=== PATIENT | female | born 1955 | race Caucasian/White ===

== ENCOUNTER 2017-08-26 11:22 | Emergency (ER) | payer OTHER ==
--- NOTE | 2017-08-26 13:25 | ER ---
Nurse's Notes [facility] Name: Makenna Ferrari Age: 61 yrs Sex: Female : 1955 Arrival Date: 08/26/2017 Time: 11:26 Bed 12 Private MD: Gretta Larkin Diagnosis: Insect bite (nonvenomous) of left back wall of thorax;Nausea Presentation: 08/26 11:35 Presenting complaint: Patient states: i was bitten by carpet beetle and larvae, i hj noticed 2 days ago; reports chills and nausea;. Transition of care: patient was not received from another setting of care. Onset of symptoms was August 26, 2017. Initial Sepsis Screen: Does the patient meet any 2 criteria? No. Patient's initial sepsis screen is negative. Does the patient have a suspected source of infection? No. Patient's initial sepsis screen is negative. Care prior to arrival: None. 11:35 Method Of Arrival: Ambulatory 11:35 Acuity: SALLY 4 hj Triage Assessment: 11:37 General: Appears in no apparent distress. uncomfortable, Behavior is calm, cooperative, hj appropriate for age. Pain: Denies pain. GI: Reports nausea. Historical: - Allergies: 11:37 Aspirin; hj 11:37 Codeine; hj 11:37 tramadol; hj - Home Meds: 11:37 benzonatate 100 mg Oral cap 1 cap 3 times per day [Active]; OxyContin 60 mg Oral Tb12 1 hj tab every 12 hours [Active]; ProAir HFA 90 mcg/actuation inhalation HFAA 1 puff every 4-6 hours [Active]; Spiriva Respimat 2.5 mcg/actuation inhalation mist 2 puffs once daily [Active]; - PMHx: 11:37 COPD; Renal Disease; hj - PSHx: 11:37 Appendectomy; Hysterectomy; hj - Immunization history:: Adult Immunizations up to date. - Social history:: Smoking status: Patient/guardian denies using tobacco, Patient/guardian denies using alcohol. Screenin:13 Abuse screen: Denies threats or abuse. Denies injuries from another. Nutritional iw screening: No deficits noted. Tuberculosis screening: No symptoms or risk factors identified. Fall Risk None identified. Assessment: 11:37 GI: Abdomen is non-distended. hj 13:00 General: Appears in no apparent distress. Behavior is calm, cooperative. Pain: iw Complains of pain in back. Neuro: Level of Consciousness is awake, alert, Oriented to person, place, time. Derm: Rash noted that is itchy. Musculoskeletal: Range of motion: intact in all extremities. Vital Signs: 11:37 BP 148 / 100; Pulse 79; Resp 20; Temp 98.4(TE); Pulse Ox 100% on 2 lpm NC; Weight 66.68 hj kg; Height 5 ft. 6 in. (167.64 cm); 11:37 Body Mass Index 23.73 (66.68 kg, 167.64 cm) ED Course: 11:26 Patient arrived in ED. mr 11:27 Gretta Larkin MD is Private Physician. mr 11:36 Triage completed. hj 11:37 Arm band placed on right wrist. hj 12:31 Angie Son, RN is Primary Nurse. iw 12:33 Gael Ferrari MD is Attending Physician. [facility] 13:23 Gretta Larkin MD is Referral Physician. [facility] 14:14 Patient has correct armband on for positive identification. Bed in low position. Call iw light in reach. 14:14 No provider procedures requiring assistance completed. Patient did not have IV access iw during this emergency room visit. Administered Medications: 13:30 Drug: Doxycycline 100 mg Route: PO; hj 14:14 Follow up: Response: No adverse reaction iw Outcome: 13:24 Discharge ordered by . [facility] 14:13 Patient left the ED. iw 14:14 Discharged to home ambulatory, with family. iw 14:14 Condition: stable 14:14 Discharge instructions given to patient, family, Instructed on discharge instructions, follow up and referral plans. medication usage, Demonstrated understanding of instructions, follow-up care, medications, Prescriptions given X 3. Signatures: Gael Ferrari MD MD cha Rivera, Maria mr Angie Son, RN RN Ld Doss RN RN
--- NOTE | 2017-08-26 13:25 | EDPHYS ---
Physician Documentation [facility] Name: Makenna Ferrari Age: 61 yrs Sex: Female : 1955 Arrival Date: 08/26/2017 Time: 11:26 Bed 12 Private MD: Gretta Larkin ED Physician VegaGael HPI: 08/26 13:18 This 61 yrs old Female presents to ER via Ambulatory with complaints of nav Nausea, Insect Bite. 13:18 The patient presents to the emergency department with nausea. Onset: The nav symptoms/episode began/occurred 2 day(s) ago. Possible causes: unknown. The symptoms are aggravated by nothing. The symptoms are alleviated by nothing. Historical: - Allergies: 11:37 Aspirin; hj 11:37 Codeine; hj 11:37 tramadol; hj - Home Meds: 11:37 benzonatate 100 mg Oral cap 1 cap 3 times per day [Active]; OxyContin 60 mg Oral Tb12 1 hj tab every 12 hours [Active]; ProAir HFA 90 mcg/actuation inhalation HFAA 1 puff every 4-6 hours [Active]; Spiriva Respimat 2.5 mcg/actuation inhalation mist 2 puffs once daily [Active]; - PMHx: 11:37 COPD; Renal Disease; hj - PSHx: 11:37 Appendectomy; Hysterectomy; hj - Immunization history:: Adult Immunizations up to date. - Social history:: Smoking status: Patient/guardian denies using tobacco, Patient/guardian denies using alcohol. ROS: 13:20 Constitutional: Negative for fever, chills, and weight loss, Eyes: Negative for injury, nav pain, redness, and discharge, ENT: Negative for injury, pain, and discharge, Neck: Negative for injury, pain, and swelling, Cardiovascular: Negative for chest pain, palpitations, and edema, Respiratory: Negative for shortness of breath, cough, wheezing, and pleuritic chest pain, Abdomen/GI: Negative for abdominal pain, nausea, vomiting, diarrhea, and constipation, Back: Negative for injury and pain, : Negative for injury, bleeding, discharge, and swelling, MS/Extremity: Negative for injury and deformity, Neuro: Negative for headache, weakness, numbness, tingling, and seizure, Psych: Negative for depression, anxiety, suicide ideation, homicidal ideation, and hallucinations, Allergy/Immunology: Negative for hives, rash, and allergies, Endocrine: Negative for neck swelling, polydipsia, polyuria, polyphagia, and marked weight changes, Hematologic/Lymphatic: Negative for swollen nodes, abnormal bleeding, and unusual bruising. 13:20 Skin: Positive for rash. Exam: 13:20 Constitutional: This is a well developed, well nourished patient who is awake, alert, nav and in no acute distress. Head/Face: Normocephalic, atraumatic. Eyes: Pupils equal round and reactive to light, extra-ocular motions intact. Lids and lashes normal. Conjunctiva and sclera are non-icteric and not injected. Cornea within normal limits. Periorbital areas with no swelling, redness, or edema. ENT: Nares patent. No nasal discharge, no septal abnormalities noted. Tympanic membranes are normal and external auditory canals are clear. Oropharynx with no redness, swelling, or masses, exudates, or evidence of obstruction, uvula midline. Mucous membranes moist. Neck: Trachea midline, no thyromegaly or masses palpated, and no cervical lymphadenopathy. Supple, full range of motion without nuchal rigidity, or vertebral point tenderness. No Meningismus. Chest/axilla: Normal chest wall appearance and motion. Nontender with no deformity. No lesions are appreciated. Cardiovascular: Regular rate and rhythm with a normal S1 and S2. No gallops, murmurs, or rubs. Normal PMI, no JVD. No pulse deficits. Respiratory: Lungs have equal breath sounds bilaterally, clear to auscultation and percussion. No rales, rhonchi or wheezes noted. No increased work of breathing, no retractions or nasal flaring. Abdomen/GI: Soft, non-tender, with normal bowel sounds. No distension or tympany. No guarding or rebound. No evidence of tenderness throughout. Back: No spinal tenderness. No costovertebral tenderness. Full range of motion. Female : Normal external genitalia. MS/ Extremity: Pulses equal, no cyanosis. Neurovascular intact. Full, normal range of motion. Neuro: Awake and alert, GCS 15, oriented to person, place, time, and situation. Cranial nerves II-XII grossly intact. Motor strength 5/5 in all extremities. Sensory grossly intact. Cerebellar exam normal. Normal gait. Psych: Awake, alert, with orientation to person, place and time. Behavior, mood, and affect are within normal limits. 13:20 Skin: injury, bite(s), superficial. Vital Signs: 11:37 BP 148 / 100; Pulse 79; Resp 20; Temp 98.4(TE); Pulse Ox 100% on 2 lpm NC; Weight 66.68 hj kg; Height 5 ft. 6 in. (167.64 cm); 11:37 Body Mass Index 23.73 (66.68 kg, 167.64 cm) MDM: 12:33 Patient medically screened. [facility] 13:23 Data reviewed: vital signs, nurses notes. [facility] Administered Medications: 13:30 Drug: Doxycycline 100 mg Route: PO; 14:14 Follow up: Response: No adverse reaction iw Disposition: 08/26/17 13:24 Discharged to Home. Impression: Insect bite (nonvenomous) of left back wall of thorax, Nausea. - Condition is Stable. - Discharge Instructions: Insect Bite, [id number], Insect Bite, Nausea, Adult. - Prescriptions for Benadryl 25 mg Oral Capsule - take 1 capsule by ORAL route every 6 hours As needed; 30 tablet. Zofran 4 mg Oral Tablet - take 1 tablet by ORAL route every 12 hours As needed; 10 tablet. Doxycycline Hyclate 100 mg Oral Tablet - take 1 tablet by ORAL route every 12 hours; 14 tablet. - Medication Reconciliation Form, Thank You Letter, Antibiotic Education, Prescription Opioid Use form. - Follow up: Gretta Larkin MD; When: 2 - 3 days; Reason: Recheck today's complaints, Continuance of care, Re-evaluation by your physician. - Problem is new. - Symptoms have improved. Signatures: Gael Ferrari MD MD cha Williams, Irene, RN RN Ld Doss RN RN Corrections: (The following items were deleted from the chart) 14:13 13:24 08/26/2017 13:24 Discharged to Home. Impression: Insect bite (nonvenomous) of iw left back wall of thorax; Nausea. Condition is Stable. Forms are Medication Reconciliation Form, Thank You Letter, Antibiotic Education, Prescription Opioid Use. Follow up: Gretta Larkin; When: 2 - 3 days; Reason: Recheck today's complaints, Continuance of care, Re-evaluation by your physician. Problem is new. Symptoms have improved. nav
[2017-08-26] MEDS ORDERED: DOXYCYCLINE 100 MG CAP PO ONE (13:33)
== END 2017-08-26 14:13 | disposition home or self-care (01) ==
LOC: ER 11:22
DX: S20.462A Insect bite (nonvenomous) of left back wall of thorax, initial encounter (principal); J44.9 Chronic obstructive pulmonary disease, unspecified; Z88.5 Allergy status to narcotic agent; Z88.6 Allergy status to analgesic agent
CPT/HCPCS: 99283

== ENCOUNTER 2017-12-08 15:41 | Emergency (ER) | payer OTHER ==
[2017-12-08] MEDS ORDERED: HYDROCODONE/APAP 7.5/325 MG TAB ONE (16:37)
--- NOTE | 2017-12-08 17:03 | RAD REPORT ---
EXAM DESCRIPTION: RAD - Lumbar Spine 3 Views - 12/08/2017 4:50 pm CLINICAL HISTORY: Back pain FINDINGS: The bones are osteoporotic. No fracture or dislocation is seen. Moderate disc space narrowing involves L4-5 and L5-S1
--- NOTE | 2017-12-08 17:04 | RAD REPORT ---
EXAM DESCRIPTION: RAD - Knee Right 3 View - 12/08/2017 4:50 pm CLINICAL HISTORY: Right knee pain status post fall FINDINGS: No fracture or dislocation is seen. The bones are osteoporotic
--- NOTE | 2017-12-08 17:09 | EDPHYS ---
Physician Documentation [facility] Name: Makenna Ferrari Age: 62 yrs Sex: Female : 1955 Arrival Date: 12/08/2017 Time: 15:27 Bed 27 Private MD: ED Physician Delio Dickinson HPI: 12/08 15:52 This 62 yrs old Female presents to ER via EMS with complaints of Back Pain, cp Knee Pain. 15:52 The patient presents with pain that is acute, and an injury. The symptoms are located cp in the low back. 15:55 Associated signs and symptoms: Pertinent negatives: abdominal pain, chest pain, cp constipation, fever, headache, incontinence, numbness, weakness. 15:55 The problem was sustained during a fall, patient reports fall occurred 10 days ago at home, went to [facility] and was evaluated but concerned because xrays were not taken of knee and lower back. Historical: - Allergies: 15:31 Aspirin; ss 15:31 Codeine; ss 15:31 tramadol; ss - Home Meds: 16:21 benzonatate 100 mg Oral cap 1 cap 3 times per day [Active]; OxyContin 60 mg Oral Tb12 1 rv tab every 12 hours [Active]; ProAir HFA 90 mcg/actuation inhalation HFAA 1 puff every 4-6 hours [Active]; Spiriva Respimat 2.5 mcg/actuation inhalation mist 2 puffs once daily [Active]; - PMHx: 15:31 COPD; Renal Disease; Lupus; chronic back pain; ss - PSHx: 15:31 Appendectomy; Hysterectomy; colectomy; ss - Immunization history:: Adult Immunizations up to date. - Social history:: Smoking status: Patient/guardian denies using tobacco. - Ebola Screening: : Patient denies exposure to infectious person Patient denies travel to an Ebola-affected area in the 21 days before illness onset. ROS: 16:00 Constitutional: Negative for body aches, chills, fever, poor PO intake. cp 16:00 Eyes: Negative for injury, pain, redness, and discharge. cp 16:00 Neck: Negative for pain with movement, pain at rest, stiffness. cp 16:00 Cardiovascular: Negative for chest pain, edema, palpitations. 16:00 Respiratory: Negative for cough, shortness of breath, wheezing. 16:00 Abdomen/GI: Negative for abdominal pain, nausea, vomiting, and diarrhea, black/tarry cp stool, rectal bleeding. 16:00 Back: Positive for pain at rest, pain with movement, of the lumbar area. 16:00 MS/extremity: Positive for pain, of the right hip and right knee, Negative for decreased range of motion, deformity, paresthesias. 16:00 Skin: Negative for cellulitis, rash. 16:00 Neuro: Negative for altered mental status, headache, loss of consciousness, syncope, near syncope, weakness. 16:00 All other systems are negative. Exam: 16:05 Constitutional: The patient appears in no acute distress, alert, awake, cp non-diaphoretic, non-toxic, well developed, well nourished. 16:05 Head/Face: Normocephalic, atraumatic. cp 16:05 Eyes: Periorbital structures: appear normal, Conjunctiva: normal, no exudate, no injection, Sclera: no appreciated abnormality, Lids and lashes: appear normal, bilaterally. 16:05 ENT: External ear(s): are unremarkable, Nose: is normal, Mouth: is normal, Posterior pharynx: is normal, airway is patent, no erythema, no exudate. 16:05 Neck: ROM/movement: is normal, is supple, without pain, no range of motions limitations, no meningismus, no nuchal rigidity. 16:05 Chest/axilla: Inspection: normal, Palpation: is normal, no crepitus, no tenderness. 16:05 Cardiovascular: Rate: normal, Rhythm: regular, Edema: is not appreciated, JVD: is not appreciated. 16:05 Respiratory: the patient does not display signs of respiratory distress, Respirations: normal, no use of accessory muscles, no retractions, no splinting, no tachypnea, labored breathing, is not present, Breath sounds: are clear throughout, no decreased breath sounds, no stridor, no wheezing. 16:05 Abdomen/GI: Inspection: abdomen appears normal, Bowel sounds: active, all quadrants, Palpation: abdomen is soft and non-tender, in all quadrants. 16:05 Back: pain, that is moderate, of the lumbar area and right low back, ROM is painful, Straight leg raises: right lower extremity illicits pain. 16:05 Musculoskeletal/extremity: Joints: All joints are normal except the right hip and right knee displays painful range of motion, tenderness. 16:05 Skin: cellulitis, is not appreciated, no rash present. 16:05 Neuro: Orientation: to person, place \T\ time. Mentation: lucid, able to follow commands, Cerebellar function: is grossly normal, Motor: moves all fours, strength is normal, Sensation: no obvious gross deficits. Vital Signs: 15:30 BP 180 / 104; Pulse 87; Resp 20; Temp 98.5(O); Pulse Ox 96% on R/A; Weight 68.04 kg; ss Height 5 ft. 6 in. (167.64 cm); Pain 10/10; 16:56 BP 113 / 73; Pulse 101; Pulse Ox 100% on R/A; rv 15:30 Body Mass Index 24.21 (68.04 kg, 167.64 cm) ss MDM: 15:27 Patient medically screened. cp 16:00 Differential diagnosis: chronic back pain, Fracture spinal injury, Ureterolithiasis cp vertebral fracture, sciatica, knee fracture, hip fracture. 17:07 Data reviewed: vital signs, nurses notes, radiologic studies, plain films. cp 17:07 Test interpretation: by ED physician or midlevel provider: plain radiologic studies. cp Counseling: I had a detailed discussion with the patient and/or guardian regarding: the historical points, exam findings, and any diagnostic results supporting the discharge/admit diagnosis, radiology results, the need for outpatient follow up, a family practitioner, to return to the emergency department if symptoms worsen or persist or if there are any questions or concerns that arise at home. Response to treatment: the patient's symptoms have mildly improved after treatment. 17:07 ED course: VSS. Xrays reviewed and negative for acute fracture. Will discharge to home cp for continued monitoring. 12/08 15:50 Order name: XRAY Lumbar Spine (3 Views); Complete Time: 17:06 cp 12/08 17:06 Interpretation: Report reviewed. cp 12/08 15:50 Order name: XRAY Pelvis; Complete Time: 17:23 cp 12/08 17:23 Interpretation: Report reviewed. cp 12/08 15:50 Order name: XRAY Hip RIGHT 2 view; Complete Time: 17:23 cp 12/08 17:23 Interpretation: Report reviewed. cp 12/08 15:50 Order name: XRAY Knee RIGHT 3 view; Complete Time: 17:06 cp 12/08 17:06 Interpretation: Report reviewed. cp 12/08 17:00 Order name: Crutches; Complete Time: 17:53 cp 12/08 17:00 Order name: Misc. Order: ambulate patient; Complete Time: 17:53 cp Administered Medications: 16:56 Drug: Hydrocodone-Acetaminophen (7.5 mg-325 mg) 1 tabs Route: PO; rv 17:20 Follow up: Response: Pain is unchanged, physician notified rv 17:20 Drug: Flexeril 10 mg Route: PO; rv 17:21 Follow up: Response: Medication administered at discharge. rv 17:20 Drug: fentaNYL (PF) 25 mcg Route: IM; Site: left deltoid; rv 17:21 Follow up: Response: Medication administered at discharge. rv 17:20 Drug: Phenergan 25 mg Route: IM; Site: right deltoid; rv 17:20 Follow up: Response: Medication administered at discharge. rv Disposition: 12/08/17 17:08 Discharged to Home. Impression: Low back pain - s/p fall, Pain in right knee - s/p fall, Pain in right hip - s/p fall. - Condition is Stable. - Discharge Instructions: Back Pain, Adult, Knee Pain, Hip Pain, Back Exercises, [id number]. - Prescriptions for Cyclobenzaprine 10 mg Oral Tablet - take 1 tablet by ORAL route every 8 hours As needed; 20 tablet. - Medication Reconciliation Form, Thank You Letter, Antibiotic Education, Prescription Opioid Use form. - Follow up: Private Physician; When: Tomorrow; Reason: Recheck today's complaints. - Problem is new. - Symptoms have improved. Addendum: 12/11/2017 10:13 Co-signature as Attending Physician, Delio Dickinson MD I agree with the assessment and k dr plan of care. Signatures: Dispatcher [employer] EDMN Delio Dickinson MD MD [facility] Virginia Garland RN RN ss Gael Mensah PA PA cp Rocky Figueroa RN RN rv Corrections: (The following items were deleted from the chart) 12/08 17:54 17:08 12/08/2017 17:08 Discharged to Home. Impression: Low back pain - s/p fall; Pain rv in right knee - s/p fall; Pain in right hip - s/p fall. Condition is Stable. Forms are Medication Reconciliation Form, Thank You Letter, Antibiotic Education, Prescription Opioid Use. Follow up: Private Physician; When: Tomorrow; Reason: Recheck today's complaints. Problem is new. Symptoms have improved. cp
--- NOTE | 2017-12-08 17:09 | ER ---
Nurse's Notes [facility] Name: Makenna Ferrari Age: 62 yrs Sex: Female : 1955 Arrival Date: 12/08/2017 Time: 15:27 Bed 27 Private MD: Diagnosis: Low back pain-s/p fall;Pain in right knee-s/p fall;Pain in right hip-s/p fall Presentation: 12/08 15:28 Presenting complaint: EMS states: fell from standing position 10 days ago, was seen at [facility] and reports that she did not have XRAYs taken. Pain to R hip, R thigh and R hip has been getting increasingly worse over time. Transition of care: patient was not received from another setting of care. Onset of symptoms was November 28, 2017. Risk Assessment: Do you want to hurt yourself or someone else? Patient reports no desire to harm self or others. Initial Sepsis Screen: Does the patient meet any 2 criteria? No. Patient's initial sepsis screen is negative. Does the patient have a suspected source of infection? No. Patient's initial sepsis screen is negative. Care prior to arrival: None. 15:28 Method Of Arrival: EMS: [facility] 15:28 Acuity: SALLY 4 Historical: - Allergies: 15:31 Aspirin; 15:31 Codeine; 15:31 tramadol; - Home Meds: 16:21 benzonatate 100 mg Oral cap 1 cap 3 times per day [Active]; OxyContin 60 mg Oral Tb12 1 rv tab every 12 hours [Active]; ProAir HFA 90 mcg/actuation inhalation HFAA 1 puff every 4-6 hours [Active]; Spiriva Respimat 2.5 mcg/actuation inhalation mist 2 puffs once daily [Active]; - PMHx: 15:31 COPD; Renal Disease; Lupus; chronic back pain; - PSHx: 15:31 Appendectomy; Hysterectomy; colectomy; - Immunization history:: Adult Immunizations up to date. - Social history:: Smoking status: Patient/guardian denies using tobacco. - Ebola Screening: : Patient denies exposure to infectious person Patient denies travel to an Ebola-affected area in the 21 days before illness onset. Screenin:20 Abuse screen: Denies threats or abuse. Denies injuries from another. Nutritional rv screening: No deficits noted. Tuberculosis screening: No symptoms or risk factors identified. Fall Risk None identified. Assessment: 16:00 General: Appears in no apparent distress. uncomfortable, Behavior is cooperative, rv crying. 16:00 Pain: Complains of pain in right knee, right groin, back. Neuro: Level of Consciousness rv is awake, alert, obeys commands, Oriented to person, place, time, situation. Cardiovascular: Capillary refill < 3 seconds. Respiratory: Airway is patent. GI: No signs and/or symptoms were reported involving the gastrointestinal system. : No signs and/or symptoms were reported regarding the genitourinary system. EENT: No signs and/or symptoms were reported regarding the EENT system. Derm: Skin is intact. 16:57 Reassessment: Patient appears in no apparent distress at this time. Patient and/or rv family updated on plan of care and expected duration. Pain level reassessed. Patient is alert, oriented x 3, equal unlabored respirations, skin warm/dry/pink. Vital Signs: 15:30 BP 180 / 104; Pulse 87; Resp 20; Temp 98.5(O); Pulse Ox 96% on R/A; Weight 68.04 kg; ss Height 5 ft. 6 in. (167.64 cm); Pain 10/10; 16:56 BP 113 / 73; Pulse 101; Pulse Ox 100% on R/A; rv 15:30 Body Mass Index 24.21 (68.04 kg, 167.64 cm) ED Course: 15:27 Patient arrived in ED. dm5 15:27 Gael Mensah PA is PHCP. cp 15:27 Delio Dickinson MD is Attending Physician. cp 15:29 Triage completed. ss 15:30 Arm band placed on right wrist. ss 16:21 Patient has correct armband on for positive identification. Placed in gown. Bed in low rv position. Call light in reach. Side rails up X 1. media monitor on. Pulse ox on. NIBP on. 16:40 X-ray completed. Patient tolerated procedure well. Patient moved back from radiology. kp1 16:50 XRAY Lumbar Spine (3 Views) In Process Unspecified. EDMS 16:50 XRAY Pelvis In Process Unspecified. EDMS 16:50 XRAY Hip RIGHT 2 view In Process Unspecified. EDMS 16:50 XRAY Knee RIGHT 3 view In Process Unspecified. EDMS 17:53 No provider procedures requiring assistance completed. Patient did not have IV access rv during this emergency room visit. Administered Medications: 16:56 Drug: Hydrocodone-Acetaminophen (7.5 mg-325 mg) 1 tabs Route: PO; rv 17:20 Follow up: Response: Pain is unchanged, physician notified rv 17:20 Drug: Flexeril 10 mg Route: PO; rv 17:21 Follow up: Response: Medication administered at discharge. rv 17:20 Drug: fentaNYL (PF) 25 mcg Route: IM; Site: left deltoid; rv 17:21 Follow up: Response: Medication administered at discharge. rv 17:20 Drug: Phenergan 25 mg Route: IM; Site: right deltoid; rv 17:20 Follow up: Response: Medication administered at discharge. rv Outcome: 17:08 Discharge ordered by MD. cp 17:54 Discharged to home via wheelchair. rv 17:54 Condition: good 17:54 Discharge instructions given to patient, family, Instructed on discharge instructions, follow up and referral plans. medication usage, crutch walking, Prescriptions given X 1. 17:54 Patient left the ED. rv Signatures: Dispatcher [employer] EDAR Ayleen Wheatley RN RN dm5 Virginia Garland RN RN Gael Chowdhury PA PA Anila Interiano kp1 Rocky Figueroa RN RN rv Corrections: (The following items were deleted from the chart) 17:54 16:19 Inserted saline lock: 22 gauge in right forearm, using aseptic technique. rv rv
--- NOTE | 2017-12-08 17:12 | RAD REPORT ---
EXAM DESCRIPTION: RAD - Pelvis - 12/08/2017 4:50 pm CLINICAL HISTORY: Right hip pain status post fall FINDINGS: No fracture or dislocation is seen. If the patient continues to have symptoms to suggest an occult fracture then an MRI would be recommen d
--- NOTE | 2017-12-08 17:12 | RAD REPORT ---
EXAM DESCRIPTION: RAD - Hip Right 2 View - 12/08/2017 4:50 pm CLINICAL HISTORY: Right hip pain FINDINGS: The bones are osteoporotic. No fracture or dislocation is seen. If the patient continues to have symptoms to suggest an occult fracture then MRI would be recommended
[2017-12-08] MEDS ORDERED: CYCLOBENZAPRINE 10 MG TAB ONE (17:14)
[2017-12-08] MEDS ORDERED: PROMETHAZINE 25 MG/ML VIAL ONE (17:14)
[2017-12-08] MEDS ORDERED: FENTANYL CITR 100 MCG/2 ML ONE (17:15)
== END 2017-12-08 17:54 | disposition home or self-care (01) ==
LOC: ER 15:41
DX: M54.5 Low back pain (principal); M25.551 Pain in right hip; M25.561 Pain in right knee; W19.XXXA Unspecified fall, initial encounter; Y93.9 Activity, unspecified; Y92.9 Unspecified place or not applicable; Z88.6 Allergy status to analgesic agent; Z88.5 Allergy status to narcotic agent; J44.9 Chronic obstructive pulmonary disease, unspecified
CPT/HCPCS: 72100; 72170; 96372; 99284; J2550; J3010

== ENCOUNTER 2018-09-23 07:31 | Emergency (ER) | payer OTHER ==
--- OUTSIDE RECORDS SUMMARY | 2018-09-23 07:32 | XMS REPORT ---
:1955 Author Organization eClinicalWorks Care Team Providers Name Role Phone Larkin, Na Provider Role Unavailable Allergies, Adverse Reactions, Alerts Substance Reaction Event Type Ultram vomiting Drug Allergy Aspirin vomiting Drug Allergy Problems Problem Type Condition Code Onset Dates Condition Status Assessment Pure hypercholesterolemia E78.00 Active Assessment Rheumatoid arthritis involving M06.9 Active knee, unspecified laterality, unspecified rheumatoid factor presence Assessment Prediabetes R73.03 Active Assessment Renal insufficiency N28.9 Active Assessment DJD (degenerative joint disease), M51.37 Active lumbosacral Assessment Impetigo L01.00 Active Problem Gastro-esophageal reflux disease K21.9 Active without esophagitis Problem Depression with anxiety F41.8 Active Problem Lupus erythematosus, unspecified L93.0 Active form Problem Panic attack F41.0 Active Problem Prediabetes R73.03 Active Problem Renal failure, unspecified N19 Active Problem Renal insufficiency N28.9 Active Problem Hyperglycemia R73.9 Active Problem Screening for osteoporosis Z13.820 Active Problem DJD (degenerative joint disease), M51.37 Active lumbosacral Problem Rheumatoid arthritis involving M06.9 Active knee, unspecified laterality, unspecified rheumatoid factor presence Problem COPD (chronic obstructive pulmonary J44.9 Active disease) Problem Benign essential HTN I10 Active Problem Impetigo L01.00 Active Problem Lupus (systemic lupus M32.9 Active erythematosus) Problem Other chronic pain G89.29 Active Problem Increased urinary frequency R35.0 Active Problem Right sided sciatica M54.31 Active Problem Pain, joint, knee, right M25.561 Active Assessment Other chronic pain G89.29 Active Problem GERD (gastroesophageal reflux K21.9 Active disease) Assessment Pain in right knee M25.561 Active Problem Family history of diabetes mellitus Z83.3 Active Problem Hyperlipidemia E78.5 Active Assessment Lupus erythematosus, unspecified L93.0 Active form Problem Insomnia G47.00 Active Problem Chronic kidney disease, stage 3 N18.3 Active Problem Pure hypercholesterolemia E78.00 Active Problem Prediabetes R73.09 Active Problem H/O TIA (transient ischemic attack) Z86.73 Active and stroke Medications Medication Code Code Instructions Start End Status Dosage System Date Date Tizanidine HCl [facility] 48160069258 2 MG Orally two Jan 21, Jan 31, Active 1 tablet as times a day 2017 [address] [facility] 33174293768 18 MCG Active 1 capsule HandiHaler Inhalation Once a day Cephalexin [facility] 77812575025 500 MG Orally Jan 21, Jan 28, Active 1 capsule every 12 hrs [address] [facility] 87308500017 15 MG Orally Active 1 tablet at Once a day bedtime Doxycycline [facility] 85138733126 100 MG Orally Jan 21, Active 1 capsule Hyclate twice a day [address] [facility] 03525856846 75 MG Active TAKE 1 TABLET BY MOUTH EVERY DAY. Diflucan [facility] 36170306604 150 MG Orally Active [address] [facility] 67796989891 0.5 MG Orally Active 1 tablet Twice a day Brovana [facility] 81111439381 15 MCG/2ML Active 2 ml Inhalation Twice a day Mupirocin [facility] 89793391565 2 % Externally Jan 21, Active 1 application two times a day 2017 to affected area Metoprolol [facility] 13677759480 25 MG Orally Active 1/2 tablet Tartrate Twice a day with food Keflex [facility] 77925834605 500 MG Orally Active 1 capsule every [address] [facility] 38774911808 5 % Active APPLY ALL OVER ONCE A DAY FOR 7 DAYS,THEN TWICE A WEEK UNTIL SKIN IS CLEAR OxyContin [facility] 75083124747 60 MG Orally Active 1 tablet every [address] [facility] 89906434995 4 MG Orally Active 2 tablets Once a day Results No Known Results Summary Purpose eClinicalWorks Submission
--- OUTSIDE RECORDS SUMMARY | 2018-09-23 07:33 | XMS REPORT ---
:1955 Author Organization e[employer]Works Care Team Providers Name Role Phone Larkin, Na Provider Role Unavailable Allergies, Adverse Reactions, Alerts Substance Reaction Event Type Ultram vomiting Drug Allergy Aspirin vomiting Drug Allergy Problems Problem Type Condition Code Onset Dates Condition Status Assessment Thyroid nodule E04.1 Active Assessment Prediabetes R73.03 Active Assessment Pure hypercholesterolemia E78.00 Active Assessment Depression with anxiety F41.8 Active Assessment Benign essential HTN I10 Active Problem H/O TIA (transient ischemic attack) Z86.73 Active and stroke Problem Chronic kidney disease, stage 3 N18.3 Active Problem Renal failure, unspecified N19 Active Problem Family history of diabetes mellitus Z83.3 Active Problem Renal insufficiency N28.9 Active Problem Increased urinary frequency R35.0 Active Problem Prediabetes R73.09 Active Problem Other chronic pain G89.29 Active Problem Lupus erythematosus, unspecified L93.0 Active form Problem Screening for osteoporosis Z13.820 Active Problem Impetigo L01.00 Active Problem DJD (degenerative joint disease), M51.37 Active lumbosacral Problem Hyperlipidemia E78.5 Active Problem COPD (chronic obstructive pulmonary J44.9 Active disease) Problem Thyroid nodule E04.1 Active Problem Benign essential HTN I10 Active Problem Pain, joint, knee, right M25.561 Active Problem Prediabetes R73.03 Active Problem Rheumatoid arthritis involving M06.9 Active knee, unspecified laterality, unspecified rheumatoid factor presence Problem Right sided sciatica M54.31 Active Assessment Renal insufficiency N28.9 Active Problem Gastro-esophageal reflux disease K21.9 Active without esophagitis Assessment H/O TIA (transient ischemic attack) Z86.73 Active and stroke Problem Depression with anxiety F41.8 Active Problem Insomnia G47.00 Active Problem GERD (gastroesophageal reflux K21.9 Active disease) Problem Pure hypercholesterolemia E78.00 Active Problem Hyperglycemia R73.9 Active Problem Panic attack F41.0 Active Problem Lupus (systemic lupus M32.9 Active erythematosus) Medications Medication Code Code Instructions Start End Status Dosage System Date Date Plavix [facility] 78790918073 75 MG Active take 1 tablet by mouth every day. Metoprolol [facility] 87678861989 25 MG Orally Inactive 1/2 tablet Tartrate Twice a day with food Zofran [facility] 94955543191 4 MG Orally Active 2 tablets Once a day Brovana [facility] 23871614259 15 MCG/2ML Active 2 ml Inhalation Twice a day Keflex [facility] 64770063175 500 MG Orally Active 1 capsule every 12 hrs Mirtazapine [facility] 37446639641 15 MG Orally Active 1 tablet Once a day at bedtime Xanax [facility] 09857849187 0.5 MG Orally Active 1 tablet Twice a day OxyContin [facility] 00913391568 60 MG Orally Active 1 tablet every 12 hrs Permethrin [facility] 26379541633 5 % Active APPLY ALL OVER ONCE A DAY FOR 7 DAYS,THEN TWICE A WEEK UNTIL SKIN IS CLEAR Spiriva [facility] 75628160173 18 MCG Active 1 capsule HandiHaler Inhalation Once a day Diflucan [facility] 04990508051 150 MG Orally Active 1 tablet Amlodipine [facility] 29724638022 5 MG Orally May 27, Active 1 tablet Besylate Once a day if 2018 SBP >160 Results No Known Results Summary Purpose eClinicalWorks Submission
--- OUTSIDE RECORDS SUMMARY | 2018-09-23 07:33 | XMS REPORT ---
:1955 Author Organization eClinicalWorks Care Team Providers Name Role Phone Larkin, Na Provider Role Unavailable Allergies No Known Allergies Problems Problem Type Condition Code Onset Dates Condition Status Problem H/O TIA (transient ischemic attack) Z86.73 [...] presence Problem Right sided sciatica M54.31 Active Problem Gastro-esophageal reflux disease K21.9 Active without esophagitis Problem Depression with anxiety F41.8 Active Problem Insomnia G47.00 Active Problem GERD (gastroesophageal reflux K21.9 Active disease) Problem Pure hypercholesterolemia E78.00 Active Problem Hyperglycemia R73.9 Active Problem Panic attack F41.0 Active Problem Lupus (systemic lupus M32.9 Active erythematosus) Medications Medication Code System Code Instructions Start Date End Date Status Dosage Plavix [facility] 38359727057 75 MG Active TAKE 1 TABLET BY MOUTH EVERY DAY. Results No Known Results Summary Purpose eClinicalWorks Submission
[2018-09-23] MEDS ORDERED: METHYLPREDNISOLONE 125 MG INJ ONE (08:13)
[2018-09-23] MEDS ORDERED: NA CHLORIDE 0.9% 500 ML ONE (08:14)
[2018-09-23] MEDS ORDERED: LEVALBUTEROL 1.25 MG/3 ML NEB ONE (08:14)
[2018-09-23 08:37] LABS: Absolute Lymphocytes (CBC) 0.7 K/uL (0.7-4.9); Absolute Monocytes 1.3 K/uL (0.1-1.3); Absolute Neutrophil 10.7 K/uL (1.8-8.0); Basophils % 0.5 % (0-1.3); Eosinophils % 0.1 % (0-4.4); Hematocrit 35.7 % (36.0-45.0); Lymphocytes % 5.7 % (15.3-44.8); MPV 9.5 fL (7.6-11.3); RBC Red Blood Cell Count 4.25 M/uL (3.86-4.86)
[2018-09-23 08:40] LABS: Potassium 4.5 mmol/L (3.5-5.1)
--- NOTE | 2018-09-23 10:02 | RAD REPORT ---
EXAM DESCRIPTION: RAD - Chest Pa And Lat (2 Views) - 09/23/2018 8:33 am CLINICAL HISTORY: Cough;COPD;Dyspnea Chest pain. COMPARISON: Chest Single View dated 07/05/2017; Chest Single View dated 07/04/2016; CHEST SINGLE VIEW dated 04/15/2011; CHEST PA AND LAT 2 VIEW dated 02/26/2008 FINDINGS: Mild interstitial pulmonary edema seen. Linear atelectasis is present in the left lower lo be. The heart is mildly enlarged in size. No displaced fractures. IMPRESSION: Mild COPD.
--- NOTE | 2018-09-23 10:08 | EDPHYS ---
Physician Documentation [facility] Name: Makenna Ferrari Age: 62 yrs Sex: Female : 1955 Arrival Date: 09/23/2018 Time: 07:33 Bed 19 Private MD: Gretta Larkin ED Physician Kota Ann HPI: 09/23 07:47 This 62 yrs old Female presents to ER via Unassigned with complaints of rn Breathing Difficulty. 07:47 The patient has shortness of breath at rest, with light activity. Onset: The rn symptoms/episode began/occurred 1 week(s) ago. Duration: The symptoms are continuous. The patient's shortness of breath is aggravated by coughing, exertion, light activity. Severity of symptoms: At their worst the symptoms were moderate in the emergency department the symptoms are unchanged. The patient has experienced similar episodes in the past. The patient has been recently seen by a physician:. Reports sent here for chest xray by Dr. Cai, has been coughing and increased sob for 1 week, + productive cough, has been on prednisone daily, ran out of nebulizer meds, + subjective fever. . Historical: - Allergies: 07:30 Aspirin; hj 07:30 Codeine; hj 07:30 tramadol; hj - PMHx: 07:30 chronic back pain; COPD; Lupus; Renal Disease; hj - PSHx: 07:30 Appendectomy; Hysterectomy; colectomy; hj - Immunization history:: Adult Immunizations up to date. - Social history:: Smoking status: Patient/guardian denies using tobacco, Patient/guardian denies using alcohol. - Family history:: not pertinent. - Ebola Screening: : Patient negative for fever greater than or equal to 101.5 degrees Fahrenheit, and additional compatible Ebola Virus Disease symptoms Patient denies exposure to infectious person Patient denies travel to an Ebola-affected area in the 21 days before illness onset. - Hospitalizations: : No recent hospitalization is reported. 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 ENT: dry MM, no stridor or oral swelling Cardiovascular: Regular rate and rhythm, No pulse deficits. Respiratory: + mild tachypnea with bilateral coarse breath sounds and exp wheezing Abdomen/GI: soft, non-tender MS/ Extremity: Pulses equal, no cyanosis. Neurovascular intact. Full, normal range of motion. Equal circumference. Neuro: Awake and alert, GCS 15, oriented to person, place, time, and situation. Cranial nerves II-XII grossly intact. Motor strength 5/5 in all extremities. Sensory grossly intact. Vital Signs: 07:30 BP 108 / 67; Pulse 88; Resp 26; Temp 98.5(O); Pulse Ox 98% on 2 lpm NC; Weight 72.57 hj kg; Height 5 ft. 6 in. (167.64 cm); 09:08 BP 102 / 69; Pulse 90; Resp 18; Pulse Ox 100% on 2 lpm NC; hj 07:30 Body Mass Index 25.82 (72.57 kg, 167.64 cm) hj MDM: 07:36 Patient medically screened. rn 10:05 Differential diagnosis: Bronchitis Chronic Obstructive Pulmonary Disease pneumonia, rn Pneumothorax pulmonary edema. Data reviewed: vital signs, nurses notes, lab test result(s), radiologic studies, plain films, and as a result, I will discharge patient. Counseling: I had a detailed discussion with the patient and/or guardian regarding: the historical points, exam findings, and any diagnostic results supporting the discharge/admit diagnosis, lab results, radiology results, the need for outpatient follow up, to return to the emergency department if symptoms worsen or persist or if there are any questions or concerns that arise at home. Response to treatment: the patient's symptoms have mildly improved after treatment, and as a result, I will discharge patient. Special discussion: I discussed with the patient/guardian in detail that at this point there is no indication for admission to the hospital. It is understood, however, that if the symptoms persist or worsen the patient needs to return immediately for re-evaluation. ED course: Pt with negative procalcitonin, CXR without pneumonia, WBC 12 K but also on steroids, will prescribe zithromax given COPD and change in productive cough, refill xopenex, and f/u with Dr. Cai again.. 06 07:47 Order name: CBC with Diff; Complete Time: 08:59 rn 09/23 07:47 Order name: Basic Metabolic Panel; Complete Time: 08:59 rn 09/23 07:47 Order name: XRAY Chest Pa And Lat (2 Views); Complete Time: 10:03 rn 09/23 07:47 Order name: Blood Culture Adult (2) rn 09/23 07:47 Order name: Procalcitonin; Complete Time: 09:03 rn 09/23 07:47 Order name: Flu; Complete Time: 08:59 rn 09/23 07:47 Order name: IV Start; Complete Time: 08:20 rn Administered Medications: 07:50 Drug: Xopenex (3) 1.25 mg Route: Inhalation; hj 09:04 Follow up: Response: No adverse reaction; Wheezing unchanged hj 08:10 Drug: SOLU-Medrol 125 mg Route: IVP; Site: right antecubital; hj 09:04 Follow up: Response: No adverse reaction hj 08:10 Drug: NS 0.9% 500 ml Route: IV; Rate: bolus; Site: right antecubital; hj 10:31 Follow up: Response: No adverse reaction; IV Status: Completed infusion; IV Intake: aj 500ml 09:28 Drug: AtroVENT Aerosol 0.5 mg Route: Inhalation; hj 10:19 Follow up: Response: Wheezing diminished hj Disposition: 09/23/18 10:07 Discharged to Home. Impression: Chronic obstructive pulmonary disease with (acute) exacerbation. - Condition is Stable. - Discharge Instructions: Chronic Obstructive Pulmonary Disease Exacerbation. - Prescriptions for levalbuterol HCl 1.25 mg/3 mL Inhalation solution for nebulization - inhale 3 milliliter by NEBULIZATION route every 6 hours As needed; 1 box. Prednisone 20 mg Oral Tablet - take 3 tablet by ORAL route once daily for 5 days; 15 tablet. Zithromax Z- Roland 250 mg Oral Tablet - take 1 tablet by ORAL route as directed for 5 days Day 1 - take two (2) tablets one time. Day 2, 3, 4 , 5 take one (1) tablet once daily.; 6 tablet. - Medication Reconciliation Form, Thank You Letter, Antibiotic Education, Prescription Opioid Use form. - Follow up: Dominick Cai; When: 2 - 3 days; Reason: Recheck today's complaints, Re-evaluation by your physician. - Problem is an acute exacerbation. - Symptoms have improved. Signatures: Dispatcher [employer] EDOR Vickie Dukes RN RN aj Nieto, Roman, MD MD rn Joaquin, Henry, RN RN hj Corrections: (The following items were deleted from the chart) 10:31 10:07 09/23/2018 10:07 Discharged to Home. Impression: Chronic obstructive pulmonary aj disease with (acute) exacerbation. Condition is Stable. Discharge Instructions: Chronic Obstructive Pulmonary Disease Exacerbation. Prescriptions for levalbuterol HCl 1.25 mg/3 mL Inhalation solution for nebulization - inhale 3 milliliter by NEBULIZATION route every 6 hours As needed; 1 box, Prednisone 20 mg Oral Tablet - take 3 tablet by ORAL route once daily for 5 days; 15 tablet, Zithromax Z-Roland 250 mg Oral Tablet - take 1 tablet by ORAL route as directed for 5 days Day 1 - take two (2) tablets one time. Day 2, 3, 4 , 5 take one (1) tablet once daily.; 6 tablet. and Forms are Medication Reconciliation Form, Thank You Letter, Antibiotic Education, Prescription Opioid Use. Follow up: Dominick Cai; When: 2 - 3 days; Reason: Recheck today's complaints, Re-evaluation by your physician. Problem is an acute exacerbation. Symptoms have improved. rn
--- NOTE | 2018-09-23 10:08 | ER ---
Nurse's Notes [facility] Name: Makenna Ferrari Age: 62 yrs Sex: Female : 1955 Arrival Date: 09/23/2018 Time: 07:33 Bed 19 Private MD: Gretta Larkin Diagnosis: Chronic obstructive pulmonary disease with (acute) exacerbation Presentation: 09/23 07:30 Presenting complaint: Patient states: i have been having this breathing problems for hj couple of days now, i felt wheezing and productive cough; denies fever, reports chills;. 07:30 Transition of care: patient was not received from another setting of care. Onset of hj symptoms was September 23, 2018. Risk Assessment: Do you want to hurt yourself or someone else? Patient reports no desire to harm self or others. Initial Sepsis Screen: Does the patient meet any 2 criteria? No. Patient's initial sepsis screen is negative. Does the patient have a suspected source of infection? No. Patient's initial sepsis screen is negative. Care prior to arrival: None. 07:30 Method Of Arrival: Wheelchair 07:30 Acuity: SALLY 3 hj Triage Assessment: 07:30 General: Appears in no apparent distress. uncomfortable, Behavior is cooperative, hj appropriate for age, anxious. Pain: Complains of pain in chest. Respiratory: Onset: The symptoms/episode began/occurred. Respiratory: Reports labored breathing the patient has mild shortness of breath. Historical: - Allergies: 07:30 Aspirin; hj 07:30 Codeine; hj 07:30 tramadol; hj - PMHx: 07:30 chronic back pain; COPD; Lupus; Renal Disease; hj - PSHx: 07:30 Appendectomy; Hysterectomy; colectomy; hj - Immunization history:: Adult Immunizations up to date. - Social history:: Smoking status: Patient/guardian denies using tobacco, Patient/guardian denies using alcohol. - Family history:: not pertinent. - Ebola Screening: : Patient negative for fever greater than or equal to 101.5 degrees Fahrenheit, and additional compatible Ebola Virus Disease symptoms Patient denies exposure to infectious person Patient denies travel to an Ebola-affected area in the 21 days before illness onset. - Hospitalizations: : No recent hospitalization is reported. Screenin:30 Abuse screen: Denies threats or abuse. Denies injuries from another. Nutritional hj screening: No deficits noted. Tuberculosis screening: No symptoms or risk factors identified. Fall Risk None identified. Assessment: 07:30 Cardiovascular: Rhythm is. Respiratory: Airway is patent Respiratory effort is labored, hj Respiratory pattern is regular, symmetrical, Breath sounds are coarse Breath sounds with crackles. 08:24 Reassessment: wheeled to XRAY;. hj 09:19 Reassessment: Patient and/or family updated on plan of care and expected duration. Pain hj level reassessed. Patient is alert, oriented x 3, equal unlabored respirations, skin warm/dry/pink. awaiting XRAYresults; Patient states feeling better. Vital Signs: 07:30 BP 108 / 67; Pulse 88; Resp 26; Temp 98.5(O); Pulse Ox 98% on 2 lpm NC; Weight 72.57 hj kg; Height 5 ft. 6 in. (167.64 cm); 09:08 BP 102 / 69; Pulse 90; Resp 18; Pulse Ox 100% on 2 lpm NC; hj 07:30 Body Mass Index 25.82 (72.57 kg, 167.64 cm) ED Course: 07:30 Arm band placed on right wrist. hj 07:30 Patient has correct armband on for positive identification. Bed in low position. Call light in reach. Side rails up X2. Adult w/ patient. 07:33 Patient arrived in ED. ag5 07:35 Gretta Larkin MD is Private Physician. ag5 07:36 Kota Ann MD is Attending Physician. rn 07:43 Ld Doss RN is Primary Nurse. hj 07:52 Triage completed. hj 08:03 Radiology exam delayed due to patient receiving breathing treatment at this time. sw 08:10 Initial lab(s) drawn, by oh, sent to lab. First set of blood cultures drawn by oh. hj 08:20 Inserted saline lock: 20 gauge in right antecubital area, using aseptic technique. Blood collected. 08:23 Patient moved to radiology via wheelchair. sw 08:27 X-ray completed. Patient tolerated procedure well. sw 08:31 Patient moved back from radiology. sw 08:31 XRAY Chest Pa And Lat (2 Views) In Process Unspecified. EDMS 10:07 Dominick Cai MD is Referral Physician. rn 10:23 Vickie Dukes, RN is Primary Nurse. aj 10:30 No provider procedures requiring assistance completed. IV discontinued, intact, aj bleeding controlled, No redness/swelling at site. Pressure dressing applied. Administered Medications: 07:50 Drug: Xopenex (3) 1.25 mg Route: Inhalation; hj 09:04 Follow up: Response: No adverse reaction; Wheezing unchanged hj 08:10 Drug: SOLU-Medrol 125 mg Route: IVP; Site: right antecubital; hj 09:04 Follow up: Response: No adverse reaction hj 08:10 Drug: NS 0.9% 500 ml Route: IV; Rate: bolus; Site: right antecubital; hj 10:31 Follow up: Response: No adverse reaction; IV Status: Completed infusion; IV Intake: aj 500ml 09:28 Drug: AtroVENT Aerosol 0.5 mg Route: Inhalation; hj 10:19 Follow up: Response: Wheezing diminished hj Intake: 10:31 IV: 500ml; Total: 500ml. aj Outcome: 10:07 Discharge ordered by MD. rn 10:30 Discharged to home via wheelchair, with family. aj 10:30 Condition: good 10:30 Discharge instructions given to patient, significant other, Instructed on discharge instructions, follow up and referral plans. medication usage, Demonstrated understanding of instructions, follow-up care, medications, Prescriptions given X 3. 10:31 Patient left the ED. aj Signatures: Dispatcher [employer] EDMS Vickie Dukes, RN Kota Smalls MD MD rn Warren, Shannon sw Joaquin, Henry, RN RN hj Gaskin, Ajare ag5 Corrections: (The following items were deleted from the chart) 08:24 07:30 Respiratory: Airway is patent Respiratory effort is labored, Respiratory pattern hj is regular, symmetrical, Breath sounds are clear hj
== END 2018-09-23 10:31 | disposition home or self-care (01) ==
LOC: ER 07:31
DX: J44.1 Chronic obstructive pulmonary disease with (acute) exacerbation (principal); Z88.5 Allergy status to narcotic agent; Z88.6 Allergy status to analgesic agent
CPT/HCPCS: 36415; 71046; 80048; 84145; 85025; 87040; 87804; 96361; 96374; 99284; J2930

== ENCOUNTER 2022-10-23 06:51 | Inpatient (IN) | payer OTHER ==
--- OUTSIDE RECORDS SUMMARY | 2022-10-23 06:57 | XMS REPORT | Continuity of Care Document ---
:1955 Author Organization [facility] t Address [address] [place] [address]. [address] [place] [address] Care Team Providers Name Role Phone No, Pcp [facility] Primary Care Physician Unavailable Sada Renner Attending Clinician Unavailable Sola Yeung Attending Clinician Unavailable Coelho, Na L Attending Clinician Unavailable CANDY COVARRUBIAS Attending Clinician Unavailable TYRONE GARCIA Attending Clinician Unavailable COELHO, Na L Admitting Clinician Unavailable Payers Payer Name Policy Type Policy Number Effective Date Expiration Date [place] [id number] [id number] 2020 [facility] D[facility] 00:00:00 [facility] [place] [id number] 2020 [facility] D[facility] 00:00:00 [facility] [place] [id number] 2016 [facility] 00:00:00 [facility] [place] [address] [id number] 2020 [facility] DUAL 00:00:00 [facility] - [facility] [id number] 2018 PLAN 00:00:00 Problems Condition Condition Condition Status Onset Resolution Last Treating Co mments Source Name Details Category Date Date Treatment Clinician Date [id number] Depression Problem Co mmon , major, Spirit recurrent, - [facility]I moderate [facility] [id number] Age Problem Common related Spirit osteoporos - CHI is, St unspecifie [facility] Medical pathologic Center al fracture presence [id number] Anxiety Problem Common Spirit - [facility] [id number] Mammogram Problem Com mon abnormal Spirit - [facility] Stage 3b Stage 3b Problem Commo n chronic chronic Spirit kidney kidney - CHI disease disease St (CKD) (CKD) [facility] History of H/O TIA Problem Comm on cerebrovas (transient Sp mary cular ischemic - CHI accident attack) St without and stroke Critical access hospital Medical deficits Center FH: Family Problem Common Diabetes history of Spir it mellitus diabetes - CHI mellitus [facility] Chronic +5th digit Problem Comm on kidney eff Spirit disease 01/20/20*Ch - CHI stage 3 ronic kidney [facility] disease, Medical stage 3 Center Essential Benign Problem Common hypertensi essential Spi rit on HTN - [facility] Prediabete Prediabete Problem C ommon s s [facility] Hyperlipid Hyperlipid Problem C ommon emia emia [facility] COPD - COPD Problem Common Chronic (chronic Spirit obstructiv obstructiv - CHI e e St pulmonary pulmonary Rhodhiss s disease disease) Medical Center Lupus Lupus Problem Common 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 - [facility] anthony erythemato [facility] [id number] Renal Problem Common insufficie Spirit ncy - [facility] [id number] Hyperglyce Problem Com mon karime Spirit - [facility] Chronic Other Problem Common pain chronic Spirit pain - [facility] [id number] Increased Problem Com mon urinary Spirit frequency - [facility] [id number] Screening Problem Com mon for Spirit osteoporos - CHI is [facility] [id number] Pain, Problem Common joint, Spirit knee, - CHI right [facility] [id number] Right Problem Common sided Spirit sciatica - [facility] [id number] Type 2 Problem Common diabetes Spirit mellitus - [facility]I with diabetic [facility] chronic Medical kidney Center disease Gastroesop GERD Problem Commo n hageal (gastroeso Spirit reflux phageal - CHI disease reflux St disease) [facility] Insomnia Insomnia Problem Commo n Spirit - [facility] Gastro-eso Gastro-eso Problem C ommon phageal phageal Spirit reflux reflux - CHI disease disease St without without [facility] esophagiti esophagiti Me dical s s Center [id number] Rheumatoid Problem Co mmon arthritis Spirit involving - CHI knee, St unspecifie [facility] d Medical laterality Center , unspecifie d rheumatoid factor presence [id number] 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), lumbosacra [facility] [id number] Impetigo Problem Commo n Spirit - [facility] [id number] Thyroid Problem Commo n nodule [facility] Iron Other iron Problem Commo n deficiency deficiency Sp mary anemia anemia - [facility] Rheumatoid Rheumatoid Problem C ommon arthritis arthritis Spir it in in - CHI remission remission [facility] [id number] Atopic Problem Common dermatitis Spirit , - CHI unspecifie St d type [facility] Multiple Multiple Problem Commo n thyroid thyroid Spirit nodules nodules - [facility] Allergies, Adverse Reactions, Alerts Allergy Allergy Status Severity Reaction(s) Onset Inactive Treating Comm ents Source Name Type Date Date Clinician PANTOPRA Allergy Active [facility] 00[facility]: Medical 00 Center Pantopra Drug Active [facility] zole Allergy 6-15 [facility] 00:[facility]: Medical 00 Center CPM-PSEU Allergy Active [facility] DOEPH-DM 3-13 [facility] -ACETAMI 00:00: Medical NOPHEN 00 Center NSAIDS Allergy Active [facility] (NON-HELADIO 3-13 [facility] ROIDAL 00:00: Medical ANTI-INF 00 Center LAMMATOR Y DRUG) Cpm-Pseu Drug Active C [facility] doeph-Dm Allergy 3-13 [facility] -Acetami 00:00: Medical nophen 00 Center Nsaids Drug Active [facility] (Non-Heladio Allergy 3-13 [facility] roidal 00:00: Medical Anti-Inf 00 Center lammator y Drug) CODEINE Allergy Active Other [address] [facility] 3[facility]17 [facility] 00:00: Medical 00 Center TRAMADOL Allergy Active Other [facility] 3[facility]17 [facility] 00:00: Medical 00 Center Codeine Propensi Active Other (See WAS [facility] St ty to Comments) 3-17 BROUGHT [facility] adverse 00:00: TO er Medical reaction 00 DOESN'T Center s REMEMBER Tramadol Propensi Active Other (See CH I St ty to Comments), 17 [facility] adverse Nausea And 00:00: Medic al reaction Vomiting 00 Center s ASPIRIN Allergy Active Other [facility] 9- [facility] 00:00: Medical 00 Center Aspirin Propensi Active Other (See [facility] ty to Comments), 01-14 [facility] adverse Nausea And 00:00: Medic al reaction Vomiting 00 Center s SULFA Allergy Active N\T\V 2010-[address] (SULFONA 0-28 [facility] MIDE 00:00: Medical ANTIBIOT 00 Center ICS) Sulfa Propensi Active Nausea And 2010-[address] (Sulfona ty to Vomiting 0-28 [facility] mide adverse 00:00: Medical Antibiot reaction 00 Center ics) s tramadol tramadol Active vomiting Comm on Spirit - [facility] aspirin aspirin Active vomiting Common Spirit [facility] Social History Social Habit Start Date Stop Date Quantity Comments Source History of Tobacco Common Spirit - Use [facility] History SDOH [facility] Alcohol Std Drinks Medica l Center History SDOH [facility] Alcohol Binge Medical Angela ter Tobacco use and 2019-11-12 2019-11-[address] [facility] exposure 00:00:00 00:00:00 tobacco user Medical Cent er Alcohol intake 2019-11-12 2019-11-[address] [facility] es 00:00:00 00:00:00 non-drinker of Medical Ce nter alcohol (finding) History SDOH 2019-11-12 2019-11-[address] [facility] Alcohol Frequency 00:00:00 00:00:00 Medical Center Sex Assigned At [address] [facility] 00:00:00 00:00:00 Medical Center Smoking Status Start Date Stop Date Source Former Smoker 2022-02-19 00:00:00 2022-02-19 00:00:00 Common S pirit - CHI [facility] Medications Ordered Filled Start Stop Current Ordering Indication Dosage Frequency Signature Comments Components Source Medication Medication Date Date Medication? Clinician (SIG) Name Name Katiana Saab 2021-04 No 2{puffs BID Daciaztri Aerosphere Aerosphere 04-21 } Aerosphere 160-9-4.8 160-9-4.8 00:00: 160-9-4.8 MCG/ACT MCG/ACT 00 MCG/ACT Daciaztri Caesartri 2021-04 No 2{puffs BID Daciaztri Aerosphere Aerosphere 04-21 } Aerosphere 160-9-4.8 160-9-4.8 00:00: 160-9-4.8 MCG/ACT MCG/ACT 00 MCG/ACT Daciaztri Caesartri 2021-04 No 2{puffs BID Daciaztri Aerosphere Aerosphere 04-21 } Aerosphere 160-9-4.8 160-9-4.8 00:00: 160-9-4.8 MCG/ACT MCG/ACT 00 MCG/ACT Alendronate Alendronate 2021- No Alendronat Sodium 70 Sodium 70 2-15 08-14 e Sodium MG MG 00:00: 00:00 70 MG 00 :00 Alendronate Alendronate 2021- No Alendronat Sodium 70 Sodium 70 2-15 08-14 e Sodium MG MG 00:00: 00:00 70 MG 00 :00 Alendronate Alendronate 2021- No Alendronat Sodium 70 Sodium 70 2-15 08-14 e Sodium MG MG 00:00: 00:00 70 MG 00 :00 Alendronate Alendronate 2021- No Alendronat Sodium 70 Sodium 70 2-15 08-14 e Sodium MG MG 00:00: 00:00 70 MG 00 :00 Alendronate Alendronate 2021- No Alendronat Sodium 70 Sodium 70 2-15 08-14 e Sodium MG MG 00:00: 00:00 70 MG 00 :00 Alendronate Alendronate 2021- No Alendronat Sodium 70 Sodium 70 2-15 08-14 e Sodium MG MG 00:00: 00:00 70 MG 00 :00 Triamcinolo Triamcinolo 2020-04 No 1{appli BID Triamcinol ne ne 0-13 cation_ one Acetonide Acetonide 00:00: to_affe Acetonide 0.1 % 0.1 % 00 cted_ar 0.1 % ea} Triamcinolo Triamcinolo 2020-04 No 1{appli BID ne ne 0-13 cation_ Acetonide Acetonide 00:00: to_affe 0.1 % 0.1 % 00 cted_ar ea} Triamcinolo Triamcinolo 2020-04 No 1{appli BID Triamcinol ne ne 0-13 cation_ one Acetonide Acetonide 00:00: to_affe Acetonide 0.1 % 0.1 % 00 cted_ar 0.1 % ea} Triamcinolo Triamcinolo 2020-04 No 1{appli BID Triamcinol ne ne 0-13 cation_ one Acetonide Acetonide 00:00: to_affe Acetonide 0.1 % 0.1 % 00 cted_ar 0.1 % ea} Triamcinolo Triamcinolo 2020-04 No 1{appli BID Triamcinol ne ne 0-13 cation_ one Acetonide Acetonide 00:00: to_affe Acetonide 0.1 % 0.1 % 00 cted_ar 0.1 % ea} Triamcinolo Triamcinolo 2020-04 No 1{appli BID Triamcinol ne ne 0-13 cation_ one Acetonide Acetonide 00:00: to_affe Acetonide 0.1 % 0.1 % 00 cted_ar 0.1 % ea} Triamcinolo Triamcinolo 2020-04 No 1{appli BID Triamcinol ne ne 0-13 cation_ one Acetonide Acetonide 00:00: to_affe Acetonide 0.1 % 0.1 % 00 cted_ar 0.1 % ea} Triamcinolo Triamcinolo 2020- No 1{appli BID Triamcinol ne ne 0-13 cation_ one Acetonide Acetonide 00:00: to_affe Acetonide 0.1 % 0.1 % 00 cted_ar 0.1 % ea} Triamcinolo Triamcinolo 2020-04 No 1{appli BID Triamcinol ne ne 0-13 cation_ one Acetonide Acetonide 00:00: to_affe Acetonide 0.1 % 0.1 % 00 cted_ar 0.1 % ea} Triamcinolo Triamcinolo 2020-04 No 1{appli BID Triamcinol ne ne 0-13 cation_ one Acetonide Acetonide 00:00: to_affe Acetonide 0.1 % 0.1 % 00 cted_ar 0.1 % ea} Triamcinolo Triamcinolo 2020-04 No 1{appli BID Triamcinol ne ne 0-13 cation_ one Acetonide Acetonide 00:00: to_affe Acetonide 0.1 % 0.1 % 00 cted_ar 0.1 % ea} Triamcinolo Triamcinolo 2020-04 No 1{appli BID Triamcinol ne ne 0-13 cation_ one Acetonide Acetonide 00:00: to_affe Acetonide 0.1 % 0.1 % 00 cted_ar 0.1 % ea} Triamcinolo Triamcinolo 2020-04 No 1{appli BID Triamcinol ne ne 0-13 cation_ one Acetonide Acetonide 00:00: to_affe Acetonide 0.1 % 0.1 % 00 cted_ar 0.1 % ea} Triamcinolo Triamcinolo 2020-04 No 1{appli BID Triamcinol ne ne 0-13 cation_ one Acetonide Acetonide 00:00: to_affe Acetonide 0.1 % 0.1 % 00 cted_ar 0.1 % ea} Triamcinolo Triamcinolo 2020-04 No 1{appli BID Triamcinol ne ne 0-13 cation_ one Acetonide Acetonide 00:00: to_affe Acetonide 0.1 % 0.1 % 00 cted_ar 0.1 % ea} Triamcinolo Triamcinolo 2020-04 No 1{appli BID Triamcinol ne ne 0-13 cation_ one Acetonide Acetonide 00:00: to_affe Acetonide 0.1 % 0.1 % 00 cted_ar 0.1 % ea} Triamcinolo Triamcinolo 2020-04 No 1{appli BID Triamcinol ne ne 0-13 cation_ one Acetonide Acetonide 00:00: to_affe Acetonide 0.1 % 0.1 % 00 cted_ar 0.1 % ea} Triamcinolo Triamcinolo 2020-04 No 1{appli BID Triamcinol ne ne 0-13 cation_ one Acetonide Acetonide 00:00: to_affe Acetonide 0.1 % 0.1 % 00 cted_ar 0.1 % ea} Triamcinolo Triamcinolo 2020-04 No 1{appli BID Triamcinol ne ne 0-13 cation_ one Acetonide Acetonide 00:00: to_affe Acetonide 0.1 % 0.1 % 00 cted_ar 0.1 % ea} Zofran 4 MG Zofran 4 MG No BID Zofran 4 6-09 MG 00:00: 00 Keflex Keflex 2020- No Na Coelho 1 capsule Common 12-14- Spirit 00:00: 00:00 - CHI 00 :00 [facility] amLODIPine 2019- Yes [address] (NORVASC) 5 7-24 [facility] MG tablet 15:38: Medical 39 [place] roflumilast 0 Yes 250ug Take [address] (DALIRESP) 7-24 mcg by [facility]ukes 250 mcg Tab 15:36: mouth Pt. M edical 30 Takes 500 Center mcg. clopidogreL Yes take [address] (PLAVIX) 75 7-24 tablet by Binh es mg tablet 15:36: mouth Medical 30 every day. Center gabapentin Yes as [facility] (NEURONTIN) 7-24 directed Luke s 300 MG 15:34: Medical capsule 14 Center zolpidem Yes 10mg Take [address] (AMBIEN) 10 7-24 by mouth. Binh es mg tablet 15:21: Medical 36 [place] permethrin Yes APPLY ALL [facility] I St (ELIMITE) 5 7-24 OVER ONCE Binh es % cream 15:21: A DAY FOR Medic al 36 7 Center DAYS,THEN TWICE A WEEK UNTIL SKIN IS CLEAR Gabapentin Gabapentin Yes Na Coelho as Common 3-17 directed Spirit 00:00: - CHI 00 [facility] pravastatin Yes [address] (PRAVACHOL) 9-09 [facility] 40 MG 00:00: Medical tablet 00 [place] Rosuvastati Rosuvastati Yes Na Coelho 1 tablet Common n Calcium n Calcium 8-30 Spiri t 00:00: - CHI 00 [facility] levalbutero 2016-04 [address] Inhale [facility] (XOPENEX) 1-30 0.63 mg by Ronda kes 0.63 mg/3 00:00: mouth via Med ical mL 00 inhaler. [place] nebulizer solution tiotropium Yes [address] (SPIRIVA 3-17 [facility] WITH 00:00: Medical HANDIHALER) 00 [place] 18 mcg inhalation capsule mirtazapine Yes [address] (REMERON) 3-17 at bedtime Luke s 7.5 MG 00:00: Medical tablet 00 [place] clonazePAM Yes .5mg Take 0.[address] (KLONOPIN) 7-10 mg by [facility]ukes 0.5 MG 00:00: mouth Medical tablet 00 daily as Center needed . Amlodipine Amlodipine Yes Na Coelho 1 tablet Common Besylate Besylate [facility] Zofran Zofran Yes Na Coelho 2 tablets Com mon [facility] Mirtazapine Mirtazapine Yes Na Coelho 1 tablet Common at bedtime [facility] Plavix Plavix Yes Na Coelho take 1 Common tablet by Spirit mouth - CHI every day. [facility] Permethrin Permethrin Yes Na Coelho APPLY ALL Common OVER ONCE Spirit A DAY FOR - [facility]I 7 St DAYS,THEN [facility] TWICE A Medical WEEK UNTIL Center SKIN IS CLEAR Brovana Brovana Yes Na Coelho 2 ml Common [facility] Diflucan Diflucan Yes Na Coelho 1 tablet [facility] Xanax Xanax Yes Na Coelho 1 tablet [facility] OxyContin OxyContin Yes Na Coelho 1 tablet [facility] Daliresp Daliresp Yes Na Coelho 1 tablet [facility] Spiriva Spiriva Yes Na Coelho 1 capsule C ommon HandiHaler HandiHaler Spi rit - CHI [facility] Pravastatin Pravastatin Yes Na Coelho TAKE 1 Common Sodium Sodium TABLET BY Spirit MOUTH - CHI EVERY DAY [facility] Amlodipine Amlodipine Yes Na Coelho TAKE 1 Common Besylate Besylate TABLET BY Sp mary MOUTH ONCE - CHI DAILY IF St SBP>160 [facility] Clopidogrel Clopidogrel Yes Na Coelho TAKE 1 Common Bisulfate Bisulfate TABLET BY Spirit MOUTH - CHI EVERY DAY [facility] Brovana 15 Brovana 15 No 2{ml} BID Brovana 15 MCG/2ML MCG/2ML MCG/2ML Rosuvastati Rosuvastati No 1{table QD Rosuvastat n Calcium 5 n Calcium 5 t} in Calcium MG MG 5 MG Permethrin Permethrin No Permethrin 5 % 5 % 5 % Daliresp Daliresp No 1{table QD Daliresp 250 MCG 250 MCG t} 250 MCG Spiriva Spiriva No 1{capsu QD Spiriva HandiHaler HandiHaler le} HandiHaler 18 MCG 18 MCG 18 MCG Mirtazapine Mirtazapine No Mirtazapin 7.5 MG 7.5 MG e 7.5 MG Mupirocin 2 Mupirocin 2 No 1{appli TID Mupirocin % % cation_ 2 % to_affe cted_ar ea} Xanax 0.5 Xanax 0.5 No 1{table BID Xanax 0.5 MG MG t} MG Diflucan Diflucan No 1{table Diflucan 150 MG 150 MG t} 150 MG amLODIPine amLODIPine No 1{table amLODIPine Besylate 5 Besylate 5 t} Besylate 5 MG MG MG Gabapentin Gabapentin No Gabapentin 300 MG 300 MG 300 MG Pravastatin Pravastatin No Pravastati Sodium 40 Sodium 40 n Sodium MG MG 40 MG Keflex 500 Keflex 500 No 1{capsu BID Keflex 500 MG MG le} MG Mirtazapine Mirtazapine No 1{table QD Mirtazapin 7.5 MG 7.5 MG t_at_be e 7.5 MG dtime} Clopidogrel Clopidogrel No Clopidogre Bisulfate Bisulfate l 75 MG 75 MG Bisulfate 75 MG OxyCONTIN OxyCONTIN No 1{table BID OxyCONTIN 60 MG 60 MG t} 60 MG amLODIPine amLODIPine No amLODIPine Besylate 5 Besylate 5 Besylate 5 MG MG MG Zofran 4 MG Zofran 4 MG No BID Zofran 4 MG Zofran 4 MG Zofran 4 MG No 2{table QD Zofran 4 ts} MG Plavix 75 Plavix 75 No Plavix 75 MG MG MG Brovana 15 Brovana 15 No 2{ml} BID MCG/2ML MCG/2ML Rosuvastati Rosuvastati No 1{table QD n Calcium 5 n Calcium 5 t} MG MG Permethrin Permethrin No 5 % 5 % Daliresp Daliresp No 1{table QD 250 MCG 250 MCG t} Spiriva Spiriva No 1{capsu QD HandiHaler HandiHaler le} 18 MCG 18 MCG Mirtazapine Mirtazapine No 7.5 MG 7.5 MG Mupirocin 2 Mupirocin 2 No 1{appli TID % % cation_ to_affe cted_ar ea} Xanax 0.5 Xanax 0.5 No 1{table BID MG MG t} Diflucan Diflucan No 1{table 150 MG 150 MG t} amLODIPine amLODIPine No 1{table Besylate 5 Besylate 5 t} MG MG Gabapentin Gabapentin No 300 MG 300 MG Pravastatin Pravastatin No Sodium 40 Sodium 40 MG MG Keflex 500 Keflex 500 No 1{capsu BID MG MG le} Mirtazapine Mirtazapine No 1{table QD 7.5 MG 7.5 MG t_at_be dtime} Clopidogrel Clopidogrel No Bisulfate Bisulfate 75 MG 75 MG OxyCONTIN OxyCONTIN No 1{table BID 60 MG 60 MG t} amLODIPine amLODIPine No Besylate 5 Besylate 5 MG MG Zofran 4 MG Zofran 4 MG No BID Zofran 4 MG Zofran 4 MG No 2{table QD ts} Plavix 75 Plavix 75 No MG MG Xanax 0.5 Xanax 0.5 No 1{table BID Xanax 0.5 MG MG t} MG Mupirocin 2 Mupirocin 2 No Mupirocin % % 2 % Brovana 15 Brovana 15 No 2{ml} BID Brovana 15 MCG/2ML MCG/2ML MCG/2ML Gabapentin Gabapentin No Gabapentin 300 MG 300 MG 300 MG Ondansetron Ondansetron No Ondansetro HCl 4 MG HCl 4 MG n HCl 4 MG amLODIPine amLODIPine No amLODIPine Besylate 5 Besylate 5 Besylate 5 MG MG MG Spiriva Spiriva No 1{capsu QD Spiriva HandiHaler HandiHaler le} HandiHaler 18 MCG 18 MCG 18 MCG Pravastatin Pravastatin No Pravastati Sodium 40 Sodium 40 n Sodium MG MG 40 MG amLODIPine amLODIPine No 1{table amLODIPine Besylate 5 Besylate 5 t} Besylate 5 MG MG MG Daliresp Daliresp No 1{table QD Daliresp 250 MCG 250 MCG t} 250 MCG Clopidogrel Clopidogrel No Clopidogre Bisulfate Bisulfate l 75 MG 75 MG Bisulfate 75 MG OxyCONTIN OxyCONTIN No 1{table BID OxyCONTIN 60 MG 60 MG t} 60 MG Rosuvastati Rosuvastati No 1{table QD Rosuvastat n Calcium 5 n Calcium 5 t} in Calcium MG MG 5 MG Zofran 4 MG Zofran 4 MG No 2{table QD Zofran 4 ts} MG Mirtazapine Mirtazapine No Mirtazapin 7.5 MG 7.5 MG e 7.5 MG Diflucan Diflucan No 1{table Diflucan 150 MG 150 MG t} 150 MG Keflex 500 Keflex 500 No 1{capsu BID Keflex 500 MG MG le} MG Mirtazapine Mirtazapine No 1{table QD Mirtazapin 7.5 MG 7.5 MG t_at_be e 7.5 MG dtime} Permethrin Permethrin No Permethrin 5 % 5 % 5 % Plavix 75 Plavix 75 No Plavix 75 MG MG MG Xanax 0.5 Xanax 0.5 No 1{table BID Xanax 0.5 MG MG t} MG Mupirocin 2 Mupirocin 2 No Mupirocin % % 2 % Brovana 15 Brovana 15 No 2{ml} BID Brovana 15 MCG/2ML MCG/2ML MCG/2ML Gabapentin Gabapentin No Gabapentin 300 MG 300 MG 300 MG Ondansetron Ondansetron No Ondansetro HCl 4 MG HCl 4 MG n HCl 4 MG amLODIPine amLODIPine No amLODIPine Besylate 5 Besylate 5 Besylate 5 MG MG MG Spiriva Spiriva No 1{capsu QD Spiriva HandiHaler HandiHaler le} HandiHaler 18 MCG 18 MCG 18 MCG Pravastatin Pravastatin No Pravastati Sodium 40 Sodium 40 n Sodium MG MG 40 MG amLODIPine amLODIPine No 1{table amLODIPine Besylate 5 Besylate 5 t} Besylate 5 MG MG MG Daliresp Daliresp No 1{table QD Daliresp 250 MCG 250 MCG t} 250 MCG Clopidogrel Clopidogrel No Clopidogre Bisulfate Bisulfate l 75 MG 75 MG Bisulfate 75 MG OxyCONTIN OxyCONTIN No 1{table BID OxyCONTIN 60 MG 60 MG t} 60 MG Rosuvastati Rosuvastati No 1{table QD Rosuvastat n Calcium 5 n Calcium 5 t} in Calcium MG MG 5 MG Zofran 4 MG Zofran 4 MG No 2{table QD Zofran 4 ts} MG Mirtazapine Mirtazapine No Mirtazapin 7.5 MG 7.5 MG e 7.5 MG Diflucan Diflucan No 1{table Diflucan 150 MG 150 MG t} 150 MG Keflex 500 Keflex 500 No 1{capsu BID Keflex 500 MG MG le} MG Mirtazapine Mirtazapine No 1{table QD Mirtazapin 7.5 MG 7.5 MG t_at_be e 7.5 MG dtime} Permethrin Permethrin No Permethrin 5 % 5 % 5 % Plavix 75 Plavix 75 No Plavix 75 MG MG MG Mirtazapine Mirtazapine No 1{table QD Mirtazapin 7.5 MG 7.5 MG t_at_be e 7.5 MG dtime} Clopidogrel Clopidogrel No Clopidogre Bisulfate Bisulfate l 75 MG 75 MG Bisulfate 75 MG Ondansetron Ondansetron No Ondansetro HCl 4 MG HCl 4 MG n HCl 4 MG Rosuvastati Rosuvastati No 1{table QD Rosuvastat n Calcium 5 n Calcium 5 t} in Calcium MG MG 5 MG amLODIPine amLODIPine No 1{table amLODIPine Besylate 5 Besylate 5 t} Besylate 5 MG MG MG Brovana 15 Brovana 15 No 2{ml} BID Brovana 15 MCG/2ML MCG/2ML MCG/2ML Spiriva Spiriva No 1{capsu QD Spiriva HandiHaler HandiHaler le} HandiHaler 18 MCG 18 MCG 18 MCG Zofran 4 MG Zofran 4 MG No 2{table QD Zofran 4 ts} MG Mupirocin 2 Mupirocin 2 No Mupirocin % % 2 % Keflex 500 Keflex 500 No 1{capsu BID Keflex 500 MG MG le} MG Gabapentin Gabapentin No Gabapentin 300 MG 300 MG 300 MG Plavix 75 Plavix 75 No Plavix 75 MG MG MG Daliresp Daliresp No 1{table QD Daliresp 250 MCG 250 MCG t} 250 MCG Permethrin Permethrin No Permethrin 5 % 5 % 5 % Mirtazapine Mirtazapine No Mirtazapin 7.5 MG 7.5 MG e 7.5 MG amLODIPine amLODIPine No amLODIPine Besylate 5 Besylate 5 Besylate 5 MG MG MG Xanax 0.5 Xanax 0.5 No 1{table BID Xanax 0.5 MG MG t} MG Diflucan Diflucan No 1{table Diflucan 150 MG 150 MG t} 150 MG Pravastatin Pravastatin No Pravastati Sodium 40 Sodium 40 n Sodium MG MG 40 MG OxyCONTIN OxyCONTIN No 1{table BID OxyCONTIN 60 MG 60 MG t} 60 MG Mirtazapine Mirtazapine No 1{table QD Mirtazapin 7.5 MG 7.5 MG t_at_be e 7.5 MG dtime} Clopidogrel Clopidogrel No Clopidogre Bisulfate Bisulfate l 75 MG 75 MG Bisulfate 75 MG Ondansetron Ondansetron No Ondansetro HCl 4 MG HCl 4 MG n HCl 4 MG Rosuvastati Rosuvastati No 1{table QD Rosuvastat n Calcium 5 n Calcium 5 t} in Calcium MG MG 5 MG amLODIPine amLODIPine No 1{table amLODIPine Besylate 5 Besylate 5 t} Besylate 5 MG MG MG Brovana 15 Brovana 15 No 2{ml} BID Brovana 15 MCG/2ML MCG/2ML MCG/2ML Spiriva Spiriva No 1{capsu QD Spiriva HandiHaler HandiHaler le} HandiHaler 18 MCG 18 MCG 18 MCG Zofran 4 MG Zofran 4 MG No 2{table QD Zofran 4 ts} MG Mupirocin 2 Mupirocin 2 No Mupirocin % % 2 % Keflex 500 Keflex 500 No 1{capsu BID Keflex 500 MG MG le} MG Gabapentin Gabapentin No Gabapentin 300 MG 300 MG 300 MG Plavix 75 Plavix 75 No Plavix 75 MG MG MG Daliresp Daliresp No 1{table QD Daliresp 250 MCG 250 MCG t} 250 MCG Permethrin Permethrin No Permethrin 5 % 5 % 5 % Mirtazapine Mirtazapine No Mirtazapin 7.5 MG 7.5 MG e 7.5 MG amLODIPine amLODIPine No amLODIPine Besylate 5 Besylate 5 Besylate 5 MG MG MG Xanax 0.5 Xanax 0.5 No 1{table BID Xanax 0.5 MG MG t} MG Diflucan Diflucan No 1{table Diflucan 150 MG 150 MG t} 150 MG Pravastatin Pravastatin No Pravastati Sodium 40 Sodium 40 n Sodium MG MG 40 MG OxyCONTIN OxyCONTIN No 1{table BID OxyCONTIN 60 MG 60 MG t} 60 MG Permethrin Permethrin No Permethrin 5 % 5 % 5 % OneTouch OneTouch No OneTouch Ultra - Ultra - Ultra - Xanax 0.5 Xanax 0.5 No 1{table BID Xanax 0.5 MG MG t} MG Mupirocin 2 Mupirocin 2 No Mupirocin % % 2 % Ondansetron Ondansetron No Ondansetro HCl 4 MG HCl 4 MG n HCl 4 MG Mirtazapine Mirtazapine No Mirtazapin 7.5 MG 7.5 MG e 7.5 MG OxyCONTIN OxyCONTIN No 1{table BID OxyCONTIN 60 MG 60 MG t} 60 MG amLODIPine amLODIPine No amLODIPine Besylate 5 Besylate 5 Besylate 5 MG MG MG Spiriva Spiriva No 1{capsu QD Spiriva HandiHaler HandiHaler le} HandiHaler 18 MCG 18 MCG 18 MCG Adjustable Adjustable No Adjustable Lancing Lancing Lancing Device - Device - Device - Keflex 500 Keflex 500 No 1{capsu BID Keflex 500 MG MG le} MG Diflucan Diflucan No 1{table Diflucan 150 MG 150 MG t} 150 MG Pravastatin Pravastatin No Pravastati Sodium 40 Sodium 40 n Sodium MG MG 40 MG Daliresp Daliresp No 1{table QD Daliresp 250 MCG 250 MCG t} 250 MCG Zofran 4 MG Zofran 4 MG No 2{table QD Zofran 4 ts} MG Plavix 75 Plavix 75 No Plavix 75 MG MG MG Lancets 30G Lancets 30G No Lancets - - 30G - Brovana 15 Brovana 15 No 2{ml} BID Brovana 15 MCG/2ML MCG/2ML MCG/2ML Rosuvastati Rosuvastati No 1{table QD Rosuvastat n Calcium 5 n Calcium 5 t} in Calcium MG MG 5 MG Clopidogrel Clopidogrel No Clopidogre Bisulfate Bisulfate l 75 MG 75 MG Bisulfate 75 MG Easy Touch Easy Touch No Easy Touch Alcohol Alcohol Alcohol Prep Medium Prep Medium Prep 70 % 70 % Medium 70 % Gabapentin Gabapentin No Gabapentin 300 MG 300 MG 300 MG Xanax 0.5 Xanax 0.5 No 1{table BID Xanax 0.5 MG MG t} MG OneTouch OneTouch No OneTouch Ultra - Ultra - Ultra - Gabapentin Gabapentin No Gabapentin 300 MG 300 MG 300 MG Mupirocin 2 Mupirocin 2 No Mupirocin % % 2 % OxyCONTIN OxyCONTIN No 1{table BID OxyCONTIN 60 MG 60 MG t} 60 MG Mirtazapine Mirtazapine No Mirtazapin 7.5 MG 7.5 MG e 7.5 MG Permethrin Permethrin No Permethrin 5 % 5 % 5 % amLODIPine amLODIPine No amLODIPine Besylate 5 Besylate 5 Besylate 5 MG MG MG Spiriva Spiriva No 1{capsu QD Spiriva HandiHaler HandiHaler le} HandiHaler 18 MCG 18 MCG 18 MCG Adjustable Adjustable No Adjustable Lancing Lancing Lancing Device - Device - Device - Keflex 500 Keflex 500 No 1{capsu BID Keflex 500 MG MG le} MG Diflucan Diflucan No 1{table Diflucan 150 MG 150 MG t} 150 MG Daliresp Daliresp No 1{table QD Daliresp 250 MCG 250 MCG t} 250 MCG Ondansetron Ondansetron No QD Ondansetro HCl 4 MG HCl 4 MG n HCl 4 MG Zofran 4 MG Zofran 4 MG No 2{table QD Zofran 4 ts} MG Rosuvastati Rosuvastati No 1{table QD Rosuvastat n Calcium 5 n Calcium 5 t} in Calcium MG MG 5 MG Lancets 30G Lancets 30G No Lancets - - 30G - Brovana 15 Brovana 15 No 2{ml} BID Brovana 15 MCG/2ML MCG/2ML MCG/2ML Pravastatin Pravastatin No Pravastati Sodium 40 Sodium 40 n Sodium MG MG 40 MG Clopidogrel Clopidogrel No Clopidogre Bisulfate Bisulfate l 75 MG 75 MG Bisulfate 75 MG Easy Touch Easy Touch No Easy Touch Alcohol Alcohol Alcohol Prep Medium Prep Medium Prep 70 % 70 % Medium 70 % Plavix 75 Plavix 75 No Plavix 75 MG MG MG Xanax 0.5 Xanax 0.5 No 1{table BID Xanax 0.5 MG MG t} MG OneTouch OneTouch No OneTouch Ultra - Ultra - Ultra - Gabapentin Gabapentin No Gabapentin 300 MG 300 MG 300 MG Mupirocin 2 Mupirocin 2 No Mupirocin % % 2 % OxyCONTIN OxyCONTIN No 1{table BID OxyCONTIN 60 MG 60 MG t} 60 MG Mirtazapine Mirtazapine No Mirtazapin 7.5 MG 7.5 MG e 7.5 MG Permethrin Permethrin No Permethrin 5 % 5 % 5 % amLODIPine amLODIPine No amLODIPine Besylate 5 Besylate 5 Besylate 5 MG MG MG Spiriva Spiriva No 1{capsu QD Spiriva HandiHaler HandiHaler le} HandiHaler 18 MCG 18 MCG 18 MCG Adjustable Adjustable No Adjustable Lancing Lancing Lancing Device - Device - Device - Keflex 500 Keflex 500 No 1{capsu BID Keflex 500 MG MG le} MG Diflucan Diflucan No 1{table Diflucan 150 MG 150 MG t} 150 MG Daliresp Daliresp No 1{table QD Daliresp 250 MCG 250 MCG t} 250 MCG Ondansetron Ondansetron No QD Ondansetro HCl 4 MG HCl 4 MG n HCl 4 MG Zofran 4 MG Zofran 4 MG No 2{table QD Zofran 4 ts} MG Rosuvastati Rosuvastati No 1{table QD Rosuvastat n Calcium 5 n Calcium 5 t} in Calcium MG MG 5 MG Lancets 30G Lancets 30G No Lancets - - 30G - Brovana 15 Brovana 15 No 2{ml} BID Brovana 15 MCG/2ML MCG/2ML MCG/2ML Pravastatin Pravastatin No Pravastati Sodium 40 Sodium 40 n Sodium MG MG 40 MG Clopidogrel Clopidogrel No Clopidogre Bisulfate Bisulfate l 75 MG 75 MG Bisulfate 75 MG Easy Touch Easy Touch No Easy Touch Alcohol Alcohol Alcohol Prep Medium Prep Medium Prep 70 % 70 % Medium 70 % Plavix 75 Plavix 75 No Plavix 75 MG MG MG Xanax 0.5 Xanax 0.5 No 1{table BID Xanax 0.5 MG MG t} MG OneTouch OneTouch No OneTouch Ultra - Ultra - Ultra - Gabapentin Gabapentin No Gabapentin 300 MG 300 MG 300 MG Mupirocin 2 Mupirocin 2 No Mupirocin % % 2 % OxyCONTIN OxyCONTIN No 1{table BID OxyCONTIN 60 MG 60 MG t} 60 MG Mirtazapine Mirtazapine No Mirtazapin 7.5 MG 7.5 MG e 7.5 MG Permethrin Permethrin No Permethrin 5 % 5 % 5 % amLODIPine amLODIPine No amLODIPine Besylate 5 Besylate 5 Besylate 5 MG MG MG Spiriva Spiriva No 1{capsu QD Spiriva HandiHaler HandiHaler le} HandiHaler 18 MCG 18 MCG 18 MCG Adjustable Adjustable No Adjustable Lancing Lancing Lancing Device - Device - Device - Keflex 500 Keflex 500 No 1{capsu BID Keflex 500 MG MG le} MG Diflucan Diflucan No 1{table Diflucan 150 MG 150 MG t} 150 MG Daliresp Daliresp No 1{table QD Daliresp 250 MCG 250 MCG t} 250 MCG Ondansetron Ondansetron No QD Ondansetro HCl 4 MG HCl 4 MG n HCl 4 MG Zofran 4 MG Zofran 4 MG No 2{table QD Zofran 4 ts} MG Rosuvastati Rosuvastati No 1{table QD Rosuvastat n Calcium 5 n Calcium 5 t} in Calcium MG MG 5 MG Lancets 30G Lancets 30G No Lancets - - 30G - Brovana 15 Brovana 15 No 2{ml} BID Brovana 15 MCG/2ML MCG/2ML MCG/2ML Pravastatin Pravastatin No Pravastati Sodium 40 Sodium 40 n Sodium MG MG 40 MG Clopidogrel Clopidogrel No Clopidogre Bisulfate Bisulfate l 75 MG 75 MG Bisulfate 75 MG Easy Touch Easy Touch No Easy Touch Alcohol Alcohol Alcohol Prep Medium Prep Medium Prep 70 % 70 % Medium 70 % Plavix 75 Plavix 75 No Plavix 75 MG MG MG Xanax 0.5 Xanax 0.5 No 1{table BID Xanax 0.5 MG MG t} MG Pravastatin Pravastatin No Pravastati Sodium 40 Sodium 40 n Sodium MG MG 40 MG Plavix 75 Plavix 75 No Plavix 75 MG MG MG amLODIPine amLODIPine No 1{table amLODIPine Besylate 5 Besylate 5 t} Besylate 5 MG MG MG Keflex 500 Keflex 500 No 1{capsu BID Keflex 500 MG MG le} MG Diflucan Diflucan No 1{table Diflucan 150 MG 150 MG t} 150 MG Alendronate Alendronate No Alendronat Sodium 70 Sodium 70 e Sodium MG MG 70 MG Mirtazapine Mirtazapine No Mirtazapin 7.5 MG 7.5 MG e 7.5 MG Spiriva Spiriva No 1{capsu QD Spiriva HandiHaler HandiHaler le} HandiHaler 18 MCG 18 MCG 18 MCG Brovana 15 Brovana 15 No 2{ml} BID Brovana 15 MCG/2ML MCG/2ML MCG/2ML Easy Touch Easy Touch No Easy Touch Alcohol Alcohol Alcohol Prep Medium Prep Medium Prep 70 % 70 % Medium 70 % Clopidogrel Clopidogrel No Clopidogre Bisulfate Bisulfate l 75 MG 75 MG Bisulfate 75 MG Gabapentin Gabapentin No Gabapentin 300 MG 300 MG 300 MG Adjustable Adjustable No Adjustable Lancing Lancing Lancing Device - Device - Device - Mupirocin 2 Mupirocin 2 No Mupirocin % % 2 % Rosuvastati Rosuvastati No 1{table QD Rosuvastat n Calcium 5 n Calcium 5 t} in Calcium MG MG 5 MG Daliresp Daliresp No 1{table QD Daliresp 250 MCG 250 MCG t} 250 MCG amLODIPine amLODIPine No amLODIPine Besylate 5 Besylate 5 Besylate 5 MG MG MG Zofran 4 MG Zofran 4 MG No 2{table QD Zofran 4 ts} MG OxyCONTIN OxyCONTIN No 1{table BID OxyCONTIN 60 MG 60 MG t} 60 MG Permethrin Permethrin No Permethrin 5 % 5 % 5 % Ondansetron Ondansetron No QD Ondansetro HCl 4 MG HCl 4 MG n HCl 4 MG OneTouch OneTouch No OneTouch Ultra - Ultra - Ultra - Lancets 30G Lancets 30G No Lancets - - 30G - amLODIPine amLODIPine No 1{table amLODIPine Besylate 5 Besylate 5 t} Besylate 5 MG MG MG Adjustable Adjustable No Adjustable Lancing Lancing Lancing Device - Device - Device - Plavix 75 Plavix 75 No Plavix 75 MG MG MG OneTouch OneTouch No OneTouch Ultra - Ultra - Ultra - Gabapentin Gabapentin No BID Gabapentin 300 MG 300 MG 300 MG Mupirocin 2 Mupirocin 2 No Mupirocin % % 2 % Pravastatin Pravastatin No Pravastati Sodium 40 Sodium 40 n Sodium MG MG 40 MG Easy Touch Easy Touch No Easy Touch Alcohol Alcohol Alcohol Prep Medium Prep Medium Prep 70 % 70 % Medium 70 % Ondansetron Ondansetron No QD Ondansetro HCl 4 MG HCl 4 MG n HCl 4 MG Zofran 4 MG Zofran 4 MG No 2{table QD Zofran 4 ts} MG Brovana 15 Brovana 15 No 2{ml} BID Brovana 15 MCG/2ML MCG/2ML MCG/2ML OxyCONTIN OxyCONTIN No 1{table BID OxyCONTIN 60 MG 60 MG t} 60 MG Diflucan Diflucan No 1{table Diflucan 150 MG 150 MG t} 150 MG Lancets 30G Lancets 30G No Lancets - - 30G - Permethrin Permethrin No Permethrin 5 % 5 % 5 % Keflex 500 Keflex 500 No 1{capsu BID Keflex 500 MG MG le} MG Rosuvastati Rosuvastati No 1{table QD Rosuvastat n Calcium 5 n Calcium 5 t} in Calcium MG MG 5 MG Alendronate Alendronate No Alendronat Sodium 70 Sodium 70 e Sodium MG MG 70 MG Mirtazapine Mirtazapine No 1{table QD Mirtazapin 7.5 MG 7.5 MG t_at_be e 7.5 MG dtime} Xanax 0.5 Xanax 0.5 No 1{table BID Xanax 0.5 MG MG t} MG Spiriva Spiriva No 1{capsu QD Spiriva HandiHaler HandiHaler le} HandiHaler 18 MCG 18 MCG 18 MCG Gabapentin Gabapentin No Gabapentin 300 MG 300 MG 300 MG amLODIPine amLODIPine No amLODIPine Besylate 5 Besylate 5 Besylate 5 MG MG MG Daliresp Daliresp No 1{table QD Daliresp 250 MCG 250 MCG t} 250 MCG Clopidogrel Clopidogrel No Clopidogre Bisulfate Bisulfate l 75 MG 75 MG Bisulfate 75 MG Alendronate Alendronate No Alendronat Sodium 70 Sodium 70 e Sodium MG MG 70 MG amLODIPine amLODIPine No 1{table amLODIPine Besylate 5 Besylate 5 t} Besylate 5 MG MG MG Adjustable Adjustable No Adjustable Lancing Lancing Lancing Device - Device - Device - Plavix 75 Plavix 75 No Plavix 75 MG MG MG OneTouch OneTouch No OneTouch Ultra - Ultra - Ultra - Gabapentin Gabapentin No BID Gabapentin 300 MG 300 MG 300 MG Mupirocin 2 Mupirocin 2 No Mupirocin % % 2 % Pravastatin Pravastatin No Pravastati Sodium 40 Sodium 40 n Sodium MG MG 40 MG Easy Touch Easy Touch No Easy Touch Alcohol Alcohol Alcohol Prep Medium Prep Medium Prep 70 % 70 % Medium 70 % Ondansetron Ondansetron No QD Ondansetro HCl 4 MG HCl 4 MG n HCl 4 MG Zofran 4 MG Zofran 4 MG No 2{table QD Zofran 4 ts} MG Brovana 15 Brovana 15 No 2{ml} BID Brovana 15 MCG/2ML MCG/2ML MCG/2ML OxyCONTIN OxyCONTIN No 1{table BID OxyCONTIN 60 MG 60 MG t} 60 MG Diflucan Diflucan No 1{table Diflucan 150 MG 150 MG t} 150 MG Lancets 30G Lancets 30G No Lancets - - 30G - Permethrin Permethrin No Permethrin 5 % 5 % 5 % Keflex 500 Keflex 500 No 1{capsu BID Keflex 500 MG MG le} MG Rosuvastati Rosuvastati No 1{table QD Rosuvastat n Calcium 5 n Calcium 5 t} in Calcium MG MG 5 MG Alendronate Alendronate No Alendronat Sodium 70 Sodium 70 e Sodium MG MG 70 MG Mirtazapine Mirtazapine No 1{table QD Mirtazapin 7.5 MG 7.5 MG t_at_be e 7.5 MG dtime} Xanax 0.5 Xanax 0.5 No 1{table BID Xanax 0.5 MG MG t} MG Spiriva Spiriva No 1{capsu QD Spiriva HandiHaler HandiHaler le} HandiHaler 18 MCG 18 MCG 18 MCG Gabapentin Gabapentin No Gabapentin 300 MG 300 MG 300 MG amLODIPine amLODIPine No amLODIPine Besylate 5 Besylate 5 Besylate 5 MG MG MG Daliresp Daliresp No 1{table QD Daliresp 250 MCG 250 MCG t} 250 MCG Clopidogrel Clopidogrel No Clopidogre Bisulfate Bisulfate l 75 MG 75 MG Bisulfate 75 MG Alendronate Alendronate No Alendronat Sodium 70 Sodium 70 e Sodium MG MG 70 MG amLODIPine amLODIPine No 1{table amLODIPine Besylate 5 Besylate 5 t} Besylate 5 MG MG MG Adjustable Adjustable No Adjustable Lancing Lancing Lancing Device - Device - Device - Plavix 75 Plavix 75 No Plavix 75 MG MG MG OneTouch OneTouch No OneTouch Ultra - Ultra - Ultra - Gabapentin Gabapentin No BID Gabapentin 300 MG 300 MG 300 MG Mupirocin 2 Mupirocin 2 No Mupirocin % % 2 % Pravastatin Pravastatin No Pravastati Sodium 40 Sodium 40 n Sodium MG MG 40 MG Easy Touch Easy Touch No Easy Touch Alcohol Alcohol Alcohol Prep Medium Prep Medium Prep 70 % 70 % Medium 70 % Ondansetron Ondansetron No QD Ondansetro HCl 4 MG HCl 4 MG n HCl 4 MG Zofran 4 MG Zofran 4 MG No 2{table QD Zofran 4 ts} MG Brovana 15 Brovana 15 No 2{ml} BID Brovana 15 MCG/2ML MCG/2ML MCG/2ML OxyCONTIN OxyCONTIN No 1{table BID OxyCONTIN 60 MG 60 MG t} 60 MG Diflucan Diflucan No 1{table Diflucan 150 MG 150 MG t} 150 MG Lancets 30G Lancets 30G No Lancets - - 30G - Permethrin Permethrin No Permethrin 5 % 5 % 5 % Keflex 500 Keflex 500 No 1{capsu BID Keflex 500 MG MG le} MG Rosuvastati Rosuvastati No 1{table QD Rosuvastat n Calcium 5 n Calcium 5 t} in Calcium MG MG 5 MG Alendronate Alendronate No Alendronat Sodium 70 Sodium 70 e Sodium MG MG 70 MG Mirtazapine Mirtazapine No 1{table QD Mirtazapin 7.5 MG 7.5 MG t_at_be e 7.5 MG dtime} Xanax 0.5 Xanax 0.5 No 1{table BID Xanax 0.5 MG MG t} MG Spiriva Spiriva No 1{capsu QD Spiriva HandiHaler HandiHaler le} HandiHaler 18 MCG 18 MCG 18 MCG Gabapentin Gabapentin No Gabapentin 300 MG 300 MG 300 MG amLODIPine amLODIPine No amLODIPine Besylate 5 Besylate 5 Besylate 5 MG MG MG Daliresp Daliresp No 1{table QD Daliresp 250 MCG 250 MCG t} 250 MCG Clopidogrel Clopidogrel No Clopidogre Bisulfate Bisulfate l 75 MG 75 MG Bisulfate 75 MG Alendronate Alendronate No Alendronat Sodium 70 Sodium 70 e Sodium MG MG 70 MG amLODIPine amLODIPine No 1{table amLODIPine Besylate 5 Besylate 5 t} Besylate 5 MG MG MG Adjustable Adjustable No Adjustable Lancing Lancing Lancing Device - Device - Device - Plavix 75 Plavix 75 No Plavix 75 MG MG MG OneTouch OneTouch No OneTouch Ultra - Ultra - Ultra - Gabapentin Gabapentin No BID Gabapentin 300 MG 300 MG 300 MG Mupirocin 2 Mupirocin 2 No Mupirocin % % 2 % Pravastatin Pravastatin No Pravastati Sodium 40 Sodium 40 n Sodium MG MG 40 MG Easy Touch Easy Touch No Easy Touch Alcohol Alcohol Alcohol Prep Medium Prep Medium Prep 70 % 70 % Medium 70 % Ondansetron Ondansetron No QD Ondansetro HCl 4 MG HCl 4 MG n HCl 4 MG Zofran 4 MG Zofran 4 MG No 2{table QD Zofran 4 ts} MG Brovana 15 Brovana 15 No 2{ml} BID Brovana 15 MCG/2ML MCG/2ML MCG/2ML OxyCONTIN OxyCONTIN No 1{table BID OxyCONTIN 60 MG 60 MG t} 60 MG Diflucan Diflucan No 1{table Diflucan 150 MG 150 MG t} 150 MG Lancets 30G Lancets 30G No Lancets - - 30G - Permethrin Permethrin No Permethrin 5 % 5 % 5 % Keflex 500 Keflex 500 No 1{capsu BID Keflex 500 MG MG le} MG Rosuvastati Rosuvastati No 1{table QD Rosuvastat n Calcium 5 n Calcium 5 t} in Calcium MG MG 5 MG Alendronate Alendronate No Alendronat Sodium 70 Sodium 70 e Sodium MG MG 70 MG Mirtazapine Mirtazapine No 1{table QD Mirtazapin 7.5 MG 7.5 MG t_at_be e 7.5 MG dtime} Xanax 0.5 Xanax 0.5 No 1{table BID Xanax 0.5 MG MG t} MG Spiriva Spiriva No 1{capsu QD Spiriva HandiHaler HandiHaler le} HandiHaler 18 MCG 18 MCG 18 MCG Gabapentin Gabapentin No Gabapentin 300 MG 300 MG 300 MG amLODIPine amLODIPine No amLODIPine Besylate 5 Besylate 5 Besylate 5 MG MG MG Daliresp Daliresp No 1{table QD Daliresp 250 MCG 250 MCG t} 250 MCG Clopidogrel Clopidogrel No Clopidogre Bisulfate Bisulfate l 75 MG 75 MG Bisulfate 75 MG Alendronate Alendronate No Alendronat Sodium 70 Sodium 70 e Sodium MG MG 70 MG amLODIPine amLODIPine No 1{table amLODIPine Besylate 5 Besylate 5 t} Besylate 5 MG MG MG Adjustable Adjustable No Adjustable Lancing Lancing Lancing Device - Device - Device - Plavix 75 Plavix 75 No Plavix 75 MG MG MG OneTouch OneTouch No OneTouch Ultra - Ultra - Ultra - Gabapentin Gabapentin No BID Gabapentin 300 MG 300 MG 300 MG Mupirocin 2 Mupirocin 2 No Mupirocin % % 2 % Pravastatin Pravastatin No Pravastati Sodium 40 Sodium 40 n Sodium MG MG 40 MG Easy Touch Easy Touch No Easy Touch Alcohol Alcohol Alcohol Prep Medium Prep Medium Prep 70 % 70 % Medium 70 % Ondansetron Ondansetron No QD Ondansetro HCl 4 MG HCl 4 MG n HCl 4 MG Zofran 4 MG Zofran 4 MG No 2{table QD Zofran 4 ts} MG Brovana 15 Brovana 15 No 2{ml} BID Brovana 15 MCG/2ML MCG/2ML MCG/2ML OxyCONTIN OxyCONTIN No 1{table BID OxyCONTIN 60 MG 60 MG t} 60 MG Diflucan Diflucan No 1{table Diflucan 150 MG 150 MG t} 150 MG Lancets 30G Lancets 30G No Lancets - - 30G - Permethrin Permethrin No Permethrin 5 % 5 % 5 % Keflex 500 Keflex 500 No 1{capsu BID Keflex 500 MG MG le} MG Rosuvastati Rosuvastati No 1{table QD Rosuvastat n Calcium 5 n Calcium 5 t} in Calcium MG MG 5 MG Alendronate Alendronate No Alendronat Sodium 70 Sodium 70 e Sodium MG MG 70 MG Mirtazapine Mirtazapine No 1{table QD Mirtazapin 7.5 MG 7.5 MG t_at_be e 7.5 MG dtime} Xanax 0.5 Xanax 0.5 No 1{table BID Xanax 0.5 MG MG t} MG Spiriva Spiriva No 1{capsu QD Spiriva HandiHaler HandiHaler le} HandiHaler 18 MCG 18 MCG 18 MCG Gabapentin Gabapentin No Gabapentin 300 MG 300 MG 300 MG amLODIPine amLODIPine No amLODIPine Besylate 5 Besylate 5 Besylate 5 MG MG MG Daliresp Daliresp No 1{table QD Daliresp 250 MCG 250 MCG t} 250 MCG Clopidogrel Clopidogrel No Clopidogre Bisulfate Bisulfate l 75 MG 75 MG Bisulfate 75 MG Alendronate Alendronate No Alendronat Sodium 70 Sodium 70 e Sodium MG MG 70 MG amLODIPine amLODIPine No 1{table amLODIPine Besylate 5 Besylate 5 t} Besylate 5 MG MG MG OneTouch OneTouch No OneTouch Ultra - Ultra - Ultra - Plavix 75 Plavix 75 No Plavix 75 MG MG MG Alendronate Alendronate No Alendronat Sodium 70 Sodium 70 e Sodium MG MG 70 MG Gabapentin Gabapentin No BID Gabapentin 300 MG 300 MG 300 MG Easy Touch Easy Touch No Easy Touch Alcohol Alcohol Alcohol Prep Medium Prep Medium Prep 70 % 70 % Medium 70 % Pravastatin Pravastatin No Pravastati Sodium 40 Sodium 40 n Sodium MG MG 40 MG Adjustable Adjustable No Adjustable Lancing Lancing Lancing Device - Device - Device - Ondansetron Ondansetron No QD Ondansetro HCl 4 MG HCl 4 MG n HCl 4 MG Mupirocin 2 Mupirocin 2 No Mupirocin % % 2 % Zofran 4 MG Zofran 4 MG No 2{table QD Zofran 4 ts} MG Brovana 15 Brovana 15 No 2{ml} BID Brovana 15 MCG/2ML MCG/2ML MCG/2ML OxyCONTIN OxyCONTIN No 1{table BID OxyCONTIN 60 MG 60 MG t} 60 MG Diflucan Diflucan No 1{table Diflucan 150 MG 150 MG t} 150 MG Rosuvastati Rosuvastati No 1{table QD Rosuvastat n Calcium 5 n Calcium 5 t} in Calcium MG MG 5 MG Permethrin Permethrin No Permethrin 5 % 5 % 5 % Keflex 500 Keflex 500 No 1{capsu BID Keflex 500 MG MG le} MG Lancets 30G Lancets 30G No Lancets - - 30G - Mirtazapine Mirtazapine No 1{table QD Mirtazapin 7.5 MG 7.5 MG t_at_be e 7.5 MG dtime} Xanax 0.5 Xanax 0.5 No 1{table BID Xanax 0.5 MG MG t} MG Spiriva Spiriva No 1{capsu QD Spiriva HandiHaler HandiHaler le} HandiHaler 18 MCG 18 MCG 18 MCG Gabapentin Gabapentin No Gabapentin 300 MG 300 MG 300 MG amLODIPine amLODIPine No amLODIPine Besylate 5 Besylate 5 Besylate 5 MG MG MG Daliresp Daliresp No 1{table QD Daliresp 250 MCG 250 MCG t} 250 MCG Clopidogrel Clopidogrel No Clopidogre Bisulfate Bisulfate l 75 MG 75 MG Bisulfate 75 MG Alendronate Alendronate No Alendronat Sodium 70 Sodium 70 e Sodium MG MG 70 MG amLODIPine amLODIPine No 1{table amLODIPine Besylate 5 Besylate 5 t} Besylate 5 MG MG MG OneTouch OneTouch No OneTouch Ultra - Ultra - Ultra - Plavix 75 Plavix 75 No Plavix 75 MG MG MG Alendronate Alendronate No Alendronat Sodium 70 Sodium 70 e Sodium MG MG 70 MG Gabapentin Gabapentin No BID Gabapentin 300 MG 300 MG 300 MG Easy Touch Easy Touch No Easy Touch Alcohol Alcohol Alcohol Prep Medium Prep Medium Prep 70 % 70 % Medium 70 % Pravastatin Pravastatin No Pravastati Sodium 40 Sodium 40 n Sodium MG MG 40 MG Adjustable Adjustable No Adjustable Lancing Lancing Lancing Device - Device - Device - Ondansetron Ondansetron No QD Ondansetro HCl 4 MG HCl 4 MG n HCl 4 MG Mupirocin 2 Mupirocin 2 No Mupirocin % % 2 % Zofran 4 MG Zofran 4 MG No 2{table QD Zofran 4 ts} MG Brovana 15 Brovana 15 No 2{ml} BID Brovana 15 MCG/2ML MCG/2ML MCG/2ML OxyCONTIN OxyCONTIN No 1{table BID OxyCONTIN 60 MG 60 MG t} 60 MG Diflucan Diflucan No 1{table Diflucan 150 MG 150 MG t} 150 MG Rosuvastati Rosuvastati No 1{table QD Rosuvastat n Calcium 5 n Calcium 5 t} in Calcium MG MG 5 MG Permethrin Permethrin No Permethrin 5 % 5 % 5 % Keflex 500 Keflex 500 No 1{capsu BID Keflex 500 MG MG le} MG Lancets 30G Lancets 30G No Lancets - - 30G - Mirtazapine Mirtazapine No 1{table QD Mirtazapin 7.5 MG 7.5 MG t_at_be e 7.5 MG dtime} Xanax 0.5 Xanax 0.5 No 1{table BID Xanax 0.5 MG MG t} MG Spiriva Spiriva No 1{capsu QD Spiriva HandiHaler HandiHaler le} HandiHaler 18 MCG 18 MCG 18 MCG Gabapentin Gabapentin No Gabapentin 300 MG 300 MG 300 MG amLODIPine amLODIPine No amLODIPine Besylate 5 Besylate 5 Besylate 5 MG MG MG Daliresp Daliresp No 1{table QD Daliresp 250 MCG 250 MCG t} 250 MCG Clopidogrel Clopidogrel No Clopidogre Bisulfate Bisulfate l 75 MG 75 MG Bisulfate 75 MG Alendronate Alendronate No Alendronat Sodium 70 Sodium 70 e Sodium MG MG 70 MG amLODIPine amLODIPine No 1{table amLODIPine Besylate 5 Besylate 5 t} Besylate 5 MG MG MG OneTouch OneTouch No OneTouch Ultra - Ultra - Ultra - Plavix 75 Plavix 75 No Plavix 75 MG MG MG Alendronate Alendronate No Alendronat Sodium 70 Sodium 70 e Sodium MG MG 70 MG Gabapentin Gabapentin No BID Gabapentin 300 MG 300 MG 300 MG Easy Touch Easy Touch No Easy Touch Alcohol Alcohol Alcohol Prep Medium Prep Medium Prep 70 % 70 % Medium 70 % Pravastatin Pravastatin No Pravastati Sodium 40 Sodium 40 n Sodium MG MG 40 MG Adjustable Adjustable No Adjustable Lancing Lancing Lancing Device - Device - Device - Ondansetron Ondansetron No QD Ondansetro HCl 4 MG HCl 4 MG n HCl 4 MG Mupirocin 2 Mupirocin 2 No Mupirocin % % 2 % Zofran 4 MG Zofran 4 MG No 2{table QD Zofran 4 ts} MG Brovana 15 Brovana 15 No 2{ml} BID Brovana 15 MCG/2ML MCG/2ML MCG/2ML OxyCONTIN OxyCONTIN No 1{table BID OxyCONTIN 60 MG 60 MG t} 60 MG Diflucan Diflucan No 1{table Diflucan 150 MG 150 MG t} 150 MG Rosuvastati Rosuvastati No 1{table QD Rosuvastat n Calcium 5 n Calcium 5 t} in Calcium MG MG 5 MG Permethrin Permethrin No Permethrin 5 % 5 % 5 % Keflex 500 Keflex 500 No 1{capsu BID Keflex 500 MG MG le} MG Lancets 30G Lancets 30G No Lancets - - 30G - Mirtazapine Mirtazapine No 1{table QD Mirtazapin 7.5 MG 7.5 MG t_at_be e 7.5 MG dtime} Xanax 0.5 Xanax 0.5 No 1{table BID Xanax 0.5 MG MG t} MG Spiriva Spiriva No 1{capsu QD Spiriva HandiHaler HandiHaler le} HandiHaler 18 MCG 18 MCG 18 MCG Gabapentin Gabapentin No Gabapentin 300 MG 300 MG 300 MG amLODIPine amLODIPine No amLODIPine Besylate 5 Besylate 5 Besylate 5 MG MG MG Daliresp Daliresp No 1{table QD Daliresp 250 MCG 250 MCG t} 250 MCG Alendronate Alendronate No Alendronat Sodium 70 Sodium 70 e Sodium MG MG 70 MG Clopidogrel Clopidogrel No 1{table QD Clopidogre Bisulfate Bisulfate t} l 75 MG 75 MG Bisulfate 75 MG OxyCONTIN OxyCONTIN No 1{table BID OxyCONTIN 60 MG 60 MG t} 60 MG Mupirocin 2 Mupirocin 2 No 1{appli TID Mupirocin % % cation_ 2 % to_affe cted_ar ea} Mirtazapine Mirtazapine No Mirtazapin 7.5 MG 7.5 MG e 7.5 MG Brovana 15 Brovana 15 No 2{ml} BID Brovana 15 MCG/2ML MCG/2ML MCG/2ML Daliresp Daliresp No 1{table QD Daliresp 250 MCG 250 MCG t} 250 MCG amLODIPine amLODIPine No 1{table amLODIPine Besylate 5 Besylate 5 t} Besylate 5 MG MG MG amLODIPine amLODIPine No amLODIPine Besylate 5 Besylate 5 Besylate 5 MG MG MG Xanax 0.5 Xanax 0.5 No 1{table BID Xanax 0.5 MG MG t} MG Permethrin Permethrin No Permethrin 5 % 5 % 5 % Spiriva Spiriva No 1{capsu QD Spiriva HandiHaler HandiHaler le} HandiHaler 18 MCG 18 MCG 18 MCG Clopidogrel Clopidogrel No Clopidogre Bisulfate Bisulfate l 75 MG 75 MG Bisulfate 75 MG Diflucan Diflucan No 1{table Diflucan 150 MG 150 MG t} 150 MG Keflex 500 Keflex 500 No 1{capsu BID Keflex 500 MG MG le} MG Plavix 75 Plavix 75 No Plavix 75 MG MG MG Pravastatin Pravastatin No Pravastati Sodium 40 Sodium 40 n Sodium MG MG 40 MG Rosuvastati Rosuvastati No 1{table QD Rosuvastat n Calcium 5 n Calcium 5 t} in Calcium MG MG 5 MG Gabapentin Gabapentin No Gabapentin 300 MG 300 MG 300 MG Zofran 4 MG Zofran 4 MG No 2{table QD Zofran 4 ts} MG Vital Signs Vital Name Observation Time Observation Value Comments Source height 2022-02-13 10:00:00 66 [in_i] [facility] - [facility] weight 2022-02-13 10:00:00 170 [lb_av] [facility] bmi 2022-02-13 10:00:00 27.44 kg/m2 [facility] height 2021-10-31 10:20:00 66.00 [in_i] [facility] weight 2021-10-31 10:20:00 173 [lb_av] [facility] temperature 2021-10-31 10:20:00 97.8 [degF] [facility] bmi 2021-10-31 10:20:00 27.92 kg/m2 [facility] height 2021-06-05 11:20:00 66.00 [in_i] [facility] weight 2021-06-05 11:20:00 170.2 [lb_av] [facility] bmi 2021-06-05 11:20:00 27.47 kg/m2 [facility] oximetry 2021-06-05 11:20:00 95 % [facility] 2021-06-05 11:20:00 137 mm[Hg] [facility] - systolic [facility] blood pressure 2021-06-05 11:20:00 99 mm[Hg] [facility] diastolic [facility] height 2021-06-05 11:10:00 66.00 [in_i] [facility] [facility] weight 2021-06-05 11:10:00 170.2 [lb_av] [facility] bmi 2021-06-05 11:10:00 27.47 kg/m2 [facility] oximetry 2021-06-05 11:10:00 95 % [facility] blood pressure 2021-06-05 11:10:00 137 mm[Hg] [facility] - systolic [facility] blood pressure 2021-06-05 11:10:00 99 mm[Hg] [facility] - diastolic [facility] height 2021-05-02 11:40:00 66.00 [in_i] [facility] weight 2021-05-02 11:40:00 173 [lb_av] [facility] temperature 2021-05-02 11:40:00 97.6 [degF] [facility] bmi 2021-05-02 11:40:00 27.92 kg/m2 [facility] oximetry 2021-05-02 11:40:00 97 % [facility] height 2021-01-31 08:40:00 66.00 [in_i] [facility] weight 2021-01-31 08:40:00 174 [lb_av] [facility] temperature 2021-01-31 08:40:00 97.8 [degF] [facility] bmi 2021-01-31 08:40:00 28.08 kg/m2 [facility] HEIGHT 2019-11-12 00:00:00 167.6 cm WEIGHT 2019-11-12 00:00:00 72.576 kg Procedures This patient has no known procedures. Plan of Care Planned Activity Planned Date Details Comments Source Future Scheduled 2022-12-20 Influenza Vaccine (#1) [facility] 00:00:00 [code = Influenza Medical Ce nter Vaccine (#1)] Future Scheduled 2022-04-[address] [facility] 00:00:00 (12+) [code = Medical Center DEPRESSION SCREENING (12+)] Future Scheduled 2022-04-21 FALLS RISK SCREENING [facility] 00:00:00 [code = FALLS RISK Medical C enter SCREENING] Future Scheduled 2020-11-[address] [facility] 00:00:00 Counseling and Medical Cente r Screening (12+) [code = Tobacco Cessation Counseling and Screening (12+)] Future Scheduled 2020-10-02 PNEUMOCOCCAL 65+ YRS ([address] [facility] 00:00:00 - PCV) [code = Medical Cente r PNEUMOCOCCAL 65+ YRS (1 - PCV)] Future Scheduled 2005-10-02 SHINGLES VACCINES ([address] [facility] 00:00:00 2) [code = SHINGLES Medical Center VACCINES (1 of 2)] Future Scheduled 1974-10-02 DTAP/TDAP/TD VACCINES [facility] 00:00:00 (1 - Tdap) [code = Medical C enter DTAP/TDAP/TD VACCINES (1 - Tdap)] Future Scheduled 1973-10-02 HEPATITIS C SCREENING [facility] 00:00:00 [code = HEPATITIS C [facility] SCREENING] Future Scheduled 1956-04-03 COVID-19 VACCINE (#1) [facility] 00:00:00 [code = COVID-[address] VACCINE (#1)] Future Scheduled 1955 Screening for malignant [facility] 00:00:00 neoplasm of breast Medical C enter (procedure) [code = 970777720] Future Scheduled 1955 CT Colonography (combo) [facility] 00:00:00 [code = CT Colonography [facility] (combo)] Future Scheduled 1955 Screening for malignant [facility] 00:00:00 neoplasm of colon Medical Ce nter (procedure) [code = 341587561] Future Scheduled 1955 Screening for malignant [facility] Test 00:00:00 neoplasm of colon Medical Ce nter (procedure) [code = 924037194] Future Scheduled 1955 DXA SCAN [code = DXA [facility] 00:00:00 SCAN] [facility] Future Scheduled 1955 Screening for malignant [facility] 00:00:00 neoplasm of colon Medical Ce nter (procedure) [code = 516148091] Future Scheduled 1955 Screening for malignant [facility] Test 00:00:00 neoplasm of colon Medical Ce nter (procedure) [code = 915381626] Future Scheduled 1955 Sigmoidoscopy [code = [facility] Sigmoidoscopy] Medical Cente r Encounters Start End Encounter Admission Attending Care Care Encounter Source Date/Time Date/Time Type Type Clinicians Facility Department ID 2022-09-19 Outpatient Renner, STLMLC STLMLC [id number] Common 10:06:00 Avnee [id number] [facility] 2022-05-24 Outpatient Anjana, STLMLC STLMLC [id number] Common 13:56:00 Sola [id number] [facility] 2022-02-12 Outpatient Coelho, Na STLMLC STLMLC [id number] Common 07:20:00 [id number] [facility] 2021-10-29 Outpatient Coelho, Na STLMLC STLMLC [id number] Common 10:08:00 [facility] 2021-06-01 Outpatient Coelho, Na STLMLC STLMLC [id number] Common 09:11:01 [facility] 2021-05-16 Outpatient Coelho, Na STLMLC STLMLC [id number] Common 13:48:27 [id number] [facility] 2021-05-16 Outpatient Coleho, Na STLMLC STLMLC [id number] Common 13:04:08 [id number] [facility] 2021-05-16 Outpatient Coelho, Na STLMLC STLMLC [id number] Common 12:05:31 [id number] [facility] 2021-05-16 Outpatient Coelho, Na STLMLC STLMLC [id number] Common 11:17:48 [id number] [facility] 2021-05-16 Outpatient Coelho, Na STLMLC STLMLC [id number] Common 11:06:18 [id number] [facility] 2021-05-16 Outpatient Coelho, Na STLMLC STLMLC [id number] Common 11:04:56 [id number] [facility] 2021-05-16 Outpatient Coelho, Na STLMLC STLMLC [id number] Common 11:01:31 [id number] [facility] 2022-05-17 2022-05-17 (TEL) STLMLC STLMLC [id number] Co mmon 00:00:00 00:00:00 [facility] 2022-02-19 2022-02-19 (TEL) STLMLC STLMLC [id number] Co mmon 00:00:00 00:00:00 [facility] 2022-02-18 2022-02-18 (TEL) STLMLC STLMLC [id number] Co mmon 00:00:00 00:00:00 [facility] 2022-02-14 2022-02-14 (WEB) STLMLC STLMLC [id number] Co mmon 00:00:00 00:00:00 [facility] 2022-02-14 2022-02-14 (WEB) STLMLC STLMLC [id number] Co mmon 00:00:00 00:00:00 [facility] 2022-02-13 2022-02-13 (TEL) STLMLC STLMLC [id number] Co mmon 00:00:00 00:00:00 [facility] 2022-02-13 2022-02-13 (TEL) STLMLC STLMLC [id number] Co mmon 00:00:00 00:00:00 [facility] 2022-02-13 2022-02-13 OFFICE STLMLC STLMLC [id number] Co mmon 00:00:00 00:00:00 VISIT [facility] PT - CHI LEVEL 4 [facility] 2021-10-31 2021-10-31 OFFICE STLMLC STLMLC [id number] Co mmon 00:00:00 00:00:00 VISIT [facility] PT - CHI LEVEL 4 [facility] 2021-10-08 2021-10-08 (TEL) STLMLC STLMLC [id number] Co mmon 00:00:00 00:00:00 [facility] 2021-10-05 2021-10-05 (TEL) STLMLC STLMLC [id number] Co mmon 00:00:00 00:00:00 [facility] 2021-09-20 2021-09-20 (WEB) STLMLC STLMLC [id number] Co mmon 00:00:00 00:00:00 [facility] 2021-09-17 2021-09-17 (TEL) STLMLC STLMLC [id number] Co mmon 00:00:00 00:00:00 [facility] 2021-06-05 2021-06-05 OFFICE STLMLC STLMLC [id number] Co mmon 00:00:00 00:00:00 VISIT EST Spir it PT LEVEL 3 [facility] 2021-06-05 2021-06-05 SUB ANNUAL STLMLC STLMLC [id number] Common 00:00:00 00:00:00 MCR [facility] VISIT [facility] 2021-05-03 2021-05-03 (TEL) STLMLC STLMLC [id number] Co mmon 00:00:00 00:00:00 [facility] 2021-05-02 2021-05-02 OFFICE STLMLC STLMLC [id number] Co mmon 00:00:00 00:00:00 VISIT [facility] PT - CHI LEVEL 4 [facility] 2021-03-03 2021-03-03 (TEL) STLMLC STLMLC [id number] Co mmon 00:00:00 00:00:00 [facility] 2021-01-31 2021-01-31 OFFICE STLMLC STLMLC [id number] Co mmon 00:00:00 00:00:00 VISIT [facility] PT - CHI LEVEL 4 [facility] 2020-12-05 2020-12-05 (TEL) STLMLC STLMLC [id number] Co mmon 00:00:00 00:00:00 [facility] 2020-09-27 2020-09-27 Outpatient STLMLC STLMLC [id number] Common 00:00:00 00:00:00 [facility] 2020-09-04 2020-09-04 Outpatient STLMLC STLMLC [id number] Common 00:00:00 00:00:00 [facility] 2020-03-06 2020-03-06 Outpatient STLMLC STLMLC [id number] Common 00:00:00 00:00:00 [facility] 2019-12-11 2019-12-11 [facility] [id number] Common 23:23:00 23:23:[address] [facility] 2019-12-03 2019-12-03 [facility] [id number] Common 15:00:00 15:00:[address] [facility] 2019-11-22 2019-11-22 [facility] [id number] Common 13:18:00 13:18:[address] [facility] 2019-11-12 2019-11-12 Outpatient CLARENCE CANDY COVARRUBIAS [facility] [id number] [facility] 00:00:00 00:00:00 2019-11-12 2019-11-12 Outpatient TYRONE GARCIA [facility] [id number] [facility] 00:00:00 00:00:00 2019-07-21 2019-07-21 Outpatient [facility] [id number] [facility] 00:00:00 00:00:00 [id number] 2019-07-06 2019-07-06 [facility] [id number] Common 13:00:00 13:00:[address] [facility] 2019-07-05 2019-07-05 Outpatient TYRONE CAMPO [facility] [id number] [facility] 00:00:00 00:00:00 2019-07-05 2019-07-05 Outpatient [facility] [id number] [facility] 00:00:00 00:00:00 [id number] 2019-07-02 2019-07-02 Outpatient [facility] [id number] [facility] 00:00:00 00:00:00 [id number] 2019-05-26 2019-05-26 [facility] [id number] Common 09:40:00 09:40:[address] [facility] 2019-03-10 2019-03-10 [facility] [id number] Common 11:00:00 11:00:[address] [facility] 2019-02-11 2019-02-11 [facility] [id number] Common 15:51:00 15:51:[address] [facility] 2019-01-18 2019-01-18 [facility] [id number] Common 11:00:00 11:00:[address] [facility] 2018-12-23 2018-12-23 [facility] [id number] Common 13:39:00 13:39:[address] [facility] 2018-12-23 2018-12-23 [facility] [id number] Common 11:04:00 11:04:[address] [facility] 2018-12-22 2018-12-22 [facility] [id number] Common 10:33:00 10:33:[address] [facility] 2018-12-18 2018-12-18 [facility] [id number] Common 14:40:00 14:40:[address] [facility] 2018-05-27 2018-05-27 [facility] [id number] Common 15:15:00 15:15:[address] [facility] 2018-05-06 2018-05-06 [facility] [id number] Common 15:05:00 15:05:[address] [facility] 2018-01-21 2018-01-21 [facility] [id number] Common 15:00:00 15:00:[address] [facility] Results Test Description Test Time Test Comments Results Result Sourc e Comments CYTOLOGY 2019-11-15 Medical Cytology 14:03:00 Report Case: [id number] Authorizing Provider: Candy Covarrubias MD Collected: 11/12/2019 06:06 PM Ordering Location: [facility] Radiology Ultrasound Received: 11/15/2019 09:28 AM Pathologist: Mckinley Mcginnis MD Specimen: Thyroid, Left THYROID GLAND, LOWER POLE, LEFT LOBE, NODULE, FNA BY RADIOLOGIST (CYTOSPINS): - ATYPIA OF UNDETERMINED SIGNIFICANCE/FOLLICUL AR LESION OF UNDETERMINED SIGNIFICANCE FOLLICULAR CELLS PRESENT PREDOMINANTLY IN A MICROFOLLICULAR PATTERN WITH SCANT COLLOID SEE COMMENT Signing Pathologist Direct Phone Line: [phone] jossue signed by Mckinley Mcginnis MD on 11/15/2019 at 2:03 PMWith the mild excess of microfollicles, this could represent a dominant nodule in a nodular goiter though a neoplastic process cannot be excluded. A repeat aspiration at a later date may help.421243.8 cm left lower pole solid/mixed thyroid gland nodule THYROID, LEFT LOWER POLE, FNA Received 31 ml cytorich red fixative sample; prepared 4 cytospinsCollected: [id number]: [id number], [address] [place] [address], [facility], [address] [place] [address], [facility], [address] [place] [address], U/S, FINE NEEDLE 2019-11-12 Reason for FINAL REPORT PATIENT ASPIRATION (FNA), 18:45:00 Exam:->E04.2 ID: [id number] History: THYROID Thyroid nodule. PROCEDURE: Following informed written consent and limited sonographic examination of the thyroid gland, the patient's anterior cervical soft tissues were prepped and draped in the usual sterile manner. 2% lidocaine was given locally for anesthesia. No conscious sedation was administered. Using ultrasound guidance and 22-gauge needles, total of three fine needle aspirates were obtained from the patient's hypoechoic 1.8 cm left lower pole thyroid nodule described below. All samples were submitted to pathology. Overall, the patient tolerated the procedure well without immediate competitions and was discharged from the department in stable condition. FINDINGS: Limited sonographic examination of the thyroid gland performed prior to and during the aspiration demonstrates a 1.8 cm predominantly hypoechoic solid nodule in the lower pole the left thyroid lobe. During the biopsy, the needle tip is noted within this lesion. After the biopsy, there are no surrounding fluid collections, evidence for hemorrhage or other complication. IMPRESSION: 1. Technically successful ultrasound-guided fine-needle aspiration of the patient's 1.8 cm left lower pole thyroid nodule. Signed: Hussein Contreras MDReport Verified Date/Time: 11/12/2019 18:45:21 Reading Location: [place] [id number] [facility] Body Reading Room U/S, THYROID 2019-11-12 Reason for FINAL REPORT PATIENT 17:11:00 Exam:->Multino ID: [id number] EXAM: dular goiter Thyroid UltrasoundINDICATION: Multinodular goiter COMPARISON: None TECHNIQUE: Transverse and sagittal images were obtained of the thyroid gland. FINDINGS: Thyroid gland:Size: Right lobe: 4.2 x 1.2 x 1.8 cm, Normal in sizeLeft lobe: 4.3 x 1.4 x 2 cm, Normal in size Isthmus: 0.2cm, Normal in sizeAppearance: Homogeneous echotexture without increased vascularityMasses/Nod ules: Right lobe: 0.8 cm solid (2 pts) nodule in the interpolar region with smooth margin (0 pts), xoddb-yvql-yghn (0 pts), isoechoic (1 pt), and no calcifications (0 pts). TR3a (<1.5 cm): No follow-up. 0.3 cm solid (2 pts) nodule in the inferior pole with smooth margin (0 pts), takza-aycu-hlax (0 pts), hypoechoic (2 pts), and no calcifications (0 pts). TR4a (<1.0 cm): No follow-up. Left lobe: 1.8 x 1.3 x 1.8 cm cystic (0 pts) nodule in the inferior pole with smooth margin (0 pts), eksbm-sryj-gcvg (0 pts), hypoechoic (2 pts), and no calcifications (0 pts). TR4c (>1.5 cm), Moderately Suspicious: FNA. 1.3 x 1 x 1.1 cm solid (2 pts) nodule in the interpolar region with smooth margin (0 pts), bspnd-sphr-geij (0 pts), isoechoic (1 pt), and no calcifications (0 pts). TR3a (<1.5 cm): No follow-up. Parathyroid:No focal parathyroid masses. IMPRESSION: Multinodular goiter. 1.8 cm hypoechoic solid nodule in the inferior left thyroid lobe. TR4c (>1.5 cm), Moderately Suspicious: FNA. TI-RADS Lexicon:TR1, Benign: No FNATR2, Not Suspicious: No FNA.TR3a (<1.5 cm): No follow-up.TR3b (1.5-2.5 cm), Mildly Suspicious: Follow at 1, 3, 5 years.TR3c (>2.5 cm), Mildly Suspicious: FNA.TR4a (<1.0 cm): No follow-up.TR4b (1.0-1.5 cm), Moderately Suspicious: Follow at 1, 2, 3, 5 years.TR4c (>1.5 cm), Moderately Suspicious: FNA.TR5a (<0.5 cm): No follow-up.TR5b (0.5-1.0 cm), Highly Suspicious: Follow at 1, 2, 3, 4, 5 years.TR5c (>1.0 cm), Highly Suspicious: FNA.*Rebiopsy if new suspicious features *No recommendation at this time for significant interval growth. Nodule Characteristics:*Gil gn features: cystic, hyperechoic, comet-tail artifact, complete halo*Minor suspicious features: solid, hypoechoic, other calcifications*Major suspicious features: microcalcifications, marked hypoechoic (less than strap muscle), suspicious lymph nodes, taller than wide, lobulated or ill-defined margins. Literature:ACR Thyroid Imaging, Reporting and Data System (TI-RADS): White Paper of the ACR TI-RADS Committee. J Am Randal Radiol 2017. Signed: Herminio Miles Verified Date/Time: 11/12/2019 17:11:13 Reading Location: [address] Radiology Reading Room
[2022-10-23 07:12] LABS: Arterial Blood Carboxyhemoglob 0.8 % (0-1.5); Blood Gas Oxyhemoglobin 96.9 % (94-97); Blood O2 Saturation 99.2 % (92-98.5)
[2022-10-23 07:22] LABS: Absolute Lymphocytes (CBC) 0.9 K/uL (0.7-4.9); Hematocrit 40.6 % (36.0-45.0); Lymphocytes % 7.6 % (15.3-44.8); MCV 81.3 fL (80-100); MPV 8.8 fL (7.6-11.3)
[2022-10-23 07:27] LABS: Protime INR 1.13
[2022-10-23] MEDS ORDERED: FUROSEMIDE 20 MG/ 2ML VIAL ONE (07:35)
[2022-10-23] MEDS ORDERED: ALBUTEROL 2.5 MG/3 ML NEB SOL ONE ×2 (07:35→14:33)
[2022-10-23 07:39] LABS: SARS-CoV-2 Antigen Rapid Res Negative (Negative)
[2022-10-23 07:40] LABS: Albumin 3.3 g/dL (3.4-5.0); Bilirubin Direct 0.2 mg/dL (0-0.2); Bilirubin Indirect, Calculated 0.2 mg/dL (0.2-0.8); Bilirubin Total 0.4 mg/dL (0.2-1.0); Magnesium 2.8 mg/dL (1.6-2.4); Potassium 4.7 mEq/L (3.5-5.1); Protein, Total 8.9 g/dL (6.4-8.2)
[2022-10-23 07:46] LABS: Troponin High Sensitivity 305.2 pg/mL (<58.9)
--- NOTE | 2022-10-23 07:53 | RAD REPORT ---
EXAM DESCRIPTION: [facility]10[facility]2022 7:38 am CLINICAL HISTORY: COPD COMPARISON: Chest Pa And Lat (2 Views) dated 09/23/2018; Chest Single View dated 07/05/2017; Chest Sing le View dated 07/04/2016; CHEST SINGLE VIEW dated 04/15/2011 TECHNIQUE: Portable AP view of the chest. FINDINGS: Patchy left basilar airspace opacification versus atelectasis. Superimposition of soft tis sues limits evaluation. No pneumothorax or sizable effusion. The cardiomediastinal contours are unrem arkable. IMPRESSION: Patchy left basilar airspace opacification versus atelectasis. Superimposition of soft t issues limits evaluation. .
--- NOTE | 2022-10-23 10:20 | RAD REPORT ---
EXAM DESCRIPTION: CT - Chest For Pe Angio - 10/23/2022 9:51 am CLINICAL HISTORY: DYSPNEA COMPARISON: Lung Cancer Screening CT W/O dated 09/20/2021; Lung Cancer Screening CT W/O dated 1; Thorax Wo Con dated 07/22/2019; Lung Cancer Screening CT W/O dated 11/23/2018 TECHNIQUE: Thin axial CT images of the chest were obtained following administration of 100 mL Isovue 370 IV contrast. Multiplanar reconstructions, and maximum intensity projection reconstructions were generated and reviewed. Exam utilizes a protocol for optimal evaluation of pulmonary arterial tree. All CT scans are performed using dose optimization technique as appropriate and may include automated exposure control or mA/KV adjustment according to patient size. FINDINGS: Left thyroid lobe hypoattenuating 1.6 centimeter nodule inferiorly, stable. Contrast opaci fication is satisfactory. Pulmonary arteries are normal, with no emboli or other suspicious finding, allowing for some motion artifact. No acute or significant aorta findings. Scattered tree-in-bud opacities throughout both lungs, with some apical predominance. Small cavitary lesion at the left lung apex, measuring 7 millimeter in greatest dimension. No pleural thickening or pleural effusion. No pneumothorax. No abnormal mediastinal or hilar masses. Mildly prominent mediastinal and bilateral hilar lymph nodes , the largest subcarinal measuring 1.3 centimeter in short axis. No chest wall mass or abnormal axill iary lymphadenopathy. Evaluation of the upper abdominal structures shows no suspicious abnormality. No acute osseous findi ngs. IMPRESSION: No evidence of acute central pulmonary emboli, allowing for some motion artifact. Scattered tree-in-bud opacities bilaterally with some apical predominance. Findings suggest an infect ious or inflammatory process such as bronchiolitis. Please correlate clinically. A 7 millimeter left apical cavitary nodule is noted, likely relating to the same etiology. Mildly prominent mediastinal a nd hilar lymph nodes, likely reactive.
--- NOTE | 2022-10-23 10:38 | EDPHYS ---
Physician Documentation [facility] Name: Makenna Ferrari Age: 67 yrs Sex: Female : 1955 Arrival Date: 10/23/2022 Time: 06:51 Bed 4 Private MD: ED Physician Mina Jimenez HPI: 10/23 06:58 This 67 yrs old Female presents to ER via Unassigned with complaints of sp4 Dyspnea, and generalized weakness . 06:58 67-year-old female presents with EMS for acute onset of generalized weakness and sp4 worsening shortness of breath. Patient's attempted to help patient into the bed but her legs gave out and EMS was called. EMS states that had to pick pack worker the patient from the floor. EMS administered 20 mg IV Lasix in the route and 125 mg IV Solu-Medrol. EMS applied BiPAP with some improvement in oxygenation. . Historical: - Allergies: 07:19 Aspirin; kd3 07:19 Codeine; kd3 07:19 tramadol; kd3 - PMHx: 07:19 chronic back pain; Lupus; Renal Disease; COPD; kd3 - Immunization history:: Adult Immunizations up to date. - Social history:: Smoking status: unknown. - Family history:: not pertinent. ROS: 06:58 Constitutional: Negative for fever, chills, and weight loss, positive generalized sp4 weakness and feeling unwell Eyes: Negative for injury, pain, redness, and discharge, ENT: Negative for injury, pain, and discharge, Neck: Negative for injury, pain, and swelling, Cardiovascular: Negative for chest pain, palpitations, and edema, Respiratory: Negative for pleuritic chest pain, positive for shortness of breath, wheezing, generalized pallor Abdomen/GI: Negative for abdominal pain, nausea, vomiting, diarrhea, and constipation, Back: Negative for injury and pain, : Negative for injury, bleeding, discharge, and swelling, MS/Extremity: Negative for injury and deformity, Skin: Negative for injury, rash, and discoloration, Neuro: Negative for headache, weakness, numbness, tingling, and seizure, Psych: Negative for depression, anxiety, Allergy/Immunology: Negative for hives, rash, and allergies Endocrine: Negative for neck swelling, polydipsia, polyuria, polyphagia, and weight changes Hematologic/Lymphatic: Negative for swollen nodes, abnormal bleeding, and unusual bruising Exam: 06:58 Constitutional: This is a well developed, well nourished patient who is awake, alert, sp4 ill-appearing female, toxic appearing, generalized pallor, on BiPAP, hypertensive on arrival and tachycardic Head/Face: Normocephalic, atraumatic. Eyes: Pupils equal round and reactive to light, extra-ocular motions intact. Lids and lashes normal. Conjunctiva and sclera are not injected. Cornea within normal limits. Periorbital areas with no swelling, redness, or edema. ENT: Nares patent. No nasal discharge, no septal abnormalities noted. Tympanic membranes are normal and external auditory canals are clear. Oropharynx with no redness, swelling, or masses, exudates, or evidence of obstruction, uvula midline. Mucous membranes moist. Neck: Trachea midline, no thyromegaly or masses palpated, and no cervical lymphadenopathy. Supple, full range of motion without nuchal rigidity, or vertebral point tenderness. Chest/axilla: Normal chest wall appearance and motion. Nontender with no deformity. No lesions are appreciated. Cardiovascular: Regular tachycardia, JVD present. no gallops, murmurs, or rubs. Normal PMI, No pulse deficits. Respiratory: Lungs have equal breath sounds bilaterally, diffuse generalized crackles, diffuse generalized wheezing, moderate respiratory distress, tachypnea, dyspnea, BiPAP on the right Abdomen/GI: Soft, non-tender, with normal bowel sounds. No distension or tympany. No guarding or rebound. No evidence of tenderness throughout. Back: No spinal tenderness. No costovertebral tenderness. Female : Normal external genitalia. Skin: Warm, dry with normal turgor. Normal color with no rashes, no lesions, and no evidence of cellulitis. MS/ Extremity: Pulses equal, no cyanosis. Neurovascular intact. Full, normal range of motion. Neuro: Awake and alert, GCS 15, oriented to person, place, time, and situation. Cranial nerves II-XII grossly intact. Motor strength 5/5 in all extremities. Sensory grossly intact. Psych: Awake, alert, with orientation to person, place and time. Behavior, mood, and affect are within normal limits 08:11 ECG was reviewed by the Attending Physician. ms3 Vital Signs: 06:51 BP 160 / 113; Pulse 111; Resp 23; Temp 97.2(TE); Pulse Ox 98% on BiPAP; kd3 08:10 BP 153 / 93; Pulse 95; Resp 23; Pulse Ox 99% ; bp 09:00 BP 137 / 85; Pulse 91; Resp 21; Pulse Ox 96% ; bp 10:00 BP 131 / 83; Pulse 89; Resp 19; Pulse Ox 94% ; bp 11:15 BP 154 / 96; Pulse 103; Resp 21; Pulse Ox 98% ; bp 12:53 BP 142 / 93; Pulse 98; Resp 20; Pulse Ox 97% ; bp MDM: 06:58 Differential Diagnosis altered mental status, sepsis, flu. Data reviewed: vital signs, sp4 nurses notes, EMS record, old medical records, lab test result(s), EKG, radiologic studies. 07:05 Transition of care: After a detail discussion of the patient's case, care is sp4 transferred to [facility]. 07:13 Patient medically screened. sp4 11:06 Consideration of Admission/Observation Patient was admitted/placed on observation. ms3 Management of patient was discussed with the following: Hospitalist: Dr Funes. I considered the following discharge prescriptions or medication management in the emergency department Medications were administered in the Emergency Department. See MAR. Independent interpretation of the following test(s) in the Emergency Department EKG: See my EKG interpretation above media monitor: rate is 88 beats/min, Rhythm is normal sinus rhythm, regular, with no ectopy, Interpretation: normal rate, normal rhythm. Historians other than the Patient: EMS: Thomas Martin. Counseling: I had a detailed discussion with the patient and/or guardian regarding: the historical points, exam findings, and any diagnostic results supporting the discharge/admit diagnosis, lab results, radiology results, the need for further work-up and treatment in the hospital. ED course: Patient remains in stable condition at this time. Discussed admission with patient's and patient. They agree with plan. 10/23 06:56 Order name: BMP; Complete Time: 08:00 sp4 10/23 06:56 Order name: Blood Culture Adult (2) sp4 10/23 06:56 Order name: CBC with Diff; Complete Time: 08:00 sp4 10/23 06:56 Order name: CPK; Complete Time: 08:00 sp4 10/23 06:56 Order name: D-Dimer; Complete Time: 08:00 sp4 10/23 06:56 Order name: Hepatic Function; Complete Time: 08:00 sp4 10/23 06:56 Order name: Lipase; Complete Time: 08:00 sp4 10/23 06:56 Order name: Magnesium; Complete Time: 08:00 sp4 10/23 06:56 Order name: NT PRO-BNP; Complete Time: 08:00 sp4 10/23 06:56 Order name: PT-INR; Complete Time: 08:00 sp4 10/23 06:56 Order name: Ptt, Activated; Complete Time: 08:00 sp4 10/23 06:56 Order name: Troponin HS; Complete Time: 08:00 sp4 10/23 06:56 Order name: ABG; Complete Time: 08:00 sp4 10/23 07:05 Order name: SARS RAPID; Complete Time: 08:00 sp4 10/23 07:05 Order name: Influenza Screen (a \T\ B); Complete Time: 08:00 sp4 10/23 07:14 Order name: Lactate w/ 2H reflex if indic.; Complete Time: 08:00 ss 10/23 12:05 Order name: Magnesium; Complete Time: 00:10 EDMS 10/23 12:05 Order name: Phosphorus; Complete Time: 00:10 EDMS 10/23 12:05 Order name: T4 Free; Complete Time: 00:10 EDMS 10/23 12:05 Order name: Thyroid Stimulating Hormone; Complete Time: 00:10 EDMS 10/23 12:05 Order name: Basic Metabolic Panel EDMS 10/23 12:05 Order name: Basic Metabolic Panel EDMS 10/23 12:05 Order name: CBC with Automated Diff EDMS 10/23 12:05 Order name: CBC with Automated Diff EDMS 10/23 12:05 Order name: Lipid Profile EDMS 10/23 12:05 Order name: Lipid Profile EDMS 10/23 13:03 Order name: Troponin High Sensitivity; Complete Time: 00:10 EDMS 10/23 18:37 Order name: Hemoglobin A1c; Complete Time: 00:10 EDMS 10/23 18:42 Order name: Troponin High Sensitivity; Complete Time: 00:10 EDMS 10/23 06:56 Order name: XRAY CXR (1 view); Complete Time: 08:01 sp4 10/23 06:56 Order name: BIPAP sp4 10/23 08:01 Order name: CT Chest For PE Angio; Complete Time: 10:22 ms3 10/23 06:56 Order name: Call RT; Complete Time: 07:01 sp4 10/23 06:56 Order name: EKG; Complete Time: 06:57 sp4 10/23 12:05 Order name: CONS Physician Consult EDGA 10/23 12:05 Order name: NPO EDMS 10/23 06:56 Order name: Cardiac monitoring; Complete Time: 07:06 sp4 10/23 06:56 Order name: EKG - Nurse/Tech; Complete Time: 07:16 sp4 10/23 06:56 Order name: Marie; Complete Time: 08:08 sp4 10/23 06:56 Order name: IV Saline Lock; Complete Time: 07:06 sp4 10/23 06:56 Order name: Labs collected and sent; Complete Time: 07:14 sp4 10/23 06:56 Order name: O2 Per Protocol; Complete Time: 07:06 sp4 10/23 06:56 Order name: O2 Sat Monitoring; Complete Time: 07:06 sp4 EC:11 Rate is 112 beats/min. Rhythm is regular. Left axis deviation noted. SD interval is ms3 normal. QRS interval is normal. Clinical impression: Sinus tachycardia. Interpreted by me. Reviewed by me. Administered Medications: 07:15 Drug: Albuterol Inhalation 1.25 mg Route: Inhalation; bp 07:15 Drug: Furosemide IVP 20 mg Route: IVP; Site: left antecubital; bp 10:45 Drug: AZITHromycin IVPB 500 mg Route: IVPB; Infused Over: 1 hrs; Site: right bp antecubital; Disposition Summary: 10/23/22 10:37 Hospitalization Ordered Hospitalization Status: Inpatient Admission ms3 Condition: Stable ms3 Problem: new ms3 Symptoms: are unchanged ms3 Bed/Room Type: Standard ms3 Provider: Baldo Funes(10/23/22 10:37) ms3 Location: Intensive Care Unit(10/23/22 19:27) cg Room Assignment: 6-(10/23/22 19:27) cg Diagnosis - Acute respiratory failure ms3 - Heart failure, unspecified ms3 - COPD/ Chronic obstructive pulmonary disease, unspecified ms3 - Chronic kidney disease, unspecified ms3 Forms: - Medication Reconciliation Form ms3 - SBAR form ms3 Critical care time excluding procedures: 11:06 Critical care time: Bedside Care: 35 minutes, Consultation: 10 minutes, Family ms3 Intervention: 5 minutes. Total time: 50 minutes Signatures: Dispatcher [employer] Virginia Crowley RN RN ss Bel Horner RN RN Santo Arenas RN RN Mina Watkins, DO ms3 Isatu Mckeon RN RN kd3 Lorena Brown rv1 Adán العراقي MD MD sp4 Corrections: (The following items were deleted from the chart) 10:37 10:37 Nathanael Ann ms3 ms3 14:16 10:37 Intensive Care Unit ms3 ss 14:16 10:37 ms3 ss 19:27 14:16 [facility] ER HOLD ss cg 19:27 14:16 ERHOLD- ss cg
--- NOTE | 2022-10-23 10:38 | ER ---
Nurse's Notes [facility] Name: Makenna Ferrari Age: 67 yrs Sex: Female : 1955 Arrival Date: 10/23/2022 Time: 06:51 Bed 4 Private MD: Diagnosis: Acute respiratory failure;Heart failure, unspecified;COPD/ Chronic obstructive pulmonary disease, unspecified;Chronic kidney disease, unspecified Presentation: 10/23 06:51 Chief complaint: EMS states: PT's called EMS because the patient was walking in kd3 their home and her legs seemed to "give out on her" and she collapsed. EMS placed the patient on CPAP for transport but did not report her RA O2 sats. Pt has bilateral coarse crackles. When asked about the patient's past medical history the stated "yall know her history, it is on file". Pt was given 40 of Lasix and 125 of Solu Medrol in route. Coronavirus screen: unknown. 06:51 Method Of Arrival: EMS: [place] [id number] 06:51 Ebola Screen: No symptoms or risks identified at this time. Initial Sepsis Screen: Does kd3 the patient meet any 2 criteria? Altered Mental Status. HR > 90 bpm. Yes Does the patient have a suspected source of infection? Yes: Productive cough/pneumonia. Risk Assessment: Do you want to hurt yourself or someone else? Patient reports no desire to harm self or others. Onset of symptoms was October 23, 2022. 06:51 Acuity: SALLY 2 kd3 Triage Assessment: 07:19 General: Appears ill, Behavior is cooperative, drowsy. Pain: Denies pain. Respiratory: kd3 Reports shortness of breath Onset: The symptoms/episode began/occurred today, the patient has severe shortness of breath. Historical: - Allergies: 07:19 Aspirin; kd3 07:19 Codeine; kd3 07:19 tramadol; kd3 - PMHx: 07:19 chronic back pain; Lupus; Renal Disease; COPD; kd3 - Immunization history:: Adult Immunizations up to date. - Social history:: Smoking status: unknown. - Family history:: not pertinent. Screenin:08 [facility] ED Fall Risk Assessment (Adult) History of falling in the last 3 months, bp including since admission No falls in past 3 months (0 pts). Abuse screen: Denies threats or abuse. Denies injuries from another. Nutritional screening: No deficits noted. Tuberculosis screening: No symptoms or risk factors identified. Assessment: 07:19 General: SEE TRIAGE NOTE. Cardiovascular: Rhythm is sinus tachycardia. Respiratory: bp Airway is patent Respiratory effort is labored, Respiratory pattern is tachypnea Breath sounds with wheezes bilaterally. 08:00 Reassessment: No changes from previously documented assessment. Patient is alert, bp oriented x 3, equal unlabored respirations, skin warm/dry/pink. 10:00 Reassessment: PT RETURNED FROM CT. bp 11:15 Reassessment: ADMIT INITIATED. bp 12:53 Reassessment: ICU ADMIT IN PROCESS. bp 12:59 Reassessment: PT REFUSING MD CATRACHITO INFORMED. bp Vital Signs: 06:51 BP 160 / 113; Pulse 111; Resp 23; Temp 97.2(TE); Pulse Ox 98% on BiPAP; kd3 08:10 BP 153 / 93; Pulse 95; Resp 23; Pulse Ox 99% ; bp 09:00 BP 137 / 85; Pulse 91; Resp 21; Pulse Ox 96% ; bp 10:00 BP 131 / 83; Pulse 89; Resp 19; Pulse Ox 94% ; bp 11:15 BP 154 / 96; Pulse 103; Resp 21; Pulse Ox 98% ; bp 12:53 BP 142 / 93; Pulse 98; Resp 20; Pulse Ox 97% ; bp ED Course: 06:53 Patient arrived in ED. rv1 06:55 Adán العراقي MD is Attending Physician. sp4 07:01 Santo Romeo, RN is Primary Nurse. bp 07:16 BIPAP Sent. bp 07:19 Triage completed. kd3 07:19 Arm band placed on right wrist. kd3 07:20 EKG done, by ED staff, reviewed by Adán العراقي MD. mb4 07:31 Inserted saline lock: 20 gauge in left forearm, using aseptic technique. Blood kd3 collected. Maintain EMS IV. Dressing intact. Good blood return noted. Site clean \\T\\ dry. Gauge \\T\\ site: 20 g in the right ac. 07:39 XRAY CXR (1 view) In Process Unspecified. EDMS 08:00 Attending Physician role handed off by Adán العراقي MD ms3 08:00 Mina Jimenez DO is Attending Physician. ms3 08:08 Patient has correct armband on for positive identification. Bed in low position. Call bp light in reach. Side rails up X2. Client placed on continuous cardiac and pulse oximetry monitoring. NIBP monitoring applied. 08:09 Marie cath inserted, using sterile technique, 16 Fr., by ED staff, balloon inflated, to bp gravity drainage. 08:11 Radiology exam delayed due to pt too unstable to come down for CT at this time, Santo stone3 will call when ready. 09:53 CT Chest For PE Angio In Process Unspecified. EDMS 10:35 Nathanael Ann MD is Hospitalizing Provider. ms3 10:37 Baldo Funes MD is Hospitalizing Provider. ms3 14:46 Patient transferred to hospital bed. Linens changed, gown changed. . zm 18:32 No provider procedures requiring assistance completed. Patient admitted, IV remains in iw place. 19:28 Primary Nurse role handed off by Santo Romeo, RN rv1 Administered Medications: 07:15 Drug: Albuterol Inhalation 1.25 mg Route: Inhalation; bp 07:15 Drug: Furosemide IVP 20 mg Route: IVP; Site: left antecubital; bp 10:45 Drug: AZITHromycin IVPB 500 mg Route: IVPB; Infused Over: 1 hrs; Site: right bp antecubital; Medication: 18:32 VIS not applicable for this client. iw Output: 14:43 Urine: 1700ml (Marie); Total: 1700ml. bp Outcome: 10:37 Decision to Hospitalize by Provider. ms3 16:00 Admitted to ER Hold. Please see [facility] for further documentation. iw 16:00 Condition: stable 16:00 Discharge instructions given to family, Instructed on the need for admit. 20:09 Patient left the ED. rv Signatures: Dispatcher [employer] EDMS Angie Son RN RN iw Pelt[place], Brian RN Rocky Galvan RN RN Jennifer Smith mb4 Caryn Corcoran ls3 Mina Jimenez DO DO ms3 Isatu Mckeon RN RN kd3 Alysas West Rebecca rv1 Adán العراقي MD MD sp4
[2022-10-23] MEDS ORDERED: NA CHLORIDE 0.9% 250 ML ONE (11:01)
[2022-10-23] MEDS ORDERED: AZITHROMYCIN 500 MG INJ IVPB ONE (11:01)
[2022-10-23] MEDS ORDERED: ACETAMINOPHEN 325 MG TABLET PO PRN (11:42)
[2022-10-23] MEDS ORDERED: TRAMADOL HCL 50 MG TAB PO PRN (11:42)
[2022-10-23] MEDS ORDERED: IPRATROPIUM BROM 0.5MG/2.5ML NEB SCH (12:03)
[2022-10-23] MEDS ORDERED: SODIUM CHLORIDE 0.9% 10ML INJ IV PRN (12:10)
--- NOTE | 2022-10-23 12:11 | P.HP ---
Certification for Inpatient Patient admitted to: Inpatient With expected LOS: >2 Midnights Patient will require the following post-hospital care: None Practitioner: I am a practitioner with admitting privileges, knowledge of patient current condition, hospital course, and medical plan of care. Services: Services provided to patient in accordance with Admission requirements found in Title 42 Section 412.3 of the Code of Federal Regulations Patient History Date of Service: 10/23/22 Reason for admission: SOb and generalized weakness History of Present Illness: Patient is a 67-year-old female with a past medical history significant for COPD, chronic respiratory failure, chronic back pain, Lupus, hypertension, GERD, insomnia, DM 2, nicotine dependence who presents with complaint of shortness of breath and altered mental status that has been ongoing for the past 2 days. Patient currently unable to respond to verbal commands appropriately due to confusion. Per spouse report, patient has been having increasing confusion and generalized weakness in the last 2 days. Family also reported that patient has been having episodes of cough, fatigue, subjective fever and generalized malaise. Patient's spouse reported that this morning he was guiding patient to use the bathroom when patient was about to fall due to her legs giving out. Patient's spouse had to lowered the patient to the floor gradually. Patient spouse reported that patient did not hit her head or lose consciousness. Patient's spouse decided to call EMS. No other signs and symptoms reported. Symptoms are aggravated or relieved by nothing. Patient was brought to the hospital for medical evaluation. Allergies aspirin Allergy (Verified 07/05/16 09:02) Unknown codeine Allergy (Verified 07/05/16 09:02) Unknown tramadol HCl [From Ultram] Allergy (Verified 07/05/16 09:02) Unknown SULFA (SULFONAMIDES) Allergy (Unknown, Uncoded 07/05/16 09:02) Unknown Home Medications: Albuterol Sulfate [Proair Respiclick] 90 mcg IH DAILY 07/05/16 Alprazolam [Xanax] 1 tab PO PRN 07/05/16 Clopidogrel Bisulfate [Plavix] 75 mg PO DAILY 07/05/16 Mirtazapine 15 mg PO BEDTIME 07/05/16 Oxycodone HCl [Oxycontin] 10 mg PO DAILY 07/05/16 Pantoprazole Sodium [Protonix] 1 tab PO DAILY 07/05/16 Tiotropium [place] [Spiriva] 1 spray IH DAILY 07/05/16 Zolpidem Tartrate [Ambien] 1 tab PO BEDTIME 07/05/16 clonazePAM [Klonopin Rapdis Tab] 1 tab PO DAILY 07/05/16 acetaZOLAMIDE [Diamox*] 125 mg PO DAILY #30 tab 07/07/16 levoFLOXacin [Levaquin*] 500 mg PO DAILY #14 tab 07/06/17 predniSONE [Deltasone*] 10 mg PO BID #10 tab 07/06/17 - Past Medical/Surgical History Diabetic: No -: Lupus -: hypertension -: diabetes -: COPD -: colon cancer - Social History Smoking Status: Current every day smoker Alcohol use: No CD- Drugs: No Caffeine use: Yes Place of Residence: Home Review of Systems is unable to be obtained (Unable to assess due to acuity of condition and confusion) Physical Examination - Vital Signs Pulse: 103 Pulse Ox (%): 99 - Physical Exam General: Alert, Oriented x1, Moderate distress, Confused HEENT: Atraumatic, PERRLA, Mucous membr. moist/pink, EOMI, Sclerae nonicteric Neck: Supple, 2+ carotid pulse no bruit, No LAD, Without JVD or thyroid abnormality Respiratory: Diminished Cardiovascular: No edema, Regular rate/rhythm, Normal S1 S2 Capillary refill: <2 Seconds Gastrointestinal: Normal bowel sounds, Soft and benign, No tenderness Musculoskeletal: No clubbing, No swelling, No tenderness Integumentary: No rashes, No significant lesion Neurological: Normal speech, Normal tone, Normal affect Lymphatics: No axilla or inguinal lymphadenopathy - Studies Laboratory Data (last 24 hrs) 10/23/22 07:09: PT 12.4, INR 1.13, APTT 31.4 10/23/22 07:09: WBC 11.50 H, Hgb 12.9, Hct 40.6, Plt Count 384 10/23/22 07:09: Sodium 135 L, Potassium 4.7, BUN 40 H, Creatinine 1.52 H, Glucose 154 H, Magnesium 2.8 H, Total Bilirubin 0.4, AST 47 H, ALT 40, Alkaline Phosphatase 89, Lipase 26 Microbiology Data (last 24 hrs): 10/23/22 07:10 Nasopharnyx Influenza Type A Antigen Screen - Final 10/23/22 07:10 Nasopharnyx Influenza Type B Antigen Screen - Final Assessment and Plan - Plan --Acute on chronic respiratory failure with hypercapnia. Likely secondary to COPD exacerbation versus suspected CHF exacerbation. Patient started on BiPAP therapy in the ER. Pulmonology consulted. Respiratory acidosis noted on ABG. Coil Tester recommended placing patient on antibiotics and to consult respiratory therapist to titrate O2 sat to 90% and obtain an ABG thereafter. Continue nebulizer treatment with albuterol\Atrovent. We will await further recommendation from bung dropper. --Acute metabolic encephalopathy. Likely secondary to hypercapnia versus side effects of patient's pain medication regimen. Continue current treatment regimen. --Acute on chronic COPD exacerbation. Continue current treatment regimen --Elevated troponin. Unclear etiology. Echocardiogram pending. Cardiology consulted. Will trend troponin levels. Will await further recommendation from temperature logging operator. --Suspected acute systolic or diastolic CHF exacerbation. BNP elevated--[id number]. Echocardiogram pending to assess cardiac structures and function. Continue diuresis with Lasix. Coupon Collection Clerk on board. Further management per temperature logging operator. --GERD. Continue Protonix. --Chronic back pain\Lupus. We will hold off on pain medication due to patient's altered mental status. We will manage pain with Tylenol as needed. --Insomnia. Continue home medication --Nicotine dependence. Patient be counseled on tobacco cessation when fully alert. Spouse does not want patient to be on a nicotine patch. --Hypertension. Poorly controlled. Continue home medications and hydralazine as needed. --Anxiety disorder. Continue Xanax. --JERRY. Baseline functions unknown. Renal functions 2 and years ago was at CKD 3A. Nephrology consulted. Further management per heavy equipment sales associate. --Leukocytosis. Likely steroid-induced. Blood cultures pending. We will continue to monitor WBC levels. --DVT prophylaxis with Lovenox subQ. Discharge Plan: Home Plan to discharge in: Greater than 2 days - Advance Directives Does patient have a Living Will: No Does patient have a Durable POA for Healthcare: No - Code Status/Comfort Care Code Status Assessed: Yes Physician Review: Patient Assessed, Agree with Above Assessment and Plan Critical Care: Yes
[2022-10-23] MEDS ORDERED: ENOXAPARIN 40 MG/0.4 ML SQ SCH (13:00)
[2022-10-23 13:02] LABS: Magnesium 2.8 mg/dL (1.6-2.4); Phosphorus 3.1 mg/dL (2.5-4.9); Thyroid Stimulating Hormone 0.099 uIU/mL (0.358-3.740)
[2022-10-23 13:03] LABS: Troponin High Sensitivity 243.3 pg/mL (<58.9)
[2022-10-23] MEDS: IPRATROPIUM BROM 0.5MG/2.5ML NEB SCH ×2 (14:00→20:20)
[2022-10-23] MEDS: ALBUTEROL 2.5 MG/3 ML NEB SOL NEB SCH ×2 (14:00→20:20)
[2022-10-23] MEDS ORDERED: IPRATROPIUM BROM 0.5MG/2.5ML ONE (14:33)
[2022-10-23] MEDS: FUROSEMIDE 40 MG/4 ML VIAL IV SCH (17:00)
[2022-10-23] MEDS ORDERED: FUROSEMIDE 40 MG/4 ML VIAL ONE (17:20)
[2022-10-23] MEDS ORDERED: ENOXAPARIN 40 MG/0.4 ML SQ ONE ×2 (17:20→19:02)
[2022-10-23] MEDS ORDERED: PANTOPRAZOLE 40 MG INJ ONE (17:20)
[2022-10-23] MEDS: PANTOPRAZOLE 40 MG INJ IVP SCH (17:23)
--- NOTE | 2022-10-23 17:28 | CON ---
Date of Consultation: 10/23/2022 Reason For Consultation: Heart failure exacerbation. History Of Present Illness: A 67-year-old female with history of COPD, chronic respiratory failure, lupus, hypertension, acid reflux, insomnia, and diabetes, active smoker, presented with shortness of breath and altered mental status. She required BiPAP to stabilize. Family reported she has been hav ing cough and subjective fever and generalized weakness. No significant edema or swelling. Past Medical History: As outlined above in the HPI. Medications: Refer to reconciliation sheet for detailed list. Allergies: ASPIRIN, CODEINE, TRAMADOL, SULFA. Family History: No premature coronary artery disease or cancer. Social History: She is an active smoker. Does not drink or use any drugs. Review of Systems: All systems reviewed and they were negative except what mentioned in HPI. Physical Examination: Vital Signs: Reviewed. Head and Neck: Pupils are equal, reactive to light. Intact eye movements. No JVD. No cervical lym phadenopathy. Neck is supple. Thyroid is not enlarged. Lungs: She has rhonchi bilaterally and is diffuse. Abdomen: Soft, nontender. Bowel sounds positive. No organomegaly. No masses or hernia. No rigidi ty or rebound. Extremities: No edema, clubbing, or cyanosis. Intact pulses. Skin: No rash. Neurologic: She is lethargic, on BiPAP. Lymph Nodes: No cervical or axillary lymphadenopathy. Investigations: BUN 40, creatinine 1.5. Troponin was 305 and then 243. NT-proBNP is 13,225. TSH i s 0.099 and her hemoglobin is 12.9. Assessment And Recommendations: 1.Acute hypoxic and hypercapnic respiratory failure. Agree with noninvasive ventilation with BiPAP and she needs chronic obstructive pulmonary disease management. There is probably a component of con gestive heart failure as well. Her NT-proBNP is very high and please obtain an echocardiogram to fur ther evaluate and agree with empiric diuresis at the present time and carefully monitor BUN, creatini ne, electrolytes. 2.Elevated NT-proBNP, very high levels. Obtain echo. Probably she has a component of heart failure . CTA of the lungs did not show any pulmonary embolism and the CT scan is suggestive of infectious e tiology. Please test the patient for COVID and treat for pneumonia as a cause of her current exacerb ation. 3.Bilateral pneumonia. Recommendation as above. 4.Elevated troponin. This is demand ischemia. I will further evaluate her heart once she is hemody namically stable. She needs ischemia workup, which can be done later when she is hemodynamically and clinically stable. SR/MODL Voice ID: [id number] Report ID: [id number]
[2022-10-23] MEDS: CEFEPIME 2 GM in NA CHLORIDE 0.9% 100 ML IV SCH (18:56)
[2022-10-23] MEDS: ENOXAPARIN 80 MG/0.8 ML SQ SCH (18:57)
[2022-10-23] MEDS ORDERED: CEFEPIME 2 GM VIAL ONE (19:01)
[2022-10-23] MEDS ORDERED: NA CHLORIDE 0.9% 100 ML ONE (19:02)
[2022-10-24] MEDS: HYDRALAZINE HCL 20 MG/ML VIAL IV PRN ×2 (00:14→06:23)
[2022-10-24] MEDS: CEFEPIME 2 GM in NA CHLORIDE 0.9% 100 ML IV SCH ×3 (00:53→16:46)
[2022-10-24] MEDS: ALBUTEROL 2.5 MG/3 ML NEB SOL NEB SCH ×4 (01:25→20:35)
[2022-10-24] MEDS: IPRATROPIUM BROM 0.5MG/2.5ML NEB SCH ×4 (01:25→20:35)
[2022-10-24 05:23] LABS: Absolute Lymphocytes (CBC) 0.7 K/uL (0.7-4.9); Hematocrit 39.6 % (36.0-45.0); MPV 9.3 fL (7.6-11.3); RBC Red Blood Cell Count 4.89 M/uL (3.86-4.86)
[2022-10-24] MEDS: ENOXAPARIN 80 MG/0.8 ML SQ SCH ×2 (05:31→16:49)
[2022-10-24 05:38] LABS: Potassium 3.8 mEq/L (3.5-5.1)
[2022-10-24 05:39] LABS: Magnesium 2.9 mg/dL (1.6-2.4)
[2022-10-24] MEDS ORDERED: KCL 20 MEQ/100 mL IVPB 20 MEQ/100 ML BAG IV SCH (06:00)
[2022-10-24] MEDS ORDERED: POTASSIUM PHOS IN 0.9 % NACL 15 MMOL/250 ML BAG IV ONE (08:00)
--- NOTE | 2022-10-24 08:20 | P.CNS ---
Date of Consult: 10/24/22 Reason for Consult: COPD exacerbation respiratory failure Chief Complaint: SOb and generalized weakness History of Present Illness: Patient is 67 years of age well-known to me with a history of severe COPD/according to the she became worse over the past 2 days worsening dyspnea patient does smoke history of chronic pain no history of fever or chills Allergies aspirin Allergy (Verified 07/05/16 09:02) Unknown codeine Allergy (Verified 07/05/16 09:02) Unknown tramadol HCl [From Ultram] Allergy (Verified 07/05/16 09:02) Unknown SULFA (SULFONAMIDES) Allergy (Unknown, Uncoded 07/05/16 09:02) Unknown Home Medications: Albuterol Sulfate [Proair Respiclick] 90 mcg IH DAILY 07/05/16 Alprazolam [Xanax] 1 tab PO PRN 07/05/16 Clopidogrel Bisulfate [Plavix] 75 mg PO DAILY 07/05/16 Mirtazapine 15 mg PO BEDTIME 07/05/16 Oxycodone HCl [Oxycontin] 10 mg PO DAILY 07/05/16 Pantoprazole Sodium [Protonix] 1 tab PO DAILY 07/05/16 Tiotropium [place] [Spiriva] 1 spray IH DAILY 07/05/16 Zolpidem Tartrate [Ambien] 10 mg PO BEDTIME 07/05/16 clonazePAM [Klonopin Rapdis Tab] 0.5 mg PO DAILY 07/05/16 acetaZOLAMIDE [Diamox*] 125 mg PO DAILY #30 tab 07/07/16 predniSONE [Deltasone*] 10 mg PO BID #10 tab 07/06/17 Amlodipine [Norvasc] 5 mg PO DAILY 10/23/22 Budesonide/Glycopyr/Formoterol [Breztri Aerosphere Inhaler] 2 puff IH BID 10/23/22 Gabapentin 300 mg PO BID 10/23/22 Ondansetron [Zofran] 4 mg PO BID PRN 10/23/22 Roflumilast [Daliresp] 500 mcg PO DAILY 10/23/22 Rosuvastatin [Crestor] 5 mg PO DAILY 10/23/22 - Past Medical/Surgical History Diabetic: Yes -: Lupus -: Hypertension -: Diabetes type 2 -: COPD -: GERD -: Colon cancer - Social History Smoking Status: Unknown if ever smoked Alcohol use: No CD- Drugs: No Caffeine use: Yes Place of Residence: Home Review of Systems is unable to be obtained Physical Examination Temp Pulse Resp BP Pulse Ox 96.8 F 92 H 17 164/85 H 94 10/24/22 04:00 10/24/22 06:00 10/24/22 06:00 10/24/22 06:00 10/24/22 06:00 General: Alert, Cooperative Neck: Supple Respiratory: Diminished, Expiratory wheezes Cardiovascular: No edema, Regular rate/rhythm, Normal S1 S2 Gastrointestinal: Normal bowel sounds, Soft and benign Musculoskeletal: No clubbing, No swelling, No contractures - Problems (1) Respiratory failure Onset Date: 07/05/16 Current Visit: No Status: Acute Plan: Patient is 67 years of age with a history of COPD admitted with acute on chronic respiratory failure she is more alert today plan to wean her off the BiPAP titrate sat to 90% patient refused blood gases yesterday patient's renal function is slightly worse CT scan of the chest reviewed patient has some interstitial changes upper lobe centrilobular nodules with small apical cavity most likely underlying COPD doubt infection troponins elevated I suspect is from demand ischemia continue with cefepime titrate off BiPAP add Solu-Medrol resume some home medications Qualifiers: Chronicity: acute on chronic
[2022-10-24] MEDS: PANTOPRAZOLE 40 MG INJ IVP SCH (08:46)
[2022-10-24] MEDS: FUROSEMIDE 40 MG/4 ML VIAL IV SCH (08:46)
[2022-10-24] MEDS ORDERED: acetaZOLAMIDE 250 MG TAB PO SCH (09:00)
[2022-10-24] MEDS ORDERED: AMLODIPINE 5 MG TAB PO SCH (09:00)
[2022-10-24] MEDS: ROSUVASTATIN 10 MG TAB PO SCH (09:31)
[2022-10-24] MEDS: GABAPENTIN 300 MG CAP PO SCH ×2 (09:32→20:55)
[2022-10-24] MEDS: OXYCODONE *CR* 10 MG TAB PO SCH (09:32)
[2022-10-24] MEDS: ROFLUMILAST 500 MCG TABLET PO SCH (09:33)
[2022-10-24] MEDS: METHYLPREDNISOLONE 40 MG INJ IV SCH ×2 (09:34→20:55)
[2022-10-24] MEDS: CLOPIDOGREL 75 MG TABLET PO SCH (09:34)
--- NOTE | 2022-10-24 09:59 | P.CNS ---
Date of Consult: 10/24/22 Reason for Consult: JERRY/ CKD Requesting Physician: Baldo Funes Chief Complaint: SOB and generalized weakness History of Present Illness: Patient is a 67-year-old female with a past medical history significant for COPD, chronic respiratory failure, chronic back pain, Lupus, hypertension, GERD, insomnia, DM 2, nicotine dependence who presents with complaint of shortness of breath and altered mental status that has been ongoing for the past 2 days. Patient currently unable to respond to verbal commands appropriately due to confusion. Per spouse report, patient has been having increasing confusion and generalized weakness in the last 2 days. Family also reported that patient has been having episodes of cough, fatigue, subjective fever and generalized malaise. Patient's spouse reported that this morning he was guiding patient to use the bathroom when patient was about to fall due to her legs giving out. Patient's spouse had to lowered the patient to the floor gradually. Patient spouse reported that patient did not hit her head or lose consciousness. Patient's spouse decided to call EMS. No other signs and symptoms reported. Symptoms are aggravated or relieved by nothing. Patient was brought to the hospital for medical evaluation. 06:58 This 67 yrs old Female presents to ER via Unassigned with complaints of sp4 Dyspnea, and generalized weakness . 06:58 67-year-old female presents with EMS for acute onset of generalized weakness and sp4 worsening shortness of breath. Patient's attempted to help patient into the bed but her legs gave out and EMS was called. EMS states that had to scrap picker the patient from the floor. EMS administered 20 mg IV Lasix in the route and 125 mg IV Solu-Medrol. EMS applied BiPAP with some improvement in oxygenation Limited HPI/ ROS due to mental status Allergies aspirin Allergy (Verified 07/05/16 09:02) Unknown codeine Allergy (Verified 07/05/16 09:02) Unknown tramadol HCl [From Ultram] Allergy (Verified 10/24/22 14:11) Unknown SULFA (SULFONAMIDES) Allergy (Unknown, Uncoded 07/05/16 09:02) Unknown Home medications list reviewed: Yes Home Medications: Albuterol Sulfate [Proair Respiclick] 90 mcg IH DAILY 07/05/16 Alprazolam [Xanax] 1 tab PO PRN 07/05/16 Clopidogrel Bisulfate [Plavix] 75 mg PO DAILY 07/05/16 Mirtazapine 15 mg PO BEDTIME 07/05/16 Oxycodone HCl [Oxycontin] 10 mg PO DAILY 07/05/16 Pantoprazole Sodium [Protonix] 1 tab PO DAILY 07/05/16 Tiotropium [place] [Spiriva] 1 spray IH DAILY 07/05/16 Zolpidem Tartrate [Ambien] 10 mg PO BEDTIME 07/05/16 clonazePAM [Klonopin Rapdis Tab] 0.5 mg PO DAILY 07/05/16 acetaZOLAMIDE [Diamox*] 125 mg PO DAILY #30 tab 07/07/16 predniSONE [Deltasone*] 10 mg PO BID #10 tab 07/06/17 Amlodipine [Norvasc] 5 mg PO DAILY 10/23/22 Budesonide/Glycopyr/Formoterol [Breztri Aerosphere Inhaler] 2 puff IH BID 10/23/22 Gabapentin 300 mg PO BID 10/23/22 Ondansetron [Zofran] 4 mg PO BID PRN 10/23/22 Roflumilast [Daliresp] 500 mcg PO DAILY 10/23/22 Rosuvastatin [Crestor] 5 mg PO DAILY 10/23/22 - Past Medical/Surgical History Diabetic: Yes -: Lupus -: HTN -: DM II -: COPD -: GERD -: CKD III (Dr. Townsend/ Dr. Araujo) -: Colon cancer - Social History Smoking Status: Unknown if ever smoked Alcohol use: No CD- Drugs: No Caffeine use: Yes Place of Residence: Home Review of Systems 10-point ROS is otherwise unremarkable General: Weakness, Malaise Physical Examination Temp Pulse Resp BP Pulse Ox 96.8 F 110 H 17 161/86 H 94 10/24/22 04:00 10/24/22 09:34 10/24/22 09:32 10/24/22 09:34 10/24/22 09:32 General: In no apparent distress, Cooperative HEENT: Atraumatic Neck: Supple Respiratory: Expiratory wheezes Cardiovascular: No edema, Regular rate/rhythm Gastrointestinal: Soft and benign, Non-distended Musculoskeletal: No clubbing, No contractures Integumentary: No rashes, No cyanosis Neurological: Abnormal strength Blood work reviewed in the chart. Imagings Data: EXAM DESCRIPTION: [place] Single View10/23/2022 7:38 am CLINICAL HISTORY: COPD COMPARISON: Chest Pa And Lat (2 Views) dated 09/23/2018; Chest Single View dated 07/05/2017; Chest Single View dated 07/04/2016; CHEST SINGLE VIEW dated 04/15/2011 TECHNIQUE: Portable AP view of the chest. FINDINGS: Patchy left basilar airspace opacification versus atelectasis. Superimposition of soft tissues limits evaluation. No pneumothorax or sizable effusion. The cardiomediastinal contours are unremarkable. IMPRESSION: Patchy left basilar airspace opacification versus atelectasis. Superimposition of soft tissues limits evaluation. EXAM DESCRIPTION: CT - Chest For Pe Angio - 10/23/2022 9:51 am CLINICAL HISTORY: DYSPNEA COMPARISON: Lung Cancer Screening CT W/O dated 09/20/2021; Lung Cancer Screening CT W/O dated 08/16/2020; Thorax Wo Con dated 07/22/2019; Lung Cancer Screening CT W/O dated 11/23/2018 TECHNIQUE: Thin axial CT images of the chest were obtained following administration of 100 mL Isovue 370 IV contrast. Multiplanar reconstructions, and maximum intensity projection reconstructions were generated and reviewed. Exam utilizes a protocol for optimal evaluation of pulmonary arterial tree. All CT scans are performed using dose optimization technique as appropriate and may include automated exposure control or mA/KV adjustment according to patient size. FINDINGS: Left thyroid lobe hypoattenuating 1.6 centimeter nodule inferiorly, stable. Contrast opacification is satisfactory. Pulmonary arteries are normal, with no emboli or other suspicious finding, allowing for some motion artifact. No acute or significant aorta findings. Scattered tree-in-bud opacities throughout both lungs, with some apical predominance. Small cavitary lesion at the left lung apex, measuring 7 millimeter in greatest dimension. No pleural thickening or pleural effusion. No pneumothorax. No abnormal mediastinal or hilar masses. Mildly prominent mediastinal and bilateral hilar lymph nodes, the largest subcarinal measuring 1.3 centimeter in short axis. No chest wall mass or abnormal axilliary lymphadenopathy. Evaluation of the upper abdominal structures shows no suspicious abnormality. No acute osseous findings. IMPRESSION: No evidence of acute central pulmonary emboli, allowing for some motion artifact. Scattered tree-in-bud opacities bilaterally with some apical predominance. Findings suggest an infectious or inflammatory process such as bronchiolitis. Please correlate clinically. A 7 millimeter left apical cavitary nodule is noted, likely relating to the same etiology. Mildly prominent mediastinal and hilar lymph nodes, likely reactive. 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 -Echo pending -Hold lasix at this time; Lasix prn IFG -No sugar diet Acute respiratory failure with hypercapnia Metabolic Encephalopathy -Bipap prn Case reviewed with Dr. Funes Thank you kindly for the consultation
--- NOTE | 2022-10-24 11:48 | RAD REPORT ---
EXAM DESCRIPTION: US - Extrem Venous W Compress Ciro - 10/24/2022 11:35 am CLINICAL HISTORY: elevated d-dimer Bilateral leg edema and swelling. COMPARISON: No comparisons TECHNIQUE: Real-time sonographic interrogation of the left and right lower extremity deep venous sys tems was performed. FINDINGS: Normal compressibility, flow augmentation, phasic flow and spontaneous flow is identified in both the left and right lower extremity deep venous systems. IMPRESSION: No sonographic evidence of left or right lower extremity deep venous thrombosis.
--- NOTE | 2022-10-24 12:13 | EKG ---
Test Date: 2022-10-24 Test Time: 00:31:53 Furniture Removalist: ANSELMO MEASUREMENT RESULTS: Intervals: Rate: 92 DC: 144 QRSD: 94 QT: 336 QTc: 415 [place]: P: 83 DC: 144 QRS: -54 T: 49 INTERPRETIVE STATEMENTS: Normal sinus rhythm Left anterior fascicular block Abnormal ECG Compared to ECG 10/23/2022 07:17:40 Sinus tachycardia no longer present Fusion complex(es) no longer present Electronically Signed On 10-24-22 12:12:00 CDT by Estevan Al
--- NOTE | 2022-10-24 12:17 | EKG ---
Test Date: 2022-10-23 Test Time: 07:17:40 Physical Therapy Coordinator: MB MEASUREMENT RESULTS: Intervals: Rate: 112 NC: 150 QRSD: 92 QT: 308 QTc: 420 [place]: P: 77 NC: 150 QRS: -54 T: 52 INTERPRETIVE STATEMENTS: Sinus tachycardia with fusion complexes Left anterior fascicular block Abnormal ECG Compared to ECG 07/05/2016 01:21:30 Fusion complex(es) now present Left anterior fascicular block now present Sinus rhythm no longer present Right-axis deviation no longer present ST (T wave) deviation no longer present Electronically Signed On 10-24-22 12:14:07 CDT by Estevan Al
--- NOTE | 2022-10-24 20:18 | P.PN ---
Subjective Date of Service: 10/24/22 Chief Complaint: SOB and generalized weakness No acute events overnight. She was seen this morning on rounds alongside Dr. Cai. She appears much less confused today and is able to hold a conversation without the BiPAP mask on. She denies any fevers, chills, chest pain. She reports shortness of breath and cough. Review of Systems 10-point ROS is otherwise unremarkable Respiratory: Cough, Shortness of Breath Physical Examination - Vital Signs Temperature: 98.4 F Blood Pressure: 117/94 Pulse: 97 Respirations: 18 Pulse Ox (%): 93 - Physical Exam General: Alert, In no apparent distress, Oriented x3 HEENT: Atraumatic, Mucous membr. moist/pink, Sclerae nonicteric Neck: JVD not distended Respiratory: Diminished, Crackles/rales, Rhonchi/gurgles Cardiovascular: Regular rate/rhythm, Normal S1 S2, No gallops, No rubs, No murmurs, Edema (trace-1+ BLE) Gastrointestinal: Normal bowel sounds, Soft and benign, Non-distended, No tenderness, No rebound, No guarding Musculoskeletal: No clubbing Integumentary: No rashes Neurological: Normal speech, Normal affect Assessment And Plan - Plan # Severe Sepsis likely secondary to Community-Acquired Pneumonia/Bronchitis - POA She met SIRS criteria based on HR > 90 bpm and RR > 20 breaths/min, and the suspected source is pulmonary. Severe sepsis is suspected due to concern for tissue hypoperfusion/organ dysfunction based on acute respiratory failure requiring BiPAP. - Sepsis order set was initiated - Initial Lactate was 1.5 - Blood cultures drawn before antibiotics were given - Broad spectrum antibiotics started: Cefepime - In regards to fluids: - 30 mL/kg of IV fluids was not administered given SBP > 90, MAP > 65, lactic acid < 4 # Acute Hypercapnic Respiratory Failure due to Acute COPD Exacerbation # Acute Toxic Metabolic Encephalopathy due to above - improved - Evaluation thus far: - D-Dimer = 2303 - Procalcitonin = pending - Influenza = negative - ABG = pH 7.25, PCO2 68.3, PO2 374 - Chest x-ray = "patchy left basilar airspace opacification versus atelectasis. Superimposition of soft tissues limits evaluation." - CT chest angiogram = "no evidence of acute central pulmonary emboli, allowing for some motion artifact. Scattered tree-in-bud opacities bilaterally with some apical predominance. Findings suggest an infectious or inflammatory process such as bronchiolitis. Please correlate clinically. A 7 millimeter left apical cavitary nodule is noted, likely relating to the same etiology. Mildly prominent mediastinal and hilar lymph nodes, likely reactive." - Bilateral lower extremity Doppler = "no sonographic evidence of left or right lower extremity deep venous thrombosis" - Management plan: - Consulted Pulmonary Medicine and spoke with Dr. Cai - recommendations appreciated - Bronchodilators and steroids per Pulm - Continue roflumilast - Consulted Respiratory Therapy - Supplemental oxygen to maintain SpO2 > 92% - Encouraged incentive spirometry # Suspect KDIGO Stage I Acute Kidney Injury - Consulted Nephrology and spoke with Dr. Townsend - recommendations appreciated - Creatinine = 1.52 -> 1.52 (creatinine was 1.1 on 05/05/2019) - Urinalysis = pending - Monitor creatinine and urine output - If worsening, obtain renal ultrasound - Renally dose medications # Suspect Demand Ischemia (Type II Non-ST Segment Elevation Myocardial Infarction) # Hypertension - Evaluation thus far: - EKG: without STEMI criteria, trend - Serial troponin: 305.2 -> 243.3 -> 145.7 - Ordered transthoracic echocardiogram - Management plan: - Consult Cardiology - recommendations appreciated - Aspirin not started due to allergy - Continue home amlodipine, rosuvastatin - If coronary artery disease confirmed, consider beta-radha, CASTRO- inhibitor/ARB as tolerated # 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
--- NOTE | 2022-10-24 20:34 | PN ---
Date of Progress Note: 10/24/2022 Subjective: Seen by bedside. She is still lethargic but appears hemodynamically stable. Review of Systems: No chest pain. Has shortness of breath. No nausea, vomiting, or diarrhea. All other systems were r eviewed, they were negative. Physical Examination: Vital signs: Reviewed. Head and Neck: Pupils are reactive to light. No JVD. No cervical lymphadenopathy. Lungs: She has rhonchi bilaterally with improvement compared to yesterday. No accessory muscle use or muscle retraction. Heart: Irregular. No extra sounds. Abdomen: Soft, nontender. Bowel sounds positive. No organomegaly. No masses or hernia. No rigidi ty or rebound. Extremities: No edema, clubbing, or cyanosis. Intact pulses. Skin: No rashes. Neurologic: Alert, awake. No acute focal deficits appreciated. Investigation: Labs reviewed. Assessment And Recommendations: 1.Acute hypoxic/hypercapnic respiratory failure, likely due to chronic obstructive pulmonary disease exacerbation. I reviewed her echo today and the filling pressures are normal. At this point, no di uretics are needed. Discontinue the Lasix, and in fact, the patient might require gentle hydration. I will monitor closely. 2.Chronic obstructive pulmonary disease exacerbation as a cause of her respiratory failure and impro ving gradually on steroids. 3.Elevated troponin, likely demand. We will plan for ischemia evaluation once she is more stable. SR/MODL Voice ID: [id number] Report ID: [id number]
[2022-10-24] MEDS: MIRTAZAPINE 15 MG TAB PO SCH (20:55)
[2022-10-25 00:30] LABS: Specific Gravity > 1.030 (1.005-1.030); Urine Bacteria None Seen /HPF (<20); Urine Bilirubin NEGATIVE (Negative); Urine Blood Negative (Negative); Urine Clarity Clear (Clear); Urine Color Light-Yellow (Yellow); Urine Glucose NEGATIVE (Negative); Urine Mucus Slight /HPF (None Seen); Urine Protein 1+ (Negative); Urine Urobilinogen Normal (Normal)
[2022-10-25] MEDS: CEFEPIME 2 GM in NA CHLORIDE 0.9% 100 ML IV SCH ×3 (01:09→17:10)
[2022-10-25] MEDS: BENZONATATE 100 MG CAP PO PRN (01:09)
[2022-10-25] MEDS: ALBUTEROL 2.5 MG/3 ML NEB SOL NEB SCH ×4 (02:00→20:50)
[2022-10-25] MEDS: IPRATROPIUM BROM 0.5MG/2.5ML NEB SCH ×4 (02:00→20:50)
[2022-10-25] MEDS: ENOXAPARIN 80 MG/0.8 ML SQ SCH ×2 (05:47→17:09)
[2022-10-25 06:01] LABS: Albumin 2.7 g/dL (3.4-5.0); Bilirubin Total 0.3 mg/dL (0.2-1.0); Phosphorus 2.9 mg/dL (2.5-4.9); Protein, Total 7.7 g/dL (6.4-8.2); Uric Acid 7.9 mg/dL (2.6-6.0)
--- NOTE | 2022-10-25 06:58 | ECHO ---
HEIGHT: 5 ft 6 in WEIGHT: 173 lb 8.061 oz DATE OF STUDY: 10/24/[address]: Bari Bolton 2-DIMENSIONAL: YES M.MODE: YES DOPPLER: YES COLOR FLOW: YES TDS: YES PORTABLE: YES DEFINITY: BUBBLE STUDY: DIAGNOSIS: CONGESTIVE HEART FAILURE CARDIAC HISTORY: CATHERIZATION: SURGERY: PROSTHETIC VALVE: PACEMAKER: MEASUREMENTS (cm) DIASTOLIC (NORMALS) SYSTOLIC (NORMALS) IVSd 0.9 (0.6-1.2) LA Diam (1.9-4.0) LVEF 61% LVIDd 3.9 (3.5-5.7) LVIDs 2.7 (2.0-3.5) %FS 32% LVPWd 1.1 (0.6-1.2) Ao Diam 2.9 (2.0-3.7) 2 DIMENSIONAL ASSESSMENT: RIGHT ATRIUM: NORMAL LEFT ATRIUM: NORMAL RIGHT VENTRICLE: NORMAL LEFT VENTRICLE: NORMAL TRICUSPID VALVE: MILD TRICUSPID REGURGITATION MITRAL VALVE: MILD MITRAL REGURGITATION PULMONIC VALVE: NORMAL AORTIC VALVE: NORMAL PERICARDIAL EFFUSION: NONE AORTIC ROOT: NORMAL LEFT VENTRICULAR WALL MOTION: NORMAL DOPPLER/COLOR FLOW: SEE BELOW COMMENTS: 1. NORMAL LEFT VENTRICULAR EJECTION FRACTION 60-65% 2. NORMAL WALL MOTION 3. MILD DIASTOLIC DYSFUNCTION 4. MILD MITRAL REGURGITATION 5. MILD TRICUSPID REGURGITATION 6. RIGHT VENTRICULAR SYSTOLIC PRESSURE IS NORMAL, GREATER THAN 25 mmHg TECHNOLOGIST: RADHA HA
[2022-10-25 07:30] LABS: UR MICROALBUMIN 4.1 mg/dL (< 1.9); UR PROTEIN 47.7 mg/dL (<11.9); Urine Protein/Creatinine Ratio 0.35 ratio (<0.15)
[2022-10-25] MEDS: CLOPIDOGREL 75 MG TABLET PO SCH (08:22)
[2022-10-25] MEDS: ROFLUMILAST 500 MCG TABLET PO SCH (08:22)
[2022-10-25] MEDS: GABAPENTIN 300 MG CAP PO SCH ×2 (08:22→20:45)
[2022-10-25] MEDS: OXYCODONE *CR* 10 MG TAB PO SCH (08:22)
[2022-10-25] MEDS: ROSUVASTATIN 10 MG TAB PO SCH (08:23)
[2022-10-25] MEDS: PANTOPRAZOLE 40 MG INJ IVP SCH (08:24)
[2022-10-25] MEDS: METHYLPREDNISOLONE 40 MG INJ IV SCH (08:24)
--- NOTE | 2022-10-25 09:50 | RAD REPORT ---
EXAM DESCRIPTION: RAD - Chest Single View - 10/25/2022 9:38 am CLINICAL HISTORY: increased oxygen demands COMPARISON: Chest Single View dated 10/23/2022; Chest Pa And Lat (2 Views) dated 09/23/2018; Chest Singl e View dated 07/05/2017; Chest Single View dated 07/04/2016 FINDINGS: Lines: None. Lungs: Similar prominence of the pulmonary interstitium. Pleural: No significant pleural effusions or pneumothorax. Cardiac: The heart size is within normal limits. Mediastinum: Within normal limits. Bones: No acute fractures. Other: None IMPRESSION: Diffuse prominence of the pulmonary interstitium which could reflect edema or an atypica l infectious process. The findings are similar to 10/23/2022.
--- NOTE | 2022-10-25 10:54 | P.PN ---
Subjective Date of Service: 10/25/22 Chief Complaint: COPD exacerbation Subjective: Improving (Changes improving more alert responsive today she is on 40% FiO2 and a of productive cough) Review of Systems General: Weakness Respiratory: Cough, Shortness of Breath Physical Examination - Vital Signs Temperature: 97.8 F Blood Pressure: 145/80 Pulse: 91 Respirations: 17 Pulse Ox (%): 92 - Physical Exam General: Alert, Oriented x3 Respiratory: Clear to auscultation bilaterally, Diminished Cardiovascular: No edema, Regular rate/rhythm, Normal S1 S2 Assessment And Plan - Current Problems (Diagnosis) (1) Respiratory failure Onset Date: 07/05/16 Current Visit: No Status: Acute Plan: 67 years of age admitted with COPD exacerbation count is declining continue with present antibiotics urine culture has been ordered labs reviewed renal function is improving opponent's are declining most likely she has demand ischemia change to p.o. prednisone advance diet requiring significant amount of O2 no evidence of pulmonary embolism Qualifiers: Chronicity: acute on chronic Physician Review: Patient Assessed, Agree with Above Assessment and Plan
[2022-10-25 12:13] LABS: Arterial Blood Carboxyhemoglob 0.8 % (0-1.5); Blood Gas Oxyhemoglobin 89.6 % (94-97); Blood O2 Saturation 91.5 % (92-98.5)
--- NOTE | 2022-10-25 16:46 | P.PN ---
(S) Pt seen earlier this AM, delayed entry noted, still short of breath but off BIPAP and on HFNC when seen (O) Vitals reviewed in the EMR General: Appears chronically ill HEENT: Atraumatic, sclera anicteric, HFNC Neck: Supple Respiratory: Expiratory wheezes, dysphonia, reduced BS at bases Cardiovascular: No edema, mildly tachy Gastrointestinal: Soft and benign, Non-distended, vera present Musculoskeletal: No clubbing, No contractures Integumentary: No rashes, No cyanosis Neurological: Awake, alert, responsive Blood work reviewed in the chart. Imagings Data: EXAM DESCRIPTION: RADChest Single View10/23/2022 7:38 am CLINICAL HISTORY: COPD COMPARISON: Chest Pa And Lat (2 Views) dated 09/23/2018; Chest Single View dated 07/05/2017; Chest Single View dated 07/04/2016; CHEST SINGLE VIEW dated 04/15/2011 TECHNIQUE: Portable AP view of the chest. FINDINGS: Patchy left basilar airspace opacification versus atelectasis. Superimposition of soft tissues limits evaluation. No pneumothorax or sizable effusion. The cardiomediastinal contours are unremarkable. IMPRESSION: Patchy left basilar airspace opacification versus atelectasis. Superimposition of soft tissues limits evaluation. EXAM DESCRIPTION: CT - Chest For Pe Angio - 10/23/2022 9:51 am CLINICAL HISTORY: DYSPNEA COMPARISON: Lung Cancer Screening CT W/O dated 09/20/2021; Lung Cancer Screening CT W/O dated 08/16/2020; Thorax Wo Con dated 07/22/2019; Lung Cancer Screening CT W/O dated 11/23/2018 TECHNIQUE: Thin axial CT images of the chest were obtained following administra tion of 100 mL Isovue 370 IV contrast. Multiplanar reconstructions, and maximum intensity projection reconstructions were generated and reviewed. Exam utilizes a protocol for optimal evaluation of p ulmonary arterial tree. All CT scans are performed using dose optimization technique as appropriate and may include automated exposure control or mA/KV adjustment according to patient size. FINDINGS: Left thyroid lobe hypoattenuating 1.6 centimeter nodule inferiorly, stable. Contrast opacification is satisfactory. Pulmonary arteries are normal, with no emboli or other suspicious finding, allowing for some motion artifact. No acute or significant aorta findings. Scattered tree-in-bud opacities throughout both lungs, with some apical predominance. Small cavitary lesion at the left lung apex, measuring 7 millimeter in greatest dimension. No pleural thickening or pleural effusion. No pneumothorax. No abnormal mediastinal or hilar masses. Mildly prominent mediastinal and bilateral hilar lymph nodes, the largest subcarinal measuring 1.3 centimeter in short axis. No chest wall mass or abnormal axilliary lymphadenopathy. Evaluation of the upper abdominal structures shows no suspicious abnormality. No acute osseous findings. IMPRESSION: No evidence of acute central pulmonary emboli, allowing for some motion artifact. Scattered tree-in-bud opacities bilaterally with some apical predominance. Findings suggest an infectious or inflammatory process such as bronchiolitis. Please correlate clinically. A 7 millimeter left apical cavitary nodule is noted, likely relating to the same etiology. Mildly prominent mediastinal and hilar lymph nodes, likely reactive. Conclusions/Impression: Serum Cr raised above reference range, Stage 1 JERRY, multifactorial Underlying CKD NOS IVC exposure on 10-23-22, no sig rise in Cr level since, cont to monitor Abnormal findings in urine on admission, mild, can re-assess in a few weeks. Acute hypoxic, hypercarbic resp failure Multifactorial, element of airway disease +/- PNA, other Management by pulm/IM Elevated BNP levels Lasix per Cardiology Geraldo Araujo MD, SORIN
--- NOTE | 2022-10-25 17:36 | PN ---
Date of Progress Note: 10/25/2022 Subjective: Seen by bedside. Doing clinically well, requiring less oxygen. Review of Systems: No chest pain, shortness of breath. No nausea, vomiting, diarrhea. No abdominal pain. All other sy stems reviewed are negative. Physical Examination: Vital Signs: Reviewed. Head and Neck: Pupils are equal, reactive to light. Intact eye movements. No JVD. No cervical lym phadenopathy. Neck: Supple. Thyroid is not enlarged. Lungs: Decreased breathing sounds with rhonchi, improved compared to yesterday. Heart: Regular rate and rhythm. No extra sounds. Abdomen: Soft, nontender. Bowel sounds positive. No organomegaly. No masses or hernia. No rigidi ty or rebound. Extremities: No clubbing, cyanosis. Intact pulses. Skin: No rash. Neurologic: Alert and awake with confusion. No acute focal deficits appreciated. Lymph Nodes: No cervical lymphadenopathy. Investigations: Labs reviewed. Assessment/recommendations: 1.Acute respiratory failure due to chronic obstructive pulmonary disease exacerbation. Appropriatel y being treated with steroids. Continue current management. 2.Chronic congestive heart failure. She is euvolemic. Does not need diuretics at the present time. We will monitor and dose the diuretics as needed. 3.Elevated troponin, likely due to demand ischemia. We will plan for ischemia work up as an outpati ent. Cardiology will sign off. SR/MODL Voice ID: [id number] Report ID: [id number]
--- NOTE | 2022-10-25 19:48 | P.PN ---
Subjective Date of Service: 10/25/22 Chief Complaint: COPD exacerbation This morning, she reports significant shortness of breath. She is on high flow nasal cannula at 35 L. She reports a cough. ABG shows improvement in her CO2 levels, but she is hypoxemic. Appreciate Pulmonology recommendations. Chest x- ray is concerning for possible atypical infection, so added doxycycline. She denies any fevers, chills, chest pain. Review of Systems 10-point ROS is otherwise unremarkable Respiratory: Cough, Shortness of Breath Physical Examination - Vital Signs Temperature: 97.7 F Blood Pressure: 167/85 Pulse: 91 Respirations: 19 Pulse Ox (%): 97 Assessment And Plan - Plan - Physical Exam General: Alert, In no apparent distress, Oriented x3 HEENT: Atraumatic, Mucous membr. moist/pink, Sclerae nonicteric Neck: JVD not distended Respiratory: Diminished, Crackles/rales, Rhonchi/gurgles Cardiovascular: Regular rate/rhythm, Normal S1 S2, No gallops, No rubs, No murmurs, Edema (trace-1+ BLE) Gastrointestinal: Normal bowel sounds, Soft, Non-distended, No tenderness Musculoskeletal: No clubbing Integumentary: No rashes Neurological: Normal speech, Normal affect # Severe Sepsis likely secondary to Community-Acquired Pneumonia/Bronchitis - POA She met SIRS criteria based on HR > 90 bpm and RR > 20 breaths/min, and the suspected source is pulmonary. Severe sepsis is suspected due to concern for tissue hypoperfusion/organ dysfunction based on acute respiratory failure requiring BiPAP. - Sepsis order set was initiated - Initial Lactate was 1.5 - Blood cultures drawn before antibiotics were given - Broad spectrum antibiotics started: Cefepime + Doxycycline - In regards to fluids: - 30 mL/kg of IV fluids was not administered given SBP > 90, MAP > 65, lactic acid < 4 # Acute Hypercapnic Respiratory Failure due to Acute COPD Exacerbation # Acute Toxic Metabolic Encephalopathy due to above - improved - Evaluation thus far: - D-Dimer = 2303 - Procalcitonin = 2.04 - Influenza/COVID-19 = negative - ABG = pH 7.25, PCO2 68.3, PO2 374 - Chest x-ray = "patchy left basilar airspace opacification versus atelectasis. Superimposition of soft tissues limits evaluation." - CT chest angiogram = "no evidence of acute central pulmonary emboli, allowing for some motion artifact. Scattered tree-in-bud opacities bilaterally with some apical predominance. Findings suggest an infectious or inflammatory process such as bronchiolitis. Please correlate clinically. A 7 millimeter left apical cavitary nodule is noted, likely relating to the same etiology. Mildly prominent mediastinal and hilar lymph nodes, likely reactive." - Bilateral lower extremity Doppler = "no sonographic evidence of left or right lower extremity deep venous thrombosis" - Management plan: - Consulted Pulmonary Medicine and spoke with Dr. Cai - recommendations appreciated - Bronchodilators and steroids per Pulm - Continue roflumilast - Consulted Respiratory Therapy - Supplemental oxygen to maintain SpO2 > 92% - Encouraged incentive spirometry # Suspect KDIGO Stage I Acute Kidney Injury - Consulted Nephrology and spoke with Dr. Townsend - recommendations appreciated - Creatinine = 1.52 -> 1.52 -> 1.45 (creatinine was 1.1 on 05/05/2019) - Urinalysis = 5-10 RBCs, 5-10 hyaline casts, 1+ protein - Monitor creatinine and urine output - If worsening, obtain renal ultrasound - Renally dose medications # Suspect Demand Ischemia (Type II Non-ST Segment Elevation Myocardial Infarction) # Hypertension - Evaluation thus far: - EKG: without STEMI criteria, trend - Serial troponin: 305.2 -> 243.3 -> 145.7 - Transthoracic echocardiogram = "1. normal left ventricular ejection fraction 60-65% 2. normal wall motion 3. mild diastolic dysfunction 4. mild mitral regurgitation 5. mild tricuspid regurgitation 6. 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
[2022-10-25] MEDS: predniSONE 20 MG TAB PO SCH (20:45)
[2022-10-25] MEDS: MIRTAZAPINE 15 MG TAB PO SCH (20:45)
[2022-10-25] MEDS ORDERED: DOXYCYCLINE 100 MG in NA CHLORIDE 0.9% 100 ML IVPB SCH (21:00)
[2022-10-25] MEDS: ENSURE CLEAR 200 ML CAN PO SCH (21:23)
[2022-10-26] MEDS: HYDRALAZINE HCL 20 MG/ML VIAL IV PRN ×2 (00:26→07:52)
[2022-10-26] MEDS: CEFEPIME 2 GM in NA CHLORIDE 0.9% 100 ML IV SCH ×2 (00:26→07:50)
[2022-10-26] MEDS ORDERED: LABETALOL 20 MG/4ML SYRINGE IV ONE (02:21)
[2022-10-26] MEDS: IPRATROPIUM BROM 0.5MG/2.5ML NEB SCH ×4 (02:35→20:00)
[2022-10-26] MEDS: ALBUTEROL 2.5 MG/3 ML NEB SOL NEB SCH ×4 (02:35→20:00)
[2022-10-26 05:30] LABS: Potassium 3.7 mEq/L (3.5-5.1)
[2022-10-26] MEDS: ENOXAPARIN 80 MG/0.8 ML SQ SCH ×2 (06:22→17:51)
[2022-10-26] MEDS ORDERED: POTASSIUM CL SA 10 MEQ TAB PO ONE (07:45)
[2022-10-26] MEDS: ROSUVASTATIN 10 MG TAB PO SCH (07:46)
[2022-10-26] MEDS: ROFLUMILAST 500 MCG TABLET PO SCH (07:46)
[2022-10-26] MEDS: OXYCODONE *CR* 10 MG TAB PO SCH (07:47)
[2022-10-26] MEDS: predniSONE 20 MG TAB PO SCH ×2 (07:48→20:54)
[2022-10-26] MEDS: GABAPENTIN 300 MG CAP PO SCH ×2 (07:48→20:54)
[2022-10-26] MEDS: CLOPIDOGREL 75 MG TABLET PO SCH (07:48)
[2022-10-26] MEDS: DOXYCYCLINE 100 MG in NA CHLORIDE 0.9% 100 ML IVPB SCH ×2 (07:50→20:54)
[2022-10-26] MEDS: ENSURE CLEAR 200 ML CAN PO SCH ×2 (07:50→20:55)
--- NOTE | 2022-10-26 10:31 | P.PN ---
Subjective Date of Service: 10/26/22 Chief Complaint: COPD exacerbation Patient's condition is stable intermittently awake still hypoxic Review of Systems is unable to be obtained Physical Examination - Vital Signs Temperature: 98.5 F Blood Pressure: 159/88 Pulse: 128 Respirations: 27 Pulse Ox (%): 94 - Physical Exam General: Other (Intermittently awake) Neck: Supple Respiratory: Rhonchi/gurgles Cardiovascular: No edema, Regular rate/rhythm, Normal S1 S2 Assessment And Plan - Current Problems (Diagnosis) (1) Respiratory failure Onset Date: 07/05/16 Current Visit: No Status: Acute Plan: Admitted with COPD exacerbation respiratory failure still very hypoxic renal function is improving White count is slight decline slightly cultures are so far negative sputum cultures are pending patient's echocardiogram is normal DC IV cefepime changed to IV levofloxacin and also DC doxycycline Qualifiers: Chronicity: acute on chronic Physician Review: Patient Assessed, Agree with Above Assessment and Plan
[2022-10-26] MEDS: Levofloxacin500mg IV 500 MG/100 ML BAG IV SCH (11:23)
--- NOTE | 2022-10-26 19:28 | P.PN ---
Subjective Date of Service: 10/26/22 Chief Complaint: COPD exacerbation No acute events overnight. She reports persistent shortness of breath. She remains on HFNC (25 L, FiO2 35 %). She reports that her baseline home oxygen is set at 2.5 L/min. She denies any fevers, chills, chest pain. Review of Systems 10-point ROS is otherwise unremarkable Respiratory: Cough, Shortness of Breath Physical Examination - Vital Signs Temperature: 97.7 F Blood Pressure: 158/98 Pulse: 124 Respirations: 26 Pulse Ox (%): 100 Assessment And Plan - Plan - Physical Exam General: Alert, In no apparent distress, Oriented x3 HEENT: Atraumatic, Mucous membr. moist/pink, Sclerae nonicteric Neck: JVD not distended Respiratory: Diminished, Crackles/rales, Rhonchi/gurgles on HFNC (25 L, FiO2 35 %) Cardiovascular: Regular rate/rhythm, Normal S1 S2, No gallops, No rubs, No murmurs, Edema (trace-1+ BLE) Gastrointestinal: Normal bowel sounds, Soft, Non-distended, No tenderness Musculoskeletal: No clubbing Integumentary: No rashes Neurological: Normal speech, Normal affect # Severe Sepsis likely secondary to Community-Acquired Pneumonia/Bronchitis - POA She met SIRS criteria based on HR > 90 bpm and RR > 20 breaths/min, and the s uspected source is pulmonary. Severe sepsis is suspected due to concern for tissue hypoperfusion/organ dysfunction based on acute respiratory failure requiring BiPAP. - Sepsis order set was initiated - Initial Lactate was 1.5 - Blood cultures drawn before antibiotics were given - Broad spectrum antibiotics started: Cefepime + Doxycycline - In regards to fluids: - 30 mL/kg of IV fluids was not administered given SBP > 90, MAP > 65, lactic acid < 4 # Acute Hypercapnic Respiratory Failure due to Acute COPD Exacerbation # Acute Toxic Metabolic Encephalopathy due to above - improved - Evaluation thus far: - D-Dimer = 2303 - Procalcitonin = 2.04 - Influenza/COVID-19 = negative - ABG = pH 7.25, PCO2 68.3, PO2 374 - Chest x-ray = "patchy left basilar airspace opacification versus atelectasis. Superimposition of soft tissues limits evaluation." - CT chest angiogram = "no evidence of acute central pulmonary emboli, allowing for some motion artifact. Scattered tree-in-bud opacities bilaterally with some apical predominance. Findings suggest an infectious or inflammatory process such as bronchiolitis. Please correlate clinically. A 7 millimeter left apical cavitary nodule is noted, likely relating to the same etiology. Mildly prominent mediastinal and hilar lymph nodes, likely reactive." - Bilateral lower extremity Doppler = "no sonographic evidence of left or right lower extremity deep venous thrombosis" - Management plan: - Consulted Pulmonary Medicine and spoke with Dr. Cai - recommendations appreciated - Bronchodilators and steroids per Pulm - Continue roflumilast - Consulted Respiratory Therapy - Supplemental oxygen to maintain SpO2 > 92% - Encouraged incentive spirometry # Suspect KDIGO Stage I Acute Kidney Injury - Consulted Nephrology and spoke with Dr. Araujo - recommendations appreciated - Creatinine = 1.52 -> 1.52 -> 1.45 -> 1.26 (creatinine was 1.1 on 05/05/2019) - Urinalysis = 5-10 RBCs, 5-10 hyaline casts, 1+ protein - Monitor creatinine and urine output - If worsening, obtain renal ultrasound - Renally dose medications # Suspect Demand Ischemia (Type II Non-ST Segment Elevation Myocardial Infarction) # Hypertension - Evaluation thus far: - EKG: without STEMI criteria, trend - Serial troponin: 305.2 -> 243.3 -> 145.7 - Transthoracic echocardiogram = "1. normal left ventricular ejection fraction 60-65% 2. normal wall motion 3. mild diastolic dysfunction 4. mild mitral regurgitation 5. mild tricuspid regurgitation 6. 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
[2022-10-26] MEDS: MIRTAZAPINE 15 MG TAB PO SCH (20:54)
[2022-10-26] MEDS: BENZONATATE 100 MG CAP PO PRN (20:54)
[2022-10-27] MEDS: HYDRALAZINE HCL 20 MG/ML VIAL IV PRN ×2 (00:15→09:38)
[2022-10-27] MEDS: IPRATROPIUM BROM 0.5MG/2.5ML NEB SCH ×4 (01:15→20:35)
[2022-10-27] MEDS: ALBUTEROL 2.5 MG/3 ML NEB SOL NEB SCH ×5 (01:15→20:35)
[2022-10-27 05:33] LABS: Potassium 3.8 mEq/L (3.5-5.1)
[2022-10-27] MEDS: ENOXAPARIN 80 MG/0.8 ML SQ SCH ×2 (05:42→17:17)
[2022-10-27 06:51] LABS: Magnesium 2.8 mg/dL (1.6-2.4); Phosphorus 2.6 mg/dL (2.5-4.9)
[2022-10-27] MEDS ORDERED: POTASSIUM CL SA 10 MEQ TAB PO ONE (09:00)
[2022-10-27] MEDS ORDERED: OXYCODONE *CR* 10 MG TAB PO SCH ×2 (09:00)
[2022-10-27] MEDS: predniSONE 20 MG TAB PO SCH ×2 (09:32→20:49)
[2022-10-27] MEDS: CLOPIDOGREL 75 MG TABLET PO SCH (09:32)
[2022-10-27] MEDS: ROSUVASTATIN 10 MG TAB PO SCH (09:32)
[2022-10-27] MEDS: GABAPENTIN 300 MG CAP PO SCH ×2 (09:32→20:48)
[2022-10-27] MEDS: ENSURE CLEAR 200 ML CAN PO SCH ×2 (09:33→20:49)
[2022-10-27] MEDS: DOXYCYCLINE 100 MG in NA CHLORIDE 0.9% 100 ML IVPB SCH ×2 (09:33→20:49)
[2022-10-27] MEDS: Levofloxacin500mg IV 500 MG/100 ML BAG IV SCH (11:35)
--- NOTE | 2022-10-27 19:57 | P.PN ---
Subjective Date of Service: 10/27/22 Chief Complaint: COPD exacerbation No acute events overnight. Her shortness of breath is gradually improving, and she was weaned down to 3 L nasal cannula. She has converted to sinus rhythm, but is now with sinus tachycardia. She reports that her oxycontin dose is 30 mg at home, rather than 10 mg. Plan to confirm with pharmacy and increase dose once verified. She denies any fevers, chills, chest pain. Review of Systems 10-point ROS is otherwise unremarkable Respiratory: Cough, Shortness of Breath Physical Examination - Vital Signs Temperature: 97.4 F Blood Pressure: 145/94 Pulse: 121 Respirations: 26 Pulse Ox (%): 93 Assessment And Plan - Plan - Physical Exam General: Alert, In no apparent distress, Oriented x3 HEENT: Atraumatic, Mucous membr. moist/pink, Sclerae nonicteric Respiratory: Diminished, faint crackles/rales, Rhonchi/gurgles on 3 L nasal cannula Cardiovascular: Tachycardi rate, Regular rhythm, No murmurs, Edema (trace BLE) Gastrointestinal: Normal bowel sounds, Soft, Non-distended, No tenderness Musculoskeletal: No clubbing Integumentary: No rashes Neurological: Normal speech, Normal affect # Severe Sepsis likely secondary to Community-Acquired Pneumonia/Bronchitis - POA She met SIRS criteria based on HR > 90 bpm and RR > 20 breaths/min, and the suspected source is pulmonary. Severe sepsis is suspected due to concern for tissue hypoperfusion/organ dysfunction based on acute respiratory failure requiring BiPAP. - Sepsis order set was initiated - Initial Lactate was 1.5 - Blood cultures drawn before antibiotics were given - Broad spectrum antibiotics started: Cefepime + Doxycycline - In regards to fluids: - 30 mL/kg of IV fluids was not administered given SBP > 90, MAP > 65, lactic acid < 4 # Acute Hypercapnic Respiratory Failure due to Acute COPD Exacerbation # Acute Toxic Metabolic Encephalopathy due to above - improved - Evaluation thus far: - D-Dimer = 2303 - Procalcitonin = 2.04 - Influenza/COVID-19 = negative - ABG = pH 7.25, PCO2 68.3, PO2 374 - Chest x-ray = "patchy left basilar airspace opacification versus atelectasis. Superimposition of soft tissues limits evaluation." - CT chest angiogram = "no evidence of acute central pulmonary emboli, allowing for some motion artifact. Scattered tree-in-bud opacities bilaterally with some apical predominance. Findings suggest an infectious or inflammatory process such as bronchiolitis. Please correlate clinically. A 7 millimeter left apical cavitary nodule is noted, likely relating to the same etiology. Mildly prominent mediastinal and hilar lymph nodes, likely reactive." - Bilateral lower extremity Doppler = "no sonographic evidence of left or right lower extremity deep venous thrombosis" - Management plan: - Consulted Pulmonary Medicine and spoke with Dr. Cai - recommendations appreciated - Bronchodilators and steroids per Pulm - Continue roflumilast - Consulted Respiratory Therapy - Supplemental oxygen to maintain SpO2 > 92% - Encouraged incentive spirometry # Suspect KDIGO Stage I Acute Kidney Injury - Consulted Nephrology and spoke with Dr. Araujo - recommendations appreciated - Creatinine = 1.52 -> 1.52 -> 1.45 -> 1.26 -> 1.23 (creatinine was 1.1 on 05/05/2019) - Urinalysis = 5-10 RBCs, 5-10 hyaline casts, 1+ protein - Monitor creatinine and urine output - If worsening, obtain renal ultrasound - Renally dose medications # Suspect Demand Ischemia (Type II Non-ST Segment Elevation Myocardial Infarction) # Hypertension - Evaluation thus far: - EKG: without STEMI criteria, trend - Serial troponin: 305.2 -> 243.3 -> 145.7 - Transthoracic echocardiogram = "1. normal left ventricular ejection fraction 60-65% 2. normal wall motion 3. mild diastolic dysfunction 4. mild mitral regurgitation 5. mild tricuspid regurgitation 6. 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
[2022-10-27] MEDS: OXYCODONE *CR* 10 MG TAB PO SCH (20:48)
[2022-10-27] MEDS: BENZONATATE 100 MG CAP PO PRN (20:49)
[2022-10-27] MEDS: MIRTAZAPINE 15 MG TAB PO SCH (20:49)
[2022-10-27] MEDS: ONDANSETRON 4 MG/2 ML VIAL IV PRN (20:49)
[2022-10-28] MEDS: ALBUTEROL 2.5 MG/3 ML NEB SOL NEB SCH ×2 (02:50→08:00)
[2022-10-28] MEDS: IPRATROPIUM BROM 0.5MG/2.5ML NEB SCH ×4 (02:50→19:30)
[2022-10-28] MEDS: ENOXAPARIN 80 MG/0.8 ML SQ SCH (05:33)
[2022-10-28 05:45] LABS: Magnesium 2.6 mg/dL (1.6-2.4); Phosphorus 4.1 mg/dL (2.5-4.9); Potassium 4.1 mEq/L (3.5-5.1)
[2022-10-28] MEDS: ROSUVASTATIN 10 MG TAB PO SCH (08:19)
[2022-10-28] MEDS: OXYCODONE *CR* 10 MG TAB PO SCH ×2 (08:20→21:33)
[2022-10-28] MEDS: predniSONE 20 MG TAB PO SCH ×2 (08:20→21:34)
[2022-10-28] MEDS: GABAPENTIN 300 MG CAP PO SCH ×2 (08:20→21:34)
[2022-10-28] MEDS: CLOPIDOGREL 75 MG TABLET PO SCH (08:20)
[2022-10-28] MEDS: DOXYCYCLINE 100 MG in NA CHLORIDE 0.9% 100 ML IVPB SCH (08:20)
[2022-10-28] MEDS: ENSURE CLEAR 200 ML CAN PO SCH ×2 (08:21→21:00)
[2022-10-28] MEDS: ONDANSETRON 4 MG/2 ML VIAL IV PRN ×2 (08:24→21:33)
--- NOTE | 2022-10-28 11:00 | P.PN ---
Date of Service: 10/28/22 Vital Signs Temp Pulse Resp BP Pulse Ox 97.2 F 90 16 139/76 92 10/28/22 08:00 10/28/22 09:00 10/28/22 09:00 10/28/22 09:00 10/28/22 09:00 Medications Acetaminophen (Acetaminophen 325 Mg Tablet) 650 mg PO Q6H PRN PRN Reason: TEMP > 100.4' F Albuterol Sulfate (Albuterol 2.5 Mg/3 Ml Neb Julee) 2.5 mg NEB [id number] [facility] Last Admin: 10/28/22 08:00 Dose: 2.5 mg Benzonatate (Benzonatate 100 Mg Cap) 100 mg PO TID PRN PRN Reason: COUGH Last Admin: 10/27/22 20:49 Dose: 100 mg Clopidogrel Bisulfate (Clopidogrel 75 Mg Tablet) 75 mg PO DAILY [facility] Last Admin: 10/28/22 08:20 Dose: 75 mg Enoxaparin Sodium (Enoxaparin 80 Mg/0.8 Ml) 70 mg SQ Q12H [facility] Last Admin: 10/28/22 05:33 Dose: 70 mg Enteral Nutritional Formula (Ensure Clear 200 Ml Can) 237 ml PO BID [facility] Last Admin: 10/28/22 08:21 Dose: 237 ml Gabapentin (Gabapentin 300 Mg Cap) 300 mg PO BID [facility] Last Admin: 10/28/22 08:20 Dose: 300 mg Hydralazine HCl (Hydralazine Hcl 20 Mg/Ml Vial) 10 mg IV Q6HP PRN PRN Reason: SBP>160 MMHG OR DBP>100 MMHG Last Admin: 10/27/22 09:38 Dose: 10 mg Doxycycline Hyclate 100 mg/ (Sodium Chloride) 100 mls @ 100 mls/hr IVPB Q12HR [facility]; Protocol Last Admin: 10/28/22 08:20 Dose: 100 mls Levofloxacin/Dextrose (Levaquin 500 Mg/100 Ml Ivpb) 500 mg in 100 mls @ 100 mls/hr IV Q24H [facility]; Protocol Last Admin: 10/27/22 11:35 Dose: 100 mls Ipratropium [place] (Ipratropium Brom 0.5mg/2.5ml) 0.5 mg NEB [id number] [facility] Last Admin: 10/28/22 08:00 Dose: 0.5 mg Mirtazapine (Mirtazapine 15 Mg Tab) 15 mg PO BEDTIME [facility] Last Admin: 10/27/22 20:49 Dose: 15 mg Ondansetron HCl (Ondansetron 4 Mg/2 Ml Vial) 4 mg IV Q6HP PRN PRN Reason: NAUSEA / VOMITING Last Admin: 10/28/22 08:24 Dose: 4 mg Oxycodone HCl (Oxycodone *Cr* 10 Mg Tab) 30 mg PO Q12HR [facility] Last Admin: 10/28/22 08:20 Dose: 30 mg Prednisone (Prednisone 20 Mg Tab) 20 mg PO BID [facility] Last Admin: 10/28/22 08:20 Dose: 20 mg Rosuvastatin Calcium (Rosuvastatin 10 Mg Tab) 5 mg PO DAILY [facility] Last Admin: 10/28/22 08:19 Dose: 5 mg Sodium Chloride (Flush Normal Saline 10 Ml) 10 ml IV BID [facility] Last Admin: 10/28/22 08:21 Dose: 10 ml Sodium Chloride (Sodium Chloride 0.9% 10ml Inj) 10 ml IV UD PRN PRN Reason: Diluant Microbiology Results 10/23/22 06:57 Blood - Blood Aerobic Blood Culture - Final No growth in 5 days. 10/23/22 06:57 Blood - Blood Anaerobic Blood Culture - Final No growth in 5 days. 10/23/22 07:09 Blood - Blood Aerobic Blood Culture - Final No growth in 5 days. 10/23/22 07:09 Blood - Blood Anaerobic Blood Culture - Final No growth in 5 days. 10/23/22 07:10 Nasopharnyx Influenza Type A Antigen Screen - Final 10/23/22 07:10 Nasopharnyx Influenza Type B Antigen Screen - Final Assessment/ Plan: Nephrology No dyspnea No chest pain No acute events overnight Vitals, medications blood work and imaging reviewed in the chart General: In no apparent distress, Cooperative HEENT: Atraumatic Neck: Supple Respiratory: Norm resp effort Cardiovascular: No edema, Regular rate/rhythm Gastrointestinal: Soft and benign, Non-distended Musculoskeletal: No clubbing, No contractures Integumentary: No rashes, No cyanosis Neurological: Abnormal strength Blood work reviewed in the chart. Imagings Data: EXAM DESCRIPTION: [facility] Single View10/23/2022 7:38 am CLINICAL HISTORY: COPD COMPARISON: Chest Pa And Lat (2 Views) dated 09/23/2018; Chest Single View dated 07/05/2017; Chest Single View dated 07/04/2016; CHEST SINGLE VIEW dated 04/15/2011 TECHNIQUE: Portable AP view of the chest. FINDINGS: Patchy left basilar airspace opacification versus atelectasis. Superimposition of soft tissues limits evaluation. No pneumothorax or sizable effusion. The cardiomediastinal contours are unremarkable. IMPRESSION: Patchy left basilar airspace opacification versus atelectasis. Superimposition of soft tissues limits evaluation. EXAM DESCRIPTION: CT - Chest For Pe Angio - 10/23/2022 9:51 am CLINICAL HISTORY: DYSPNEA COMPARISON: Lung Cancer Screening CT W/O dated 09/20/2021; Lung Cancer Screening CT W/O dated 08/16/2020; Thorax Wo Con dated 07/22/2019; Lung Cancer Screening CT W/O dated 11/23/2018 TECHNIQUE: Thin axial CT images of the chest were obtained following administration of 100 mL Isovue 370 IV contrast. Multiplanar reconstructions, and maximum intensity projection reconstructions were generated and reviewed. Exam utilizes a protocol for optimal evaluation of pulmonary arterial tree. All CT scans are performed using dose optimization technique as appropriate and may include automated exposure control or mA/KV adjustment according to patient size. FINDINGS: Left thyroid lobe hypoattenuating 1.6 centimeter nodule inferiorly, stable. Contrast opacification is satisfactory. Pulmonary arteries are normal, with no emboli or other suspicious finding, allowing for some motion artifact. No acute or significant aorta findings. Scattered tree-in-bud opacities throughout both lungs, with some apical predominance. Small cavitary lesion at the left lung apex, measuring 7 millimeter in greatest dimension. No p leural thickening or pleural effusion. No pneumothorax. No abnormal mediastinal or hilar masses. Mildly prominent mediastinal and bilateral hilar lymph nodes, the largest subcarinal measuring 1.3 centimeter in short axis. No chest wall mass or abnormal axilliary lymphadenopathy. Evaluation of the upper abdominal structures shows no suspicious abnormality. No acute osseous findings. IMPRESSION: No evidence of acute central pulmonary emboli, allowing for some motion artifact. Scattered tree-in-bud opacities bilaterally with some apical predominance. Findings suggest an infectious or inflammatory process such as bronchiolitis. Please correlate clinically. A 7 millimeter left apical cavitary nodule is noted, likely relating to the same etiology. Mildly prominent mediastinal and hilar lymph nodes, likely reactive. LEFT VENTRICULAR WALL MOTION: NORMAL DOPPLER/COLOR FLOW: SEE BELOW COMMENTS: 1. NORMAL LEFT VENTRICULAR EJECTION FRACTION 60-65% 2. NORMAL WALL MOTION 3. MILD DIASTOLIC DYSFUNCTION 4. MILD MITRAL REGURGITATION 5. MILD TRICUSPID REGURGITATION 6. 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 Mosley
[2022-10-28] MEDS: Levofloxacin500mg IV 500 MG/100 ML BAG IV SCH (11:12)
[2022-10-28] MEDS ORDERED: ALBUTEROL 2.5 MG/3 ML NEB SOL NEB PRN (11:41)
--- NOTE | 2022-10-28 11:41 | P.PN ---
Subjective Date of Service: 10/28/22 Chief Complaint: COPD exacerbation Patient is more alert today still short of breath cardio has improved Review of Systems General: Weakness Respiratory: Shortness of Breath Physical Examination - Vital Signs Temperature: 97.2 F Blood Pressure: 157/96 Pulse: 125 Respirations: 22 Pulse Ox (%): 86 - Physical Exam General: Alert, Oriented x3, Mild distress HEENT: Atraumatic Neck: Supple Respiratory: Diminished Cardiovascular: No edema, Regular rate/rhythm - Studies Microbiology Data (last 24 hrs): 10/23/22 06:57 Blood - Blood Aerobic Blood Culture - Final No growth in 5 days. 10/23/22 06:57 Blood - Blood Anaerobic Blood Culture - Final No growth in 5 days. 10/23/22 07:09 Blood - Blood Aerobic Blood Culture - Final No growth in 5 days. 10/23/22 07:09 Blood - Blood Anaerobic Blood Culture - Final No growth in 5 days. 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 Qualifiers: Chronicity: acute on chronic (2) Non-STEMI (non-ST elevated myocardial infarction) Current Visit: Yes Status: Acute Plan: Most likely she has demand ischemia causing elevation of her troponins patient has normal echo acute changes on EKG to warrant outpatient stress testing as he full anticoagulation changed to Lovenox prophylactic dose start patient on low- dose beta-radha Physician Review: Patient Assessed, Agree with Above Assessment and Plan
[2022-10-28] MEDS: METOPROLOL XL 25 MG TAB PO SCH ×2 (12:21→21:34)
[2022-10-28 13:16] VITALS: BMI 27.6
--- NOTE | 2022-10-28 13:35 | P.PN ---
Subjective Date of Service: 10/28/22 Chief Complaint: COPD exacerbation Patient states his shortness of breath is gradually getting better. She desaturated with change in position from lying to sitting. Physical Examination - Vital Signs Temperature: 97.8 F Blood Pressure: 109/69 Pulse: 93 Respirations: 15 Pulse Ox (%): 96 - Studies Microbiology Data (last 24 hrs): 10/23/22 06:57 Blood - Blood Aerobic Blood Culture - Final No growth in 5 days. 10/23/22 06:57 Blood - Blood Anaerobic Blood Culture - Final No growth in 5 days. 10/23/22 07:09 Blood - Blood Aerobic Blood Culture - Final No growth in 5 days. 10/23/22 07:09 Blood - Blood Anaerobic Blood Culture - Final No growth in 5 days. Assessment And Plan - Plan Physical Exam General: Alert, In no apparent distress, Oriented x3 HEENT: Atraumatic, Mucous membr. moist/pink, Sclerae nonicteric Respiratory: Diminished, bilateral crackles/rales and Rhonchi Cardiovascular: Tachycardic, Regular rhythm, No murmurs, trace BLE edema. Gastrointestinal: Normal bowel sounds, Soft, Non-distended, No tenderness Musculoskeletal: No clubbing Integumentary: No rashes Neurological: Normal speech, Normal affect Severe Sepsis likely secondary to Community-Acquired Pneumonia/Bronchitis - POA She met SIRS criteria based on HR > 90 bpm and RR > 20 breaths/min, and the suspected source is pulmonary. Severe sepsis is suspected due to concern for tissue hypoperfusion/organ dysfunction based on acute respiratory failure requiring BiPAP. Continue current antibiotics. Acute Hypercapnic Respiratory Failure due to Acute COPD Exacerbation Acute Toxic Metabolic Encephalopathy due to above - improved - Evaluation thus far: - D-Dimer = 2303 - Procalcitonin = 2.04 - Influenza/COVID-19 = negative - ABG = pH 7.25, PCO2 68.3, PO2 374 - Chest x-ray = "patchy left basilar airspace opacification versus atelectasis. Superimposition of soft tissues limits evaluation." - CT chest angiogram = "no evidence of acute central pulmonary emboli, allowing for some motion artifact. Scattered tree-in-bud opacities bilaterally with some apical predominance. Findings suggest an infectious or inflammatory process such as bronchiolitis. Please correlate clinically. A 7 millimeter left apical cavitary nodule is noted, likely relating to the same etiology. Mildly prominent mediastinal and hilar lymph nodes, likely reactive." - Bilateral lower extremity Doppler = "no sonographic evidence of left or right lower extremity deep venous thrombosis" - Management plan: - Consulted Pulmonary Dr. Cai is following. - Bronchodilators and steroids per Pulm - Continue roflumilast - Supplemental oxygen to maintain SpO2 > 92% - Encourage incentive spirometry # Suspect KDIGO Stage I Acute Kidney Injury -Nephrology consulted - Creatinine = 1.52 -> 1.52 -> 1.45 -> 1.26 -> 1.23 (creatinine was 1.1 on 05/05/2019) - Urinalysis = 5-10 RBCs, 5-10 hyaline casts, 1+ protein - Monitor creatinine and urine output - Renally dose medications # Suspect Demand Ischemia (Type II Non-ST Segment Elevation Myocardial Infarction) # Hypertension - Evaluation thus far: - EKG: without STEMI criteria, trend - Serial troponin: 305.2 -> 243.3 -> 145.7 - Transthoracic echocardiogram = "1. normal left ventricular ejection fraction 60-65% 2. normal wall motion 3. mild diastolic dysfunction 4. mild mitral regurgitation 5. mild tricuspid regurgitation 6. right ventricular systolic pressure is normal, greater than 25 mmHg" - Management plan: -Cardiology is following. 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
[2022-10-28] MEDS: PANTOPRAZOLE 40MG TABLET PO SCH (16:02)
[2022-10-28] MEDS ORDERED: CALCIUM CARBONATE CHEW 500MG TAB PO PRN (18:50)
[2022-10-28] MEDS: HOME MED 1 EA UNK (Budesonide/Glycopyr/Formoterol [Breztri Aerosphere Inhaler] 10.7 GM Hfa IH SCH (21:00)
[2022-10-28] MEDS ORDERED: HOME MED 1 EA UNK (Budesonide/Glycopyr/Formoterol [Breztri Aerosphere Inhaler] 10.7 GM Hfa IH SCH (21:00)
[2022-10-28] MEDS: OXYCODONE *CR* 20 MG TAB PO SCH (21:33)
[2022-10-28] MEDS: BENZONATATE 100 MG CAP PO PRN (21:33)
[2022-10-28] MEDS: MIRTAZAPINE 15 MG TAB PO SCH (21:34)
[2022-10-29] MEDS: IPRATROPIUM BROM 0.5MG/2.5ML NEB SCH ×4 (02:30→19:25)
[2022-10-29 05:06] LABS: Potassium 4.4 mEq/L (3.5-5.1)
[2022-10-29 05:08] LABS: Hematocrit 37.7 % (36.0-45.0); Lymphocytes % 4.3 % (15.3-44.8); MCV 79.9 fL (80-100); MPV 9.2 fL (7.6-11.3); RBC Red Blood Cell Count 4.71 M/uL (3.86-4.86)
[2022-10-29 07:32] LABS: Blood Morphology Comment NOT SEEN (NOT SEEN); Platelet Estimate ADEQ
[2022-10-29] MEDS: ROSUVASTATIN 10 MG TAB PO SCH (08:44)
[2022-10-29] MEDS: predniSONE 20 MG TAB PO SCH ×2 (08:44→21:35)
[2022-10-29] MEDS: levoFLOXacin 500 MG TAB PO SCH (08:44)
[2022-10-29] MEDS: OXYCODONE *CR* 10 MG TAB PO SCH ×2 (08:44→21:36)
[2022-10-29] MEDS: PANTOPRAZOLE 40MG TABLET PO SCH (08:44)
[2022-10-29] MEDS: CLOPIDOGREL 75 MG TABLET PO SCH (08:44)
[2022-10-29] MEDS: ENOXAPARIN 40 MG/0.4 ML SQ SCH (08:44)
[2022-10-29] MEDS: OXYCODONE *CR* 20 MG TAB PO SCH ×2 (08:45→21:36)
[2022-10-29] MEDS: METOPROLOL XL 25 MG TAB PO SCH ×2 (08:45→21:37)
[2022-10-29] MEDS: GABAPENTIN 300 MG CAP PO SCH ×2 (08:45→21:35)
[2022-10-29] MEDS: HOME MED 1 EA UNK (Budesonide/Glycopyr/Formoterol [Breztri Aerosphere Inhaler] 10.7 GM Hfa IH SCH ×2 (08:49→21:45)
[2022-10-29] MEDS: ENSURE CLEAR 200 ML CAN PO SCH ×2 (08:50→21:00)
--- NOTE | 2022-10-29 17:55 | P.PN ---
Subjective Date of Service: 10/29/22 Chief Complaint: COPD exacerbation Patient states she feels slightly better compared to yesterday. Noted she is short of breath with speaking. She is currently maintained on 5 L oxygen by nasal cannula. Physical Examination - Vital Signs Temperature: 98.2 F Blood Pressure: 116/62 Pulse: 82 Respirations: 16 Pulse Ox (%): 92 - Physical Exam General: Alert, Moderate distress (With speaking.) HEENT: Mucous membr. moist/pink Neck: JVD not distended Assessment And Plan - Plan Physical Exam General: Alert, moderate distress with speaking, Oriented x3 HEENT: Atraumatic, Mucous membr. moist/pink, Sclerae nonicteric Respiratory: Diminished, bilateral crackles/rales and Rhonchi Cardiovascular: Tachycardic, Regular rhythm, No murmurs, trace BLE edema. Gastrointestinal: Normal bowel sounds, Soft, Non-distended, No tenderness Integumentary: No rashes Neurological: Normal speech, Normal affect Plan: Severe Sepsis likely secondary to Community-Acquired Pneumonia/Bronchitis - POA She met SIRS criteria based on HR > 90 bpm and RR > 20 breaths/min, and the suspected source is pulmonary. Severe sepsis is suspected due to concern for tissue hypoperfusion/organ dysfunction based on acute respiratory failure requiring BiPAP. Continue current antibiotics. Acute Hypercapnic Respiratory Failure due to Acute COPD Exacerbation Acute Toxic Metabolic Encephalopathy due to above - improved - Evaluation thus far: - D-Dimer = 2303 - Procalcitonin = 2.04 - Influenza/COVID-19 = negative - ABG = pH 7.25, PCO2 68.3, PO2 374 - Chest x-ray = "patchy left basilar airspace opacification versus atelectasis. Superimposition of soft tissues limits evaluation." - CT chest angiogram = "no evidence of acute central pulmonary emboli, allowing for some motion artifact. Scattered tree-in-bud opacities bilaterally with some apical predominance. Findings suggest an infectious or inflammatory process such as bronchiolitis. Please correlate clinically. A 7 millimeter left apical cavitary nodule is noted, likely relating to the same etiology. Mildly prominent mediastinal and hilar lymph nodes, likely reactive." - Bilateral lower extremity Doppler = "no sonographic evidence of left or right lower extremity deep venous thrombosis" - Management plan: - Consulted Pulmonary Dr. Cai is following. - Bronchodilators and steroids per Pulm - Continue roflumilast -She is slowly improving. - Supplemental oxygen to maintain SpO2 > 92% - Encourage incentive spirometry -Significant leukocytosis noted today. Leukocytosis is likely steroid- induced. Suspect KDIGO Stage I Acute Kidney Injury -Nephrology consulted - Creatinine = 1.52 -> 1.52 -> 1.45 -> 1.26 -> 1.23 (creatinine was 1.1 on 05/05/2019) - Urinalysis = 5-10 RBCs, 5-10 hyaline casts, 1+ protein -JERRY resolved Suspect Demand Ischemia (Type II Non-ST Segment Elevation Myocardial Infarction) Hypertension - Evaluation thus far: - EKG: without STEMI criteria, trend - Serial troponin: 305.2 -> 243.3 -> 145.7 - Transthoracic echocardiogram = "1. normal left ventricular ejection fraction 60-65% 2. normal wall motion 3. mild diastolic dysfunction 4. mild mitral regurgitation 5. mild tricuspid regurgitation 6. right ventricular systolic pressure is normal, greater than 25 mmHg" - Management plan: -Cardiology is following. 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
--- NOTE | 2022-10-29 20:56 | P.PN ---
Date of Service: 10/29/22 Vital Signs Temp Pulse Resp BP Pulse Ox 98.2 F 82 16 116/62 92 10/29/22 17:55 10/29/22 17:55 10/29/22 17:55 10/29/22 17:55 10/29/22 17:55 Medications Acetaminophen (Acetaminophen 325 Mg Tablet) 650 mg PO Q6H PRN PRN Reason: TEMP > 100.4' F Albuterol Sulfate (Albuterol 2.5 Mg/3 Ml Neb Julee) 2.5 mg NEB [id number] PRN PRN Reason: SHORTNESS OF BREATH Benzonatate (Benzonatate 100 Mg Cap) 100 mg PO TID PRN PRN Reason: COUGH Last Admin: 10/28/22 21:33 Dose: 100 mg Calcium Carbonate/Glycine (Calcium Carbonate Chew 500mg Tab) 500 mg PO QID PRN PRN Reason: INDIGESTION Clopidogrel Bisulfate (Clopidogrel 75 Mg Tablet) 75 mg PO DAILY [facility] Last Admin: 10/29/22 08:44 Dose: 75 mg Enoxaparin Sodium (Enoxaparin 40 Mg/0.4 Ml) 40 mg SQ DAILY [facility] Last Admin: 10/29/22 08:44 Dose: 40 mg Enteral Nutritional Formula (Ensure Clear 200 Ml Can) 237 ml PO BID [facility] Last Admin: 10/29/22 08:50 Dose: Not Given Gabapentin (Gabapentin 300 Mg Cap) 300 mg PO BID [facility] Last Admin: 10/29/22 08:45 Dose: 300 mg Home Med (Budesonide/Glycopyr/Formoterol [Breztri Aerosphere Inhaler]) 2 puff IH BID [facility] Last Admin: 10/29/22 08:49 Dose: 2 puff Hydralazine HCl (Hydralazine Hcl 20 Mg/Ml Vial) 10 mg IV Q6HP PRN PRN Reason: SBP>160 MMHG OR DBP>100 MMHG Last Admin: 10/27/22 09:38 Dose: 10 mg Ipratropium [place] (Ipratropium Brom 0.5mg/2.5ml) 0.5 mg NEB [id number] [facility] Last Admin: 10/29/22 19:25 Dose: 0.5 mg Levofloxacin (Levofloxacin 500 Mg Tab) 500 mg PO DAILY [facility]; Protocol Last Admin: 10/29/22 08:44 Dose: 500 mg Metoprolol Succinate (Metoprolol Xl 25 Mg Tab) 12.5 mg PO BID [facility] Last Admin: 10/29/22 08:45 Dose: 12.5 mg Mirtazapine (Mirtazapine 15 Mg Tab) 15 mg PO BEDTIME [facility] Last Admin: 10/28/22 21:34 Dose: 15 mg Ondansetron HCl (Ondansetron 4 Mg/2 Ml Vial) 4 mg IV Q6HP PRN PRN Reason: NAUSEA / VOMITING Last Admin: 10/28/22 21:33 Dose: 4 mg Oxycodone HCl (Oxycodone *Cr* 20 Mg Tab) 20 mg PO Q12HR [facility] Last Admin: 10/29/22 08:45 Dose: 20 mg Oxycodone HCl (Oxycodone *Cr* 10 Mg Tab) 10 mg PO Q12HR [facility] Last Admin: 10/29/22 08:44 Dose: 10 mg Pantoprazole Sodium (Pantoprazole 40mg Tablet) 40 mg PO ACB [facility]; Protocol Last Admin: 10/29/22 08:44 Dose: 40 mg Prednisone (Prednisone 20 Mg Tab) 20 mg PO BID [facility] Last Admin: 10/29/22 08:44 Dose: 20 mg Rosuvastatin Calcium (Rosuvastatin 10 Mg Tab) 5 mg PO DAILY [facility] Last Admin: 10/29/22 08:44 Dose: 5 mg Sodium Chloride (Flush Normal Saline 10 Ml) 10 ml IV BID [facility] Last Admin: 10/29/22 08:45 Dose: 10 ml Sodium Chloride (Sodium Chloride 0.9% 10ml Inj) 10 ml IV UD PRN PRN Reason: Diluant Microbiology Results 10/23/22 06:57 Blood - Blood Aerobic Blood Culture - Final No growth in 5 days. 10/23/22 06:57 Blood - Blood Anaerobic Blood Culture - Final No growth in 5 days. 10/23/22 07:09 Blood - Blood Aerobic Blood Culture - Final No growth in 5 days. 10/23/22 07:09 Blood - Blood Anaerobic Blood Culture - Final No growth in 5 days. 10/23/22 07:10 Nasopharnyx Influenza Type A Antigen Screen - Final 10/23/22 07:10 Nasopharnyx Influenza Type B Antigen Screen - Final Assessment/ Plan: Nephrology No dyspnea No chest pain Fatigue and weakness No acute events overnight Vitals, medications blood work and imaging reviewed in the chart General: In no apparent distress, Cooperative HEENT: Atraumatic Neck: Supple Respiratory: Norm resp effort Cardiovascular: No edema, Regular rate/rhythm Gastrointestinal: Soft and benign, Non-distended Musculoskeletal: No clubbing, No contractures Integumentary: No rashes, No cyanosis Neurological: Abnormal strength Blood work reviewed in the chart. Imagings Data: EXAM DESCRIPTION: [facility] Single View10/23/2022 7:38 am CLINICAL HISTORY: COPD COMPARISON: Chest Pa And Lat (2 Views) dated 09/23/2018; Chest Single View dated 07/05/2017; Chest Single View dated 07/04/2016; CHEST SINGLE VIEW dated 04/15/2011 TECHNIQUE: Portable AP view of the chest. FINDINGS: Patchy left basilar airspace opacification versus atelectasis. Superimposition of soft tissues limits evaluation. No pneumothorax or sizable effusion. The cardiomediastinal contours are unremarkable. IMPRESSION: Patchy left basilar airspace opacification versus atelectasis. Superimposition of soft tissues limits evaluation. EXAM DESCRIPTION: CT - Chest For Pe Angio - 10/23/2022 9:51 am CLINICAL HISTORY: DYSPNEA COMPARISON: Lung Cancer Screening CT W/O dated 09/20/2021; Lung Cancer Screening CT W/O dated 08/16/2020; Thorax Wo Con dated 07/22/2019; Lung Cancer Screening CT W/O dated 11/23/2018 TECHNIQUE: Thin axial CT images of the chest were obtained following administration of 100 mL Isovue 370 IV contrast. Multiplanar reconstructions, and maximum intensity projection reconstructions were generated and reviewed. Exam utilizes a protocol for optimal evaluation of pulmonary arterial tree. All CT scans are performed using dose optimization technique as appropriate and may include automated exposure control or mA/KV adjustment according to patient size. FINDINGS: Left thyroid lobe hypoattenuating 1.6 centimeter nodule inferiorly, stable. Contrast opacification is satisfactory. Pulmonary arteries are normal, with no emboli or other suspicious finding, allowing for some motion artifact. No acute or significant aorta findings. Scattered tree-in-bud opacities throughout both lungs, with some apical predominance. Small cavitary lesion at the left lung apex, measuring 7 millimeter in greatest dimension. No pleural thickening or pleural effusion. No pneumothorax. No abnormal mediastinal or hilar masses. Mildly prominent mediastinal and bilateral hilar lymph nodes, the largest subcarinal measuring 1.3 centimeter in short axis. No chest wall mass or abnormal axilliary lymphadenopathy. Evaluation of the upper abdominal structures shows no suspicious abnormality. No acute osseous findings. IMPRESSION: No evidence of acute central pulmonary emboli, allowing for some motion artifact. Scattered tree-in-bud opacities bilaterally with some apical predominance. Findings suggest an infectious or inflammatory process such as bronchiolitis. Please correlate clinically. A 7 millimeter left apical cavitary nodule is noted, likely relating to the same etiology. Mildly prominent mediastinal and hilar lymph nodes, likely reactive. LEFT VENTRICULAR WALL MOTION: NORMAL DOPPLER/COLOR FLOW: SEE BELOW COMMENTS: 1. NORMAL LEFT VENTRICULAR EJECTION FRACTION 60-65% 2. NORMAL WALL MOTION 3. MILD DIASTOLIC DYSFUNCTION 4. MILD MITRAL REGURGITATION 5. MILD TRICUSPID REGURGITATION 6. 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
[2022-10-29] MEDS: MIRTAZAPINE 15 MG TAB PO SCH (21:37)
[2022-10-30] MEDS: IPRATROPIUM BROM 0.5MG/2.5ML NEB SCH ×4 (01:45→19:35)
[2022-10-30 04:48] LABS: Absolute Lymphocytes (CBC) 0.8 K/uL (0.7-4.9); Hematocrit 36.4 % (36.0-45.0); Lymphocytes % 3.7 % (15.3-44.8); MCV 79.9 fL (80-100); RBC Red Blood Cell Count 4.56 M/uL (3.86-4.86)
[2022-10-30 04:56] LABS: Potassium 4.8 mEq/L (3.5-5.1)
[2022-10-30] MEDS: PANTOPRAZOLE 40MG TABLET PO SCH (06:40)
[2022-10-30] MEDS: ROSUVASTATIN 10 MG TAB PO SCH (09:01)
[2022-10-30] MEDS: predniSONE 10 MG TAB PO SCH ×2 (09:01→20:25)
[2022-10-30] MEDS: levoFLOXacin 500 MG TAB PO SCH (09:01)
[2022-10-30] MEDS: GABAPENTIN 300 MG CAP PO SCH ×2 (09:02→20:25)
[2022-10-30] MEDS: CLOPIDOGREL 75 MG TABLET PO SCH (09:02)
[2022-10-30] MEDS: METOPROLOL XL 25 MG TAB PO SCH ×2 (09:02→20:26)
[2022-10-30] MEDS: OXYCODONE *CR* 20 MG TAB PO SCH ×2 (09:02→20:26)
[2022-10-30] MEDS: ENSURE CLEAR 200 ML CAN PO SCH ×2 (09:03→20:25)
[2022-10-30] MEDS: ENOXAPARIN 40 MG/0.4 ML SQ SCH (09:03)
[2022-10-30] MEDS: OXYCODONE *CR* 10 MG TAB PO SCH ×2 (09:23→20:25)
[2022-10-30] MEDS: HOME MED 1 EA UNK (Budesonide/Glycopyr/Formoterol [Breztri Aerosphere Inhaler] 10.7 GM Hfa IH SCH ×2 (11:43→20:24)
--- NOTE | 2022-10-30 11:49 | P.PN ---
Subjective Date of Service: 10/30/22 Chief Complaint: COPD exacerbation Patient is improving still weak Review of Systems General: Weakness Respiratory: Shortness of Breath Physical Examination - Vital Signs Temperature: 97.6 F Blood Pressure: 122/64 Pulse: 61 Respirations: 13 Pulse Ox (%): 90 - Physical Exam General: Alert, Oriented x2 Respiratory: Clear to auscultation bilaterally, Diminished Cardiovascular: No edema, Normal pulses, Regular rate/rhythm Assessment And Plan - Current Problems (Diagnosis) (1) Respiratory failure Onset Date: 07/05/16 Current Visit: No Status: Acute Plan: Patient is gradually improving we will DC Marie catheter continue with physical therapy reduce dose of steroids pending of lower extremity weakness renal function has improved significantly white count is mildly elevated cultures are negative pressure has improved and is currently on 4 L of nasal cannula oxygen labs and medication list reviewed add inhaled bronchodilators Qualifiers: Chronicity: acute on chronic (2) Non-STEMI (non-ST elevated myocardial infarction) Current Visit: Yes Status: Acute Plan: Echocardiogram shows mild mild at this diastolic dysfunction no wall motion abnormalities no acute EKG changes probably benefit from an outpatient stress test Physician Review: Patient Assessed, Agree with Above Assessment and Plan
--- NOTE | 2022-10-30 14:15 | P.PN ---
Subjective Date of Service: 10/30/22 Chief Complaint: COPD exacerbation Patient feels she is gradually getting better. She was able to take a few steps with therapy today. She is currently maintained on 4 L oxygen by nasal cannula. Physical Examination - Vital Signs Temperature: 98 F Blood Pressure: 107/61 Pulse: 79 Respirations: 19 Pulse Ox (%): 93 Assessment And Plan - Plan Physical Exam General: Alert, moderate distress with speaking, Oriented x3 HEENT: Atraumatic, Mucous membr. moist/pink, Sclerae nonicteric Respiratory: Diminished, bilateral crackles/rales and Rhonchi Cardiovascular: Tachycardic, Regular rhythm, No murmurs, trace BLE edema. Gastrointestinal: Normal bowel sounds, Soft, Non-distended, No tenderness Integumentary: No rashes Neurological: Normal speech, Normal affect Plan: Severe Sepsis likely secondary to Community-Acquired Pneumonia/Bronchitis - POA She met SIRS criteria based on HR > 90 bpm and RR > 20 breaths/min, and the suspected source is pulmonary. Severe sepsis is suspected due to concern for tissue hypoperfusion/organ dysfunction based on acute respiratory failure req uiring BiPAP. Continue current antibiotics. Acute Hypercapnic Respiratory Failure due to Acute COPD Exacerbation Acute Toxic Metabolic Encephalopathy due to above - improved - Evaluation thus far: - D-Dimer = 2303 - Procalcitonin = 2.04 - Influenza/COVID-19 = negative - ABG = pH 7.25, PCO2 68.3, PO2 374 - Chest x-ray = "patchy left basilar airspace opacification versus atelectasis. Superimposition of soft tissues limits evaluation." - CT chest angiogram = "no evidence of acute central pulmonary emboli, allowing for some motion artifact. Scattered tree-in-bud opacities bilaterally with some apical predominance. Findings suggest an infectious or inflammatory process such as bronchiolitis. Please correlate clinically. A 7 millimeter left apical cavitary nodule is noted, likely relating to the same etiology. Mildly prominent mediastinal and hilar lymph nodes, likely reactive." - Bilateral lower extremity Doppler = "no sonographic evidence of left or rig ht lower extremity deep venous thrombosis" - Management plan: - Consulted Pulmonary Dr. Cai is following. - Bronchodilators and steroids per Pulm - Continue roflumilast -She is slowly improving. - Supplemental oxygen to maintain SpO2 > 92% - Encourage incentive spirometry -Significant leukocytosis noted today. Leukocytosis is likely steroid- induced. Suspect KDIGO Stage I Acute Kidney Injury -Nephrology consulted - Creatinine = 1.52 -> 1.52 -> 1.45 -> 1.26 -> 1.23 (creatinine was 1.1 on 05/05/2019) - Urinalysis = 5-10 RBCs, 5-10 hyaline casts, 1+ protein -JERRY resolved Suspect Demand Ischemia (Type II Non-ST Segment Elevation Myocardial Infarction) Hypertension - Evaluation thus far: - EKG: without STEMI criteria, trend - Serial troponin: 305.2 -> 243.3 -> 145.7 - Transthoracic echocardiogram = "1. normal left ventricular ejection fraction 60-65% 2. normal wall motion 3. mild diastolic dysfunction 4. mild mitral regurgitation 5. mild tricuspid regurgitation 6. right ventricular systolic pressure is normal, greater than 25 mmHg" - Management plan: -Cardiology is following. 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 Start Klonopin 0.5 mg twice daily as needed. DVT prophylaxis-Lovenox
[2022-10-30] MEDS: MIRTAZAPINE 15 MG TAB PO SCH (20:26)
[2022-10-31] MEDS: IPRATROPIUM BROM 0.5MG/2.5ML NEB SCH ×4 (01:35→19:30)
[2022-10-31 05:31] LABS: Absolute Lymphocytes (CBC) 1.5 K/uL (0.7-4.9); Hematocrit 39.4 % (36.0-45.0); Lymphocytes % 7.2 % (15.3-44.8); MCV 80.5 fL (80-100); MPV 9.4 fL (7.6-11.3)
[2022-10-31 06:31] LABS: Potassium 4.5 mEq/L (3.5-5.1)
[2022-10-31] MEDS: PANTOPRAZOLE 40MG TABLET PO SCH (06:31)
[2022-10-31] MEDS: CLOPIDOGREL 75 MG TABLET PO SCH (08:57)
[2022-10-31] MEDS: levoFLOXacin 500 MG TAB PO SCH (08:57)
[2022-10-31] MEDS: predniSONE 10 MG TAB PO SCH ×2 (08:57→20:06)
[2022-10-31] MEDS: METOPROLOL XL 25 MG TAB PO SCH ×2 (08:57→20:06)
[2022-10-31] MEDS: OXYCODONE *CR* 10 MG TAB PO SCH ×2 (08:58→20:06)
[2022-10-31] MEDS: ROSUVASTATIN 10 MG TAB PO SCH (08:58)
[2022-10-31] MEDS: GABAPENTIN 300 MG CAP PO SCH ×2 (08:58→20:06)
[2022-10-31] MEDS: HOME MED 1 EA UNK (Budesonide/Glycopyr/Formoterol [Breztri Aerosphere Inhaler] 10.7 GM Hfa IH SCH ×2 (08:59→20:05)
[2022-10-31] MEDS: ENOXAPARIN 40 MG/0.4 ML SQ SCH (09:00)
[2022-10-31] MEDS: ENSURE CLEAR 200 ML CAN PO SCH ×2 (09:00→20:06)
[2022-10-31] MEDS: OXYCODONE *CR* 20 MG TAB PO SCH ×2 (09:14→20:06)
--- NOTE | 2022-10-31 15:13 | P.PN ---
Subjective Date of Service: 10/31/22 Chief Complaint: COPD exacerbation Patient feels she is gradually getting better. Oxygen weaned down to 3 L by nasal cannula with oxygen saturation around 93% Physical Examination - Vital Signs Temperature: 97.7 F Blood Pressure: 103/69 Pulse: 94 Respirations: 16 Pulse Ox (%): 92 Assessment And Plan - Plan Physical Exam General: Alert, moderate distress with speaking, Oriented x3 HEENT: Atraumatic, Mucous membr. moist/pink, Sclerae nonicteric Respiratory: Diminished, bilateral crackles/rales and Rhonchi Cardiovascular: Tachycardic, Regular rhythm, No murmurs, trace BLE edema. Gastrointestinal: Normal bowel sounds, Soft, Non-distended, No tenderness Integumentary: No rashes Neurological: Normal speech, Normal affect Plan: Severe Sepsis likely secondary to Community-Acquired Pneumonia/Bronchitis - POA She met SIRS criteria based on HR > 90 bpm and RR > 20 breaths/min, and the suspected source is pulmonary. Severe sepsis is suspected due to concern for tissue hypoperfusion/organ dysfunction based on acute respiratory failure requiring BiPAP. Continue current antibiotics. Acute Hypercapnic Respiratory Failure due to Acute COPD Exacerbation Acute Toxic Metabolic Encephalopathy due to above - improved - Evaluation thus far: - D-Dimer = 2303 - Procalcitonin = 2.04 - Influenza/COVID-19 = negative - ABG = pH 7.25, PCO2 68.3, PO2 374 - Chest x-ray = "patchy left basilar airspace opacification versus atelectasis. Superimposition of soft tissues limits evaluation." - CT chest angiogram = "no evidence of acute central pulmonary emboli, allowing for some motion artifact. Scattered tree-in-bud opacities bilaterally with some apical predominance. Findings suggest an infectious or inflammatory process such as bronchiolitis. Please correlate clinically. A 7 millimeter left apical cavitary nodule is noted, likely relating to the same etiology. Mildly prominent mediastinal and hilar lymph nodes, likely reactive." - Bilateral lower extremity Doppler = "no sonographic evidence of left or right lower extremity deep venous thrombosis" - Management plan: - Consulted Pulmonary Dr. Cai is following. - Bronchodilators and steroids per Pulm - Continue roflumilast -She is slowly improving. -Continue to wean oxygen. - Encourage incentive spirometry -Significant leukocytosis noted. Leukocytosis is likely steroid-induced. -Increase activity as tolerated. Suspect KDIGO Stage I Acute Kidney Injury -Nephrology consulted - Creatinine = 1.52 -> 1.52 -> 1.45 -> 1.26 -> 1.23 (creatinine was 1.1 on 05/05/2019) - Urinalysis = 5-10 RBCs, 5-10 hyaline casts, 1+ protein -JERRY resolved Suspect Demand Ischemia (Type II Non-ST Segment Elevation Myocardial Infarction) Hypertension - Evaluation thus far: - EKG: without STEMI criteria, trend - Serial troponin: 305.2 -> 243.3 -> 145.7 - Transthoracic echocardiogram = "1. normal left ventricular ejection fraction 60-65% 2. normal wall motion 3. mild diastolic dysfunction 4. mild mitral regurgitation 5. mild tricuspid regurgitation 6. right ventricular systolic pressure is normal, greater than 25 mmHg" - Management plan: -Cardiology is following. 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 Continue Klonopin 0.5 mg twice daily as needed. DVT prophylaxis-Lovenox
[2022-10-31] MEDS: clonazePAM 0.5 MG TAB PO PRN (16:04)
[2022-10-31] MEDS: MIRTAZAPINE 15 MG TAB PO SCH (20:06)
--- NOTE | 2022-10-31 21:21 | P.PN ---
Date of Service: 10/31/22 Vital Signs Temp Pulse Resp BP Pulse Ox 97.7 F 86 16 108/62 93 10/31/22 16:00 10/31/22 16:00 10/31/22 20:06 10/31/22 16:00 10/31/22 20:06 Medications Acetaminophen (Acetaminophen 325 Mg Tablet) 650 mg PO Q6H PRN PRN Reason: TEMP > 100.4' F Albuterol Sulfate (Albuterol 2.5 Mg/3 Ml Neb Julee) 2.5 mg NEB [id number] PRN PRN Reason: SHORTNESS OF BREATH Benzonatate (Benzonatate 100 Mg Cap) 100 mg PO TID PRN PRN Reason: COUGH Last Admin: 10/28/22 21:33 Dose: 100 mg Calcium Carbonate/Glycine (Calcium Carbonate Chew 500mg Tab) 500 mg PO QID PRN PRN Reason: INDIGESTION Clonazepam (Clonazepam 0.5 Mg Tab) 0.5 mg PO BID PRN PRN Reason: ANXIETY Last Admin: 10/31/22 16:04 Dose: 0.5 mg Clopidogrel Bisulfate (Clopidogrel 75 Mg Tablet) 75 mg PO DAILY [facility] Last Admin: 10/31/22 08:57 Dose: 75 mg Enoxaparin Sodium (Enoxaparin 40 Mg/0.4 Ml) 40 mg SQ DAILY [facility] Last Admin: 10/31/22 09:00 Dose: 40 mg Enteral Nutritional Formula (Ensure Clear 200 Ml Can) 237 ml PO BID [facility] Last Admin: 10/31/22 20:06 Dose: 237 ml Gabapentin (Gabapentin 300 Mg Cap) 300 mg PO BID [facility] Last Admin: 10/31/22 20:06 Dose: 300 mg Home Med (Budesonide/Glycopyr/Formoterol [Breztri Aerosphere Inhaler]) 2 puff IH BID [facility] Last Admin: 10/31/22 20:05 Dose: 2 puff Hydralazine HCl (Hydralazine Hcl 20 Mg/Ml Vial) 10 mg IV Q6HP PRN PRN Reason: SBP>160 MMHG OR DBP>100 MMHG Last Admin: 10/27/22 09:38 Dose: 10 mg Ipratropium [place] (Ipratropium Brom 0.5mg/2.5ml) 0.5 mg NEB [id number] [facility] Last Admin: 10/31/22 19:30 Dose: 0.5 mg Levofloxacin (Levofloxacin 500 Mg Tab) 500 mg PO DAILY [facility]; Protocol Last Admin: 10/31/22 08:57 Dose: 500 mg Metoprolol Succinate (Metoprolol Xl 25 Mg Tab) 12.5 mg PO BID [facility] Last Admin: 10/31/22 20:06 Dose: 12.5 mg Mirtazapine (Mirtazapine 15 Mg Tab) 15 mg PO BEDTIME [facility] Last Admin: 10/31/22 20:06 Dose: 15 mg Ondansetron HCl (Ondansetron 4 Mg/2 Ml Vial) 4 mg IV Q6HP PRN PRN Reason: NAUSEA / VOMITING Last Admin: 10/28/22 21:33 Dose: 4 mg Oxycodone HCl (Oxycodone *Cr* 20 Mg Tab) 20 mg PO Q12HR [facility] Last Admin: 10/31/22 20:06 Dose: 20 mg Oxycodone HCl (Oxycodone *Cr* 10 Mg Tab) 10 mg PO Q12HR [facility] Last Admin: 10/31/22 20:06 Dose: 10 mg Pantoprazole Sodium (Pantoprazole 40mg Tablet) 40 mg PO ACB [facility]; Protocol Last Admin: 10/31/22 06:31 Dose: 40 mg Prednisone (Prednisone 10 Mg Tab) 10 mg PO BID [facility] Last Admin: 10/31/22 20:06 Dose: 10 mg Rosuvastatin Calcium (Rosuvastatin 10 Mg Tab) 5 mg PO DAILY [facility] Last Admin: 10/31/22 08:58 Dose: 5 mg Sodium Chloride (Flush Normal Saline 10 Ml) 10 ml IV BID [facility] Last Admin: 10/31/22 20:06 Dose: 10 ml Sodium Chloride (Sodium Chloride 0.9% 10ml Inj) 10 ml IV UD PRN PRN Reason: Diluant Microbiology Results 10/23/22 06:57 Blood - Blood Aerobic Blood Culture - Final No growth in 5 days. 10/23/22 06:57 Blood - Blood Anaerobic Blood Culture - Final No growth in 5 days. 10/23/22 07:09 Blood - Blood Aerobic Blood Culture - Final No growth in 5 days. 10/23/22 07:09 Blood - Blood Anaerobic Blood Culture - Final No growth in 5 days. 10/23/22 07:10 Nasopharnyx Influenza Type A Antigen Screen - Final 07/05/23 07:10 Nasopharnyx Influenza Type B Antigen Screen - Final Assessment/ Plan: Nephrology No dyspnea No chest pain Fatigue and weakness No acute events overnight Vitals, medications blood work and imaging reviewed in the chart General: In no apparent distress, Cooperative HEENT: Atraumatic Neck: Supple Respiratory: Norm resp effort Cardiovascular: No edema, Regular rate/rhythm Gastrointestinal: Soft and benign, Non-distended Musculoskeletal: No clubbing, No contractures Integumentary: No rashes, No cyanosis Neurological: Abnormal strength Blood work reviewed in the chart. Imagings Data: EXAM DESCRIPTION: RADChest Single View10/23/2022 7:38 am CLINICAL HISTORY: COPD COMPARISON: Chest Pa And Lat (2 Views) dated 09/23/2018; Chest Single View dated 07/05/2017; Chest Single View dated 07/04/2016; CHEST SINGLE VIEW dated 04/15/2011 TECHNIQUE: Portable AP view of the chest. FINDINGS: Patchy left basilar airspace opacification versus atelectasis. Superimposition of soft tissues limits evaluation. No pneumothorax or sizable effusion. The cardiomediastinal contours are unremarkable. IMPRESSION: Patchy left basilar airspace opacification versus atelectasis. Superimposition of soft tissues limits evaluation. EXAM DESCRIPTION: CT - Chest For Pe Angio - 10/23/2022 9:51 am CLINICAL HISTORY: DYSPNEA COMPARISON: Lung Cancer Screening CT W/O dated 09/20/2021; Lung Cancer Screening CT W/O dated 08/16/2020; Thorax Wo Con dated 07/22/2019; Lung Cancer Screening CT W/O dated 11/23/2018 TECHNIQUE: Thin axial CT images of the chest were obtained following administration of 100 mL Isovue 370 IV contrast. Multiplanar reconstructions, and maximum intensity projection reconstructions were generated and reviewed. Exam utilizes a protocol for optimal evaluation of pulmonary arterial tree. All CT scans are performed using dose optimization technique as appropriate and may include automated exposure control or mA/KV adjustment according to patient size. FINDINGS: Left thyroid lobe hypoattenuating 1.6 centimeter nodule inferiorly, stable. Contrast opacification is satisfactory. Pulmonary arteries are normal, with no emboli or other suspicious finding, allowing for some motion artifact. No acute or significant aorta findings. Scattered tree-in-bud opacities throughout both lungs, with some apical predominance. Small cavitary lesion at the left lung apex, measuring 7 millimeter in greatest dimension. No pleural thickening or pleural effusion. No pneumothorax. No abnormal mediastinal or hilar masses. Mildly prominent mediastinal and bilateral hilar lymph nodes, the largest subcarinal measuring 1.3 centimeter in short axis. No chest wall mass or abnormal axilliary lymphadenopathy. Evaluation of the upper abdominal structures shows no suspicious abnormality. No acute osseous findings. IMPRESSION: No evidence of acute central pulmonary emboli, allowing for some motion artifact. Scattered tree-in-bud opacities bilaterally with some apical predominance. Findings suggest an infectious or inflammatory process such as bronchiolitis. Please correlate clinically. A 7 millimeter left apical cavitary nodule is noted, likely relating to the same etiology. Mildly prominent mediastinal and hilar lymph nodes, likely reactive. LEFT VENTRICULAR WALL MOTION: NORMAL DOPPLER/COLOR FLOW: SEE BELOW COMMENTS: 1. NORMAL LEFT VENTRICULAR EJECTION FRACTION 60-65% 2. NORMAL WALL MOTION 3. MILD DIASTOLIC DYSFUNCTION 4. MILD MITRAL REGURGITATION 5. MILD TRICUSPID REGURGITATION 6. 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
[2022-11-01] MEDS: IPRATROPIUM BROM 0.5MG/2.5ML NEB SCH ×4 (01:05→20:50)
[2022-11-01] MEDS: PANTOPRAZOLE 40MG TABLET PO SCH (06:41)
[2022-11-01] MEDS: ROSUVASTATIN 10 MG TAB PO SCH (08:32)
[2022-11-01] MEDS: predniSONE 10 MG TAB PO SCH ×2 (08:32→20:16)
[2022-11-01] MEDS: levoFLOXacin 500 MG TAB PO SCH (08:32)
[2022-11-01] MEDS: ALBUTEROL 2.5 MG/3 ML NEB SOL NEB PRN ×3 (08:34→20:50)
[2022-11-01] MEDS: METOPROLOL XL 25 MG TAB PO SCH (08:35)
[2022-11-01] MEDS: OXYCODONE *CR* 10 MG TAB PO SCH ×2 (08:36→20:16)
[2022-11-01] MEDS: CLOPIDOGREL 75 MG TABLET PO SCH (08:37)
[2022-11-01] MEDS: GABAPENTIN 300 MG CAP PO SCH ×2 (08:37→20:16)
[2022-11-01] MEDS: OXYCODONE *CR* 20 MG TAB PO SCH ×2 (08:37→20:15)
[2022-11-01] MEDS: ENSURE CLEAR 200 ML CAN PO SCH ×2 (08:38→20:16)
[2022-11-01] MEDS: ENOXAPARIN 40 MG/0.4 ML SQ SCH (08:38)
[2022-11-01] MEDS: HOME MED 1 EA UNK (Budesonide/Glycopyr/Formoterol [Breztri Aerosphere Inhaler] 10.7 GM Hfa IH SCH ×2 (08:39→20:17)
--- NOTE | 2022-11-01 11:55 | P.PN ---
Subjective Date of Service: 11/01/22 Chief Complaint: COPD exacerbation Patient is improving still weak difficulty walking Review of Systems General: Weakness Respiratory: Shortness of Breath Physical Examination - Vital Signs Temperature: 97.2 F Blood Pressure: 112/66 Pulse: 93 Respirations: 20 Pulse Ox (%): 98 - Physical Exam General: Alert, Oriented x3 Respiratory: Clear to auscultation bilaterally, Diminished Cardiovascular: No edema, Regular rate/rhythm Assessment And Plan - Current Problems (Diagnosis) (1) Respiratory failure Onset Date: 07/05/16 Current Visit: No Status: Acute Plan: Patient admitted with COPD exacerbation baseline functioning is poor new with physical therapy DC telemetry renal function is improved patient complains of dizziness on standing will DC beta-radha count is still little elevated may be due to steroids cultures negative Qualifiers: Chronicity: acute on chronic (2) Non-STEMI (non-ST elevated myocardial infarction) Current Visit: Yes Status: Acute Plan: Echocardiogram shows mild mild at this diastolic dysfunction no wall motion abnormalities no acute EKG changes probably benefit from an outpatient stress test Physician Review: Patient Assessed, Agree with Above Assessment and Plan
--- NOTE | 2022-11-01 15:49 | P.PN ---
Subjective Date of Service: 11/01/22 Chief Complaint: COPD exacerbation No major changes from yesterday. Oxygen saturation is stable on 3 L by nasal cannula. Physical Examination - Vital Signs Temperature: 98.2 F Blood Pressure: 109/64 Pulse: 87 Respirations: 16 Pulse Ox (%): 98 Assessment And Plan - Plan Physical Exam General: Alert, moderate distress with speaking, Oriented x3 HEENT: Atraumatic, Mucous membr. moist/pink, Sclerae nonicteric Respiratory: Diminished, bilateral crackles/rales and Rhonchi Cardiovascular: Tachycardic, Regular rhythm, No murmurs, trace BLE edema. Gastrointestinal: Normal bowel sounds, Soft, Non-distended, No tenderness Integumentary: No rashes Neurological: Normal speech, Normal affect Plan: Severe Sepsis likely secondary to Community-Acquired Pneumonia/Bronchitis - POA She met SIRS criteria based on HR > 90 bpm and RR > 20 breaths/min, and the suspected source is pulmonary. Severe sepsis is suspected due to concern for tissue hypoperfusion/organ dysfunction based on acute respiratory failure requiring BiPAP. Continue current antibiotics. Acute Hypercapnic Respiratory Failure due to Acute COPD Exacerbation Acute Toxic Metabolic Encephalopathy due to above - improved - Evaluation thus far: - D-Dimer = 2303 - Procalcitonin = 2.04 - Influenza/COVID-19 = negative - ABG = pH 7.25, PCO2 68.3, PO2 374 - Chest x-ray = "patchy left basilar airspace opacification versus atelectasis. Superimposition of soft tissues limits evaluation." - CT chest angiogram = "no evidence of acute central pulmonary emboli, allowing for some motion artifact. Scattered tree-in-bud opacities bilaterally with some apical predominance. Findings suggest an infectious or inflammatory process such as bronchiolitis. Please correlate clinically. A 7 millimeter left apical cavitary nodule is noted, likely relating to the same etiology. Mildly prominent mediastinal and hilar lymph nodes, likely reactive." - Bilateral lower extremity Doppler = "no sonographic evidence of left or right lower extremity deep venous thrombosis" - Management plan: - Consulted Pulmonary Dr. Cai is following. - Bronchodilators and steroids per Pulm - Continue roflumilast -She is slowly improving. -Continue to wean oxygen. - Encourage incentive spirometry -Significant leukocytosis noted. Leukocytosis is likely steroid-induced. -Increase activity as tolerated. -Patient will be appropriate for skilled rehab -Social service consulted for arrangement for skilled rehab. Suspect KDIGO Stage I Acute Kidney Injury -Nephrology consulted - Creatinine = 1.52 -> 1.52 -> 1.45 -> 1.26 -> 1.23 (creatinine was 1.1 on 05/05/2019) - Urinalysis = 5-10 RBCs, 5-10 hyaline casts, 1+ protein -JERRY resolved Suspect Demand Ischemia (Type II Non-ST Segment Elevation Myocardial Infarction) Hypertension - Evaluation thus far: - EKG: without STEMI criteria, trend - Serial troponin: 305.2 -> 243.3 -> 145.7 - Transthoracic echocardiogram = "1. normal left ventricular ejection fraction 60-65% 2. normal wall motion 3. mild diastolic dysfunction 4. mild mitral regurgitation 5. mild tricuspid regurgitation 6. right ventricular systolic pressure is normal, greater than 25 mmHg" - Management plan: -Cardiology is following. 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 Continue Klonopin 0.5 mg twice daily as needed. DVT prophylaxis-Lovenox
[2022-11-01] MEDS: clonazePAM 0.5 MG TAB PO PRN (17:51)
[2022-11-01] MEDS: MIRTAZAPINE 15 MG TAB PO SCH (20:16)
[2022-11-02] MEDS: IPRATROPIUM BROM 0.5MG/2.5ML NEB SCH ×4 (02:00→20:55)
[2022-11-02 04:46] LABS: Hematocrit 35.5 % (36.0-45.0); Lymphocytes % 5.8 % (15.3-44.8); MCV 79.9 fL (80-100); MPV 9.2 fL (7.6-11.3); RBC Red Blood Cell Count 4.45 M/uL (3.86-4.86)
[2022-11-02 05:10] LABS: Potassium 4.7 mEq/L (3.5-5.1)
[2022-11-02] MEDS: PANTOPRAZOLE 40MG TABLET PO SCH (07:30)
[2022-11-02] MEDS: ALBUTEROL 2.5 MG/3 ML NEB SOL NEB PRN (07:46)
[2022-11-02] MEDS: GABAPENTIN 300 MG CAP PO SCH ×2 (08:37→21:08)
[2022-11-02] MEDS: ROSUVASTATIN 10 MG TAB PO SCH (08:37)
[2022-11-02] MEDS: OXYCODONE *CR* 20 MG TAB PO SCH ×2 (08:38→21:09)
[2022-11-02] MEDS: predniSONE 10 MG TAB PO SCH ×2 (08:38→21:08)
[2022-11-02] MEDS: OXYCODONE *CR* 10 MG TAB PO SCH ×2 (08:39→21:08)
[2022-11-02] MEDS: levoFLOXacin 500 MG TAB PO SCH (08:40)
[2022-11-02] MEDS: CLOPIDOGREL 75 MG TABLET PO SCH (08:40)
[2022-11-02] MEDS: HOME MED 1 EA UNK (Budesonide/Glycopyr/Formoterol [Breztri Aerosphere Inhaler] 10.7 GM Hfa IH SCH ×2 (08:41→21:08)
[2022-11-02] MEDS: ENOXAPARIN 40 MG/0.4 ML SQ SCH (08:41)
[2022-11-02] MEDS: ENSURE CLEAR 200 ML CAN PO SCH ×2 (08:42→21:00)
--- NOTE | 2022-11-02 13:47 | P.PN ---
Subjective Date of Service: 11/02/22 Chief Complaint: COPD exacerbation No major changes from yesterday. Patient's oxygen saturation is borderline 90% with 2 L oxygen by nasal cannula. Physical Examination - Vital Signs Temperature: 97.5 F Blood Pressure: 146/75 Pulse: 104 Respirations: 20 Pulse Ox (%): 90 Assessment And Plan - Plan Physical Exam General: Alert, moderate distress with speaking, Oriented x3 HEENT: Atraumatic, Mucous membr. moist/pink, Sclerae nonicteric Respiratory: Diminished, bilateral crackles/rales and Rhonchi Cardiovascular: Tachycardic, Regular rhythm, No murmurs, trace BLE edema. Gastrointestinal: Normal bowel sounds, Soft, Non-distended, No tenderness Integumentary: No rashes Neurological: Normal speech, Normal affect Plan: Severe Sepsis likely secondary to Community-Acquired Pneumonia/Bronchitis - POA She met SIRS criteria based on HR > 90 bpm and RR > 20 breaths/min, and the suspected source is pulmonary. Severe sepsis is suspected due to concern for tissue hypoperfusion/organ dysfunction based on acute respiratory failure requiring BiPAP. Continue current antibiotics. Acute Hypercapnic Respiratory Failure due to Acute COPD Exacerbation Acute Toxic Metabolic Encephalopathy due to above - improved - Evaluation thus far: - D-Dimer = 2303 - Procalcitonin = 2.04 - Influenza/COVID-19 = negative - ABG = pH 7.25, PCO2 68.3, PO2 374 - Chest x-ray = "patchy left basilar airspace opacification versus atelectasis. Superimposition of soft tissues limits evaluation." - CT chest angiogram = "no evidence of acute central pulmonary emboli, allowing for some motion artifact. Scattered tree-in-bud opacities bilaterally with some apical predominance. Findings suggest an infectious or inflammatory process such as bronchiolitis. Please correlate clinically. A 7 millimeter left apical cavitary nodule is noted, likely relating to the same etiology. Mildly prominent mediastinal and hilar lymph nodes, likely reactive." - Bilateral lower extremity Doppler = "no sonographic evidence of left or right lower extremity deep venous thrombosis" - Management plan: - Consulted Pulmonary Dr. Cai is following. - Bronchodilators and steroids per Pulm - Continue roflumilast -She is slowly improving. -Continue to wean oxygen. - Encourage incentive spirometry -Significant leukocytosis noted. Leukocytosis is likely steroid-induced. -Increase activity as tolerated. -Social service consulted for arrangement for skilled rehab. Suspect KDIGO Stage I Acute Kidney Injury -Nephrology consulted - Creatinine = 1.52 -> 1.52 -> 1.45 -> 1.26 -> 1.23 (creatinine was 1.1 on 05/05/2019) - Urinalysis = 5-10 RBCs, 5-10 hyaline casts, 1+ protein -JERRY resolved Suspect Demand Ischemia (Type II Non-ST Segment Elevation Myocardial Infarction) Hypertension - Evaluation thus far: - EKG: without STEMI criteria, trend - Serial troponin: 305.2 -> 243.3 -> 145.7 - Transthoracic echocardiogram = "1. normal left ventricular ejection fraction 60-65% 2. normal wall motion 3. mild diastolic dysfunction 4. mild mitral regurgitation 5. mild tricuspid regurgitation 6. right ventricular systolic pressure is normal, greater than 25 mmHg" - Management plan: -Cardiology is following. 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 Continue Klonopin 0.5 mg twice daily as needed. DVT prophylaxis-Lovenox. Patient has overall clinically improved. Awaiting acceptance to skilled rehab.
[2022-11-02] MEDS: clonazePAM 0.5 MG TAB PO PRN (17:04)
[2022-11-02] MEDS: MIRTAZAPINE 15 MG TAB PO SCH (21:09)
--- NOTE | 2022-11-02 22:14 | P.PN ---
Date of Service: 11/02/22 Vital Signs Temp Pulse Resp BP Pulse Ox 97.9 F 114 H 20 100/55 L 92 11/02/22 16:00 11/02/22 16:00 11/02/22 16:00 11/02/22 16:00 11/02/22 16:00 Medications Acetaminophen (Acetaminophen 325 Mg Tablet) 650 mg PO Q6H PRN PRN Reason: TEMP > 100.4' F Albuterol Sulfate (Albuterol 2.5 Mg/3 Ml Neb Julee) 2.5 mg NEB [id number] PRN PRN Reason: SHORTNESS OF BREATH Last Admin: 11/02/22 07:46 Dose: 2.5 mg Benzonatate (Benzonatate 100 Mg Cap) 100 mg PO TID PRN PRN Reason: COUGH Last Admin: 10/28/22 21:33 Dose: 100 mg Calcium Carbonate/Glycine (Calcium Carbonate Chew 500mg Tab) 500 mg PO QID PRN PRN Reason: INDIGESTION Clonazepam (Clonazepam 0.5 Mg Tab) 0.5 mg PO BID PRN PRN Reason: ANXIETY Last Admin: 11/02/22 17:04 Dose: 0.5 mg Clopidogrel Bisulfate (Clopidogrel 75 Mg Tablet) 75 mg PO DAILY [facility] Last Admin: 11/02/22 08:40 Dose: 75 mg Enoxaparin Sodium (Enoxaparin 40 Mg/0.4 Ml) 40 mg SQ DAILY [facility] Last Admin: 11/02/22 08:41 Dose: 40 mg Enteral Nutritional Formula (Ensure Clear 200 Ml Can) 237 ml PO BID [facility] Last Admin: 11/02/22 21:00 Dose: 237 ml Gabapentin (Gabapentin 300 Mg Cap) 300 mg PO BID [facility] Last Admin: 11/02/22 21:08 Dose: 300 mg Home Med (Budesonide/Glycopyr/Formoterol [Breztri Aerosphere Inhaler]) 2 puff IH BID [facility] Last Admin: 11/02/22 21:08 Dose: 2 puff Ipratropium Jupiter (Ipratropium Brom 0.5mg/2.5ml) 0.5 mg NEB [id number] [facility] Last Admin: 11/02/22 14:46 Dose: 0.5 mg Levofloxacin (Levofloxacin 500 Mg Tab) 500 mg PO DAILY [facility]; Protocol Last Admin: 11/02/22 08:40 Dose: 500 mg Mirtazapine (Mirtazapine 15 Mg Tab) 15 mg PO BEDTIME [facility] Last Admin: 11/02/22 21:09 Dose: 15 mg Ondansetron HCl (Ondansetron 4 Mg/2 Ml Vial) 4 mg IV Q6HP PRN PRN Reason: NAUSEA / VOMITING Last Admin: 10/28/22 21:33 Dose: 4 mg Oxycodone HCl (Oxycodone *Cr* 20 Mg Tab) 20 mg PO Q12HR [facility] Last Admin: 11/02/22 21:09 Dose: 20 mg Oxycodone HCl (Oxycodone *Cr* 10 Mg Tab) 10 mg PO Q12HR [facility] Last Admin: 11/02/22 21:08 Dose: 10 mg Pantoprazole Sodium (Pantoprazole 40mg Tablet) 40 mg PO ACB [facility]; Protocol Last Admin: 11/02/22 07:30 Dose: Not Given Prednisone (Prednisone 10 Mg Tab) 10 mg PO BID [facility] Last Admin: 11/02/22 21:08 Dose: 10 mg Rosuvastatin Calcium (Rosuvastatin 10 Mg Tab) 5 mg PO DAILY [facility] Last Admin: 11/02/22 08:37 Dose: 5 mg Sodium Chloride (Flush Normal Saline 10 Ml) 10 ml IV BID [facility] Last Admin: 11/02/22 21:00 Dose: 10 ml Sodium Chloride (Sodium Chloride 0.9% 10ml Inj) 10 ml IV UD PRN PRN Reason: Diluant Microbiology Results 10/23/22 06:57 Blood - Blood Aerobic Blood Culture - Final No growth in 5 days. 10/23/22 06:57 Blood - Blood Anaerobic Blood Culture - Final No growth in 5 days. 10/23/22 07:09 Blood - Blood Aerobic Blood Culture - Final No growth in 5 days. 10/23/22 07:09 Blood - Blood Anaerobic Blood Culture - Final No growth in 5 days. 10/23/22 07:10 Nasopharnyx Influenza Type A Antigen Screen - Final 10/23/22 07:10 Nasopharnyx Influenza Type B Antigen Screen - Final Assessment/ Plan: Nephrology No dyspnea No chest pain Fatigue and weakness but feeling better No acute events overnight Vitals, medications blood work and imaging reviewed in the chart General: In no apparent distress, Cooperative HEENT: Atraumatic Neck: Supple Respiratory: Norm resp effort Cardiovascular: No edema, Regular rate/rhythm Gastrointestinal: Soft and benign, Non-distended Musculoskeletal: No clubbing, No contractures Integumentary: No rashes, No cyanosis Neurological: Abnormal strength Blood work reviewed in the chart. Imagings Data: EXAM DESCRIPTION: RADChest Single View10/23/2022 7:38 am CLINICAL HISTORY: COPD COMPARISON: Chest Pa And Lat (2 Views) dated 09/23/2018; Chest Single View dated 07/05/2017; Chest Single View dated 07/04/2016; CHEST SINGLE VIEW dated 04/15/2011 TECHNIQUE: Portable AP view of the chest. FINDINGS: Patchy left basilar airspace opacification versus atelectasis. Superimposition of soft tissues limits evaluation. No pneumothorax or sizable effusion. The cardiomediastinal contours are unremarkable. IMPRESSION: Patchy left basilar airspace opacification versus atelectasis. Superimposition of soft tissues limits evaluation. EXAM DESCRIPTION: CT - Chest For Pe Angio - 10/23/2022 9:51 am CLINICAL HISTORY: DYSPNEA COMPARISON: Lung Cancer Screening CT W/O dated 09/20/2021; Lung Cancer Screening CT W/O dated 08/16/2020; Thorax Wo Con dated 07/22/2019; Lung Cancer Screening CT W/O dated 11/23/2018 TECHNIQUE: Thin axial CT images of the chest were obtained following administration of 100 mL Isovue 370 IV contrast. Multiplanar reconstructions, and maximum intensity projection reconstructions were generated and reviewed. Exam utilizes a protocol for optimal evaluation of pulmonary arterial tree. All CT scans are performed using dose optimization technique as appropriate and may include automated exposure control or mA/KV adjustment according to patient size. FINDINGS: Left thyroid lobe hypoattenuating 1.6 centimeter nodule inferiorly, stable. Contrast opacification is satisfactory. Pulmonary arteries are normal, with no emboli or other suspicious finding, allowing for some motion artifact. No acute or significant aorta findings. Scattered tree-in-bud opacities throughout both lungs, with some apical predominance. Small cavitary lesion at the left lung apex, measuring 7 millimeter in greatest dimension. No pleural thickening or pleural effusion. No pneumothorax. No abnormal mediastinal or hilar masses. Mildly prominent mediastinal and bilateral hilar lymph nodes, the largest subcarinal measuring 1.3 centimeter in short axis. No chest wall mass or abnormal axilliary lymphadenopathy. Evaluation of the upper abdominal structures shows no suspicious abnormality. No acute osseous findings. IMPRESSION: No evidence of acute central pulmonary emboli, allowing for some motion artifact. Scattered tree-in-bud opacities bilaterally with some apical predominance. Findings suggest an infectious or inflammatory process such as bronchiolitis. Please correlate clinically. A 7 millimeter left apical cavitary nodule is noted, likely relating to the same etiology. Mildly prominent mediastinal and hilar lymph nodes, likely reactive. LEFT VENTRICULAR WALL MOTION: NORMAL DOPPLER/COLOR FLOW: SEE BELOW COMMENTS: 1. NORMAL LEFT VENTRICULAR EJECTION FRACTION 60-65% 2. NORMAL WALL MOTION 3. MILD DIASTOLIC DYSFUNCTION 4. MILD MITRAL REGURGITATION 5. MILD TRICUSPID REGURGITATION 6. 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
[2022-11-03] MEDS: IPRATROPIUM BROM 0.5MG/2.5ML NEB SCH ×3 (02:40→14:10)
[2022-11-03] MEDS: CLOPIDOGREL 75 MG TABLET PO SCH (09:03)
[2022-11-03] MEDS: PANTOPRAZOLE 40MG TABLET PO SCH (09:03)
[2022-11-03] MEDS: levoFLOXacin 500 MG TAB PO SCH (09:04)
[2022-11-03] MEDS: predniSONE 10 MG TAB PO SCH ×2 (09:04→20:17)
[2022-11-03] MEDS: ENOXAPARIN 40 MG/0.4 ML SQ SCH (09:04)
[2022-11-03] MEDS: GABAPENTIN 300 MG CAP PO SCH ×2 (09:04→20:23)
[2022-11-03] MEDS: OXYCODONE *CR* 20 MG TAB PO SCH ×3 (09:04→20:18)
[2022-11-03] MEDS: HOME MED 1 EA UNK (Budesonide/Glycopyr/Formoterol [Breztri Aerosphere Inhaler] 10.7 GM Hfa IH SCH ×2 (09:05→20:16)
[2022-11-03] MEDS: ENSURE CLEAR 200 ML CAN PO SCH ×2 (09:06→20:20)
[2022-11-03] MEDS: ROSUVASTATIN 10 MG TAB PO SCH (10:41)
[2022-11-03] MEDS: OXYCODONE *CR* 10 MG TAB PO SCH ×2 (10:41→20:19)
[2022-11-03] MEDS ORDERED: DRISDOL (VITAMIN D=ERGOCALCIFEROL) 50000 UNIT CAP PO SCH (11:00)
--- NOTE | 2022-11-03 13:00 | P.PN ---
Subjective Date of Service: 11/03/22 Chief Complaint: COPD exacerbation Patient stated she continues to feel better. She states she is feeling stronger and moving around more. Oxygen saturation has been stable on 2 L of oxygen by nasal cannula. Physical Examination - Vital Signs Temperature: 97.5 F Blood Pressure: 92/62 Pulse: 109 Respirations: 18 Pulse Ox (%): 93 Assessment And Plan - Plan Physical Exam General: Alert, moderate distress with speaking, Oriented x3 HEENT: Atraumatic, Mucous membr. moist/pink, Sclerae nonicteric Respiratory: Diminished, bilateral crackles/rales and Rhonchi Cardiovascular: Tachycardic, Regular rhythm, No murmurs, trace BLE edema. Gastrointestinal: Normal bowel sounds, Soft, Non-distended, No tenderness Integumentary: No rashes Neurological: Normal speech, Normal affect Plan: Severe Sepsis likely secondary to Community-Acquired Pneumonia/Bronchitis - POA She met SIRS criteria based on HR > 90 bpm and RR > 20 breaths/min, and the suspected source is pulmonary. Severe sepsis was suspected due to concern for tissue hypoperfusion/organ dysfunction based on acute respiratory failure requiring BiPAP. She has clinically improved. She is on oral Levaquin. Acute Hypercapnic Respiratory Failure due to Acute COPD Exacerbation Acute Toxic Metabolic Encephalopathy due to above - improved - Evaluation thus far: - D-Dimer = 2303 - Procalcitonin = 2.04 - Influenza/COVID-19 = negative - ABG = pH 7.25, PCO2 68.3, PO2 374 - Chest x-ray = "patchy left basilar airspace opacification versus atelectasis. Superimposition of soft tissues limits evaluation." - CT chest angiogram = "no evidence of acute central pulmonary emboli, allowing for some motion artifact. Scattered tree-in-bud opacities bilaterally with some apical predominance. Findings suggest an infectious or inflammatory process such as bronchiolitis. Please correlate clinically. A 7 millimeter left apical cavitary nodule is noted, likely relating to the same etiology. Mildly prominent mediastinal and hilar lymph nodes, likely reactive." - Bilateral lower extremity Doppler = "no sonographic evidence of left or right lower extremity deep venous thrombosis" - Management plan: - Consulted Pulmonary Dr. Cai is following. - Bronchodilators and steroids per Pulm - Continue roflumilast -She is slowly improving. -Continue to wean oxygen. - Encourage incentive spirometry -Significant leukocytosis noted. Leukocytosis is likely steroid-induced. -Increase activity as tolerated. -Social service consulted for arrangement for skilled rehab. Suspect KDIGO Stage I Acute Kidney Injury -Nephrology consulted - Creatinine = 1.52 -> 1.52 -> 1.45 -> 1.26 -> 1.23 (creatinine was 1.1 on 05/05/2019) - Urinalysis = 5-10 RBCs, 5-10 hyaline casts, 1+ protein -JERRY resolved Suspect Demand Ischemia (Type II Non-ST Segment Elevation Myocardial Infarction) Hypertension - Evaluation thus far: - EKG: without STEMI criteria, trend - Serial troponin: 305.2 -> 243.3 -> 145.7 - Transthoracic echocardiogram = "1. normal left ventricular ejection fraction 60-65% 2. normal wall motion 3. mild diastolic dysfunction 4. mild mitral regurgitation 5. mild tricuspid regurgitation 6. right ventricular systolic pressure is normal, greater than 25 mmHg" - Management plan: -Cardiology is following. 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 Continue Klonopin 0.5 mg twice daily as needed. DVT prophylaxis-Lovenox. Patient has overall clinically improved. Awaiting acceptance to skilled rehab.
[2022-11-03] MEDS: clonazePAM 0.5 MG TAB PO PRN (18:07)
[2022-11-03] MEDS: MIRTAZAPINE 15 MG TAB PO SCH (20:20)
--- NOTE | 2022-11-03 22:33 | P.PN ---
Date of Service: 11/03/22 Vital Signs Temp Pulse Resp BP Pulse Ox 98.2 F 104 H 20 116/58 L 93 11/03/22 19:00 11/03/22 19:00 11/03/22 20:18 11/03/22 19:00 11/03/22 19:00 Medications Acetaminophen (Acetaminophen 325 Mg Tablet) 650 mg PO Q6H PRN PRN Reason: TEMP > 100.4' F Albuterol Sulfate (Albuterol 2.5 Mg/3 Ml Neb Julee) 2.5 mg NEB [id number] PRN PRN Reason: SHORTNESS OF BREATH Last Admin: 11/02/22 07:46 Dose: 2.5 mg Benzonatate (Benzonatate 100 Mg Cap) 100 mg PO TID PRN PRN Reason: COUGH Last Admin: 10/28/22 21:33 Dose: 100 mg Calcium Carbonate/Glycine (Calcium Carbonate Chew 500mg Tab) 500 mg PO QID PRN PRN Reason: INDIGESTION Clonazepam (Clonazepam 0.5 Mg Tab) 0.5 mg PO BID PRN PRN Reason: ANXIETY Last Admin: 11/03/22 18:07 Dose: 0.5 mg Clopidogrel Bisulfate (Clopidogrel 75 Mg Tablet) 75 mg PO DAILY [facility] Last Admin: 11/03/22 09:03 Dose: 75 mg Enoxaparin Sodium (Enoxaparin 40 Mg/0.4 Ml) 40 mg SQ DAILY [facility] Last Admin: 11/03/22 09:04 Dose: 40 mg Enteral Nutritional Formula (Ensure Clear 200 Ml Can) 237 ml PO BID [facility] Last Admin: 11/03/22 20:20 Dose: 237 ml Ergocalciferol (Drisdol (Vitamin D=Ergocalciferol) 47193 Unit Cap) 50,000 unit PO Q7D [facility] Gabapentin (Gabapentin 300 Mg Cap) 300 mg PO BID [facility] Last Admin: 11/03/22 20:23 Dose: 300 mg Home Med (Budesonide/Glycopyr/Formoterol [Breztri Aerosphere Inhaler]) 2 puff IH BID [facility] Last Admin: 11/03/22 20:16 Dose: 2 puff Levofloxacin (Levofloxacin 500 Mg Tab) 500 mg PO DAILY [facility]; Protocol Last Admin: 11/03/22 09:04 Dose: 500 mg Mirtazapine (Mirtazapine 15 Mg Tab) 15 mg PO BEDTIME [facility] Last Admin: 11/03/22 20:20 Dose: 15 mg Ondansetron HCl (Ondansetron 4 Mg/2 Ml Vial) 4 mg IV Q6HP PRN PRN Reason: NAUSEA / VOMITING Last Admin: 10/28/22 21:33 Dose: 4 mg Oxycodone HCl (Oxycodone *Cr* 20 Mg Tab) 20 mg PO Q12HR [facility] Last Admin: 11/03/22 20:18 Dose: 20 mg Oxycodone HCl (Oxycodone *Cr* 10 Mg Tab) 10 mg PO Q12HR [facility] Last Admin: 11/03/22 20:19 Dose: 10 mg Pantoprazole Sodium (Pantoprazole 40mg Tablet) 40 mg PO ACB [facility]; Protocol Last Admin: 11/03/22 09:03 Dose: 40 mg Prednisone (Prednisone 10 Mg Tab) 10 mg PO BID [facility] Last Admin: 11/03/22 20:17 Dose: 10 mg Rosuvastatin Calcium (Rosuvastatin 10 Mg Tab) 5 mg PO DAILY [facility] Last Admin: 11/03/22 10:41 Dose: 5 mg Sodium Chloride (Flush Normal Saline 10 Ml) 10 ml IV BID [facility] Last Admin: 11/03/22 20:19 Dose: 10 ml Sodium Chloride (Sodium Chloride 0.9% 10ml Inj) 10 ml IV UD PRN PRN Reason: Diluant Microbiology Results 10/23/22 06:57 Blood - Blood Aerobic Blood Culture - Final No growth in 5 days. 10/23/22 06:57 Blood - Blood Anaerobic Blood Culture - Final No growth in 5 days. 10/23/22 07:09 Blood - Blood Aerobic Blood Culture - Final No growth in 5 days. 10/23/22 07:09 Blood - Blood Anaerobic Blood Culture - Final No growth in 5 days. 10/23/22 07:10 Nasopharnyx Influenza Type A Antigen Screen - Final 10/23/22 07:10 Nasopharnyx Influenza Type B Antigen Screen - Final Assessment/ Plan: Nephrology No dyspnea No chest pain Feeling better No acute events overnight Vitals, medications blood work and imaging reviewed in the chart General: In no apparent distress, Cooperative HEENT: Atraumatic Neck: Supple Respiratory: Norm resp effort Cardiovascular: No edema, Regular rate/rhythm Gastrointestinal: Soft and benign, Non-distended Musculoskeletal: No clubbing, No contractures Integumentary: No rashes, No cyanosis Neurological: Abnormal strength Blood work reviewed in the chart. Imagings Data: EXAM DESCRIPTION: RADChest Single View10/23/2022 7:38 am CLINICAL HISTORY: COPD COMPARISON: Chest Pa And Lat (2 Views) dated 09/23/2018; Chest Single View dated 07/05/2017; Chest Single View dated 07/04/2016; CHEST SINGLE VIEW dated 04/15/2011 TECHNIQUE: Portable AP view of the chest. FINDINGS: Patchy left basilar airspace opacification versus atelectasis. Superimposition of soft tissues limits evaluation. No pneumothorax or sizable effusion. The cardiomediastinal contours are unremarkable. IMPRESSION: Patchy left basilar airspace opacification versus atelectasis. Superimposition of soft tissues limits evaluation. EXAM DESCRIPTION: CT - Chest For Pe Angio - 10/23/2022 9:51 am CLINICAL HISTORY: DYSPNEA COMPARISON: Lung Cancer Screening CT W/O dated 09/20/2021; Lung Cancer Screening CT W/O dated 08/16/2020; Thorax Wo Con dated 07/22/2019; Lung Cancer Screening CT W/O dated 11/23/2018 TECHNIQUE: Thin axial CT images of the chest were obtained following administration of 100 mL Isovue 370 IV contrast. Multiplanar reconstructions, and maximum intensity projection reconstructions were generated and reviewed. Exam utilizes a protocol for optimal evaluation of pulmonary arterial tree. All CT scans are performed using dose optimization technique as appropriate and may include automated exposure control or mA/KV adjustment according to patient size. FINDINGS: Left thyroid lobe hypoattenuating 1.6 centimeter nodule inferiorly, stable. Contrast opacification is satisfactory. Pulmonary arteries are normal, with no emboli or other suspicious finding, allowing for some motion artifact. No acute or significant aorta findings. Scattered tree-in-bud opacities throughout both lungs, with some apical predominance. Small cavitary lesion at the left lung apex, measuring 7 millimeter in greatest dimension. No pleural thickening or pleural effusion. No pneumothorax. No abnormal mediastinal or hilar masses. Mildly prominent mediastinal and bilateral hilar lymph nodes, the largest subcarinal measuring 1.3 centimeter in short axis. No chest wall mass or abnormal axilliary lymphadenopathy. Evaluation of the upper abdominal structures shows no suspicious abnormality. No acute osseous findings. IMPRESSION: No evidence of acute central pulmonary emboli, allowing for some motion artifact. Scattered tree-in-bud opacities bilaterally with some apical predominance. Findings suggest an infectious or inflammatory process such as bronchiolitis. Please correlate clinically. A 7 millimeter left apical cavitary nodule is noted, likely relating to the same etiology. Mildly prominent mediastinal and hilar lymph nodes, likely reactive. LEFT VENTRICULAR WALL MOTION: NORMAL DOPPLER/COLOR FLOW: SEE BELOW COMMENTS: 1. NORMAL LEFT VENTRICULAR EJECTION FRACTION 60-65% 2. NORMAL WALL MOTION 3. MILD DIASTOLIC DYSFUNCTION 4. MILD MITRAL REGURGITATION 5. MILD TRICUSPID REGURGITATION 6. 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
[2022-11-04] MEDS: PANTOPRAZOLE 40MG TABLET PO SCH (07:30)
[2022-11-04] MEDS: ALBUTEROL 2.5 MG/3 ML NEB SOL NEB PRN ×2 (08:40→13:25)
[2022-11-04] MEDS: HOME MED 1 EA UNK (Budesonide/Glycopyr/Formoterol [Breztri Aerosphere Inhaler] 10.7 GM Hfa IH SCH ×2 (09:00→20:49)
[2022-11-04] MEDS: CLOPIDOGREL 75 MG TABLET PO SCH (09:00)
[2022-11-04] MEDS: ENOXAPARIN 40 MG/0.4 ML SQ SCH (09:00)
[2022-11-04] MEDS: ROSUVASTATIN 10 MG TAB PO SCH (09:00)
[2022-11-04] MEDS: OXYCODONE *CR* 10 MG TAB PO SCH ×2 (09:00→20:50)
[2022-11-04] MEDS: GABAPENTIN 300 MG CAP PO SCH ×2 (09:00→20:50)
[2022-11-04] MEDS: levoFLOXacin 500 MG TAB PO SCH (09:00)
[2022-11-04] MEDS: ENSURE CLEAR 200 ML CAN PO SCH ×2 (09:00→20:51)
--- NOTE | 2022-11-04 15:02 | P.PN ---
Subjective Date of Service: 11/04/22 Chief Complaint: COPD exacerbation Patient stated she continues to feel better. She is currently tolerating 1.5 L of oxygen by nasal cannula and she is ambulating further. Overall she is clinically improving. Physical Examination - Vital Signs Temperature: 97.5 F Blood Pressure: 99/63 Pulse: 96 Respirations: 21 Pulse Ox (%): 92 Assessment And Plan - Plan Physical Exam General: Alert, moderate distress with speaking, Oriented x3 HEENT: Atraumatic, Mucous membr. moist/pink, Sclerae nonicteric Respiratory: Diminished, bilateral crackles/rales and Rhonchi Cardiovascular: Tachycardic, Regular rhythm, No murmurs, trace BLE edema. Gastrointestinal: Normal bowel sounds, Soft, Non-distended, No tenderness Integumentary: No rashes Neurological: Normal speech, Normal affect Plan: Severe Sepsis likely secondary to Community-Acquired Pneumonia/Bronchitis - POA She met SIRS criteria based on HR > 90 bpm and RR > 20 breaths/min, and the suspected source is pulmonary. Severe sepsis was suspected due to concern for tissue hypoperfusion/organ dysfunction based on acute respiratory failure requiring BiPAP. She has clinically improved. She is on oral Levaquin. Acute Hypercapnic Respiratory Failure due to Acute COPD Exacerbation Acute Toxic Metabolic Encephalopathy due to above - improved - Evaluation thus far: - D-Dimer = 2303 - Procalcitonin = 2.04 - Influenza/COVID-19 = negative - ABG = pH 7.25, PCO2 68.3, PO2 374 - Chest x-ray = "patchy left basilar airspace opacification versus atelectasis. Superimposition of soft tissues limits evaluation." - CT chest angiogram = "no evidence of acute central pulmonary emboli, allowing for some motion artifact. Scattered tree-in-bud opacities bilaterally with some apical predominance. Findings suggest an infectious or inflammatory process such as bronchiolitis. Please correlate clinically. A 7 millimeter left apical cavitary nodule is noted, likely relating to the same etiology. Mildly prominent mediastinal and hilar lymph nodes, likely reactive." - Bilateral lower extremity Doppler = "no sonographic evidence of left or right lower extremity deep venous thrombosis" - Management plan: - Consulted Pulmonary Dr. Cai is following. - Bronchodilators and steroids per Pulm - Continue roflumilast -She is slowly improving. -Continue to wean oxygen. Patient is clinically improving. - Encourage incentive spirometry -Significant leukocytosis noted. Leukocytosis is likely steroid-induced. -Increase activity as tolerated. -Social service consulted for arrangement for skilled rehab. Suspect KDIGO Stage I Acute Kidney Injury -Nephrology consulted - Creatinine = 1.52 -> 1.52 -> 1.45 -> 1.26 -> 1.23 (creatinine was 1.1 on 05/05/2019) - Urinalysis = 5-10 RBCs, 5-10 hyaline casts, 1+ protein -JERRY resolved Suspect Demand Ischemia (Type II Non-ST Segment Elevation Myocardial Infarction) Hypertension - Evaluation thus far: - EKG: without STEMI criteria, trend - Serial troponin: 305.2 -> 243.3 -> 145.7 - Transthoracic echocardiogram = "1. normal left ventricular ejection fraction 60-65% 2. normal wall motion 3. mild diastolic dysfunction 4. mild mitral regurgitation 5. mild tricuspid regurgitation 6. right ventricular systolic pressure is normal, greater than 25 mmHg" - Management plan: -Cardiology is following. 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 Continue Klonopin 0.5 mg twice daily as needed. DVT prophylaxis-Lovenox. Patient has overall clinically improved. Awaiting acceptance to skilled rehab.
[2022-11-04] MEDS: predniSONE 10 MG TAB PO SCH (20:49)
[2022-11-04] MEDS: OXYCODONE *CR* 20 MG TAB PO SCH (20:50)
[2022-11-04] MEDS: MIRTAZAPINE 15 MG TAB PO SCH (20:50)
--- NOTE | 2022-11-04 23:14 | P.PN ---
Date of Service: 11/04/22 Vital Signs Temp Pulse Resp BP Pulse Ox 98.5 F 94 H 18 116/65 94 11/04/22 20:00 11/04/22 20:00 11/04/22 20:50 11/04/22 20:00 11/04/22 20:00 Medications Acetaminophen (Acetaminophen 325 Mg Tablet) 650 mg PO Q6H PRN PRN Reason: TEMP > 100.4' F Albuterol Sulfate (Albuterol 2.5 Mg/3 Ml Neb Julee) 2.5 mg NEB [id number] PRN PRN Reason: SHORTNESS OF BREATH Last Admin: 11/04/22 13:25 Dose: 2.5 mg Benzonatate (Benzonatate 100 Mg Cap) 100 mg PO TID PRN PRN Reason: COUGH Last Admin: 10/28/22 21:33 Dose: 100 mg Calcium Carbonate/Glycine (Calcium Carbonate Chew 500mg Tab) 500 mg PO QID PRN PRN Reason: INDIGESTION Clonazepam (Clonazepam 0.5 Mg Tab) 0.5 mg PO BID PRN PRN Reason: ANXIETY Last Admin: 11/03/22 18:07 Dose: 0.5 mg Clopidogrel Bisulfate (Clopidogrel 75 Mg Tablet) 75 mg PO DAILY [facility] Last Admin: 11/04/22 09:00 Dose: Not Given Enoxaparin Sodium (Enoxaparin 40 Mg/0.4 Ml) 40 mg SQ DAILY [facility] Last Admin: 11/04/22 09:00 Dose: Not Given Enteral Nutritional Formula (Ensure Clear 200 Ml Can) 237 ml PO BID [facility] Last Admin: 11/04/22 20:51 Dose: 237 ml Ergocalciferol (Drisdol (Vitamin D=Ergocalciferol) 79087 Unit Cap) 50,000 unit PO Q7D [facility] Last Admin: 11/03/22 11:00 Dose: Not Given Gabapentin (Gabapentin 300 Mg Cap) 300 mg PO BID [facility] Last Admin: 11/04/22 20:50 Dose: 300 mg Home Med (Budesonide/Glycopyr/Formoterol [Breztri Aerosphere Inhaler]) 2 puff IH BID [facility] Last Admin: 11/04/22 20:49 Dose: 2 puff Mirtazapine (Mirtazapine 15 Mg Tab) 15 mg PO BEDTIME [facility] Last Admin: 11/04/22 20:50 Dose: 15 mg Ondansetron HCl (Ondansetron 4 Mg/2 Ml Vial) 4 mg IV Q6HP PRN PRN Reason: NAUSEA / VOMITING Last Admin: 10/28/22 21:33 Dose: 4 mg Oxycodone HCl (Oxycodone *Cr* 20 Mg Tab) 20 mg PO Q12HR [facility] Last Admin: 11/04/22 20:50 Dose: 20 mg Oxycodone HCl (Oxycodone *Cr* 10 Mg Tab) 10 mg PO Q12HR [facility] Last Admin: 11/04/22 20:50 Dose: 10 mg Pantoprazole Sodium (Pantoprazole 40mg Tablet) 40 mg PO ACB [facility]; Protocol Last Admin: 11/04/22 07:30 Dose: Not Given Prednisone (Prednisone 10 Mg Tab) 10 mg PO BID [facility] Last Admin: 11/04/22 20:49 Dose: 10 mg Rosuvastatin Calcium (Rosuvastatin 10 Mg Tab) 5 mg PO DAILY [facility] Last Admin: 11/04/22 09:00 Dose: Not Given Sodium Chloride (Flush Normal Saline 10 Ml) 10 ml IV BID [facility] Last Admin: 11/04/22 20:51 Dose: 10 ml Sodium Chloride (Sodium Chloride 0.9% 10ml Inj) 10 ml IV UD PRN PRN Reason: Diluant Microbiology Results 10/23/22 06:57 Blood - Blood Aerobic Blood Culture - Final No growth in 5 days. 10/23/22 06:57 Blood - Blood Anaerobic Blood Culture - Final No growth in 5 days. 10/23/22 07:09 Blood - Blood Aerobic Blood Culture - Final No growth in 5 days. 10/23/22 07:09 Blood - Blood Anaerobic Blood Culture - Final No growth in 5 days. 10/23/22 07:10 Nasopharnyx Influenza Type A Antigen Screen - Final 10/23/22 07:10 Nasopharnyx Influenza Type B Antigen Screen - Final Assessment/ Plan: Nephrology No dyspnea No chest pain Feeling better No acute events overnight Vitals, medications blood work and imaging reviewed in the chart General: In no apparent distress, Cooperative HEENT: Atraumatic Neck: Supple Respiratory: Norm resp effort Cardiovascular: No edema, Regular rate/rhythm Gastrointestinal: Soft and benign, Non-distended Musculoskeletal: No clubbing, No contractures Integumentary: No rashes, No cyanosis Neurological: Abnormal strength Blood work reviewed in the chart. Imagings Data: EXAM DESCRIPTION: RADChest Single View10/23/2022 7:38 am CLINICAL HISTORY: COPD COMPARISON: Chest Pa And Lat (2 Views) dated 09/23/2018; Chest Single View dated 07/05/2017; Chest Single View dated 07/04/2016; CHEST SINGLE VIEW dated 04/15/2011 TECHNIQUE: Portable AP view of the chest. FINDINGS: Patchy left basilar airspace opacification versus atelectasis. Superimposition of soft tissues limits evaluation. No pneumothorax or sizable effusion. The cardiomediastinal contours are unremarkable. IMPRESSION: Patchy left basilar airspace opacification versus atelectasis. Superimposition of soft tissues limits evaluation. EXAM DESCRIPTION: CT - Chest For Pe Angio - 10/23/2022 9:51 am CLINICAL HISTORY: DYSPNEA COMPARISON: Lung Cancer Screening CT W/O dated 09/20/2021; Lung Cancer Screening CT W/O dated 08/16/2020; Thorax Wo Con dated 07/22/2019; Lung Cancer Screening CT W/O dated 11/23/2018 TECHNIQUE: Thin axial CT images of the chest were obtained following administration of 100 mL Isovue 370 IV contrast. Multiplanar reconstructions, and maximum intensity projection reconstructions were generated and reviewed. Exam utilizes a protocol for optimal evaluation of pulmonary arterial tree. All CT scans are performed using dose optimization technique as appropriate and may include automated exposure control or mA/KV adjustment according to patient size. FINDINGS: Left thyroid lobe hypoattenuating 1.6 centimeter nodule inferiorly, stable. Contrast opacification is satisfactory. Pulmonary arteries are normal, with no emboli or other suspicious finding, allowing for some motion artifact. No acute or significant aorta findings. Scattered tree-in-bud opacities throughout both lungs, with some apical predominance. Small cavitary lesion at the left lung apex, measuring 7 millimeter in greatest dimension. No pleural thickening or pleural effusion. No pneumothorax. No abnormal mediastinal or hilar masses. Mildly prominent mediastinal and bilateral hilar lymph nodes, the largest subcarinal measuring 1.3 centimeter in short axis. No chest wall mass or abnormal axilliary lymphadenopathy. Evaluation of the upper abdominal structures shows no suspicious abnormality. No acute osseous findings. IMPRESSION: No evidence of acute central pulmonary emboli, allowing for some motion artifact. Scattered tree-in-bud opacities bilaterally with some apical predominance. Findings suggest an infectious or inflammatory process such as bronchiolitis. Please correlate clinically. A 7 millimeter left apical cavitary nodule is noted, likely relating to the same etiology. Mildly prominent mediastinal and hilar lymph nodes, likely reactive. LEFT VENTRICULAR WALL MOTION: NORMAL DOPPLER/COLOR FLOW: SEE BELOW COMMENTS: 1. NORMAL LEFT VENTRICULAR EJECTION FRACTION 60-65% 2. NORMAL WALL MOTION 3. MILD DIASTOLIC DYSFUNCTION 4. MILD MITRAL REGURGITATION 5. MILD TRICUSPID REGURGITATION 6. 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
[2022-11-05 05:38] LABS: Absolute Lymphocytes (CBC) 0.9 K/uL (0.7-4.9); Hematocrit 33.6 % (36.0-45.0); Lymphocytes % 6.5 % (15.3-44.8); MCV 80.3 fL (80-100); MPV 9.2 fL (7.6-11.3); RBC Red Blood Cell Count 4.18 M/uL (3.86-4.86)
[2022-11-05 05:52] LABS: Potassium 4.7 mEq/L (3.5-5.1)
--- NOTE | 2022-11-05 07:15 | P.PN ---
Date of Service: 11/05/22 Subjective: doing okay today, feels like she is improving each day no new / worsening problems strength/endurance slowly improving with PT afebrile ROS: 10 point ROS as noted above, otherwise negative Physical Exam: GEN: Alert, oriented, NAD HEENT: Normal conjunctiva, sclera anicteric CV: Regular rate and rhythm, trace BLE edema Pulm: Nonlabored respirations on 1L NC, Diminished at bases b/l with mild b/l crackles ABD: Soft, nontender, nondistended Neuro: Normal speech, normal affect vitals reviewed Problem List: Severe Sepsis likely secondary to Community-Acquired Pneumonia/Bronchitis - POA Acute Hypercapnic Respiratory Failure due to Acute COPD Exacerbation Acute Toxic Metabolic Encephalopathy due to above - improved Stage I JERRY, resolved Suspect Demand Ischemia (Type II NSTEMI) Hypertension NIDDM2 with Neuropathy Subclinical Hyperthyroidism Left Inferior Thyroid Nodule (1.6 cm) Anxiety disorder Severe Sepsis likely secondary to Community-Acquired Pneumonia/Bronchitis - POA She met SIRS criteria based on HR > 90 bpm and RR > 20 breaths/min, and the suspected source is pulmonary. Severe sepsis was suspected due to concern for tissue hypoperfusion/organ dysfunction based on acute respiratory failure requiring BiPAP. She has clinically improved. sepsis resolved oral Levaquin completed (10/28-11/04) Acute Hypercapnic Respiratory Failure due to Acute COPD Exacerbation Acute Toxic Metabolic Encephalopathy due to above - improved CTA chest (10/23): no PE, Scattered tree-in-bud opacities bilaterally with some apical predominance. infectious vs inflammatory process such as bronchiolitis. 7mm L apical cavitary nodule is noted, likely relating to the same etiology. Mildly prominent mediastinal and hilar lymph nodes, likely reactive. Venous Doppler (10/24): no DVT Consulted Pulmonary - Dr. Cai is following. Bronchodilators and steroids Continue roflumilast Continue to wean oxygen. Encourage incentive spirometry Leukocytosis is likely steroid-induced. improving Stage I JERRY, resolved Nephrology consulted improved Suspect Demand Ischemia (Type II NSTEMI) Hypertension troponins elevated x3 Transthoracic echocardiogram: EF 60-65% mild diastolic dysfunction, Mild MR, mild TR, right ventricular systolic pressure is normal, greater than 25 mmHg Cardiology is following Aspirin not started due to allergy Continue home amlodipine, rosuvastatin NIDDM2 with Neuropathy SSI Continue home gabapentin Subclinical Hyperthyroidism Left Inferior Thyroid Nodule (1.6 cm) TSH 0.099, Free T4 1.30 Follow-up with PCP Anxiety disorder Patient has been taking Klonopin for anxiety at home. Continue Klonopin 0.5 mg twice daily as needed. VTE: Lovenox Code: Full Dispo: SNF - patient agreeable on 11/05 ss/cm consulted
[2022-11-05] MEDS: HOME MED 1 EA UNK (Budesonide/Glycopyr/Formoterol [Breztri Aerosphere Inhaler] 10.7 GM Hfa IH SCH ×2 (08:11→20:10)
[2022-11-05] MEDS: CLOPIDOGREL 75 MG TABLET PO SCH (08:11)
[2022-11-05] MEDS: OXYCODONE *CR* 20 MG TAB PO SCH ×2 (08:11→20:13)
[2022-11-05] MEDS: PANTOPRAZOLE 40MG TABLET PO SCH (08:11)
[2022-11-05] MEDS: ROSUVASTATIN 10 MG TAB PO SCH (08:11)
[2022-11-05] MEDS: GABAPENTIN 300 MG CAP PO SCH ×2 (08:11→20:12)
[2022-11-05] MEDS: predniSONE 10 MG TAB PO SCH (08:11)
[2022-11-05] MEDS: OXYCODONE *CR* 10 MG TAB PO SCH ×2 (08:11→20:12)
[2022-11-05] MEDS: ENOXAPARIN 40 MG/0.4 ML SQ SCH (08:12)
[2022-11-05] MEDS: ENSURE CLEAR 200 ML CAN PO SCH ×2 (08:12→20:11)
[2022-11-05 08:33] LABS: Blood Morphology Comment NOT SEEN (NOT SEEN); Platelet Estimate ADEQ; White Blood Cell Scan OK (OK)
[2022-11-05] MEDS: MIRTAZAPINE 15 MG TAB PO SCH (20:13)
--- NOTE | 2022-11-05 20:37 | P.PN ---
Date of Service: 11/05/22 Vital Signs Temp Pulse Resp BP Pulse Ox 97.9 F 84 16 121/68 96 11/05/22 16:00 11/05/22 16:00 11/05/22 16:00 11/05/22 16:00 11/05/22 16:00 Medications Acetaminophen (Acetaminophen 325 Mg Tablet) 650 mg PO Q6H PRN PRN Reason: TEMP > 100.4' F Albuterol Sulfate (Albuterol 2.5 Mg/3 Ml Neb Julee) 2.5 mg NEB [id number] PRN PRN Reason: SHORTNESS OF BREATH Last Admin: 11/04/22 13:25 Dose: 2.5 mg Benzonatate (Benzonatate 100 Mg Cap) 100 mg PO TID PRN PRN Reason: COUGH Last Admin: 10/28/22 21:33 Dose: 100 mg Calcium Carbonate/Glycine (Calcium Carbonate Chew 500mg Tab) 500 mg PO QID PRN PRN Reason: INDIGESTION Clopidogrel Bisulfate (Clopidogrel 75 Mg Tablet) 75 mg PO DAILY [facility] Last Admin: 11/05/22 08:11 Dose: 75 mg Enoxaparin Sodium (Enoxaparin 40 Mg/0.4 Ml) 40 mg SQ DAILY [facility] Last Admin: 11/05/22 08:12 Dose: 40 mg Enteral Nutritional Formula (Ensure Clear 200 Ml Can) 237 ml PO BID [facility] Last Admin: 11/05/22 20:11 Dose: 237 ml Ergocalciferol (Drisdol (Vitamin D=Ergocalciferol) 65023 Unit Cap) 50,000 unit PO Q7D [facility] Gabapentin (Gabapentin 300 Mg Cap) 300 mg PO BID [facility] Last Admin: 11/05/22 20:12 Dose: 300 mg Home Med (Budesonide/Glycopyr/Formoterol [Breztri Aerosphere Inhaler]) 2 puff IH BID [facility] Last Admin: 11/05/22 20:10 Dose: 2 puff Mirtazapine (Mirtazapine 15 Mg Tab) 15 mg PO BEDTIME [facility] Last Admin: 11/05/22 20:13 Dose: 15 mg Ondansetron HCl (Ondansetron 4 Mg/2 Ml Vial) 4 mg IV Q6HP PRN PRN Reason: NAUSEA / VOMITING Last Admin: 10/28/22 21:33 Dose: 4 mg Oxycodone HCl (Oxycodone *Cr* 20 Mg Tab) 20 mg PO Q12HR [facility] Last Admin: 11/05/22 20:13 Dose: 20 mg Oxycodone HCl (Oxycodone *Cr* 10 Mg Tab) 10 mg PO Q12HR [facility] Last Admin: 11/05/22 20:12 Dose: 10 mg Pantoprazole Sodium (Pantoprazole 40mg Tablet) 40 mg PO ACB [facility]; Protocol Last Admin: 11/05/22 08:11 Dose: 40 mg Prednisone (Prednisone 10 Mg Tab) 10 mg PO DAILY [facility] Last Admin: 11/05/22 08:11 Dose: 10 mg Rosuvastatin Calcium (Rosuvastatin 10 Mg Tab) 5 mg PO DAILY [facility] Last Admin: 11/05/22 08:11 Dose: 5 mg Sodium Chloride (Flush Normal Saline 10 Ml) 10 ml IV BID [facility] Last Admin: 11/05/22 20:10 Dose: 10 ml Sodium Chloride (Sodium Chloride 0.9% 10ml Inj) 10 ml IV UD PRN PRN Reason: Diluant Microbiology Results 10/23/22 06:57 Blood - Blood Aerobic Blood Culture - Final No growth in 5 days. 10/23/22 06:57 Blood - Blood Anaerobic Blood Culture - Final No growth in 5 days. 10/23/22 07:09 Blood - Blood Aerobic Blood Culture - Final No growth in 5 days. 10/23/22 07:09 Blood - Blood Anaerobic Blood Culture - Final No growth in 5 days. 10/23/22 07:10 Nasopharnyx Influenza Type A Antigen Screen - Final 10/23/22 07:10 Nasopharnyx Influenza Type B Antigen Screen - Final Assessment/ Plan: Nephrology No dyspnea No chest pain Ambulatory in the ray today No acute events overnight Vitals, medications blood work and imaging reviewed in the chart General: In no apparent distress, Cooperative HEENT: Atraumatic Neck: Supple Respiratory: Norm resp effort Cardiovascular: No edema, Regular rate/rhythm Gastrointestinal: Soft and benign, Non-distended Musculoskeletal: No clubbing, No contractures Integumentary: No rashes, No cyanosis Neurological: Abnormal strength Blood work reviewed in the chart. Imagings Data: EXAM DESCRIPTION: RADChest Single View10/23/2022 7:38 am CLINICAL HISTORY: COPD COMPARISON: Chest Pa And Lat (2 Views) dated 09/23/2018; Chest Single View dated 07/05/2017; Chest Single View dated 07/04/2016; CHEST SINGLE VIEW dated 04/15/2011 TECHNIQUE: Portable AP view of the chest. FINDINGS: Patchy left basilar airspace opacification versus atelectasis. Superi mposition of soft tissues limits evaluation. No pneumothorax or sizable effusion. The cardiomediastinal contours are unremarkable. IMPRESSION: Patchy left basilar airspace opacification versus atelectasis. Superimposition of soft tissues limits evaluation. EXAM DESCRIPTION: CT - Chest For Pe Angio - 10/23/2022 9:51 am CLINICAL HISTORY: DYSPNEA COMPARISON: Lung Cancer Screening CT W/O dated 09/20/2021; Lung Cancer Screening CT W/O dated 08/16/2020; Thorax Wo Con dated 07/22/2019; Lung Cancer Screening CT W/O dated 11/23/2018 TECHNIQUE: Thin axial CT images of the chest were obtained following admi nistration of 100 mL Isovue 370 IV contrast. Multiplanar reconstructions, and maximum intensity projection reconstructions were generated and reviewed. Exam utilizes a protocol for optimal evaluation of pulmonary arterial tree. All CT scans are performed using dose optimization technique as appropriate and may include automated exposure control or mA/KV adjustment according to patient size. FINDINGS: Left thyroid lobe hypoattenuating 1.6 centimeter nodule inferiorly, stable. Contrast opacification is satisfactory. Pulmonary arteries are normal, with no emboli or other suspicious finding, allowing for some motion artifact. No acute or significant aorta findings. Scattered tree-in-bud opacities throughout both lungs, with some apical predominance. Small cavitary lesion at the left lung apex, measuring 7 millimeter in greatest dimension. No pleural thickening or pleural effusion. No pneumothorax. No abnormal mediastinal or hilar masses. Mildly prominent mediastinal and bilateral hilar lymph nodes, the largest subcarinal measuring 1.3 centimeter in short axis. No chest wall mass or abnormal axilliary lymphadenopathy. Evaluation of the upper abdominal structures shows no suspicious abnormality. No acute osseous findings. IMPRESSION: No evidence of acute central pulmonary emboli, allowing for some motion artifact. Scattered tree-in-bud opacities bilaterally with some apical predominance. Findings suggest an infectious or inflammatory process such as bronchiolitis. Please correlate clinically. A 7 millimeter left apical cavitary nodule is noted, likely relating to the same etiology. Mildly prominent mediastinal and hilar lymph nodes, likely reactive. LEFT VENTRICULAR WALL MOTION: NORMAL DOPPLER/COLOR FLOW: SEE BELOW COMMENTS: 1. NORMAL LEFT VENTRICULAR EJECTION FRACTION 60-65% 2. NORMAL WALL MOTION 3. MILD DIASTOLIC DYSFUNCTION 4. MILD MITRAL REGURGITATION 5. MILD TRICUSPID REGURGITATION 6. 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
[2022-11-06 04:24] LABS: Hematocrit 32.4 % (36.0-45.0); MCV 80.5 fL (80-100); MPV 8.9 fL (7.6-11.3); RBC Red Blood Cell Count 4.02 M/uL (3.86-4.86)
[2022-11-06 04:37] LABS: Magnesium 2.3 mg/dL (1.6-2.4)
--- NOTE | 2022-11-06 07:07 | P.PN ---
Date of Service: 11/06/22 Subjective: continuing to improve day by day endurance/strength improving per PT; felt a little dizzy after no new / worsening problems afebrile ROS: 10 point ROS as noted above, otherwise negative Physical Exam: GEN: Alert, oriented, NAD HEENT: Normal conjunctiva, sclera anicteric CV: Regular rate and rhythm, trace BLE edema Pulm: Nonlabored respirations on 2L NC, Diminished at bases b/l ABD: Soft, nontender, nondistended Neuro: Normal speech, normal affect vitals reviewed Problem List: Severe Sepsis likely secondary to Community-Acquired Pneumonia/Bronchitis - POA Acute Hypercapnic Respiratory Failure due to Acute COPD Exacerbation Acute Toxic Metabolic Encephalopathy due to above - improved Stage I JERRY, resolved Suspect Demand Ischemia (Type II NSTEMI) Hypertension NIDDM2 with Neuropathy Subclinical Hyperthyroidism Left Inferior Thyroid Nodule (1.6 cm) Anxiety disorder Severe Sepsis likely secondary to Community-Acquired Pneumonia/Bronchitis - POA Met SIRS criteria based on HR > 90 bpm and RR > 20 breaths/min, and the suspected source is pulmonary. Severe sepsis was suspected due to concern for tissue hypoperfusion/organ dysfunction based on acute respiratory failure requiring BiPAP. She has clinically improved. sepsis resolved oral Levaquin completed (10/28-11/04) Acute Hypercapnic Respiratory Failure due to Acute COPD Exacerbation Acute Toxic Metabolic Encephalopathy due to above - improved CTA chest (10/23): no PE, Scattered tree-in-bud opacities bilaterally with some apical predominance. infectious vs inflammatory process such as bronchiolitis. 7mm L apical cavitary nodule is noted, likely relating to the same etiology. Mildly prominent mediastinal and hilar lymph nodes, likely reactive. Venous Doppler (10/24): no DVT Consulted Pulmonary - Dr. Cai is following. Bronchodilators and steroids Continue roflumilast wean oxygen incentive spirometry Leukocytosis is steroid-induced. improving PT consulted improving with strength/endurance; able to ambulate longer distances compared to a few days ago, +not needing as many breaks Stage I JERRY, resolved Nephrology consulted improved Suspect Demand Ischemia (Type II NSTEMI) Hypertension troponins elevated x3 Transthoracic echocardiogram: EF 60-65% mild diastolic dysfunction, Mild MR, mild TR, right ventricular systolic pressure is normal, > 25 mmHg Cardiology is following Aspirin not started due to allergy Continue home amlodipine, rosuvastatin NIDDM2 with Neuropathy SSI Continue home gabapentin Subclinical Hyperthyroidism Left Inferior Thyroid Nodule (1.6 cm) TSH 0.099, Free T4 1.30 Follow-up with PCP Anxiety disorder Patient has been taking Klonopin for anxiety at home. Continue Klonopin 0.5 mg twice daily as needed. VTE: Lovenox Code: Full Dispo: SNF - pending approval ss/cm consulted
[2022-11-06] MEDS: HOME MED 1 EA UNK (Budesonide/Glycopyr/Formoterol [Breztri Aerosphere Inhaler] 10.7 GM Hfa IH SCH ×2 (08:30→20:14)
[2022-11-06] MEDS: ENOXAPARIN 40 MG/0.4 ML SQ SCH (08:31)
[2022-11-06] MEDS: OXYCODONE *CR* 10 MG TAB PO SCH ×2 (08:32→20:14)
[2022-11-06] MEDS: OXYCODONE *CR* 20 MG TAB PO SCH ×2 (08:32→20:15)
[2022-11-06] MEDS: PANTOPRAZOLE 40MG TABLET PO SCH (08:32)
[2022-11-06] MEDS: predniSONE 10 MG TAB PO SCH (08:33)
[2022-11-06] MEDS: CLOPIDOGREL 75 MG TABLET PO SCH (08:33)
[2022-11-06] MEDS: GABAPENTIN 300 MG CAP PO SCH ×2 (08:33→20:15)
[2022-11-06] MEDS: ROSUVASTATIN 10 MG TAB PO SCH (08:34)
--- NOTE | 2022-11-06 09:58 | P.PN ---
Date of Service: 11/06/22 Vital Signs Temp Pulse Resp BP Pulse Ox 98.1 F 75 16 109/63 94 11/06/22 08:00 11/06/22 08:00 11/06/22 08:00 11/06/22 08:00 11/06/22 08:00 Medications Acetaminophen (Acetaminophen 325 Mg Tablet) 650 mg PO Q6H PRN PRN Reason: TEMP > 100.4' F Albuterol Sulfate (Albuterol 2.5 Mg/3 Ml Neb Julee) 2.5 mg NEB [id number] PRN PRN Reason: SHORTNESS OF BREATH Last Admin: 11/04/22 13:25 Dose: 2.5 mg Benzonatate (Benzonatate 100 Mg Cap) 100 mg PO TID PRN PRN Reason: COUGH Last Admin: 10/28/22 21:33 Dose: 100 mg Calcium Carbonate/Glycine (Calcium Carbonate Chew 500mg Tab) 500 mg PO QID PRN PRN Reason: INDIGESTION Clopidogrel Bisulfate (Clopidogrel 75 Mg Tablet) 75 mg PO DAILY [facility] Last Admin: 11/06/22 08:33 Dose: 75 mg Enoxaparin Sodium (Enoxaparin 40 Mg/0.4 Ml) 40 mg SQ DAILY [facility] Last Admin: 11/06/22 08:31 Dose: 40 mg Enteral Nutritional Formula (Ensure Clear 200 Ml Can) 237 ml PO BID [facility] Last Admin: 11/05/22 20:11 Dose: 237 ml Ergocalciferol (Drisdol (Vitamin D=Ergocalciferol) 97471 Unit Cap) 50,000 unit PO Q7D [facility] Gabapentin (Gabapentin 300 Mg Cap) 300 mg PO BID [facility] Last Admin: 11/06/22 08:33 Dose: 300 mg Home Med (Budesonide/Glycopyr/Formoterol [Breztri Aerosphere Inhaler]) 2 puff IH BID [facility] Last Admin: 11/06/22 08:30 Dose: 2 puff Mirtazapine (Mirtazapine 15 Mg Tab) 15 mg PO BEDTIME [facility] Last Admin: 11/05/22 20:13 Dose: 15 mg Ondansetron HCl (Ondansetron 4 Mg/2 Ml Vial) 4 mg IV Q6HP PRN PRN Reason: NAUSEA / VOMITING Last Admin: 10/28/22 21:33 Dose: 4 mg Oxycodone HCl (Oxycodone *Cr* 20 Mg Tab) 20 mg PO Q12HR [facility] Last Admin: 11/06/22 08:32 Dose: 20 mg Oxycodone HCl (Oxycodone *Cr* 10 Mg Tab) 10 mg PO Q12HR [facility] Last Admin: 11/06/22 08:32 Dose: 10 mg Pantoprazole Sodium (Pantoprazole 40mg Tablet) 40 mg PO ACB [facility]; Protocol Last Admin: 11/06/22 08:32 Dose: 40 mg Prednisone (Prednisone 10 Mg Tab) 10 mg PO DAILY [facility] Last Admin: 11/06/22 08:33 Dose: 10 mg Rosuvastatin Calcium (Rosuvastatin 10 Mg Tab) 5 mg PO DAILY [facility] Last Admin: 11/06/22 08:34 Dose: 5 mg Sodium Chloride (Flush Normal Saline 10 Ml) 10 ml IV BID [facility] Last Admin: 11/06/22 08:34 Dose: 10 ml Sodium Chloride (Sodium Chloride 0.9% 10ml Inj) 10 ml IV UD PRN PRN Reason: Diluant Microbiology Results 10/23/22 06:57 Blood - Blood Aerobic Blood Culture - Final No growth in 5 days. 10/23/22 06:57 Blood - Blood Anaerobic Blood Culture - Final No growth in 5 days. 10/23/22 07:09 Blood - Blood Aerobic Blood Culture - Final No growth in 5 days. 10/23/22 07:09 Blood - Blood Anaerobic Blood Culture - Final No growth in 5 days. 10/23/22 07:10 Nasopharnyx Influenza Type A Antigen Screen - Final 10/23/22 07:10 Nasopharnyx Influenza Type B Antigen Screen - Final Assessment/ Plan: Nephrology No dyspnea No chest pain Doing well No acute events overnight Vitals, medications blood work and imaging reviewed in the chart General: In no apparent distress, Cooperative HEENT: Atraumatic Neck: Supple Respiratory: Norm resp effort Cardiovascular: No edema, Regular rate/rhythm Gastrointestinal: Soft and benign, Non-distended Musculoskeletal: No clubbing, No contractures Integumentary: No rashes, No cyanosis Neurological: Abnormal strength Blood work reviewed in the chart. Imagings Data: EXAM DESCRIPTION: RADChest Single View10/23/2022 7:38 am CLINICAL HISTORY: COPD COMPARISON: Chest Pa And Lat (2 Views) dated 09/23/2018; Chest Single View dated 07/05/2017; Chest Single View dated 07/04/2016; CHEST SINGLE VIEW dated 04/15/2011 TECHNIQUE: Portable AP view of the chest. FINDINGS: Patchy left basilar airspace opacification versus atelectasis. Superimposition of soft tissues limits evaluation. No pneumothorax or sizable effusion. The cardiomediastinal contours are unremarkable. IMPRESSION: Patchy left basilar airspace opacification versus atelectasis. Superimposition of soft tissues limits evaluation. EXAM DESCRIPTION: CT - Chest For Pe Angio - 10/23/2022 9:51 am CLINICAL HISTORY: DYSPNEA COMPARISON: Lung Cancer Screening CT W/O dated 09/20/2021; Lung Cancer Screening CT W/O dated 08/16/2020; Thorax Wo Con dated 07/22/2019; Lung Cancer Screening CT W/O dated 11/23/2018 TECHNIQUE: Thin axial CT images of the chest were obtained following administration of 100 mL Isovue 370 IV contrast. Multiplanar reconstructions, and maximum intensity projection reconstructions were generated and reviewed. Exam utilizes a protocol for optimal evaluation of pulmonary arterial tree. All CT scans are performed using dose optimization technique as appropriate and may include automated exposure control or mA/KV adjustment according to patient size. FINDINGS: Left thyroid lobe hypoattenuating 1.6 centimeter nodule inferiorly, stable. Contrast opacification is satisfactory. Pulmonary arteries are normal, with no emboli or other suspicious finding, allowing for some motion artifact. No acute or significant aorta findings. Scattered tree-in-bud opacities throughout both lungs, with some apical predominance. Small cavitary lesion at the left lung apex, measuring 7 millimeter in greatest dimension. No pleural thickening or pleural effusion. No pneumothorax. No abnormal mediastinal or hilar masses. Mildly prominent mediastinal and bilateral hilar lymph nodes, the largest subcarinal measuring 1.3 centimeter in short axis. No chest wall mass or abnormal axilliary lymphadenopathy. Evaluation of the upper abdominal structures shows no suspicious abnormality. No acute osseous findings. IMPRESSION: No evidence of acute central pulmonary emboli, allowing for some motion artifact. Scattered tree-in-bud opacities bilaterally with some apical predominance. Fin dings suggest an infectious or inflammatory process such as bronchiolitis. Please correlate clinically. A 7 millimeter left apical cavitary nodule is noted, likely relating to the same etiology. Mildly prominent mediastinal and hilar lymph nodes, likely reactive. LEFT VENTRICULAR WALL MOTION: NORMAL DOPPLER/COLOR FLOW: SEE BELOW COMMENTS: 1. NORMAL LEFT VENTRICULAR EJECTION FRACTION 60-65% 2. NORMAL WALL MOTION 3. MILD DIASTOLIC DYSFUNCTION 4. MILD MITRAL REGURGITATION 5. MILD TRICUSPID REGURGITATION 6. RIGHT VENTRICULAR SYSTOLIC PRESSURE IS NORMAL, GREATER THAN 25 mmHg Conclusions/Impression: Stage I JERRY complicated by IVC, improved CKD II with Proteinuria IVC exposure on 10-23-22 -No NSAIDs Hyponatremia, resolved Hypocalcemia Hypophosphatemia -Replete prn -Continue Ergo HTN with CKD Tachycardia -Continue Metoprolol Diastolic CHF, chronic -Low sodium diet -Daily weight IFG -No sugar diet Anemia in chronic illness -Monitor H&H Acute respiratory failure with hypercapnia, improving Metabolic Encephalopathy, resolved -Bipap prn
[2022-11-06] MEDS: ENSURE CLEAR 200 ML CAN PO SCH ×2 (11:46→20:15)
[2022-11-06] MEDS: MIRTAZAPINE 15 MG TAB PO SCH (20:15)
--- NOTE | 2022-11-07 07:15 | P.PN ---
Date of Service: 11/07/22 Subjective: Feeling better today no new / worsening problems Strength/endurance continues to improve day by day with PT, however still gets SOB afterwards afebrile ROS: 10 point ROS as noted above, otherwise negative Physical Exam: GEN: Alert, oriented, NAD HEENT: Normal conjunctiva, sclera anicteric CV: Regular rate and rhythm, trace BLE edema Pulm: Nonlabored respirations on 2L NC, Diminished at bases b/l ABD: Soft, nontender, nondistended Neuro: Normal speech, normal affect vitals reviewed Problem List: Severe Sepsis likely secondary to Community-Acquired Pneumonia/Bronchitis - POA Acute Hypercapnic Respiratory Failure due to Acute COPD Exacerbation Acute Toxic Metabolic Encephalopathy due to above - improved Stage I JERRY, resolved Suspect Demand Ischemia (Type II NSTEMI) Hypertension NIDDM2 with Neuropathy Subclinical Hyperthyroidism Left Inferior Thyroid Nodule (1.6 cm) Anxiety disorder Severe Sepsis likely secondary to Community-Acquired Pneumonia/Bronchitis - POA Met SIRS criteria based on HR > 90 bpm and RR > 20 breaths/min, and the suspected source is pulmonary. Severe sepsis was suspected due to concern for tissue hypoperfusion/organ dysfunction based on acute respiratory failure requiring BiPAP. She has clinically improved. sepsis resolved oral Levaquin completed (10/28-11/04) Acute Hypercapnic Respiratory Failure due to Acute COPD Exacerbation Acute Toxic Metabolic Encephalopathy due to above - improved CTA chest (10/23): no PE, Scattered tree-in-bud opacities bilaterally with some apical predominance. infectious vs inflammatory process such as bronchiolitis. 7mm L apical cavitary nodule is noted, likely relating to the same etiology. Mildly prominent mediastinal and hilar lymph nodes, likely reactive. Venous Doppler (10/24): no DVT Consulted Pulmonary - Dr. Cai is following. Bronchodilators and steroids Continue roflumilast wean oxygen incentive spirometry Leukocytosis is steroid-induced. improving PT consulted improving with strength/endurance; able to ambulate longer distances compared to a few days ago, +not needing as many breaks Stage I JERRY, resolved Nephrology consulted improved Suspect Demand Ischemia (Type II NSTEMI) Hypertension troponins elevated x3 Transthoracic echocardiogram: EF 60-65% mild diastolic dysfunction, Mild MR, mild TR, right ventricular systolic pressure is normal, > 25 mmHg Cardiology is following Aspirin not started due to allergy Continue home rosuvastatin BP has been low/normal, home meds have been held; cont to hold NIDDM2 with Neuropathy SSI Continue home gabapentin Subclinical Hyperthyroidism Left Inferior Thyroid Nodule (1.6 cm) TSH 0.099, Free T4 1.30 Follow-up with PCP Anxiety disorder Patient has been taking Klonopin for anxiety at home. Continue Klonopin 0.5 mg twice daily as needed. VTE: Lovenox Code: Full Dispo: ?Home Health vs home ss/cm consulted Peer to Peer with [facility] today
[2022-11-07] MEDS: HOME MED 1 EA UNK (Budesonide/Glycopyr/Formoterol [Breztri Aerosphere Inhaler] 10.7 GM Hfa IH SCH ×2 (09:03→20:11)
[2022-11-07] MEDS: ENOXAPARIN 40 MG/0.4 ML SQ SCH (09:03)
[2022-11-07] MEDS: PANTOPRAZOLE 40MG TABLET PO SCH (09:04)
[2022-11-07] MEDS: ROSUVASTATIN 10 MG TAB PO SCH (09:04)
[2022-11-07] MEDS: predniSONE 10 MG TAB PO SCH (09:04)
[2022-11-07] MEDS: OXYCODONE *CR* 10 MG TAB PO SCH ×2 (09:04→20:12)
[2022-11-07] MEDS: CLOPIDOGREL 75 MG TABLET PO SCH (09:04)
[2022-11-07] MEDS: OXYCODONE *CR* 20 MG TAB PO SCH ×2 (09:05→20:12)
[2022-11-07] MEDS: GABAPENTIN 300 MG CAP PO SCH ×2 (09:05→20:11)
[2022-11-07] MEDS: ENSURE CLEAR 200 ML CAN PO SCH ×2 (09:05→20:12)
--- NOTE | 2022-11-07 11:50 | P.PN ---
Date of Service: 11/07/22 Vital Signs Temp Pulse Resp BP Pulse Ox 97.4 F 78 16 113/66 96 11/07/22 08:00 11/07/22 08:00 11/07/22 08:00 11/07/22 08:00 11/07/22 09:05 Medications Acetaminophen (Acetaminophen 325 Mg Tablet) 650 mg PO Q6H PRN PRN Reason: TEMP > 100.4' F Albuterol Sulfate (Albuterol 2.5 Mg/3 Ml Neb Julee) 2.5 mg NEB [id number] PRN PRN Reason: SHORTNESS OF BREATH Last Admin: 11/04/22 13:25 Dose: 2.5 mg Benzonatate (Benzonatate 100 Mg Cap) 100 mg PO TID PRN PRN Reason: COUGH Last Admin: 10/28/22 21:33 Dose: 100 mg Calcium Carbonate/Glycine (Calcium Carbonate Chew 500mg Tab) 500 mg PO QID PRN PRN Reason: INDIGESTION Clopidogrel Bisulfate (Clopidogrel 75 Mg Tablet) 75 mg PO DAILY [facility] Last Admin: 11/07/22 09:04 Dose: 75 mg Enoxaparin Sodium (Enoxaparin 40 Mg/0.4 Ml) 40 mg SQ DAILY [facility] Last Admin: 11/07/22 09:03 Dose: 40 mg Enteral Nutritional Formula (Ensure Clear 200 Ml Can) 237 ml PO BID [facility] Last Admin: 11/07/22 09:05 Dose: 237 ml Ergocalciferol (Drisdol (Vitamin D=Ergocalciferol) 11341 Unit Cap) 50,000 unit PO Q7D [facility] Gabapentin (Gabapentin 300 Mg Cap) 300 mg PO BID [facility] Last Admin: 11/07/22 09:05 Dose: 300 mg Home Med (Budesonide/Glycopyr/Formoterol [Breztri Aerosphere Inhaler]) 2 puff IH BID [facility] Last Admin: 11/07/22 09:03 Dose: 2 puff Mirtazapine (Mirtazapine 15 Mg Tab) 15 mg PO BEDTIME [facility] Last Admin: 11/06/22 20:15 Dose: 15 mg Ondansetron HCl (Ondansetron 4 Mg/2 Ml Vial) 4 mg IV Q6HP PRN PRN Reason: NAUSEA / VOMITING Last Admin: 10/28/22 21:33 Dose: 4 mg Oxycodone HCl (Oxycodone *Cr* 20 Mg Tab) 20 mg PO Q12HR [facility] Last Admin: 11/07/22 09:05 Dose: 20 mg Oxycodone HCl (Oxycodone *Cr* 10 Mg Tab) 10 mg PO Q12HR [facility] Last Admin: 11/07/22 09:04 Dose: 10 mg Pantoprazole Sodium (Pantoprazole 40mg Tablet) 40 mg PO ACB [facility]; Protocol Last Admin: 11/07/22 09:04 Dose: 40 mg Prednisone (Prednisone 10 Mg Tab) 10 mg PO DAILY [facility] Last Admin: 11/07/22 09:04 Dose: 10 mg Rosuvastatin Calcium (Rosuvastatin 10 Mg Tab) 5 mg PO DAILY [facility] Last Admin: 11/07/22 09:04 Dose: 5 mg Sodium Chloride (Flush Normal Saline 10 Ml) 10 ml IV BID [facility] Last Admin: 11/07/22 09:05 Dose: 10 ml Sodium Chloride (Sodium Chloride 0.9% 10ml Inj) 10 ml IV UD PRN PRN Reason: Diluant Microbiology Results 10/23/22 06:57 Blood - Blood Aerobic Blood Culture - Final No growth in 5 days. 10/23/22 06:57 Blood - Blood Anaerobic Blood Culture - Final No growth in 5 days. 10/23/22 07:09 Blood - Blood Aerobic Blood Culture - Final No growth in 5 days. 10/23/22 07:09 Blood - Blood Anaerobic Blood Culture - Final No growth in 5 days. 10/23/22 07:10 Nasopharnyx Influenza Type A Antigen Screen - Final 10/23/22 07:10 Nasopharnyx Influenza Type B Antigen Screen - Final Assessment/ Plan: Nephrology No dyspnea No chest pain Doing well Walking in the halls No acute events overnight Vitals, medications blood work and imaging reviewed in the chart General: In no apparent distress, Cooperative HEENT: Atraumatic Neck: Supple Respiratory: Norm resp effort Cardiovascular: No edema, Regular rate/rhythm Gastrointestinal: Soft and benign, Non-distended Musculoskeletal: No clubbing, No contractures Integumentary: No rashes, No cyanosis Neurological: Abnormal strength Blood work reviewed in the chart. Imagings Data: [facility] CLINICAL HISTORY: COPD COMPARISON: Chest Pa And Lat (2 Views) dated 09/23/2018; Chest Single View dated 07/05/2017; Chest Single View dated 07/04/2016; CHEST SINGLE VIEW dated 04/15/2011 TECHNIQUE: Portable AP view of the chest. FINDINGS: Patchy left basilar airspace opacification versus atelectasis. Sup erimposition of soft tissues limits evaluation. No pneumothorax or sizable effusion. The cardiomediastinal contours are unremarkable. IMPRESSION: Patchy left basilar airspace opacification versus atelectasis. Superimposition of soft tissues limits evaluation. EXAM DESCRIPTION: CT - Chest For Pe Angio - 10/23/2022 9:51 am CLINICAL HISTORY: DYSPNEA COMPARISON: Lung Cancer Screening CT W/O dated 09/20/2021; Lung Cancer Screening CT W/O dated 08/16/2020; Thorax Wo Con dated 07/22/2019; Lung Cancer Screening CT W/O dated 11/23/2018 TECHNIQUE: Thin axial CT images of the chest were obtained following a dministration of 100 mL Isovue 370 IV contrast. Multiplanar reconstructions, and maximum intensity projection reconstructions were generated and reviewed. Exam utilizes a protocol for optimal evaluation of pulmonary arterial tree. All CT scans are performed using dose optimization technique as appropriate and may include automated exposure control or mA/KV adjustment according to patient size. FINDINGS: Left thyroid lobe hypoattenuating 1.6 centimeter nodule inferiorly, stable. Contrast opacification is satisfactory. Pulmonary arteries are normal, with no emboli or other suspicious finding, allowing for some motion artifact. No acute or significant aorta findings. Scattered tree-in-bud opacities throughout both lungs, with some apical predominance. Small cavitary lesion at the left lung apex, measuring 7 millimeter in greatest dimension. No pleural thickening or pleural effusion. No pneumothorax. No abnormal mediastinal or hilar masses. Mildly prominent mediastinal and bilateral hilar lymph nodes, the largest subcarinal measuring 1.3 centimeter in short axis. No chest wall mass or abnormal axilliary lymphadenopathy. Evaluation of the upper abdominal structures shows no suspicious abnormality. No acute osseous findings. IMPRESSION: No evidence of acute central pulmonary emboli, allowing for some motion artifact. Scattered tree-in-bud opacities bilaterally with some apical predominance. Findings suggest an infectious or inflammatory process such as bronchiolitis. Please correlate clinically. A 7 millimeter left apical cavitary nodule is noted, likely relating to the same etiology. Mildly prominent mediastinal and hilar lymph nodes, likely reactive. LEFT VENTRICULAR WALL MOTION: NORMAL DOPPLER/COLOR FLOW: SEE BELOW COMMENTS: 1. NORMAL LEFT VENTRICULAR EJECTION FRACTION 60-65% 2. NORMAL WALL MOTION 3. MILD DIASTOLIC DYSFUNCTION 4. MILD MITRAL REGURGITATION 5. MILD TRICUSPID REGURGITATION 6. RIGHT VENTRICULAR SYSTOLIC PRESSURE IS NORMAL, GREATER THAN 25 mmHg Conclusions/Impression: Stage I JERRY complicated by IVC, improved CKD II with Proteinuria IVC exposure on 10-23-22 -No NSAIDs Hyponatremia, resolved Hypocalcemia Hypophosphatemia -Replete prn -Continue Ergo HTN with CKD Tachycardia -Continue Metoprolol Diastolic CHF, chronic -Low sodium diet -Daily weight IFG -No sugar diet Anemia in chronic illness -Monitor H&H -Check iron status; may benefit from IV iron Acute respiratory failure with hypercapnia, improving Metabolic Encephalopathy, resolved -Bipap prn Case reviewed with Dr. Ann Possible discharge home tomorrow
[2022-11-07 15:03] LABS: Ferritin 30.6 ng/mL (8-388)
[2022-11-07] MEDS: MIRTAZAPINE 15 MG TAB PO SCH (20:11)
[2022-11-07] MEDS: SOD FERRIC GLUC COMPLX/SUCROSE 250 MG in NA CHLORIDE 0.9% 250 ML IV SCH (21:59)
[2022-11-07] MEDS: CYANOCOBALAMIN 1000MCG/ML INJ SQ SCH (22:00)
[2022-11-08 05:59] LABS: Absolute Lymphocytes (CBC) 1.6 K/uL (0.7-4.9); Hematocrit 33.8 % (36.0-45.0); MCV 80.5 fL (80-100); MPV 8.9 fL (7.6-11.3)
[2022-11-08 06:06] LABS: Magnesium 2.4 mg/dL (1.6-2.4); Potassium 4.2 mEq/L (3.5-5.1)
[2022-11-08 08:18] VITALS: BP 120/58; TEMP 98.1
--- NOTE | 2022-11-08 08:34 | P.DS ---
Admission Date: 10/23/22 Discharge Date: 11/08/22 Disposition: DC HOME/HOME HEALTH CARE Discharge Condition: GOOD Reason for Admission: COPD exacerbation Consultations: Cardiology - Dr. Al Nephrology - Dr. Towsnend / Dr. Araujo Pulmonology - Dr. Cai Brief History of Present Illness: 67 yo F, PMH: COPD, chronic respiratory failure, chronic back pain, Lupus, hypertension, GERD, insomnia, DM 2, nicotine dependence Patient presents with complaint of shortness of breath and altered mental status that has been ongoing for the past 2 days. Patient currently unable to respond to verbal commands appropriately due to confusion. Per spouse report, patient has been having increasing confusion and generalized weakness in the last 2 days. Family also reported that patient has been having episodes of cough, fatigue, subjective fever and generalized malaise. Patient's spouse reported that this morning he was guiding patient to use the bathroom when patient was about to fall due to her legs giving out. Patient's spouse had to lowered the patient to the floor gradually. Patient spouse reported that patient did not hit her head or lose consciousness. Patient's spouse decided to call EMS. No other signs and symptoms reported. Symptoms are aggravated or relieved by nothing. Hospital Course: Problem List: Severe Sepsis likely secondary to Community-Acquired Pneumonia/Bronchitis - POA Acute Hypercapnic Respiratory Failure due to Acute COPD Exacerbation Acute Toxic Metabolic Encephalopathy due to above - improved Stage I JERRY, resolved Suspect Demand Ischemia (Type II NSTEMI) Hypertension NIDDM2 with Neuropathy Subclinical Hyperthyroidism Left Inferior Thyroid Nodule (1.6 cm) Anxiety disorder Patient presented with shortness of breath, altered mental status, cough, fatigue. She was found to have an acute COPD exacerbation secondary to Pneumonia. Pulmonology was consulted. Blood/sputum cultures were without growth. Patient completed 7 day course of PO levaquin. Patient was given Bronchodilators, steroids, roflumilast, along with her home medications and had significant improvement of her symptoms. Patient was initially going to be discharged to a [place] [facility] facility, however was denied. She worked with PT and her strength/endurance improved substantially over the last few days. Patient was feeling better, breathing improved, and was deemed stable for discharge home with home health. Patient has oxygen setup at home. During her hospitalization, Cardiology was consulted due to elevated troponins. Echo was okay. No further testing/procedures warranted at this time. Recommend follow up with cardiology for outpatient ischemia workup. Nephrology was consulted due to JERRY and her renal function went back to her baseline with IV fluids. Blood pressure was noted to be low-normal throughout hospitalization, her home anti-hypertensive medications were held. Recommend to continue holding and check daily blood pressure. Follow up with PCP. She was also noted to have severe iron deficiency anemia and received 1 dose of IV iron. Continue on oral supplementation on discharge. Recheck levels in a few months. Hemoglobin was stable in range of 10-11. Discuss colonoscopy with PCP, recommend consideration for colonoscopy, especially if it has been quite some time since last one. New Prescriptions Prednisone Ferrous Sulfate Change in prescriptions Continue holding amlodipine and check daily blood pressure Continue other home medications as previously prescribed Follow up: PCP 3-5 days Pulmonology - Dr. Cai within 1-2 weeks Cardiology within 1-2 weeks Nephrology within a few weeks Physical Exam: GEN: Alert, oriented, NAD HEENT: Normal conjunctiva, sclera anicteric CV: Regular rate and rhythm, trace BLE edema Pulm: Nonlabored respirations on 2L NC, Diminished at bases b/l ABD: Soft, nontender, nondistended MSK: No joint tenderness Integumentary: No rashes Neuro: Normal speech, normal affect Vital Signs/Physical Exam: Temp Pulse Resp BP Pulse Ox 98.1 F 85 16 120/58 L 97 11/08/22 08:00 11/08/22 08:00 11/08/22 08:00 11/08/22 08:00 11/08/22 08:00 Laboratory Data at Discharge: WBC 9.90 thou/uL (4.3-10.9) 11/08/22 05:21 Hgb 10.7 g/dL (12.0-15.0) L 11/08/22 05:21 Hct 33.8 % (36.0-45.0) L 11/08/22 05:21 Plt Count 363 thou/uL (152-406) 11/08/22 05:21 PT 12.4 SECONDS (9.5-12.5) 10/23/22 07:09 INR 1.13 10/23/22 07:09 APTT 31.4 SECONDS (24.3-36.9) 10/23/22 07:09 Sodium 140 mEq/L (136-145) 11/08/22 05:21 Potassium 4.2 mEq/L (3.5-5.1) 11/08/22 05:21 BUN 26 mg/dL (7-18) H 11/08/22 05:21 Creatinine 0.82 mg/dL (0.55-1.02) 11/08/22 05:21 Glucose 98 mg/dL (74-106) 11/08/22 05:21 Uric Acid 7.9 mg/dL (2.6-6.0) H 10/25/22 05:00 Phosphorus 4.1 mg/dL (2.5-4.9) 10/28/22 04:50 Magnesium 2.4 mg/dL (1.6-2.4) 11/08/22 05:21 Total Bilirubin 0.3 mg/dL (0.2-1.0) 10/25/22 05:00 AST 21 U/L (15-37) 10/25/22 05:00 ALT 32 U/L (13-56) 10/25/22 05:00 Alkaline Phosphatase 67 U/L (45-117) 10/25/22 05:00 Triglycerides 129 mg/dL (<150) 10/24/22 04:13 Cholesterol 170 mg/dL (<200) 10/24/22 04:13 HDL Cholesterol 52 mg/dL (40-60) 10/24/22 04:13 Cholesterol/HDL Ratio 3.27 10/24/22 04:13 Lipase 26 U/L (13-75) 10/23/22 07:09 Home Medications: Albuterol Sulfate [Proair Respiclick] 90 mcg IH DAILY 07/05/16 Alprazolam [Xanax] 1 tab PO PRN 07/05/16 Clopidogrel Bisulfate [Plavix] 75 mg PO DAILY 07/05/16 Mirtazapine 15 mg PO BEDTIME 07/05/16 Oxycodone HCl [Oxycontin] 30 mg PO BID 07/05/16 Pantoprazole Sodium [Protonix] 1 tab PO DAILY 07/05/16 Tiotropium [place] [Spiriva] 1 spray IH DAILY 07/05/16 Zolpidem Tartrate [Ambien] 10 mg PO BEDTIME 07/05/16 clonazePAM [Klonopin Rapdis Tab] 0.5 mg PO DAILY 07/05/16 Budesonide/Glycopyr/Formoterol [Breztri Aerosphere Inhaler] 2 puff IH BID 10/23/22 Gabapentin 300 mg PO BID 10/23/22 Ondansetron [Zofran (Odt)*] 4 mg PO BID PRN 10/23/22 Roflumilast [Daliresp] 500 mcg PO DAILY 10/23/22 Rosuvastatin [Crestor*] 5 mg PO DAILY 10/23/22 Ferrous Sulfate 325 mg PO DAILY 30 Days #30 tab 11/08/22 predniSONE [Deltasone*] 10 mg PO DAILY 7 Days #7 tab 11/08/22 New Medications: predniSONE [Deltasone*] 10 mg PO DAILY 7 Days #7 tab Ferrous Sulfate 325 mg PO DAILY 30 Days #30 tab Physician Discharge Instructions: Patient presented with shortness of breath, altered mental status, cough, fatigue. She was found to have an acute COPD exacerbation secondary to Pneumonia. Pulmonology was consulted. Blood/sputum cultures were without growth. Patient completed 7 day course of PO levaquin. Patient was given Bronchodilators, steroids, roflumilast, along with her home medications and had significant improvement of her symptoms. Patient was initially going to be discharged to a [place] [facility] facility, however was denied. She worked with PT and her strength/endurance improved substantially over the last few days. Patient was feeling better, breathing improved, and was deemed stable for discharge home with home health. Patient has oxygen setup at home. During her hospitalization, Cardiology was consulted due to elevated troponins. Echo was okay. No further testing/procedures warranted at this time. Recommend follow up with cardiology for outpatient ischemia workup. Nephrology was consulted due to JERRY and her renal function went back to her baseline with IV fluids. Blood pressure was noted to be low-normal throughout hospitalization, her home anti-hypertensive medications were held. Recommend to continue holding and check daily blood pressure. Follow up with PCP. She was also noted to have severe iron deficiency anemia and received 1 dose of IV iron. Continue on oral supplementation on discharge. Recheck levels in a few months. Hemoglobin was stable in range of 10-11. Discuss colonoscopy with PCP, recommend consideration for colonoscopy, especially if it has been quite some time since last one. New Prescriptions Prednisone Ferrous Sulfate Change in prescriptions Continue holding amlodipine and check daily blood pressure Continue other home medications as previously prescribed Follow up: PCP 3-5 days Pulmonology - Dr. Cai within 1-2 weeks Cardiology within 1-2 weeks Nephrology within a few weeks Followup: NONE,NONE [Primary Care Provider] - Time spent managing pt's care (in minutes): 45
[2022-11-08] MEDS: CYANOCOBALAMIN 1000MCG/ML INJ SQ SCH (08:41)
[2022-11-08] MEDS: ENOXAPARIN 40 MG/0.4 ML SQ SCH (08:41)
[2022-11-08] MEDS: ROSUVASTATIN 10 MG TAB PO SCH (08:42)
[2022-11-08] MEDS: CLOPIDOGREL 75 MG TABLET PO SCH (08:42)
[2022-11-08] MEDS: OXYCODONE *CR* 20 MG TAB PO SCH (08:42)
[2022-11-08] MEDS: OXYCODONE *CR* 10 MG TAB PO SCH (08:42)
[2022-11-08] MEDS: GABAPENTIN 300 MG CAP PO SCH (08:43)
[2022-11-08] MEDS: PANTOPRAZOLE 40MG TABLET PO SCH (08:43)
[2022-11-08] MEDS: HOME MED 1 EA UNK (Budesonide/Glycopyr/Formoterol [Breztri Aerosphere Inhaler] 10.7 GM Hfa IH SCH (08:43)
[2022-11-08] MEDS: predniSONE 10 MG TAB PO SCH (08:43)
[2022-11-08] MEDS: SOD FERRIC GLUC COMPLX/SUCROSE 250 MG in NA CHLORIDE 0.9% 250 ML IV SCH (08:43)
[2022-11-08] MEDS: ENSURE CLEAR 200 ML CAN PO SCH (08:44)
[2022-11-08 09:39] VITALS: O2SAT 95
[2022-11-11] MEDS ORDERED: DRISDOL (VITAMIN D=ERGOCALCIFEROL) 50000 UNIT CAP PO SCH (09:00)
== END 2022-11-08 14:46 | disposition home health service (06) | DRG 871 ==
LOC: ER 06:51 → ERHOLD 11:40 → 3RD-ICU 19:39 → 2ND 10-29 01:22
PROVIDERS: ADMIT Internal Medicine; ATTEND Hospitalist
PROC: 5A09557 Assistance with Respiratory Ventilation, Greater than 96 Consecutive Hours, Continuous Positive Airway Pressure (ICD-10-PCS; principal; 2022-10-23)
DX: A41.9 Sepsis, unspecified organism (principal); G92.8 Other toxic encephalopathy; J18.9 Pneumonia, unspecified organism; I21.A1 Myocardial infarction type 2; J96.02 Acute respiratory failure with hypercapnia; I13.0 Hypertensive heart and chronic kidney disease with heart failure and stage 1 through stage 4 chronic kidney disease, or unspecified chronic kidney disease; E87.29 Other acidosis; J44.1 Chronic obstructive pulmonary disease with (acute) exacerbation; N17.9 Acute kidney failure, unspecified; J44.0 Chronic obstructive pulmonary disease with (acute) lower respiratory infection; E87.1 Hypo-osmolality and hyponatremia; I50.32 Chronic diastolic (congestive) heart failure; R65.20 Severe sepsis without septic shock; N18.31 Chronic kidney disease, stage 3a; E11.22 Type 2 diabetes mellitus with diabetic chronic kidney disease; G89.29 Other chronic pain; M54.9 Dorsalgia, unspecified; G47.00 Insomnia, unspecified; F41.9 Anxiety disorder, unspecified; M32.9 Systemic lupus erythematosus, unspecified; D72.829 Elevated white blood cell count, unspecified; E11.40 Type 2 diabetes mellitus with diabetic neuropathy, unspecified; E83.39 Other disorders of phosphorus metabolism; J40 Bronchitis, not specified as acute or chronic; E04.1 Nontoxic single thyroid nodule; E05.90 Thyrotoxicosis, unspecified without thyrotoxic crisis or storm; E83.51 Hypocalcemia; D50.9 Iron deficiency anemia, unspecified; K21.9 Gastro-esophageal reflux disease without esophagitis; F17.200 Nicotine dependence, unspecified, uncomplicated; R77.8 Other specified abnormalities of plasma proteins; Z88.2 Allergy status to sulfonamides; Z88.6 Allergy status to analgesic agent; Z88.5 Allergy status to narcotic agent; Z79.01 Long term (current) use of anticoagulants; Z79.02 Long term (current) use of antithrombotics/antiplatelets; Z79.52 Long term (current) use of systemic steroids; Z79.899 Other long term (current) drug therapy; Z85.038 Personal history of other malignant neoplasm of large intestine; Z20.822 Contact with and (suspected) exposure to COVID-19
CPT/HCPCS: 36415; 36600; 51702; 71045; 71275; 80048; 80053; 80061; 80076; 81001; 82043; 82550; 82570; 82607; 82728; 82805; 82947; 83036; 83540; 83605; 83690; 83735; 83880; 84100; 84145; 84156; 84439; 84443; 84466; 84484; 84550; 85025; 85027; 85379; 85610; 85730; 87040; 87070; 87205; 87804; 87811; 93005; 93306; 93970; 94010; 94640; 94660; 94760; 97110; 97116; 97161; 97530; 99285; C9113; J0360; J0692; J1650; J1940; J2405; J2916; J2920; J3420; J3480; J7050; J7512; J7613; J7644; Q9967

== ENCOUNTER 2023-06-03 22:17 | Inpatient (IN) | payer OTHER ==
[2023-06-03] MEDS ORDERED: NA CHLORIDE 0.9% 1,000 ML ONE (22:30)
[2023-06-04 00:05] LABS: Absolute Lymphocytes (CBC) 1.4 K/uL (0.7-4.9); Hematocrit 39.5 % (36.0-45.0); Lymphocytes % 9.1 % (15.3-44.8); MCV 81.6 fL (80-100); MPV 10.2 fL (7.6-11.3); Platelets 444 thou/uL (152-406); Protime INR 1.1; RBC Red Blood Cell Count 4.84 M/uL (3.86-4.86)
[2023-06-04 00:16] LABS: Albumin 2.8 g/dL (3.4-5.0); Bilirubin Direct 0.1 mg/dL (0-0.2); Bilirubin Indirect, Calculated 0.2 mg/dL (0.2-0.8); Bilirubin Total 0.3 mg/dL (0.2-1.0); Magnesium 2.1 mg/dL (1.6-2.4); Potassium 3.6 mEq/L (3.5-5.1); Troponin High Sensitivity 15.1 pg/mL (<58.9)
--- NOTE | 2023-06-04 01:01 | EDPHYS ---
Physician Documentation [facility] Name: Makenna Ferrari Age: 67 yrs Sex: Female : 1955 Arrival Date: 06/03/2023 Time: 22:17 Bed 3 Private MD: ED Physician Adán العراقي HPI: 06/03 23:15 This 67 yrs old Female presents to ER via EMS with complaints of Fall. 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 Pt denies any injuries or kb pain. EMS reports hypotension and orthostatic positive on scene. normotensive after fluid bolus. Pt reports she took her normal night medications prior to the fall including gabapentin, ambien, and clonazepam. Historical: - Allergies: 22:25 Aspirin; vc1 22:25 Codeine; vc1 22:25 Sulfa (Sulfonamide Antibiotics); vc1 22:25 tramadol; vc1 22:25 Ultram; vc1 22:25 ACETAMINOPHEN; States had previous liver bleed; vc1 22:25 Morphine; vc1 - Home Meds: 22:25 OxyContin 30 mg oral tablet,ORAL ONLY,extended release 12 hr 2 times per day [Active]; vc1 Breztri Aerosphere inhalation 2 inhalations 2 times per day [Active]; gabapentin 300 mg oral capsule 2 times per day [Active]; zolpidem 10 mg Oral tablet every day at bedtime [Active]; clonazepam 0.5 mg Oral tablet daily [Active]; mirtazapine 7.5 mg Oral tablet daily [Active]; pantoprazole 40 mg oral tablet, delayed release (enteric coated) daily [Active]; amlodipine 5 mg tablet daily [Active]; ferrous sulfate 325 mg (65 mg iron) Oral tablet 3 times per day [Active]; rosuvastatin 5 mg oral tablet daily [Active]; clopidogrel 75 mg oral tablet daily [Active]; ondansetron HCl 4 mg Oral tablet 1 tab 2 times per day [Active]; - PMHx: 22:25 chronic back pain; COPD; Lupus; Renal Disease; Stroke (Renal Disease); Diabetes vc1 mellitus; Hypertensive disorder; Anxiety; - PSHx: 22:25 None; vc1 - Immunization history:: Client reports receiving the 2nd dose of the Covid vaccine, Pneumococcal vaccine is up to date, Flu vaccine is up to date. - Social history:: Smoking status: Patient denies any tobacco usage or history of. Patient/guardian denies using alcohol, street drugs. ROS: 22:37 Constitutional: Negative for fever, chills, and weight loss, kb 22:37 All other systems are negative, 22:40 Neuro: Positive for dizziness, kb Exam: 22:38 Constitutional: This is a well developed, well nourished patient who is awake, alert, kb and in no acute distress. Head/Face: Normocephalic, atraumatic. ENT: Moist Mucous membranes Cardiovascular: Regular rate Respiratory: Respirations even and unlabored. No increased work of breathing. Talking in full sentences Abdomen/GI: Soft, non-tender. No distention Skin: Warm, dry with normal turgor. Normal color. Neuro: Awake and alert, GCS 15, oriented to person, place, time, and situation. Moves all extremities. Normal gait. 22:38 Musculoskeletal/extremity: Extremities: grossly normal except: noted in the pelvis: pain, ROM: intact in all extremities, Circulation is intact in all extremities. Sensation intact. Weight bearing: can bear weight with assistance only, Vital Signs: 22:23 BP 114 / 63; Pulse 93; Resp 14; Pulse Ox 98% ; Weight 65 kg; Height 5 ft. 6 in. ; Pain vc1 0/10; 22:33 Temp 98.4; vc1 23:09 BP 115 / 78; Pulse 84; Resp 18; Pulse Ox 97% on R/A; as9 23:14 BP 112 / 69; Pulse 92; Resp 18; Pulse Ox 97% on R/A; as9 06/04 02:00 BP 105 / 64; Pulse 99; Resp 16; Pulse Ox 96% ; vc1 06/03 22:23 Body Mass Index 23.13 (65.00 kg, 167.64 cm) vc1 06/03 22:23 Pain Scale: Adult vc1 MDM: 06/03 22:21 Patient medically screened. kb 22:41 Data reviewed: vital signs, nurses notes. kb 23:17 Differential diagnosis: closed head injury, contusion, fracture. kb 23:17 Historians other than the Patient: EMS: [facility]. kb 06/04 00:08 ED course: Pt is very drowsy, but responds to voice and is able to answer questions kb correctly. . 00:58 Consideration of Admission/Observation Patient was admitted/placed on observation. kb Escalation of care including admission/observation considered. Management of patient was discussed with the following: Hospitalist: Message sent to Dr Horta for admission. Dr العراقي to follow up. Counseling: I had a detailed discussion with the patient and/or guardian regarding the historical points, exam findings, and any diagnostic results supporting the discharge/admit diagnosis, lab results, radiology results, the need for further work-up and treatment in the hospital. Transition of care: After a detail discussion of the patient's case, care is transferred to Adán العراقي MD. 06/03 22:26 Order name: Basic Metabolic Panel; Complete Time: 00:17 kb 06/03 22:26 Order name: CBC with Diff; Complete Time: 00:18 kb 06/03 22:26 Order name: Hepatic Function; Complete Time: 00:17 kb 06/03 22:26 Order name: Magnesium; Complete Time: 00:17 kb 06/03 22:26 Order name: Protime (+inr); Complete Time: 00:08 kb 06/03 22:26 Order name: Ptt, Activated; Complete Time: 00:08 kb 06/03 22:26 Order name: Troponin High Sensitivity; Complete Time: 00:17 kb 06/04 00:32 Order name: Urinalysis w/ reflexes kb 06/04 02:17 Order name: Basic Metabolic Panel EDMS 06/04 02:17 Order name: Basic Metabolic Panel EDMS 06/04 02:17 Order name: Basic Metabolic Panel EDMS 06/04 02:17 Order name: Basic Metabolic Panel EDMS 06/04 02:17 Order name: CBC with Automated Diff EDMS 06/04 02:17 Order name: CBC with Automated Diff EDMS 06/04 02:17 Order name: CBC with Automated Diff EDMS 06/04 02:17 Order name: CBC with Automated Diff EDMS 06/03 22:26 Order name: CT Head C Spine kb 06/03 22:26 Order name: Pelvis XRAY kb 06/03 22:26 Order name: Chest Single View XRAY kb 06/03 22:26 Order name: EKG; Complete Time: 22:27 kb 06/03 22:26 Order name: Cardiac monitoring; Complete Time: 22:42 kb 06/03 22:26 Order name: EKG - Nurse/Tech; Complete Time: 23:05 kb 06/03 22:26 Order name: IV Saline Lock; Complete Time: 23:05 kb 06/03 22:26 Order name: Labs collected and sent; Complete Time: 23:23 kb 06/03 22:26 Order name: NPO; Complete Time: 22:42 kb 06/03 22:26 Order name: O2 Per Protocol; Complete Time: 22:42 kb 06/03 22: Order name: O2 Sat Monitoring; Complete Time: :42 kb Administered Medications: 06/03 23:23 Drug: NS 0.9% IV 1000 ml IV at 1000 ml once Route: IV; Rate: 1000 ml; Site: right vc1 forearm; Disposition: 06/04 00:55 Co-signature as Attending Physician, Adán العراقي MD I agree with the assessment sp4 and plan of care. I reviewed the patient's care provided by Advanced Practice Provider \T\ agree w/ the diagnosis \T\ care plan. I personally saw the pt \T\ performed a substantive portion of the visit, incldng all aspects of the (History/Exam/Medical Decision Making). Disposition Summary: 06/04/23 01:00 Hospitalization Ordered Notes: Hospitalization Status: Observation kb Provider: Mu Horta Location: Telemetry/MedSurg (observation) kb Condition: Stable kb Problem: new kb Symptoms: are unchanged kb Bed/Room Type: Standard Room Assignment: 405(06/04/23 03:02) [id number] Diagnosis - Altered mental status, unspecified kb - Fall on same level, unspecified kb - Chronic kidney disease, unspecified - acute on chronic kb - Hypotension, unspecified kb Forms: - Medication Reconciliation Form kb - SBAR form kb - Leadership Thank You Letter kb Signatures: Dispatcher [employer] EDCarmencita Arellano FNP-C FNP-Chaka Lopez RN RN jb4 Radha Benito RN RN vc1 Adán العراقي MD MD sp4 Corrections: (The following items were deleted from the chart) 00:09 06/03 23:15 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 Pt denies any kb injuries or pain. EMS reports hypotension and orthostatic positive on scene. normotensive after fluid bolus. Pt reports she took her normal night medications prior to the fall. . kb 06/04 03:02 01:00 kb [id number]
--- NOTE | 2023-06-04 01:01 | ER ---
Nurse's Notes [facility] Name: Makenna Ferrari Age: 67 yrs Sex: Female : 1955 Arrival Date: 06/03/2023 Time: 22:17 Bed 3 Private MD: Diagnosis: Altered mental status, unspecified;Fall on same level, unspecified;Chronic kidney disease, unspecified-acute on chronic;Hypotension, unspecified Presentation: 06/03 22:23 Chief complaint: EMS states: We were called for a fall, she was found laying on the vc1 floor. Coronavirus screen: Vaccine status: Patient reports receiving the 2nd dose of the covid vaccine. Client denies travel out of the [place] in the last 14 days. At this time, the client does not indicate any symptoms associated with coronavirus-19. Ebola Screen: Patient negative for fever greater than or equal to 101.5 degrees Fahrenheit, and additional compatible Ebola Virus Disease symptoms Patient denies exposure to infectious person. Patient denies travel to an Ebola-affected area in the 21 days before illness onset. No symptoms or risks identified at this time. Initial Sepsis Screen: Does the patient meet any 2 criteria? No. Patient's initial sepsis screen is negative. Does the patient have a suspected source of infection? No. Patient's initial sepsis screen is negative. Risk Assessment: Do you want to hurt yourself or someone else? Patient reports no desire to harm self or others. Onset of symptoms was June 03, 2023. 22:23 Method Of Arrival: EMS: [facility] vc1 22:23 Acuity: SALLY 3 vc1 22:39 Care prior to arrival: Medication(s) given: Normal saline infusion, 250 cc IV vc1 initiated. 20 GA, in the right forearm, 12L showed Sinus Tach. Orthostatics, Sitting, P125 BP 90/52, Standing, P 140, BP 49/52. Activity prior to arrival: None. Mechanism of Injury: Fall. Transition of care: patient was not received from another setting of care. Triage Assessment: 22:36 General: Appears in no apparent distress. comfortable, slender, Behavior is vc1 cooperative, flat, quiet. General: Pt falling asleep while I am asking her questions. . Pain: Denies pain. EENT: No deficits noted. No signs and/or symptoms were reported regarding the EENT system. Neuro: Level of Consciousness is obeys commands, lethargic, Oriented to person, place, time, situation, Appropriate for age. Cardiovascular: Heart tones S1 S2. Respiratory: Airway is patent Respiratory effort is even, unlabored, Respiratory pattern is regular, symmetrical, Breath sounds are clear. GI: No deficits noted. No signs and/or symptoms were reported involving the gastrointestinal system. : No deficits noted. No signs and/or symptoms were reported regarding the genitourinary system. Derm: Bruising that is dark purple, brown, on right hand, left hand, right arm and left arm. Musculoskeletal: No deficits noted. No signs and/or symptoms reported regarding the musculoskeletal system. Historical: - Allergies: 22:25 Aspirin; vc1 22:25 Codeine; vc1 22:25 Sulfa (Sulfonamide Antibiotics); vc1 22:25 tramadol; vc1 22:25 Ultram; vc1 22:25 ACETAMINOPHEN; States had previous liver bleed; vc1 22:25 Morphine; vc1 - Home Meds: 22:25 OxyContin 30 mg oral tablet,ORAL ONLY,extended release 12 hr 2 times per day [Active]; vc1 Breztri Aerosphere inhalation 2 inhalations 2 times per day [Active]; gabapentin 300 mg oral capsule 2 times per day [Active]; zolpidem 10 mg Oral tablet every day at bedtime [Active]; clonazepam 0.5 mg Oral tablet daily [Active]; mirtazapine 7.5 mg Oral tablet daily [Active]; pantoprazole 40 mg oral tablet, delayed release (enteric coated) daily [Active]; amlodipine 5 mg tablet daily [Active]; ferrous sulfate 325 mg (65 mg iron) Oral tablet 3 times per day [Active]; rosuvastatin 5 mg oral tablet daily [Active]; clopidogrel 75 mg oral tablet daily [Active]; ondansetron HCl 4 mg Oral tablet 1 tab 2 times per day [Active]; - PMHx: 22:25 chronic back pain; COPD; Lupus; Renal Disease; Stroke (Renal Disease); Diabetes vc1 mellitus; Hypertensive disorder; Anxiety; - PSHx: 22:25 None; vc1 - Immunization history:: Client reports receiving the 2nd dose of the Covid vaccine, Pneumococcal vaccine is up to date, Flu vaccine is up to date. - Social history:: Smoking status: Patient denies any tobacco usage or history of. Patient/guardian denies using alcohol, street drugs. Screenin:34 [facility] ED Fall Risk Assessment (Adult) History of falling in the last 3 months, vc1 including since admission Yes- physiologic fall (2 pts) Confusion or Disorientation No (0 pts) Intoxicated or Sedated Yes (3 pts) Impaired Gait Yes (1 pt) Mobility Assist Device Used No (0 pt) Altered Elimination No (0 pt) Score/Fall Risk Level 3 or more points = High Risk Oriented to surroundings, Maintained a safe environment, Educated pt \\T\\ family on fall prevention, incl call for assistance when getting out of bed. Abuse screen: Denies threats or abuse. Nutritional screening: No deficits noted. Tuberculosis screening: No symptoms or risk factors identified. 06/04 00:30 [facility] ED Fall Risk Assessment (Adult) History of falling in the last 3 months, vc1 including since admission Yes- fall prone (multiple falls) (3 pts) Confusion or Disorientation No (0 pts) Intoxicated or Sedated Yes (3 pts) Impaired Gait Yes (1 pt) Mobility Assist Device Used No (0 pt) Altered Elimination No (0 pt) Score/Fall Risk Level 3 or more points = High Risk Oriented to surroundings, Maintained a safe environment, Educated pt \\T\\ family on fall prevention, incl call for assistance when getting out of bed, Assessed \\T\\ reinforced patient's understanding of fall precautions, Provided non-skid footwear, Hourly rounding (assess needs \\T\\ fall precautionary measures) done, Apply high fall risk patient identification: yellow non skid footwear/ fall signage. Assessment: 00:35 General: [place] noise that sounded like pills hitting the floor, entered room to find vc1 patient on the floor. Bag of prescriptions ripped and pill bottles on the floor. Pt stated she was trying to get her pills. Pt stated, "I slid down the bottom, I just have to go pee.". 00:35 General: Appears in no apparent distress. comfortable, Behavior is flat, quiet. Pain: vc1 Denies pain. Neuro: Level of Consciousness is awake, obeys commands, obtunded, Oriented to person, place, situation, Speech is slurred. Cardiovascular: No deficits noted. Heart tones S1 S2. Respiratory: Airway is patent Respiratory effort is even, unlabored, Respiratory pattern is regular, symmetrical, Breath sounds are clear bilaterally. in left posterior upper lobe, right posterior upper lobe, left posterior lower lobe, right posterior middle lobe and right posterior lower lobe Breath sounds with wheezes bilaterally. in right upper lobe, left upper lobe, left lower lobe and right lower lobe. GI: No deficits noted. No signs and/or symptoms were reported involving the gastrointestinal system. Bowel sounds present in right upper quadrant, left upper quadrant, right lower quadrant and left lower quadrant Abd is soft and non tender. : No deficits noted. No signs and/or symptoms were reported regarding the genitourinary system. EENT: No deficits noted. No signs and/or symptoms were reported regarding the EENT system. Derm: Wound noted right elbow Bruising that is dark purple, brown, on right hand, left hand, right arm and left arm. Musculoskeletal: Reports weakness in right leg and left leg. 00:50 Reassessment: Pt moved to room infront of nurses station. vc1 01:59 Reassessment: No changes from previously documented assessment. Patient and/or family vc1 updated on plan of care and expected duration. Pain level reassessed. Patient is alert, oriented x 3, equal unlabored respirations, skin warm/dry/pink. Vital Signs: 06/03 22:23 BP 114 / 63; Pulse 93; Resp 14; Pulse Ox 98% ; Weight 65 kg; Height 5 ft. 6 in. ; Pain vc1 0/10; 22:33 Temp 98.4; vc1 23:09 BP 115 / 78; Pulse 84; Resp 18; Pulse Ox 97% on R/A; as9 23:14 BP 112 / 69; Pulse 92; Resp 18; Pulse Ox 97% on R/A; as9 06/04 02:00 BP 105 / 64; Pulse 99; Resp 16; Pulse Ox 96% ; vc1 06/03 22:23 Body Mass Index 23.13 (65.00 kg, 167.64 cm) vc1 06/03 22:23 Pain Scale: Adult vc1 ED Course: 06/03 22:19 Patient arrived in ED. km8 22:21 Carmencita Bello FNP-C [facility]. kb 22:21 Adán العراقي MD is Attending Physician. kb 22:23 Radha Benito, RN is Primary Nurse. vc1 22:25 Triage completed. vc1 22:34 Arm band placed on right wrist. vc1 22:35 Maintain EMS IV. Dressing intact. Site clean \\T\\ dry. Gauge \\T\\ site: 20G Right forearm. vc 1 22:39 Patient has correct armband on for positive identification. Bed in low position. Call vc1 light in reach. Client placed on continuous cardiac and pulse oximetry monitoring. NIBP monitoring applied. 23:24 Basic Metabolic Panel Sent. as9 23:24 CBC with Diff Sent. as9 23:24 Hepatic Function Sent. as9 23:25 Magnesium Sent. as9 23:25 Protime (+inr) Sent. as9 23:25 Ptt, Activated Sent. as9 23:25 Troponin High Sensitivity Sent. as9 23:35 Pelvis XRAY In Process Unspecified. EDMS 23:35 Chest Single View XRAY In Process Unspecified. EDMS 23:37 CT Head C Spine In Process Unspecified. EDMS 06/04 00:59 Mu Horta MD is Hospitalizing Provider. kb 03:59 No provider procedures requiring assistance completed. Patient admitted, IV remains in vc1 place. Administered Medications: 06/03 23:23 Drug: NS 0.9% IV 1000 ml IV at 1000 ml once Route: IV; Rate: 1000 ml; Site: right vc1 forearm; Medication: 22:34 VIS not applicable for this client. vc1 Outcome: 06/04 01:00 Decision to Hospitalize by Provider. kb 03:59 Patient left the ED. km8 03:59 Admitted to Tele accompanied by nurse, accompanied by tech, via stretcher, Report vc1 called to LUIS ENRIQUE Mueller 03:59 Condition: stable 03:59 Instructed on the need for admit, Signatures: Dispatcher [employer] EDMS Carmencita Bello, TURBO OPERATOR-C TURBO OPERATOR-Ckb Radha Benito RN RN 1 Laurence Raman RN RN 8 Dayne Galaviz, LUIS ENRIQUE RN as9 Corrections: (The following items were deleted from the chart) 01:55 06/03 22:36 Derm: No deficits noted. No signs and/or symptoms reported regarding the 1 dermatologic system. vc1
[2023-06-04] MEDS ORDERED: ONDANSETRON 4 MG/2 ML VIAL IV PRN (02:11)
--- NOTE | 2023-06-04 02:17 | P.HP ---
Certification for Inpatient Patient admitted to: Observation With expected LOS: <2 Midnights Practitioner: I am a practitioner with admitting privileges, knowledge of patient current condition, hospital course, and medical plan of care. Services: Services provided to patient in accordance with Admission requirements found in Title 42 Section 412.3 of the Code of Federal Regulations Patient History Date of Service: 06/04/23 Reason for admission: Weakness, fall. History of Present Illness: Six 7-year-old female patient who has a medical history significant for COPD, diabetes type 2, CKD stage III, hypertension, hyperlipidemia was evaluated for episode of weakness and fall. She had reported weakness and fall at home and was found to be orthostatic so she was started on IV fluid in the emergency room. Initial lab was concerning for elevated creatinine 1.5 however UA was pending at time of review. She reported no episode of fever, chills, rigor, nausea, vomiting, diarrhea. She was deemed to be having side effect of multiple medication which include exudative meds and pain control meds. She was admitted for inpatient care. Allergies aspirin Allergy (Verified 07/05/16 09:02) Unknown codeine Allergy (Verified 07/05/16 09:02) Unknown tramadol HCl [From Ultram] Allergy (Verified 10/24/22 14:11) Unknown SULFA (SULFONAMIDES) Allergy (Unknown, Uncoded 07/05/16 09:02) Unknown Home Medications: Clopidogrel Bisulfate [Plavix] 75 mg PO DAILY 07/05/16 Mirtazapine 15 mg PO BEDTIME 07/05/16 Oxycodone HCl [Oxycontin] 30 mg PO BID 07/05/16 Pantoprazole Sodium [Protonix] 1 tab PO DAILY 07/05/16 Zolpidem Tartrate [Ambien] 10 mg PO BEDTIME 07/05/16 Budesonide/Glycopyr/Formoterol [Breztri Aerosphere Inhaler] 2 puff IH BID 10/23/22 Gabapentin 300 mg PO BID 10/23/22 Rosuvastatin [Crestor*] 5 mg PO DAILY 10/23/22 Ferrous Sulfate 325 mg PO TID 05/23/23 Amlodipine [Norvasc] 5 mg PO DAILY 06/04/23 Mirtazapine 7.5 mg PO BEDTIME 06/04/23 - Past Medical/Surgical History Diabetic: Yes -: Lupus -: HTN -: DM II -: COPD-home 02 3L -: GERD -: CKD III (Dr. Townsend/ Dr. Araujo) -: Colon cancer Psychosocial/ Personal History: unable to obtain - Social History Alcohol use: No CD- Drugs: No Caffeine use: Yes Review of Systems General: Weakness, Malaise Eyes: Unremarkable ENT: Unremarkable Respiratory: Unremarkable Cardiovascular: Unremarkable Gastrointestinal: Unremarkable Genitourinary: Unremarkable Musculoskeletal: Unremarkable Integumentary: Unremarkable Neurological: Weakness Lymphatics: Unremarkable Physical Examination - Physical Exam General: Alert, Oriented x3 HEENT: Atraumatic, Normocephalic Neck: Supple Respiratory: Normal air movement Cardiovascular: Regular rate/rhythm, Normal S1 S2 Gastrointestinal: Soft and benign Musculoskeletal: No swelling Neurological: Normal speech, Normal strength at 5/5 x4 extr - Studies Laboratory Data (last 24 hrs) 06/03/23 06/03/23 06/03/23 23:21 23:21 23:21 WBC 14.90 H Hgb 13.1 Hct 39.5 Plt Count 444 H PT 12.1 INR 1.10 APTT 35.9 Sodium 140 Potassium 3.6 BUN 20 H Creatinine 1.65 H Glucose 94 Magnesium 2.1 Total Bilirubin 0.3 AST 30 ALT 21 Alkaline Phosphatase 61 Assessment and Plan - Plan UTI: There is significant concern for urinary tract infection based on clinical presentation. Will continue empiric antibiotic therapy of Rocephin pending further review. Weakness: She did have orthostatic vitals. There is concern for medication side effect. Will hold all sedating meds. Hold all antihypertensive medication. Continue to statin further management. Continue IV fluid for hydration purposes. Hyperlipidemia: Continue statin therapy. Prophylaxis: Lovenox for DVT prophylaxis. CODE STATUS: Full code. Disposition: We will treat her multiple medical issues and she will be discharged when she is deemed clinically stable. - Advance Directives Does patient have a Living Will: No Does patient have a Durable POA for Healthcare: No
[2023-06-04 04:49] VITALS: BMI 23.1
[2023-06-04 06:33] LABS: Arterial Blood Carboxyhemoglob 0.7 % (0-1.5); Blood Gas Oxyhemoglobin 91.4 % (94-97); Blood O2 Saturation 93.2 % (92-98.5)
[2023-06-04 08:15] LABS: Absolute Lymphocytes (CBC) 1.5 K/uL (0.7-4.9); Hematocrit 37.1 % (36.0-45.0); MCV 82.1 fL (80-100); MPV 9.7 fL (7.6-11.3); Platelets 398 thou/uL (152-406); RBC Red Blood Cell Count 4.52 M/uL (3.86-4.86)
--- NOTE | 2023-06-04 08:20 | P.PN ---
Date of Service: 06/04/23 Subjective: Feeling a little better decreased PO intake last few days Reports compliance with home meds. Denies taking extra meds denies UTI symptoms, feels breathing is okay afebrile ROS: 10 point ROS as noted above, otherwise negative Physical Exam: GEN: Alert, oriented, NAD HEENT: Normal conjunctiva, sclera anicteric, CV: Regular rate and rhythm, no edema Pulm: Nonlabored respirations on room air, clear bilaterally ABD: soft, nontender, nondistended Neuro: Normal speech, normal affect Problem List: JERRY on CKD3 Orthostatic Hypotension Recent Fall Chronic COPD -on chronic home O2 Hypertension Hyperlipidemia Lupus Chronic pain NIDDM2 JERRY on CKD3 Orthostatic Hypotension Recent Fall Patient had a fall at home. Orthostatic positive per EMS. Reported weakness, +decreased PO intake last few days. Patient reports compliance with meds at home. Suspect secondary to poor PO intake / possibly complicated by new prescriptions - Recent new prescriptions for lisinopril hcl on 05/29 and amlodipine on 05/31 that could be contributing. BP responded well to fluid bolus. Continue IV fluids Continue to monitor renal function Creatinine improving CT head/spine (06/03): No acute intracranial abnormalities. No acute fracture involving cervical spine. Mild degenerative changes xray pelvis (06/03): no acute fracture or dislocation CXR (06/03): mildly enlarged heart with mild central congestion. no infiltrate Check urinalysis PT consult Hypertension Hold all antihypertensives for now continue IV fluids Chronic COPD -on chronic home O2 Hyperlipidemia Lupus Chronic pain confirm home meds, restart as appropriate NIDDM2 ACHS accucheck, SSI VTE: Lovenox Code: Full Dispo: SNF, ~2-3 days PT to eval for SNF
[2023-06-04 08:31] LABS: Albumin 2.6 g/dL (3.4-5.0); Bilirubin Total 0.3 mg/dL (0.2-1.0); Magnesium 2.2 mg/dL (1.6-2.4); Potassium 3.2 mEq/L (3.5-5.1); Protein, Total 5.6 g/dL (6.4-8.2)
[2023-06-04] MEDS: ENOXAPARIN 40 MG/0.4 ML SQ SCH (08:34)
[2023-06-04] MEDS: PANTOPRAZOLE 40MG TABLET PO SCH (08:34)
[2023-06-04] MEDS: NA CHLORIDE 0.9% 1,000 ML IV SCH (08:42)
--- NOTE | 2023-06-04 10:15 | RAD REPORT ---
EXAM DESCRIPTION: CT - Head C Spine Mpr Wo Con - 06/04/2023 6:41 am CLINICAL HISTORY: 67 years Female TRAUMA COMPARISON: None TECHNIQUE: Images were obtained in axial, sagittal, and coronal planes. Mild motion artifact. This exam was performed according to our departmental dose-optimization program which includes use of Automated Exposure Control, adjustment of the mA and/or kV according to patient size and/or use of iterative reconstruction technique. FINDINGS: CT brain: Ventricular system appears normal. No abnormal areas of increased attenuation se en. No extra-axial fluid collections noted. No definite skull fracture. Calvarial evaluation somewhat limited related to motion artifact. Symmetric aeration of mastoid air cells bilaterally. Unremarkabl e paranasal sinuses. CT cervical spine: Height of the vertebral bodies is intact. Satisfactory alignment articular facets. Marginal spur formation with neural foraminal narrowing bilaterally C4-5 and C5-6 levels. Intact odo ntoid and predental space. Prevertebral soft tissues appear normal. Intact occipital condyles. Intact C1. Posterior elements intact on all levels. Chronic changes lung apices bilaterally. No focal disc protrusion. IMPRESSION: 1. No acute intracranial abnormality. No evidence for hemorrhage, mass lesion, or larg e acute infarction. 2. No acute fracture or subluxation involving the cervical spine. Mild degenerative change. Electronically signed by: Patti Ventura MD 06/04/2023 12:04 AM MOLECULAR PHYSICIST Due to temporary technical issues with the PACS/Fluency reporting system, reports are being signed by the in house radiologists without review as a courtesy to insure prompt reporting. The interpreting radiologist is fully responsible for the content of the report.
--- NOTE | 2023-06-04 10:56 | RAD REPORT ---
EXAM DESCRIPTION: RAD - Pelvis - 06/03/2023 11:34 pm CLINICAL HISTORY: 67 years Female TRAUMA COMPARISON: None TECHNIQUE: AP view of the pelvis was obtained. FINDINGS: No acute fracture seen. Degenerative changes lower lumbar spine. Mild dextroscoliosis. Pelvic calcifications likely vascular in nature. IMPRESSION: No acute fracture or dislocation seen. Electronically signed by: Patti Ventura MD 06/03/2023 11:46 PM KILN BURNER Due to temporary technical issues with the PACS/Fluency reporting system, reports are being signed by the in house radiologists without review as a courtesy to insure prompt reporting. The interpreting radiologist is fully responsible for the content of the report.
--- NOTE | 2023-06-04 12:29 | P.CNS ---
Date of Consult: 06/04/23 Reason for Consult: History of COPD Chief Complaint: Weakness, fall. History of Present Illness: Patient is 67 years of age was just recently discharged she was doing well she went to see her doctor who prescribed another blood pressure pills became weak and recall anything went to sleep apparently she had a fall and EMS was called denies any fever chills cough no worsening of shortness of breath her blood pressure is little low Allergies aspirin Allergy (Verified 07/05/16 09:02) Unknown codeine Allergy (Verified 07/05/16 09:02) Unknown tramadol HCl [From Ultram] Allergy (Verified 10/24/22 14:11) Unknown SULFA (SULFONAMIDES) Allergy (Unknown, Uncoded 07/05/16 09:02) Unknown Home Medications: Clopidogrel Bisulfate [Plavix] 75 mg PO DAILY 07/05/16 Mirtazapine 15 mg PO BEDTIME 07/05/16 Oxycodone HCl [Oxycontin] 30 mg PO BID 07/05/16 Pantoprazole Sodium [Protonix] 1 tab PO DAILY 07/05/16 Zolpidem Tartrate [Ambien] 10 mg PO BEDTIME 07/05/16 Budesonide/Glycopyr/Formoterol [Breztri Aerosphere Inhaler] 2 puff IH BID 10/23/22 Gabapentin 300 mg PO BID 10/23/22 Rosuvastatin [Crestor*] 5 mg PO DAILY 10/23/22 Ferrous Sulfate 325 mg PO TID 05/23/23 Amlodipine [Norvasc] 5 mg PO DAILY 06/04/23 Mirtazapine 7.5 mg PO BEDTIME 06/04/23 - Past Medical/Surgical History Diabetic: Yes -: Lupus -: HTN -: DM II -: COPD-home 3L -: GERD -: CKD III (Dr. Townsend/ Dr. Araujo) -: Colon cancer Psychosocial/ Personal History: unable to obtain - Social History Smoking Status: Former smoker Alcohol use: No CD- Drugs: No Caffeine use: Yes Review of Systems 10-point ROS is otherwise unremarkable General: Weakness Physical Examination Temp Pulse Resp BP Pulse Ox 97.4 F 66 19 90/55 L 100 06/04/23 08:00 06/04/23 08:00 06/04/23 08:00 06/04/23 08:00 06/04/23 08:00 General: Alert, Oriented x3 Respiratory: Clear to auscultation bilaterally, Diminished Cardiovascular: No edema, Regular rate/rhythm, Normal S1 S2 Gastrointestinal: Normal bowel sounds, Soft and benign Laboratory Data (last 24 hrs) 06/03/23 06/03/23 06/03/23 23:21 23:21 23:21 WBC 14.90 H Hgb 13.1 Hct 39.5 Plt Count 444 H PT 12.1 INR 1.10 APTT 35.9 Sodium 140 Potassium 3.6 BUN 20 H Creatinine 1.65 H Glucose 94 Magnesium 2.1 Total Bilirubin 0.3 AST 30 ALT 21 Alkaline Phosphatase 61 - Problems (1) COPD (chronic obstructive pulmonary disease) Current Visit: Yes Status: Acute Plan: Patient has a history of COPD currently stable mild renal insufficiency otherwise labs unremarkable oxygen satisfactory patient is orthostatic of course she may have adrenal insufficiency not taking any prednisone will resume with IV fluids physical therapy recent history of significant depression plan for discharge possible 1 or 2 days patient's chest x-ray is clear Qualifiers: Emphysema type: unspecified
--- NOTE | 2023-06-04 12:39 | RAD REPORT ---
EXAM DESCRIPTION: RAD - Chest Single View - 06/03/2023 11:34 pm CLINICAL HISTORY: 67 years Female fall COMPARISON: None TECHNIQUE: AP view of the chest was obtained. FINDINGS: Cardiac silhouette is mildly enlarged. Central vessels are mildly increased. Marked overly ing soft tissue and the diaphragms bilaterally. No infiltrates or effusions seen. No consolidation. No pneumothorax. IMPRESSION: Mildly enlarged heart with mild central congestion. No infiltrates seen. Electronically signed by: Patti Ventura MD 06/03/2023 11:47 PM G[employer] PAD MAKER Due to temporary technical issues with the PACS/Fluency reporting system, reports are being signed by the in house radiologists without review as a courtesy to insure prompt reporting. The interpreting radiologist is fully responsible for the content of the report.
[2023-06-04] MEDS: predniSONE 20 MG TAB PO SCH (13:55)
[2023-06-04] MEDS: ACETAMINOPHEN 325 MG TABLET PO PRN (16:12)
[2023-06-04 20:18] LABS: Specific Gravity 1.027 (1.005-1.030); Urine Bacteria >50 /HPF (<20); Urine Bilirubin NEGATIVE (Negative); Urine Blood 1+ (Negative); Urine Clarity Extremely Turbid (Clear); Urine Color Orange (Yellow); Urine Glucose NEGATIVE (Negative); Urine Protein 1+ (Negative); Urine RBC <5 /HPF (None Seen); Urine Urobilinogen Normal (Normal); Urine pH 5.5 (5.0-7.0)
[2023-06-04] MEDS: HOME MED 1 EA UNK (Budesonide/Glycopyr/Formoterol [Breztri Aerosphere Inhaler] 10.7 GM Hfa IH SCH (21:00)
[2023-06-04] MEDS: TRAMADOL HCL 50 MG TAB PO ONE (21:04)
[2023-06-04] MEDS: MORPHINE 2 MG/ML SYR IV ONE (21:23)
[2023-06-05 06:37] LABS: Potassium 3.4 mEq/L (3.5-5.1)
[2023-06-05] MEDS: NA CHLORIDE 0.9% 1,000 ML IV SCH (06:45)
[2023-06-05 07:07] LABS: Absolute Lymphocytes (CBC) 0.5 K/uL (0.7-4.9); Hematocrit 35.9 % (36.0-45.0); Lymphocytes % 4.9 % (15.3-44.8); MCV 81.6 fL (80-100); MPV 9.5 fL (7.6-11.3); Platelets 382 thou/uL (152-406)
[2023-06-05] MEDS: ROSUVASTATIN 5 MG TAB PO SCH (08:00)
[2023-06-05] MEDS: OXYCODONE *CR* 10 MG TAB PO SCH (08:01)
[2023-06-05] MEDS: POTASSIUM CL SA 10 MEQ TAB PO ONE (08:01)
[2023-06-05] MEDS: CLOPIDOGREL 75 MG TABLET PO SCH (08:01)
[2023-06-05] MEDS: OXYCODONE *CR* 20 MG TAB PO SCH (08:02)
[2023-06-05 08:10] LABS: Platelet Estimate ADEQ; White Blood Cell Scan OK (OK)
[2023-06-05 08:11] LABS: Blood Morphology Comment NOT SEEN (NOT SEEN)
[2023-06-05] MEDS ORDERED: OXYCODONE HCL 10 MG PO SCH (09:00)
--- NOTE | 2023-06-05 09:38 | P.PN ---
Date of Service: 06/05/23 Subjective: Feels ~same. Doesn't feel worse or better Reports recent amlodipine prescription was a refill she has been previously taking working with PT. ambulating with assistance / RW BP improving - in 130-140s today afebrile ROS: 10 point ROS as noted above, otherwise negative Physical Exam: GEN: Alert, oriented, NAD HEENT: Normal conjunctiva, sclera anicteric, CV: Regular rate and rhythm, no edema Pulm: Nonlabored respirations on 2L NC, clear bilaterally ABD: soft, nontender, nondistended Neuro: Normal speech, normal affect Problem List: JERRY on CKD3 Orthostatic Hypotension Recent Fall Hypertension Chronic COPD -on chronic home O2 Hyperlipidemia Lupus Chronic pain NIDDM2 JERRY on CKD3 Orthostatic Hypotension Recent Fall Patient had a fall at home. Orthostatic positive per EMS. Reported weakness, +decreased PO intake last few days. Patient reports compliance with meds at home. Suspect secondary to poor PO intake / possibly complicated by new prescription - Recent new prescription for lisinopril hctz on 05/29 BP responded well to fluid bolus. continue IV fluids; decreased 06/05 Continue to monitor renal function Creatinine improving CT head/spine (06/03): No acute intracranial abnormalities. No acute fracture involving cervical spine. Mild degenerative changes xray pelvis (06/03): no acute fracture or dislocation CXR (06/03): mildly enlarged heart with mild central congestion. no infiltrate Continue PT Hypertension Hold all antihypertensives for now continue IV fluids; decreased 06/05 BP improving Chronic COPD -on chronic home O2 Hyperlipidemia Lupus continue home meds as appropriate Chronic pain restarted home oxycontin 06/05 NIDDM2 ACHS accucheck, SSI VTE: Lovenox Code: Full Dispo: SNF, ~2-3 days ss/cm consulted for possible SNF. Patient unsure about dispo planning. States she will think about SNF, other options.
--- NOTE | 2023-06-05 14:43 | EKG ---
Test Date: 2023-06-03 Test Time: 22:57:48 Canary Breeder: MARÍA ELENA MEASUREMENT RESULTS: Intervals: Rate: 86 FL: 162 QRSD: 92 QT: 370 QTc: 442 [place]: P: 74 FL: 162 QRS: -63 T: 64 INTERPRETIVE STATEMENTS: Normal sinus rhythm Incomplete right bundle branch block Left anterior fascicular block Nonspecific T wave abnormality Abnormal ECG Compared to ECG 05/22/2023 13:45:12 Left anterior fascicular block now present T-wave abnormality now present Left-axis deviation no longer present Electronically Signed On 06-05-23 14:41:13 [employer] by Estevan Al
[2023-06-06 06:36] LABS: Magnesium 1.9 mg/dL (1.6-2.4); Potassium 4.6 mEq/L (3.5-5.1)
[2023-06-06 06:37] LABS: Absolute Lymphocytes (CBC) 0.7 K/uL (0.7-4.9); Hematocrit 32.6 % (36.0-45.0); Lymphocytes % 4.5 % (15.3-44.8); MCV 82.4 fL (80-100); MPV 10.2 fL (7.6-11.3); Platelets 322 thou/uL (152-406); RBC Red Blood Cell Count 3.96 M/uL (3.86-4.86)
[2023-06-06 07:48] LABS: Blood Morphology Comment NOT SEEN (NOT SEEN); Platelet Estimate ADEQ; White Blood Cell Scan OK (OK)
[2023-06-06 09:11] VITALS: O2SAT 98
--- NOTE | 2023-06-06 09:35 | P.PN ---
Date of Service: 06/06/23 Subjective: Feeling a little better. no new / worsening problems working with PT. Slowly improving - able to ambulate a little farther than the day before BP improved afebrile ROS: 10 point ROS as noted above, otherwise negative Physical Exam: GEN: Alert, oriented, NAD HEENT: Normal conjunctiva, sclera anicteric, CV: Regular rate and rhythm, no edema Pulm: Nonlabored respirations on 1L NC, clear bilaterally ABD: soft, nontender, nondistended Neuro: Normal speech, normal affect Problem List: JERRY on CKD3, improved Orthostatic Hypotension Recent Fall Hypertension Chronic COPD -on chronic home O2 Hyperlipidemia Lupus Chronic pain NIDDM2 JERRY on CKD3, improved Orthostatic Hypotension Recent Fall Patient had a fall at home. Orthostatic positive per EMS. Reported weakness, +decreased PO intake last few days. Patient reports compliance with meds at home. Suspect secondary to poor PO intake / possibly complicated by new prescription - Recent new prescription for lisinopril hctz on 05/29 BP responded well to fluid bolus. IV fluids dc'd today. Encourage liberal PO intake Continue to monitor renal function Creatinine improved CT head/spine (06/03): No acute intracranial abnormalities. No acute fracture involving cervical spine. Mild degenerative changes xray pelvis (06/03): no acute fracture or dislocation CXR (06/03): mildly enlarged heart with mild central congestion. no infiltrate elevated white count likely reactive to steroids Continue PT Hypertension Hold all antihypertensives for now IV fluids dc'd today. BP improved Chronic COPD -on chronic home O2 Hyperlipidemia Lupus continue home meds as appropriate Chronic pain restarted home oxycontin 06/05 NIDDM2 ACHS accucheck, SSI VTE: Lovenox Code: Full Dispo: - [facility], Today vs earliest Friday. ss/cm consulted for SNF - Pending authorization
[2023-06-06 15:25] VITALS: BP 128/78; TEMP 98.5
--- NOTE | 2023-06-07 10:03 | P.DS ---
Admission Date: 06/05/23 Discharge Date: 06/06/23 Disposition: TRANSFER TO SNF - REHAB Discharge Condition: FAIR Reason for Admission: Weakness, fall. Consultations: Pulmonology - Dr. Cai Brief History of Present Illness: 67 yo F, PMH: COPD, diabetes type 2, CKD stage III, hypertension, hyperlipidemia Patient was evaluated for episode of weakness and fall. She had reported weakness and fall at home and was found to be orthostatic so she was started on IV fluid in the emergency room. Initial lab was concerning for elevated creatinine 1.5 however UA was pending at time of review. She reported no episode of fever, chills, rigor, nausea, vomiting, diarrhea. She was deemed to be having side effect of multiple medication which include exudative meds and pain control meds. She was admitted for inpatient care. Hospital Course: Problem List: JERRY on CKD3, improved Orthostatic Hypotension Recent Fall Hypertension Chronic COPD -on chronic home O2 Hyperlipidemia Lupus Chronic pain NIDDM2 Patient presented with generalized weakness, low blood pressure, decreased PO intake last few days. Per EMS patient was +orthostatic at the time. Patient was found to have an JERRY with a serum creatinine of 1.[address] head/spine was negative for any acute intracranial / cervical abnormalities. Xray pelvis without acute fracture / dislocations. Blood pressure and creatinine responded well to IV fluids and returned to normal. Suspect multifactorial etiology secondary to poor PO intake and further exacerbated by recent losartan/HCTZ that was started on 05/29. Patient was feeling better, BP improved, renal function improved, and was deemed stable for discharge to SNF where she can continue to improve strength / endurance to return to prior level of function before returning home. Patients blood pressure has been relatively stable in 120-140s off her losartan- hctz. Advised to continue to hold off on this medication for now and follow up with her physicians. Check blood pressure daily. Keep daily log of BP readings to take to follow up appointments in case antihypertensives need to adjusted / restarted. Ok to res tart amlodipine with monitoring. Dr. Cai - pulm was consulted given patient was recently discharged ~1 week ago for COPD exacerbation / acute respiratory failure. Patient denied any worsening shortness of breath / respiratory problems this hospitalization. Patient was breathing comfortably on her home O2 settings. Follow up with Dr. Cai in next 2-4 weeks. She received prednisone while hospitalized and is to finish 1 month script 10mg daily as previously prescribed per Dr. Cai earlier this month. Medications: Stop losartan hctz continue prednisone 10mg daily until follow up with Dr. Cai Follow up: PCP 3-5 days Pulm 2-4 weeks Physical Exam: GEN: Alert, oriented, NAD HEENT: Normal conjunctiva, sclera anicteric, CV: Regular rate and rhythm, no edema Pulm: Nonlabored respirations on 1L NC, clear bilaterally ABD: soft, nontender, nondistended Neuro: Normal speech, normal affect Vital Signs/Physical Exam: Temp Pulse Resp BP Pulse Ox 98.5 F 78 16 128/78 94 06/06/23 12:00 06/06/23 12:00 06/06/23 12:00 06/06/23 12:00 06/06/23 12:00 Laboratory Data at Discharge: WBC 14.60 thou/uL (4.3-10.9) H 06/06/23 05:05 Hgb 10.7 g/dL (12.0-15.0) L D 06/06/23 05:05 Hct 32.6 % (36.0-45.0) L 06/06/23 05:05 Plt Count 322 thou/uL (152-406) 06/06/23 05:05 PT 12.1 SECONDS (9.5-12.5) 06/03/23 23:21 INR 1.10 06/03/23 23:21 APTT 35.9 SECONDS (24.3-36.9) 06/03/23 23:21 Sodium 140 mEq/L (136-145) 06/06/23 05:05 Potassium 4.6 mEq/L (3.5-5.1) 06/06/23 05:05 BUN 20 mg/dL (7-18) H 06/06/23 05:05 Creatinine 0.99 mg/dL (0.55-1.02) 06/06/23 05:05 Glucose 110 mg/dL (74-106) H 06/06/23 05:05 Magnesium 1.9 mg/dL (1.6-2.4) 06/06/23 05:05 Total Bilirubin 0.3 mg/dL (0.2-1.0) 06/04/23 08:07 AST 16 U/L (15-37) 06/04/23 08:07 ALT 21 U/L (13-56) 06/04/23 08:07 Alkaline Phosphatase 52 U/L (45-117) 06/04/23 08:07 Home Medications: Clopidogrel Bisulfate [Plavix] 75 mg PO DAILY 07/05/16 Mirtazapine 15 mg PO BEDTIME 07/05/16 Oxycodone HCl [Oxycontin] 30 mg PO BID 07/05/16 Pantoprazole Sodium [Protonix] 1 tab PO DAILY 07/05/16 Zolpidem Tartrate [Ambien] 10 mg PO BEDTIME 07/05/16 Budesonide/Glycopyr/Formoterol [Breztri Aerosphere Inhaler] 2 puff IH BID 10/23/22 Gabapentin 300 mg PO BID 10/23/22 Rosuvastatin [Crestor*] 5 mg PO DAILY 10/23/22 Ferrous Sulfate 325 mg PO TID 05/23/23 Amlodipine [Norvasc*] 5 mg PO DAILY 06/04/23 Mirtazapine 7.5 mg PO BEDTIME 06/04/23 predniSONE [Deltasone*] 10 mg PO DAILY 30 Days #30 tab 06/06/23 New Medications: predniSONE [Deltasone*] 10 mg PO DAILY 30 Days #30 tab Physician Discharge Instructions: Patient presented with generalized weakness, low blood pressure, decreased PO intake last few days. Per EMS patient was +orthostatic at the time. Patient was found to have an JERRY with a serum creatinine of 1.[address] head/spine was negative for any acute intracranial / cervical abnormalities. Xray pelvis without acute fracture / dislocations. Blood pressure and creatinine responded well to IV fluids and returned to normal. Suspect multifactorial etiology secondary to poor PO intake and further exacerbated by recent losartan/HCTZ that was started on 05/29 Patient was feeling better, BP improved, renal function improved, and was deemed stable for discharge to SNF where she can continue to improve strength / endurance to return to prior level of function before returning home. Patients blood pressure has been relatively stable in 120-140s off her losartan- hctz. Advised to continue to hold off on this medication for now and follow up with her physicians. Check blood pressure daily. Keep daily log of BP readings to take to follow up appointments in case antihypertensives need to adjusted / restarted. Ok to restart amlodipine with monitoring. Dr. Cai - pulm was consulted given patient was recently discharged ~1 week ago for COPD exacerbation / acute respiratory failure. Patient denied any worsening shortness of breath / respiratory problems this hospitalization. Patient was breathing comfortably on her home O2 settings. Follow up with Dr. Cai in next 2-4 weeks. She received prednisone while hospitalized and is to finish 1 month script 10mg daily as previously prescribed per Dr. Cai earlier this month. Medications: Stop losartan hctz continue prednisone 10mg daily until follow up with Dr. Cai Follow up: PCP 3-5 days Pulm 2-4 weeks Followup: Dominick Cai MD [ACTIVE - CAN ADMIT] - (F/U in 2-4 weeks) NONE,NONE [Primary Care Provider] - Time spent managing pt's care (in minutes): 45
== END 2023-06-06 16:00 | DRG 684 ==
LOC: ER 22:17 → ERHOLD 06-04 02:11 → 4TH 06-04 03:21 → OBSVTOIN 06-05 12:59
PROVIDERS: ADMIT Internal Medicine Nephrology; ATTEND Hospitalist
DX: N17.9 Acute kidney failure, unspecified (principal); I12.9 Hypertensive chronic kidney disease with stage 1 through stage 4 chronic kidney disease, or unspecified chronic kidney disease; N18.30 Chronic kidney disease, stage 3 unspecified; E11.22 Type 2 diabetes mellitus with diabetic chronic kidney disease; E78.5 Hyperlipidemia, unspecified; K21.9 Gastro-esophageal reflux disease without esophagitis; M32.9 Systemic lupus erythematosus, unspecified; I95.1 Orthostatic hypotension; J43.9 Emphysema, unspecified; G89.29 Other chronic pain; M54.9 Dorsalgia, unspecified; Z88.2 Allergy status to sulfonamides; Z88.5 Allergy status to narcotic agent; Z88.6 Allergy status to analgesic agent; Z79.52 Long term (current) use of systemic steroids; Z79.02 Long term (current) use of antithrombotics/antiplatelets; Z86.73 Personal history of transient ischemic attack (TIA), and cerebral infarction without residual deficits; Z99.81 Dependence on supplemental oxygen; Z79.899 Other long term (current) drug therapy; Z87.891 Personal history of nicotine dependence; Z85.038 Personal history of other malignant neoplasm of large intestine; W19.XXXA Unspecified fall, initial encounter; Y92.9 Unspecified place or not applicable; Y93.9 Activity, unspecified; Y99.9 Unspecified external cause status
CPT/HCPCS: 36415; 36600; 70450; 71045; 72125; 72170; 80048; 80053; 80076; 81001; 82805; 83735; 84132; 84484; 85025; 85610; 85730; 93005; 97116; 97161; 97530; 99285; G0378; J1650; J2270; J7030; J7512